=== PATIENT | female | born 1965 | race Caucasian/White ===

== ENCOUNTER → 2020-01-04 10:41 | Outpatient (BNVA) | payer MEDICAID, SELFPAY | PROVIDERS: Family Provider Family Medicine; PCP Family Medicine; Visit Provider Nurse Practitioner | DX: F41.1 Generalized anxiety disorder (principal); F43.12 Post-traumatic stress disorder, chronic | CPT/HCPCS: 99213 ==

== ENCOUNTER 2020-01-04 11:01 | Observation (INO) | payer MEDICAID, SELFPAY ==
[2020-01-04] VITALS (11 sets, daily range): BP systolic 91–142; BP diastolic 47–98; PULSE 62–82; RESP 16–31; TEMP 36.7–37.2; O2SAT 92–98; BMI 28.8
--- NOTE | 2020-01-04 11:09 | ED_ITS ---
Entered by Ilsa Claudio, acting as scribe for Ashlee Baker HPI - Chest Pain General: Chief Complaint: Chest Pain Stated Complaint: Chest pain Time Seen by Provider: 01/04/20 11:08 Source: patient Mode of arrival: ambulatory Limitations: no limitations History of Present Illness: HPI narrative: 54 yo Female presents to ED with complaint of chest pain and pancreas pain. Pt states that her pancreas started hurting several days ago. Pt states that she still has her gallbladder and has high glycerides. Pt states that she has a cardiac history with 11 cardiac jen nts. Pt states that her chest pain started this morning. Pt states that she took 2 nitro with no relief and an 81 mg aspirin. MD complaint: chest pain Pertinent past history: prior DE and CABG Onset (ago): hour(s) Timing of current episode: constant and still present Prior episodes: Yes Onset: during rest Pain location: substernal Pain radiation: right arm and neck Quality: tightness and heaviness Relieving factors: nothing Exacerbating factors: nothing Associated symptoms: Reports abdominal pain, dyspnea and nausea; Deny diaphoresis, fever(s), palpitations or syncope Treatment prior to arrival: aspirin and nitroglycerin Review of Systems General: Reports: other (negative unless marked) Const: Denies: fever, chills, body aches, fatigue, malaise or diaphoresis Eyes: Denies: change in vision or blurry vision ENMT: Denies: throat pain, painful swallowing, hoarseness, ear pain, ear discharge, Change in hearing or nasal discharge Card: Reports: chest pain; Denies: palpitations, irregular heart rhythm, syncope, pre-syncope, shortness of breath on exertion or shortness of breath when lying down Resp: Reports: shortness of breath GI: Reports: abdominal pain and nausea : Denies: flank pain, painful urination, urinary frequency, urinary urgency, decreased urine ouput, urinary incontinence or blood in urine Musc: Denies: neck pain, back pain, extremity pain, extremity swelling, joint pain, joint swelling, joint warmth or joint stiffness Skin/Breast: Denies: rash, skin tenderness or yellow skin Neuro: Denies: headache, numbness in extremities, weakness in extremities, changes in sensation, lack of coordination, difficulty walking, dizziness, vertigo or confusion Endo: Denies: excessive thirst, tired all the time, cold intolerance, excessive sweating, flushing or hot flashes [place]/Lymph: Denies: easy bruising, easy bleeding, petechiae or enlarged lymph nodes All/Imm: Denies: hives, throat swelling, tongue swelling, facial swelling or acute wheezing PFSH ED PFSH: Statuses (acute, chronic, etc) shown below reflect problem list status as previously entered and may not be historically accurate Medical History (Updated 01/04/20 @ 19:17 by Aslhee Baker) Coronary artery disease (Acute) Depression with anxiety (Acute) Generalized anxiety disorder (Acute) GERD (gastroesophageal reflux disease) (Acute) Hypertension (Acute) Hypertriglyceridemia (Acute) Insulin dependent diabetes mellitus (Acute) Irritable bowel syndrome (Acute) Pancreatitis (Acute) Post-traumatic stress disorder, chronic (Acute) Ulcerative colitis (Acute) Surgical History (Updated 01/04/20 @ 15:49 by Alice Moura MD) H/O tubal ligation (Acute) H/O: hysterectomy (Acute) History of carpal tunnel surgery (Acute) Hx of tonsillectomy (Acute) S/P CABG x 4 (Acute) S/P coronary artery stent placement (Acute) Family History (Updated 01/04/20 @ 15:49 by Alice Moura MD) Mother Dementia Father CAD (coronary artery disease) Social History (Updated 01/04/20 @ 15:49 by Alice Moura MD) Smoking and tobacco status: former smoker Alcohol intake: never Substance/Drug Use: never Physical Exam Const: COMMON NORMALS: no apparent distress, oriented x3, no limitations, healthy appearing and well nourished EXAM LIMITATIONS: no altered mental status GENERAL APPEARANCE: cooperative, well kempt and well developed ORIENTATION/CONSCIOUSNESS: Yes awake HENMT: COMMON NORMALS: normocephalic, head/scalp atraumatic, hearing grossly normal bilaterally, external ears normal, EAC's normal, external nose normal and moist oral mucous membranes HEAD & SCALP: normal to inspection, normocephalic and atraumatic FACE & SINUS: normal facial exam and face symmetric NOSE: external nose normal and nares normal EXTERNAL EAR: Yes external ears normal EXTERNAL AUDITORY CANAL: EAC's normal MOUTH: oral and palatal mucosa normal and tongue normal Eye: COMMON NORMALS: PERRL, EOMs intact bilaterally, conjunctivae normal and no scleral icterus GENERAL EYE: normal appearance of both eyes and normal light reflex CONJUNCTIVA: Yes conjunctivae normal SCLERA: sclerae normal CORNEA: Yes corneas normal PUPIL: Yes PERRL DIRECT OPHTHALMOSCOPY: Yes normal light reflex Neck/C-Spine: COMMON NORMALS: full ROM, no lymphadenopathy, supple, no meningeal signs and no JVD GENERAL: Yes normal visual inspection and Yes trachea midline CERVICAL SPINE: Yes cervical ROM normal Chest: COMMONS NORMALS: inspection of chest normal and palpation of chest normal Resp: COMMON NORMALS: normal respiratory effort, no retractions, no use of accessory muscles and clear to auscultation bilaterally EFFORT & INSPECTION: Yes able to speak in complete sentences AUSCULTATION: clear to auscultation bilaterally Cardio: COMMON NORMALS: no JVD, regular rate, regular rhythm, S1 normal heart sound, S2 normal heart sound, no gallops, no clicks, no murmurs and no rub JUGULAR VENOUS DISTENTION: no JVD RATE: regular rate RHYTHM: regular rhythm HEART SOUNDS: S1 normal and S2 normal GI: COMMON NORMALS: soft to palpation, non-tender, no hepatosplenomegaly and no masses INSPECTION: Yes normal to inspection PALPATION: Yes soft and Yes no hepatosplenomegaly : COMMON NORMALS: Yes no CVA tenderness BLADDER/KIDNEY EXAM: Yes no CVA tenderness Back/Pelvis: COMMON NORMALS: no CVA tenderness, thoracic and lumbar spine normal to inspection, no thoracic nor lumbar tenderness and thoraco-lumbar ROM normal Extremity: COMMON NORMALS: normal to inspection, full ROM, normal capillary refill, no joint enlargement, no clubbing, cyanosis or edema and no calf tenderness Neuro: COMMON NORMALS: oriented x3, CN's II-XII intact bilaterally, moves all extremities, no focal motor deficits and no sensory deficits noted MENINGEAL SIGNS: Yes no meningeal signs Psych: COMMON NORMALS: mental status grossly normal, thought process normal, cooperative, affect normal, speech normal and activity/motor behavior normal APPEARANCE: Yes well kempt SPEECH: Yes normal speech THOUGHT PROCESS: normal thought process Skin: COMMON NORMALS: no rashes or lesions noted, skin turgor normal, no jaundice, no petechiae and no mottling GENERAL SKIN EXAM: no rashes or lesions noted and turgor normal Course Vital Signs: Vital signs: Vital Signs Temperature 98.6 F 01/04/20 16:00 Pulse Rate 71 01/04/20 16:25 Respiratory Rate 21 H 01/04/20 16:25 Blood Pressure 115/74 01/04/20 16:25 Pulse Oximetry 96 01/04/20 16:25 MDM - Chest Pain MDM Narrative: Medical decision making narrative: Patient's case was reviewed with Dr. Lynda Daugherty, she will admit for chest pain rule out. Patient shows no sign of acute STEMI at this point and no sign of pancreatitis. Lab Data: Labs: Lab Results 01/04/20 01/04/20 01/04/20 Range/Units 11:40 11:40 11:40 WBC 8.4 (4.0-10.0) 10^3/ uL RBC 4.70 (4.1-5.3) 10^6/u L Hgb 13.0 (11.5-15.3) g/dL Hct 40.3 (37.0-47.0) % MCV 85.7 (81-99) fL MCH 27.7 L (28.0-34.0) pg MCHC 32.3 (30.0-36.0) g/dL RDW 14.0 (12.1-15.1) % Plt Count 267 (130-400) 10^3/c mm MPV 11.3 H (7.4-10.4) fL Neut % (Auto) 62.9 % Lymph % (Auto) 32.1 % [place] % (Auto) 3.4 % Eos % (Auto) 1.0 % Baso % (Auto) 0.5 % Neut # (Auto) 5.3 (1.8-7.7) 10^3/u L Lymph # (Auto) 2.7 (0.8-4.8) 10^3/u L [place] # (Auto) 0.3 (0.2-0.9) 10^3/u L Eos # (Auto) 0.1 (0.0-0.8) 10^3/u L Baso # (Auto) 0.0 (0.0-0.1) 10^3/u L Nucleated RBC % (a uto) 0 % Nucleated RBCs # 0.0 /100WBC Sodium 133 L (136-145) mmol/L Potassium 4.7 (3.5-5.1) mmol/L Chloride 95 L (98-107) mmol/L Carbon Dioxide 21 L (22-29) mmol/L Anion Gap 21.7 H (5-19) BUN 10 (6-20) mg/dL Creatinine 0.8 (0.5-0.9) mg/dL GFR Calculation 74.7 L (90-130) mL/min Glucose 279 H (65-115) mg/dL Calcium 10.5 (8.5-10.5) mg/dL Magnesium 1.5 L (1.7-2.3) mg/dL Total Bilirubin 0.2 (0.15-1.2) mg/dL AST 25 (0-32) U/L ALT 17 (0-33) U/L Alkaline Phosphata se 169 H (35-105) IU/L Troponin T Baselin e (0-10) ng/mL Troponin T 120 Min [place] (0-10) ng/mL Delta Troponin T (0-10) ABS# NT-Pro-B Natriuret Pep 401 H (0-125) pg/mL Total Protein 7.4 (6.6-8.7) g/dL Albumin 4.1 (3.5-5.2) g/dL Globulin 3.3 (1.3-4.6) g/dL Lipase 8 L (13-60) U/L HCG, Qual Negative (Negative) 01/04/20 01/04/20 Range/Units 12:22 14:30 WBC (4.0-10.0) 10^3/ uL RBC (4.1-5.3) 10^6/u L Hgb (11.5-15.3) g/dL Hct (37.0-47.0) % MCV (81-99) fL MCH (28.0-34.0) pg MCHC (30.0-36.0) g/dL RDW (12.1-15.1) % Plt Count (130-400) 10^3/c mm MPV (7.4-10.4) fL Neut % (Auto) % Lymph % (Auto) % [place] % (Auto) % Eos % (Auto) % Baso % (Auto) % Neut # (Auto) (1.8-7.7) 10^3/u L Lymph # (Auto) (0.8-4.8) 10^3/u L [place] # (Auto) (0.2-0.9) 10^3/u L Eos # (Auto) (0.0-0.8) 10^3/u L Baso # (Auto) (0.0-0.1) 10^3/u L Nucleated RBC % (a uto) % Nucleated RBCs # /100WBC Sodium (136-145) mmol/L Potassium (3.5-5.1) mmol/L Chloride (98-107) mmol/L Carbon Dioxide (22-29) mmol/L Anion Gap (5-19) BUN (6-20) mg/dL Creatinine (0.5-0.9) mg/dL GFR Calculation (90-130) mL/min Glucose (65-115) mg/dL Calcium (8.5-10.5) mg/dL Magnesium (1.7-2.3) mg/dL Total Bilirubin (0.15-1.2) mg/dL AST (0-32) U/L ALT (0-33) U/L Alkaline Phosphata se (35-105) IU/L Troponin T Baselin e 9 (0-10) ng/mL Troponin T 120 Min [place] 8.42 (0-10) ng/mL Delta Troponin T -0.58 L (0-10) ABS# NT-Pro-B Natriuret Pep (0-125) pg/mL Total Protein (6.6-8.7) g/dL Albumin (3.5-5.2) g/dL Globulin (1.3-4.6) g/dL Lipase (13-60) U/L HCG, Qual (Negative) Imaging Data^: US Abdomen : Radiologist's impression: [address] [address] Ultrasound Report Signed Patient: Collette Kothari #: [id number] : 1965Acct#:[id number] Age/Sex: 54 / FADM Date: 01/04/20 Loc: ERRoom/Bed: Attending Dr: Ordering Provider/Ordering MD: Ashlee Baker DO Date of Service: 01/04/20 Procedure(s): US abdomen complete* [id number] Accession Number(s): [id number] Report Number: [id number] WS: [id number] Complete ABDOMINAL ULTRASOUND HISTORY: Abdominal Pain COMPARISON: 04/21/2019 Liver: 17.6 cm in length. Liver is normal size and echogenicity with no mass or intrahepatic dilatation. Gallbladder: Normally distended with no gallstones, wall thickening or pericholecystic fluid. Gallbladder wall thickness: 0.2 cm. Pancreas: Normal size and echogenicity. CBD: 0.6 cm. Right kidney: 12.1 cm x 4.2 cm x 5.5 cm. No mass, cortical thickening or hydronephrosis. Left kidney: 11.0 cm x 4.8 cm x 5.2 cm. No mass, cortical thickening or hydronephrosis. Spleen: Normal size and echogenicity. Abdominal aorta and IVC are within normal limits. No ascites. US/US abdomen complete* [id number] IMPRESSION: Normal complete abdomen ultrasound. Dictated By:Jess Hill DO Signed By:Jess Hill DOSigned Date/Time:01/04/20 1141 DD/ 1139 CXR: My impression: No acute cardiopulmonary findings. CT Abd/Pel: Radiologist's impression: [place] [address] CT Scan Report Signed Patient: Collette Kothari #: [id number] : 1965Acct#:[id number] Age/Sex: 54 / FADM Date: 01/04/20 Loc: ERRoom/Bed: Attending Dr: Ordering Provider/Ordering MD: Ashlee Baker DO Date of Service: 01/04/20 Procedure(s): CT abdomen pelvis w con* [id number] Accession Number(s): [id number] Report Number: [id number] WS: [id number] CT ABDOMEN AND PELVIS WITH CONTRAST HISTORY: Abdominal Pain TECHNIQUE: Imaging performed of the abdomen and pelvis with IV contrast. Single phase imaging of the abdomen. Coronal and sagittal reformats are submitted. All CT scans at [facility] use at least one of these dose optimization techniques: automated exposure control; mA and/or kV adjustment per patient size (includes targeted exams where dose is matched to clinical indication); or iterative reconstruction. IV CONTRAST: Omnipaque 300; 95 mL IV. Oral contrast: No DLP: 1207.3 mGy.cm COMPARISON: 10/19/2019 Lower thorax: Lung bases are clear. Heart is normal size. No hiatal hernia. Liver/biliary system: Normal size liver with the RIGHT lobe granuloma. No bile duct dilatation. Gallbladder: Normal. No gallstones or wall thickening. No pericholecystic fluid. Pancreas: Normal. Spleen: Normal. Adrenal glands: Normal. Right kidney: Normal. Left kidney: Normal. Aorta: Normal. Lymphadenopathy: None. Free fluid: None. GI tract: Moderate constipation throughout the entire colon. The appendix is definitely identified and there is no evidence for appendicitis or acute inflammatory process. Abdominal wall: Unremarkable abdominal wall. No hernia. Pelvis: Normal. Bones: Unremarkable. CT/CT abdomen pelvis w con* [id number] IMPRESSION: 1. Moderate diffuse constipation without appendicitis or obstruction. 2. No acute abdomen or pelvic abnormalities. 3. No evidence for pancreatitis or renal obstruction. Dictated By:Jess Hill DO Signed By:Jess Hill DOSigned Date/Time:01/04/201419 DD/ 09 EKG Data^: EKG 1: Attestation: I personally reviewed and interpreted this EKG as follows: EKG interpretation date: 01/04/20 EKG interpretation time: 11:12 Interpretation: Normal sinus rhythm at 84 beats a minute, normal axis, normal intervals, nonspecific ST-T wave changes. Unchanged from previous. EKG 2: Attestation: I personally reviewed and interpreted this EKG as follows: EKG interpretation date: 01/04/20 EKG interpretation time: 13:36 Interpretation: Normal sinus rhythm at 69 beats a minute, no acute ST-T wave changes. Discharge Plan Discharge Patient Disposition: Admitted As Inpatient Admit Provider: Alice Moura Clinical Impression: Chest pain Condition: Stable Interventions: ED Discharge Assessment Last Done: 01/04/20 15:47 Discharge Date/Time: 01/04/20 15:48 Coding Level of Care Code ED Psychiatric Lpn for Chg Fwd Exam Problem Focused The documentation recorded by the Shanon sen Carmen, accurately reflects the service I personally performed and the decisions made by Olivia [place] Eli N Jan 04, 2020 11:01
--- NOTE | 2020-01-04 11:09 | XR_ITS ---
WS: [id number] PORTABLE CHEST HISTORY: cough COMPARISON: 10/19/2019 Prior CABG. Lungs are clear and well expanded. No pleural effusion or pneumothorax. Cardiac size: Normal. Mediastinum/Aorta: Normal mediastinum. No osseous abnormality seen. XR/XR chest 1V portable [id number] IMPRESSION: Stable chest with no acute cardiopulmonary disease.
--- NOTE | 2020-01-04 11:15 | US_ITS ---
WS: [id number] Complete ABDOMINAL ULTRASOUND HISTORY: Abdominal Pain COMPARISON: 04/21/2019 Liver: 17.6 cm in length. Liver is normal size and echogenicity with no mass or intrahepatic dilatati on. Gallbladder: Normally distended with no gallstones, wall thickening or pericholecystic fluid. Gallbladder wall thickness: 0.2 cm. Pancreas: Normal size and echogenicity. CBD: 0.6 cm. Right kidney: 12.1 cm x 4.2 cm x 5.5 cm. No mass, cortical thickening or hydronephrosis. Left kidney: 11.0 cm x 4.8 cm x 5.2 cm. No mass, cortical thickening or hydronephrosis. Spleen: Normal size and echogenicity. Abdominal aorta and IVC are within normal limits. No ascites. US/US abdomen complete* [id number] IMPRESSION: Normal complete abdomen ultrasound.
[2020-01-04] MEDS: nitroglycerin 0.4 mg sublingual Tablet SUBLINGUAL ×3 (11:21→11:51)
[2020-01-04] MEDS: aspirin 325 mg Tablet PO (11:21)
[2020-01-04] MEDS: ondansetron 2 mg/ML SDV 2 mL 4 MG IVP ×2 (11:51→18:54)
[2020-01-04] MEDS: diphenhydrAMINE 50 mg/mL SDV 1mL 12.5 MG IVP (11:51)
[2020-01-04] MEDS: morphine 4 mg/mL SDV 1 mL 6 MG IVP (11:52)
[2020-01-04 11:59] LABS: Basophils % 0.5 %; Eosinophils # 0.1 10^3/uL (0.0-0.8); Hematocrit 40.3 % (37.0-47.0); Lymphocytes # 2.7 10^3/uL (0.8-4.8); Lymphocytes % 32.1 %; Mean Corpuscular HGB Conc 32.3 g/dL (30.0-36.0); Mean Corpuscular Hemoglobin 27.7 pg (28.0-34.0); Mean Corpuscular Volume 85.7 fL (81-99); Mean Platelet Volume 11.3 fL (7.4-10.4); Monocytes # 0.3 10^3/uL (0.2-0.9); Monocytes % 3.4 %; Neutrophils # 5.3 10^3/uL (1.8-7.7); Neutrophils % 62.9 %; Nucleated Red Blood Cells % 0 %; Platelet Count 267 10^3/cmm (130-400); White Blood Count 8.4 10^3/uL (4.0-10.0)
[2020-01-04 12:07] LABS: HCG, Serum Qual Negative (Negative)
--- NOTE | 2020-01-04 12:08 | CT_ITS ---
WS: [id number] CT ABDOMEN AND PELVIS WITH CONTRAST HISTORY: Abdominal Pain TECHNIQUE: Imaging performed of the abdomen and pelvis with IV contrast. Single phase imaging of the abdomen. Coronal and sagittal reformats are submitted. All CT scans at [facility] use at least one of these dose optimization techniques: automated exposure control; mA and/or kV adjustment per patient size (includes targeted exams where dose is matched to clinical indication); or iterativ e reconstruction. IV CONTRAST: Omnipaque 300; 95 mL IV. Oral contrast: No DLP: 1207.3 mGy.cm COMPARISON: 10/19/2019 Lower thorax: Lung bases are clear. Heart is normal size. No hiatal hernia. Liver/biliary system: Normal size liver with the RIGHT lobe granuloma. No bile duct dilatation. Gallbladder: Normal. No gallstones or wall thickening. No pericholecystic fluid. Pancreas: Normal. Spleen: Normal. Adrenal glands: Normal. Right kidney: Normal. Left kidney: Normal. Aorta: Normal. Lymphadenopathy: None. Free fluid: None. GI tract: Moderate constipation throughout the entire colon. The appendix is definitely identified an d there is no evidence for appendicitis or acute inflammatory process. Abdominal wall: Unremarkable abdominal wall. No hernia. Pelvis: Normal. Bones: Unremarkable. CT/CT abdomen pelvis w con* [id number] IMPRESSION: 1. Moderate diffuse constipation without appendicitis or obstruction. 2. No acute abdomen or pelvic abnormalities. 3. No evidence for pancreatitis or renal obstruction.
[2020-01-04 12:26] LABS: Alanine Aminotransferase 17 U/L (0-33); Albumin Level 4.1 g/dL (3.5-5.2); Alkaline Phosphatase 169 IU/L (35-105); Anion Gap 21.7 (5-19); Aspartate Amino Transferase 25 U/L (0-32); Blood Urea Nitrogen 10 mg/dL (6-20); Calcium 10.5 mg/dL (8.5-10.5); Carbon Dioxide 21 mmol/L (22-29); Chloride 95 mmol/L (98-107); Globulin 3.3 g/dL (1.3-4.6); Glomerular Filtration Rate 74.7 mL/min (90-130); Glucose 279 mg/dL (65-115); Lipase 8 U/L (13-60); Magnesium 1.5 mg/dL (1.7-2.3); NT Pro B Type Natriuretic Pept 401 pg/mL (0-125); Potassium 4.7 mmol/L (3.5-5.1); Sodium 133 mmol/L (136-145); Total Bilirubin 0.2 mg/dL (0.15-1.2); Total Protein 7.4 g/dL (6.6-8.7)
[2020-01-04] MEDS: nitroglycerin 1 gm/inch oint Pkt 1 INCH TOPICAL (12:44)
[2020-01-04] MEDS: HYDROmorphone 1 mg/mL INJ 1 mL IVP ×2 (12:44→15:11)
[2020-01-04 12:48] LABS: Troponin(5th) Baseline 9 ng/mL (0-10)
--- NOTE | 2020-01-04 13:09 | ECG_ITS ---
Measurements Intervals [place] Rate: 69 P: 58 ME: 162 QRS: 55 QRSD: 93 T: 53 QT: 415 QTc: 446 SINUS RHYTHM SEPTAL MYOCARDIAL INFARCTION [40+ ms Q WAVE IN V1/V2], PROBABLY OLD WARNING: DATA QUALITY MAY AFFECT INTERPRETATION Compared to ECG 10/19/2019 16:25:49 No significant changes Electronically Signed On 01-04-2020 20:08:34 [employer] by Kianna Aguilera M.D. [email or web address]
[2020-01-04 14:53] LABS: Troponin 5 2HR 8.42 ng/mL (0-10)
[2020-01-04] MEDS: magnesium sulfate premix 2 GM/50 ML PIGGYBACK IV (15:11)
[2020-01-04] MEDS: promethazine 25 mg Tablet PO (15:12)
[2020-01-04 15:13] LABS: Troponin 5 2HR Delta -0.58 ABS# (0-10)
--- NOTE | 2020-01-04 15:36 | P.HP_ITS ---
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 Her last meal was early yesterday morning and was a bowl of cereal. Last bowel movement was approximately 2 days ago when she noticed blood in her stool and had to strain. She has a chronic history of triglyceride induced pancreatitis as well as an element of gastroparesis secondary to uncontrolled diabetes. She has been admitted previously at our facility for the same. She has a known history of CAD as mentioned above and during her last admission in 08/2019 she was found to have three-vessel CAD with total occlusion of mid LAD, proximal circumflex and distal RCA. 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 She takes both aspirin and Plavix as well as a statin and Imdur. She reports compliance with her medications. Takes hydrocodone at home as needed for pain. She is visibly uncomfortable during my evaluation in the ER and so far has received a total of 6 mg of morphine, 2 mg of Dilaudid, inch of Nitropaste, Zofran and Phenergan as well as full dose aspirin. She continues to complain of pain and nausea. Vital signs are stable. CBC is unremarkable, chemistry is also unremarkable except for blood sugar of 279. EKG shows no acute ischemic changes and initial troponin is normal. Lipase is negative, abdominal ultrasound is negative for any acute pathology, CT of the abdomen and pelvis shows constipation but no other intra-abdominal pathology. Given her history of coronary artery disease she has been admitted for rule out ACS work- up as well as appropriate pain control. Review of Systems Const: Reports: change in appetite (decreased appetite) and fatigue; Denies: fever or chills Eyes: Denies: change in vision ENMT: Reports: dry mouth Card: Denies: chest pain, swelling of feet/ankles or lightheadedness Resp: Reports: productive cough (green sputum); Denies: shortness of breath GI: Denies: abdominal pain, nausea, vomiting, vomiting blood or blood in stool : Reports: urinary frequency; Denies: difficulty urinating or painful urination Musc: Denies: back pain Skin/Breast: Denies: rash Neuro: Reports: weakness in extremities; Denies: numbness in extremities Psych: Denies: anxiety Medications/Allergies Home Medications Medication Instructions Recorded Confirmed Last Taken Type Ambien 10 mg PO BEDTIME 01/04/20 01/04/20 01/03/20 History Xanax 0.5 mg PO QAM 01/04/20 01/04/20 01/03/20 History amlodipine 5 mg PO DAILY 01/04/20 01/04/20 01/03/20 History carvedilol 25 mg PO BID 01/04/20 01/04/20 01/03/20 History clopidogrel 75 mg PO DAILY 01/04/20 01/04/20 01/03/20 History evolocumab [Repatha SureClick] 140 mg SUBCUT Q14D 01/04/20 01/04/20 12/31/19 History fenofibrate nanocrystallized 145 mg PO DAILY 01/04/20 01/04/20 01/03/20 History gemfibrozil 600 mg PO DAILY 01/04/20 01/04/20 01/03/20 History hydrochlorothiazide 12.5 mg PO DAILY 01/04/20 01/04/20 01/03/20 History hydrocodone-acetaminophen 1 tab PO Q6H PRN 01/04/20 01/04/20 01/03/20 History insulin aspart U-100 [Novolog 10 unit SUBCUT TID 01/04/20 01/04/20 01/03/20 History Flexpen U-100 Insulin] isosorbide mononitrate 30 mg PO DAILY 01/04/20 01/04/20 01/03/20 History mesalamine [Lialda] 2.4 g PO DAILY 01/04/20 01/04/20 01/03/20 History pantoprazole 40 mg PO BID 01/04/20 01/04/20 01/03/20 History pregabalin [Lyrica] 150 mg PO TID 01/04/20 01/04/20 01/03/20 History tizanidine 4 mg PO TID 01/04/20 01/04/20 01/03/20 History trazodone 150 mg PO BEDTIME 01/04/20 01/04/20 01/03/20 History Allergies Allergy/AdvReac Type Severity Reaction Status Date / Time doxycycline Allergy Unknown Verified 01/04/20 11:21 escitalopram [From Lexapro] Allergy Unknown Verified 01/04/20 11:21 lisinopril Allergy Unknown Verified 01/04/20 11:21 nalbuphine [From Nubain] Allergy Unknown Verified 01/04/20 11:21 nortriptyline Allergy Unknown Verified 01/04/20 11:21 rosuvastatin [From Crestor] Allergy Unknown Verified 01/04/20 11:21 sumatriptan [From Imitrex] Allergy Unknown Verified 01/04/20 11:21 PFSH Acute PFSH: Statuses (acute, chronic, etc) shown below reflect problem list status as previously entered and may not be historically accurate Medical History (Updated 01/04/20 @ 15:56 by Alice Moura MD) Coronary artery disease (Acute) Depression with anxiety (Acute) Generalized anxiety disorder (Acute) GERD (gastroesophageal reflux disease) (Acute) Hypertension (Acute) Hypertriglyceridemia (Acute) Insulin dependent diabetes mellitus (Acute) Irritable bowel syndrome (Acute) Pancreatitis (Acute) Post-traumatic stress disorder, chronic (Acute) Ulcerative colitis (Acute) Surgical History (Updated 01/04/20 @ 15:49 by Alice Moura MD) H/O tubal ligation (Acute) H/O: hysterectomy (Acute) History of carpal tunnel surgery (Acute) Hx of tonsillectomy (Acute) S/P CABG x 4 (Acute) S/P coronary artery stent placement (Acute) Family History (Updated 01/04/20 @ 15:49 by Alice Moura MD) Mother Dementia Father CAD (coronary artery disease) Social History (Updated 01/04/20 @ 15:49 by Alice Moura MD) Smoking and tobacco status: former smoker Alcohol intake: never Substance/Drug Use: never Vitals/I&O/Wt Last Vital Signs Temp 99.0 F 01/04/20 11:09 Pulse 82 01/04/20 12:30 Resp 18 01/04/20 15:11 BP 137/81 01/04/20 12:30 Pulse Ox 97 01/04/20 15:11 Weight last 48 hrs Weight 88.451 kg Physical Exam Const: COMMON NORMALS: no apparent distress and oriented x3 GENERAL APPEARANCE: cooperative and anxious; not comfortable NUTRITIONAL APPEARANCE: obese ORIENTATION/CONSCIOUSNESS: Yes awake HENMT: COMMON NORMALS: normocephalic, head/scalp atraumatic and hearing grossly normal bilaterally HEAD & SCALP: normocephalic and atraumatic MOUTH: moist mucous membranes abnormal Details: parched Eye: COMMON NORMALS: PERRL, EOMs intact bilaterally and conjunctivae normal CONJUNCTIVA: Yes conjunctivae normal PUPIL: Yes PERRL Neck/C-Spine: COMMON NORMALS: full ROM GENERAL: Yes normal visual inspection and Yes trachea midline Chest: COMMONS NORMALS: palpation of chest normal Resp: COMMON NORMALS: normal respiratory effort, no retractions, no use of accessory muscles and clear to auscultation bilaterally EFFORT & INSPECTION: Yes able to speak in complete sentences, Yes symmetric chest movement and No tachypneic AUSCULTATION: clear to auscultation bilaterally Cardio: COMMON NORMALS: regular rate, regular rhythm, S1 normal heart sound, S2 normal heart sound and no murmurs RATE: regular rate RHYTHM: regular rhythm HEART SOUNDS: S1 normal and S2 normal GI: COMMON NORMALS: soft to palpation INSPECTION: Yes normal to inspection and Yes central obesity AUSCULTATION: Yes normoactive bowel sounds PALPATION: Yes soft, Yes tender (epigastric and RUQ), No guarding, No rigid and No rebound tenderness present Back/Pelvis: COMMON NORMALS: no CVA tenderness Extremity: COMMON NORMALS: normal to inspection, full ROM and no clubbing, cyanosis or edema; negative for no pedal edema Neuro: COMMON NORMALS: oriented x3, moves all extremities, no focal motor deficits and no sensory deficits noted Psych: COMMON NORMALS: mental status grossly normal, thought process normal, cooperative and speech normal SPEECH: Yes normal speech MOOD & AFFECT: Yes anxious THOUGHT PROCESS: normal thought process Skin: COMMON NORMALS: no rashes or lesions noted, no jaundice, no petechiae and no mottling GENERAL SKIN EXAM: no rashes or lesions noted Data : 01/04/20 11:40 01/04/20 11:40 A&P Assessment and plan (1) Chest pain: -Patient has significant CAD history status post CABG x4 and multiple stents, states she has 11 stents most recently done in September after finding of positive stress test and coronary angiogram showing three-vessel CAD with total occlusion of mid LAD, proximal circumflex and distal RCA. She had her most recent stents placed in [place] she follows up with cardiology -Seems to have some element of anginal pain -Trend troponins and serial EKGs -Telemetry monitoring -Monitor vital signs -SAMI -Resume Plavix and statin -Chest x-ray unremarkable -Order A1c, lipid panel and TSH Status: Acute Qualifiers: Chest pain type: other chest pain Qualified Code(s): R07.89 - Other chest pain Code(s): R07.9 - Chest pain, unspecified (2) Abdominal pain: -Has history of triglyceride induced pancreatitis as well as gastroparesis from poorly controlled diabetes -No evidence of acute pancreatitis based on normal lipase and unremarkable CT of the abdomen and pelvis -Gallbladder ultrasound negative -Keep n.p.o. for now -Pain control, antiemetics as needed -IV fluid hydration -evidence of constipation on imaging; start on bowel regimen -reported blood in stool; H/H stable; order FOBT Status: Acute Qualifiers: Abdominal location: upper abdomen, unspecified Qualified Code(s): R1 0.10 - Upper abdominal pain, unspecified Code(s): R10.9 - Unspecified abdominal pain Additional A&P Information -HTN; resume oral antihypertensives -Hyperlipidemia, hypertriglyceridemia; resume statin, gemfibrozil, fenofibrate; Repatha is non-formulary; will recheck lipid panel -IDDM type II; recheck A1c; Accuchecks, ISS -IBS, ulcerative colitis -Depression, anxiety; resume anxiolytics -Dysuria; check UA -NPO for now -GI ppx with PPI -DVT ppx with Lovenox -Dispo: home -Code status: FULL code Attestations Medical Necessity Statement*: Collette Malonetrevin's hospital stay will be less than 2 midnights for rule out ACS work-up secondary to complaints of chest pain as well as management of abdominal pain. Time Spent in Patient Care: Greater than 35 minutes (>than 50% of time spent in counselling and/or direct pt care on unit) . Coding Level of Care Code Acute Manager Service Desk for Chg Fwd Diagnoses Chest pain R07.89 Chest pain type: other chest pain Abdominal pain R10.10 Abdominal location: upper abdomen, unspecified
--- NOTE | 2020-01-04 17:09 | ECG_ITS ---
Measurements Intervals [place] Rate: 84 P: 46 VT: 151 QRS: -6 QRSD: 92 T: 62 QT: 351 QTc: 415 SINUS RHYTHM NONSPECIFIC T-WAVE ABNORMALITY Compared to ECG 10/19/2019 16:25:49 T-wave abnormality now present Myocardial infarct finding no longer present Electronically Signed On 01-04-2020 20:08:23 OVEN TENDER by Kianna Aguilera M.D. [email or web address]
[2020-01-04] MEDS: enoxaparin 40 mg/0.4 mL Syringe SUBCUT (18:11)
[2020-01-04] MEDS: HYDROmorphone 1 mg/mL INJ 1 mL 0.5 MG IVP (18:11)
[2020-01-04] MEDS: dextrose 5%-sod chloride 0.45% 1,000 ML 75 ML IV (18:12)
[2020-01-04] MEDS: pantoprazole DR 40 mg Tablet PO (18:48)
[2020-01-04] MEDS: sennosides-docusate Tablet 2 TAB PO (18:48)
[2020-01-04] MEDS: carvedilol 25 mg Tablet PO (18:48)
[2020-01-04] MEDS: bisacodyl 10 mg Supp PR (18:49)
[2020-01-04 19:23] LABS: Troponin 5 6HR 10.36 ng/L (0-10); Troponin 5 6HR Delta 1.36 ng/L (0-12)
--- NOTE | 2020-01-04 20:16 | NUR.SHIFT ---
Patient resting in bed at this time requesting that nursing turn her, encouraged patient to turn self, observed patient turning self. assisted with placement of pillows behind patient's back. Call light within reach. Care continued.
[2020-01-04 21:02] LABS: Bilirubin Urine 1+ (NEGATIVE); Blood Urine Neg (Negative); Glucose Urine UA 2+ (Normal); Ketones Urine Negative (Negative); Leukocyte Esterase Urine Negative (Negative); Nitrate Urine Negative (Negative); Protein Urine Trace (Negative); Urine Appearance Hazy (CLEAR); Urine Color Dark Yellow (Yellow); Urobilinogen Urine 1 mg/dL (Negative); pH Urine 5 (5-7)
[2020-01-04 21:03] LABS: Add Urine Microscopic? YES
[2020-01-04] MEDS: pregabalin 150 mg Capsule PO (21:13)
[2020-01-04] MEDS: trazodone 150 mg Tablet PO (21:13)
[2020-01-04] MEDS: tizanidine 4 mg Tablet PO (21:14)
[2020-01-04] MEDS: morphine 4 mg/mL SDV 1 mL IVP (21:15)
[2020-01-04 21:28] LABS: Bacteria Urine 1+; Mucus Urine TRACE
[2020-01-05] VITALS (9 sets, daily range): BP systolic 80–105; BP diastolic 47–62; PULSE 60–75; RESP 13–19; TEMP 36.7–36.8; O2SAT 92–96
[2020-01-05] MEDS: promethazine 25 mg Tablet 12.5 MG PO ×2 (01:12→07:48)
[2020-01-05] MEDS: HYDROmorphone 1 mg/mL INJ 1 mL 0.5 MG IVP ×2 (01:13→07:42)
[2020-01-05] MEDS: diphenhydrAMINE 25 mg Capsule PO (02:03)
[2020-01-05 05:08] LABS: Basophils % 0.4 %; Eosinophils # 0.3 10^3/uL (0.0-0.8); Hematocrit 39.1 % (37.0-47.0); Hemoglobin 12.4 g/dL (11.5-15.3); Lymphocytes # 4.2 10^3/uL (0.8-4.8); Lymphocytes % 50.4 %; Mean Corpuscular HGB Conc 31.7 g/dL (30.0-36.0); Mean Corpuscular Hemoglobin 27.8 pg (28.0-34.0); Mean Corpuscular Volume 87.7 fL (81-99); Mean Platelet Volume 11.4 fL (7.4-10.4); Monocytes # 0.4 10^3/uL (0.2-0.9); Monocytes % 4.6 %; Neutrophils # 3.5 10^3/uL (1.8-7.7); Neutrophils % 41.5 %; Nucleated Red Blood Cells % 0 %; Platelet Count 241 10^3/cmm (130-400); Red Blood Count 4.46 10^6/uL (4.1-5.3); Red Cell Distribution Width 14.6 % (12.1-15.1); White Blood Count 8.4 10^3/uL (4.0-10.0)
[2020-01-05 05:30] LABS: Chol HDL Ratio 6.37 mg/dL (0.0-4.40); Cholesterol 325 mg/dL (0-200); HDL Cholesterol 51 mg/dL (60-100); Triglycerides 746 mg/dL (0-150)
[2020-01-05 05:31] LABS: Alanine Aminotransferase 15 U/L (0-33); Albumin Level 3.4 g/dL (3.5-5.2); Alkaline Phosphatase 139 IU/L (35-105); Anion Gap 18.6 (5-19); Aspartate Amino Transferase 25 U/L (0-32); Blood Urea Nitrogen 8 mg/dL (6-20); Calcium 9.3 mg/dL (8.5-10.5); Carbon Dioxide 24 mmol/L (22-29); Chloride 98 mmol/L (98-107); Creatinine Clr Calc Pharmacy 129.1366; Globulin 3.4 g/dL (1.3-4.6); Glomerular Filtration Rate 104.2 mL/min (90-130); Glucose 143 mg/dL (65-115); Potassium 3.6 mmol/L (3.5-5.1); Sodium 137 mmol/L (136-145); Total Bilirubin 0.3 mg/dL (0.15-1.2); Total Protein 6.8 g/dL (6.6-8.7)
[2020-01-05 05:41] LABS: Thyroid Stimulating Hormone 1.95 uIU/mL (0.27-4.20)
[2020-01-05 06:03] LABS: Estmated Average Glucose 335; Hemoglobin A1C 13.3 % (4.0-6.0)
[2020-01-05 06:07] LABS: LDL Cholesterol Direct 183 mg/dL (0-100)
[2020-01-05] MEDS: dextrose 5%-sod chloride 0.45% 1,000 ML 75 ML IV (06:32)
[2020-01-05] MEDS: ALPRAZolam 0.5 mg Tablet PO (06:32)
[2020-01-05] MEDS: gemfibrozil 600 mg Tablet PO (08:57)
[2020-01-05] MEDS: carvedilol 25 mg Tablet PO (08:57)
[2020-01-05] MEDS: amlodipine 5 mg Tablet PO (08:57)
[2020-01-05] MEDS: sennosides-docusate Tablet 2 TAB PO (08:57)
[2020-01-05] MEDS: polyethylene glycol 3350 Pkt 17 gm PO (08:58)
[2020-01-05] MEDS: hydroCHLOROthiazide 25 mg Tablet 12.5 MG PO (08:58)
[2020-01-05] MEDS: isosorbide mononitrate ER 30 mg Tablet PO (08:58)
[2020-01-05] MEDS: clopidogrel 75 mg Tablet PO (08:58)
[2020-01-05] MEDS: tizanidine 4 mg Tablet PO (08:58)
[2020-01-05] MEDS: fenofibrate 145 mg Tablet PO (08:58)
[2020-01-05] MEDS: pantoprazole DR 40 mg Tablet PO (08:58)
[2020-01-05] MEDS: pregabalin 150 mg Capsule PO (08:58)
[2020-01-05] MEDS: acetaminophen 325 mg Tablet 650 MG PO (10:23)
--- NOTE | 2020-01-05 11:28 | ECG_ITS ---
Measurements Intervals [place] Rate: 60 P: 47 AL: 179 QRS: 7 QRSD: 93 T: 75 QT: 436 QTc: 436 SINUS RHYTHM LOW QRS VOLTAGE IN PRECORDIAL LEADS [QRS DEFLECTION < 1.0 mV IN CHEST LEADS] SEPTAL MYOCARDIAL INFARCTION [40+ ms Q WAVE IN V1/V2], PROBABLY OLD Compared to ECG 01/04/2020 13:36:41 Low QRS voltage now present Myocardial infarct finding still present Electronically Signed On 01-05-2020 19:58:20 RUBBER WASHER by Jitendra Ryder M.D. [id number]
--- NOTE | 2020-01-05 11:30 | PC.NURSE ---
patient complains of 10/10 pain ekg performed per protocol blood pressure noted 80/[address] álvarez notified orders to bolus remainder of fluids and recheck blood pressure unable to give PRN medications due to low blood pressure. will continue to monitor
--- NOTE | 2020-01-05 11:47 | PC.NURSE ---
patient continues to complain of 10/[address] álvarez notified reported to that blood pressure remained low no new orders given at this time
--- NOTE | 2020-01-05 11:48 | PC.NURSE ---
patient continues to complain of 10 how ever is requesting to eat Dr álvarez notified of patient complaints as well as request to eat Dr. álvarez ok with patient eating patient given tray and set up for meal.
--- NOTE | 2020-01-05 12:40 | PC.NURSE ---
Patient continues to complain of 10/10 chest pain however has eaten all of her meal and request another tray. took PRN toradol into room to help relief her pain without dropping her pressure any more patient reports that she is allergic to toradol when asked what happens to her because that was not on her allergies list patient reports that she breaks out and has trouble breathing. called Dr. álvarez reported the situation and no new orders given at this time. Dr álvarez reports she will be at bedside in a little bit to speak with the patient that she would have to just hold on a little bit.
--- NOTE | 2020-01-05 13:03 | P.DS_ITS ---
Discharge Providers Date of Admission: 01/04/20 14:40 Date of Discharge: January 05, 2020 Attending Provider at Admission: Alice Moura MD Attending Provider at Discharge: Alice Moura MD Primary Care Provider: Juno Farfanno Diagnoses at Discharge Discharge Diagnosis (1) Chest pain: Status: Acute Problem details: -Patient has significant CAD history status post CABG x4 and multiple stents, states she has 11 stents most recently done in September after finding of positive stress test and coronary angiogram showing three-vessel CAD with total occlusion of mid LAD, proximal circumflex and distal RCA. She had her most recent stents placed in [place] she follows up with cardiology -Seems to have some element of anginal pain -Trend troponins and serial EKGs -Telemetry monitoring -Monitor vital signs -SAMI -Resume Plavix and statin -Chest x-ray unremarkable -Order A1c, lipid panel and TSH Qualifiers: Chest pain type: unspecified Qualified Code(s): R07.9 - Chest pain, unspecified (2) Abdominal pain: Status: Acute Problem details: -Has history of triglyceride induced pancreatitis as well as gastroparesis from poorly controlled diabetes -No evidence of acute pancreatitis based on normal lipase and unremarkable CT of the abdomen and pelvis -Gallbladder ultrasound negative -Keep n.p.o. for now -Pain control, antiemetics as needed -IV fluid hydration -evidence of constipation on imaging; start on bowel regimen -reported blood in stool; H/H stable; order FOBT Qualifiers: Abdominal location: upper abdomen, unspecified Qualified Code(s): R10.10 - Upper abdominal pain, unspecified Other Information Additional DC diagnoses/information: -HTN; resume oral antihypertensives -Hyperlipidemia, hypertriglyceridemia; resume statin, gemfibrozil, fenofibrate; Repatha is non-formulary; lipid panel done with significantly elevated triglycerides (746), LDL (183), total cholesterol (325) -IDDM type II; A1c-13.3; Accuchecks, ISS -IBS, ulcerative colitis -Depression, anxiety; resume anxiolytics -Dysuria; UA contaminated Reason for Visit Reason for Visit: Reason For Visit: Chest pain Hospital Course Hospital Course: Patient was admitted to the cardiac step-down unit and had rule out ACS work-up. Troponins have been negative with no significant delta change x6 hours. She had also complained of abdominal pain and was kept n.p.o. overnight with appropriate pain control and antiemetics as needed. Diet was started and advanced as tolerated this morning; she has had a very good appetite and good intake despite continued complaints of pain and requests for pain medicine. She was hydrated overnight with IV fluids. She will be discharged home to continue her home medications without any changes. Of abdominal pain has been negative including normal lipase, no evidence of pancreatitis or gallbladder disease on CT scan and abdominal ultrasound. UA was contaminated. She was somewhat hypotensive this morning but after a fluid bolus her blood pressure has improved. Her A1c is 13.3 reflecting poorly controlled diabetes. Lipid panel shows significantly elevated triglycerides, LDL and total cholesterol. TSH is normal. Discharge Summary: Patient to follow-up with her primary care provider within 1 week Physical Exam Const: COMMON NORMALS: no apparent distress and oriented x3 GENERAL APPEARANCE: cooperative and anxious NUTRITIONAL APPEARANCE: obese ORIENTATION/CONSCIOUSNESS: Yes awake HENMT: COMMON NORMALS: normocephalic, head/scalp atraumatic and hearing grossly normal bilaterally HEAD & SCALP: normocephalic and atraumatic MOUTH: moist mucous membranes abnormal Details: parched Eye: COMMON NORMALS: PERRL, EOMs intact bilaterally and conjunctivae normal CONJUNCTIVA: Yes conjunctivae normal PUPIL: Yes PERRL Neck/C-Spine: COMMON NORMALS: full ROM GENERAL: Yes normal visual inspection and Yes trachea midline Chest: COMMONS NORMALS: palpation of chest normal Resp: COMMON NORMALS: normal respiratory effort, no retractions, no use of accessory muscles and clear to auscultation bilaterally EFFORT & INSPECTION: Yes able to speak in complete sentences, Yes symmetric chest movement and No tachypneic AUSCULTATION: clear to auscultation bilaterally Cardio: COMMON NORMALS: regular rate, regular rhythm, S1 normal heart sound, S2 normal heart sound and no murmurs RATE: regular rate RHYTHM: regular rhythm HEART SOUNDS: S1 normal and S2 normal GI: COMMON NORMALS: soft to palpation INSPECTION: Yes normal to inspection and Yes central obesity AUSCULTATION: Yes normoactive bowel sounds PALPATION: Yes soft, No guarding, No rigid and No rebound tenderness present : COMMON NORMALS: Yes no CVA tenderness BLADDER/KIDNEY EXAM: Yes no CVA tenderness Back/Pelvis: COMMON NORMALS: no CVA tenderness Extremity: COMMON NORMALS: normal to inspection, full ROM and no clubbing, cyanosis or edema; negative for no pedal edema Neuro: COMMON NORMALS: oriented x3, moves all extremities, no focal motor deficits and no sensory deficits noted Psych: COMMON NORMALS: mental status grossly normal, thought process normal, cooperative and speech normal SPEECH: Yes normal speech MOOD & AFFECT: Yes anxious THOUGHT PROCESS: normal thought process Skin: COMMON NORMALS: no rashes or lesions noted, no jaundice, no petechiae and no mottling GENERAL SKIN EXAM: no rashes or lesions noted Discharge Data Data Completed and Pending: Completed Studies During Hospitalization Category Date Time Status CT abdomen pelvis w con* [id number] Urge nt Cat Scan 01/04/20 12:08 Completed XR chest 1V taniya ble [id number] Stat Exams 01/04/20 11:09 Completed US abdomen comple te* [id number] Urgent Ultrasound 01/04/20 11:15 Completed Labs from last 24 hours 01/05/20 01/05/20 01/05/20 04:00 04:00 04:00 WBC RBC Hgb Hct MCV MCH MCHC RDW Plt Count MPV Neut % (Auto) Lymph % (Auto) [place] % (Auto) Eos % (Auto) Baso % (Auto) Neut # (Auto) Lymph # (Auto) [place] # (Auto) Eos # (Auto) Baso # (Auto) Nucleated RBC % (a uto) Nucleated RBCs # Sodium Potassium Chloride Carbon Dioxide Anion Gap BUN Creatinine GFR Calculation Glucose Estimat Average Gl ucose 335 Hemoglobin A1c 13.3 H Calcium Total Bilirubin AST ALT Alkaline Phosphata se Troponin I 6 Hour Troponin I Hi Sens Del Troponin T 120 Min [place] Delta Troponin T Total Protein Albumin Globulin Triglycerides 746 H Cholesterol 325 H LDL Cholesterol Di rect 183 H HDL Cholesterol 51 L Cholesterol/HDL Ra yrn 6.37 H TSH 1.95 Urine Color Urine Appearance Urine pH Ur Specific Gravit y Urine Protein Urine Glucose (UA) Urine Ketones Urine Occult Blood Urine Nitrate Urine Bilirubin Urine Urobilinogen Ur Leukocyte La ase Urine RBC Urine WBC Ur Squamous Epith Cells Urine Bacteria Urine Mucus 01/05/20 01/05/20 01/04/20 04:00 04:00 19:55 WBC 8.4 RBC 4.46 Hgb 12.4 Hct 39.1 MCV 87.7 MCH 27.8 L MCHC 31.7 RDW 14.6 Plt Count 241 MPV 11.4 H Neut % (Auto) 41.5 Lymph % (Auto) 50.4 [place] % (Auto) 4.6 Eos % (Auto) 3.0 Baso % (Auto) 0.4 Neut # (Auto) 3.5 Lymph # (Auto) 4.2 [place] # (Auto) 0.4 Eos # (Auto) 0.3 Baso # (Auto) 0.0 Nucleated RBC % (a uto) 0 Nucleated RBCs # 0.0 Sodium 137 Potassium 3.6 Chloride 98 Carbon Dioxide 24 Anion Gap 18.6 BUN 8 Creatinine 0.6 GFR Calculation 104.2 Glucose 143 H Estimat Average Gl ucose Hemoglobin A1c Calcium 9.3 Total Bilirubin 0.3 AST 25 ALT 15 Alkaline Phosphata se 139 H Troponin I 6 Hour Troponin I Hi Sens Del Troponin T 120 Min [place] Delta Troponin T Total Protein 6.8 Albumin 3.4 L Globulin 3.4 Triglycerides Cholesterol LDL Cholesterol Di rect HDL Cholesterol Cholesterol/HDL Ra yrn TSH Urine Color Dark yellow Urine Appearance Hazy A Urine pH 5 Ur Specific Gravit y 1.010 Urine Protein Trace Urine Glucose (UA) 2+ Urine Ketones Negative Urine Occult Blood Neg Urine Nitrate Negative Urine Bilirubin 1+ H Urine Urobilinogen 1 H Ur Leukocyte La ase Negative Urine RBC None Urine WBC 5-10 H Ur Squamous Epith Cells 10-15 H Urine Bacteria 1+ H Urine Mucus Trace 01/04/20 01/04/20 18:40 14:30 WBC RBC Hgb Hct MCV MCH MCHC RDW Plt Count MPV Neut % (Auto) Lymph % (Auto) [place] % (Auto) Eos % (Auto) Baso % (Auto) Neut # (Auto) Lymph # (Auto) [place] # (Auto) Eos # (Auto) Baso # (Auto) Nucleated RBC % (a uto) Nucleated RBCs # Sodium Potassium Chloride Carbon Dioxide Anion Gap BUN Creatinine GFR Calculation Glucose Estimat Average Gl ucose Hemoglobin A1c Calcium Total Bilirubin AST ALT Alkaline Phosphata se Troponin I 6 Hour 10.36 H Troponin I Hi Sens Del 1.36 Troponin T 120 Min [place] 8.42 Delta Troponin T -0.58 L Total Protein Albumin Globulin Triglycerides Cholesterol LDL Cholesterol Di rect HDL Cholesterol Cholesterol/HDL Ra yrn TSH Urine Color Urine Appearance Urine pH Ur Specific Gravit y Urine Protein Urine Glucose (UA) Urine Ketones Urine Occult Blood Urine Nitrate Urine Bilirubin Urine Urobilinogen Ur Leukocyte La ase Urine RBC Urine WBC Ur Squamous Epith Cells Urine Bacteria Urine Mucus Vitals: Last Vital Signs Temp 98.0 F 01/05/20 11:20 Pulse 65 01/05/20 11:20 Resp 18 01/05/20 11:20 BP 80/50 01/05/20 11:20 Pulse Ox 95 01/05/20 07:50 Discharge Plan Discharge Patient Disposition: Home, Self-Care Condition: Stable Prescriptions: New polyethylene glycol 3350 [Miralax] 17 gram powder in packet 17 gm PO DAILY 30 Days Qty: 30 RF: 0 sennosides-docusate sodium [Senna-S] 8.6-50 mg tablet 1 tab-cap PO BID 30 Days Qty: 60 RF: 0 Continued alprazolam [Xanax] 0.5 mg tablet 0.5 mg PO .complicated PRN (Reason: anxiety) Qty: 150 RF: 2 carvedilol 25 mg tablet 25 mg PO BID RF: 0 tizanidine 4 mg tablet 4 mg PO TID RF: 0 isosorbide mononitrate 30 mg tablet extended release 24 hr 30 mg PO DAILY RF: 0 clopidogrel 75 mg tablet 75 mg PO DAILY RF: 0 amlodipine 5 mg tablet 5 mg PO DAILY RF: 0 hydrocodone-acetaminophen 10-325 mg tablet 1 tab PO Q6H PRN (Reason: Pain) RF: 0 gemfibrozil 600 mg tablet 600 mg PO DAILY RF: 0 pantoprazole 40 mg tablet,delayed release (DR/EC) 40 mg PO BID RF: 0 hydrochlorothiazide 12.5 mg capsule 12.5 mg PO DAILY RF: 0 Lyrica 150 mg capsule 150 mg PO TID RF: 0 fenofibrate nanocrystallized 145 mg tablet 145 mg PO DAILY RF: 0 Lialda 1.2 gram tablet,delayed release (DR/EC) 2.4 g PO DAILY RF: 0 Repatha SureClick 140 mg/mL pen injector 140 mg SUBCUT Q14D RF: 0 trazodone 150 mg tablet 150 mg PO BEDTIME RF: 0 zolpidem [Ambien] 10 mg tablet 10 mg PO BEDTIME RF: 0 No Action insulin aspart U-100 [Novolog Flexpen U-100 Insulin] 100 unit/mL (3 mL) insulin pen 14 unit SUBCUT TID RF: 0 Discharge Orders: Discharge Order (Routine); Ordered 01/05/20 Ordered By: Alice Moura Referrals: Juno Brown [Primary Care Provider] - 4-7 days (Post hospital follow up) Discharge Diet: Low Fat Discharge Activity: Resume usual activity Discharge Attestations Time Spent in Discharge Care*: greater than 30 min Specific Discharge Activities: Specific discharge activities: educating patient, educating and/or supporting family/caregiver, documenting/other paperwork and evaluating patient/reviewing data Status at Discharge: Cognitive status at discharge: cognitively intact , Behavioral status at discharge: cooperative , Functional status at discharge: independent ambulation Overall status at discharge: patient is back to baseline Quality Metrics Clinical Quality Measures During this hospital stay, did patient experience: None Coding Level of Care Code Acute [employer] for Chg Fwd Diagnoses Chest pain R07.9 Chest pain type: unspecified Abdominal pain R10.10 Abdominal location: upper abdomen, unspecified
--- NOTE | 2020-01-05 13:18 | PC.NURSE ---
Patient complains of 8/10 pain in abdomen requesting pain medications. Dilaudid given per orders
== END 2020-01-05 13:49 | disposition home or self-care (01) ==
LOC: ER 11:18 → CSU 15:26
PROVIDERS: Admitting Provider Family Medicine; Emergency Provider Emergency Medicine; Family Provider Family Medicine; PCP Family Medicine; Visit Provider Family Medicine
DX: R07.89 Other chest pain (principal); R10.10 Upper abdominal pain, unspecified; I10 Essential (primary) hypertension; E78.5 Hyperlipidemia, unspecified; K58.9 Irritable bowel syndrome, unspecified; F32.9 Major depressive disorder, single episode, unspecified; F41.9 Anxiety disorder, unspecified; I25.10 Atherosclerotic heart disease of native coronary artery without angina pectoris; Z95.1 Presence of aortocoronary bypass graft; Z95.5 Presence of coronary angioplasty implant and graft; E11.40 Type 2 diabetes mellitus with diabetic neuropathy, unspecified; K21.9 Gastro-esophageal reflux disease without esophagitis; Z87.891 Personal history of nicotine dependence
CPT/HCPCS: 12345; 36415; 71045; 74177; 76700; 80053; 80061; 81001; 82274; 83036; 83690; 83721; 83735; 83880; 84443; 84484; 84703; 85025; 93005; 96360; 96361; 96365; 96372; 96374; 96375; 96376; 99282; 99285; G0378; J1170; J1200; J1650; J2270; J2405; J3475; J7799; Q0169

== ENCOUNTER 2020-01-04 11:01 | Emergency (ER) | payer MEDICAID, SELFPAY | END 2020-01-04 15:48 | disposition admitted as inpatient to this hospital (09) | LOC: ER 02-18 11:31 | PROVIDERS: Emergency Provider Emergency Medicine; Family Provider Family Medicine; PCP Family Medicine | DX: Z76.89 Persons encountering health services in other specified circumstances (principal) ==

== ENCOUNTER 2020-02-29 18:24 | Inpatient (IN) | payer MEDICAID, SELFPAY ==
[2020-02-29] VITALS (7 sets, daily range): BP systolic 142–154; BP diastolic 88–108; PULSE 74–103; RESP 16–22; TEMP 37.2–37.5; O2SAT 94–99; BMI 29.2
--- NOTE | 2020-02-29 18:28 | XR_ITS ---
WS: [id number] CHEST XRAY TECHNIQUE: Portable chest. CLINICAL INFORMATION: COMPARISON: January 04, 2020 FINDINGS: Heart: Normal cardiac silhouette. CABG. Sternotomy. Lungs: Chronic emphysematous changes. No acute pulmonary infiltrates. No focal pneumonia. Bones: Osteopenia. XR/XR chest 1V portable [id number] IMPRESSION: No acute chest findings
--- NOTE | 2020-02-29 18:29 | ECG_ITS ---
Measurements Intervals [place] Rate: 101 P: 56 DC: 159 QRS: 2 QRSD: 97 T: 59 QT: 350 QTc: [address] & T-WAVE ABNORMALITY ABNORMAL RHYTHM ECG INTERPRETATION BASED ON A DEFAULT AGE OF 40 YEARS Compared to ECG 01/05/2020 11:31:51 T-wave abnormality now present Sinus rhythm no longer present Myocardial infarct finding no longer present Electronically Signed On 03-01-2020 7:48:31 CDT by Frank Olivo M.D. [email or web address]
--- NOTE | 2020-02-29 18:30 | ED_ITS ---
HPI - Chest Pain General: Chief Complaint: Chest Pain Stated Complaint: CHEST PAIN, SOB Time Seen by Provider: 02/29/20 18:28 Source: patient and EMS Mode of arrival: EMS Limitations: no limitations History of Present Illness: HPI narrative: 55-year-old female with a history of coronary disease states she has been having chest pain for last 2 hours that is very sharp in nature and radiates to her back. States she is also having shortness of breath and the pain and dyspnea is much worse with deep breaths in. States she had a fever 101 today as well. States her tested positive for the flu last week. She denies any cough. She had no vomiting or diarrhea. She denies any worsening or improving factors at this time. MD complaint: chest pain Onset (ago): hour(s) Timing of current episode: constant Prior episodes: Yes Pain location: substernal Pain radiation: none Severity: moderate Quality: sharp Relieving factors: nothing Exacerbating factors: nothing Associated symptoms: Reports dyspnea and palpitations; Deny abdominal pain, fever(s), nausea or vomiting Review of Systems Const: Denies: fever, chills, body aches or change in appetite Eyes: Denies: blurry vision or eye discomfort ENMT: Denies: throat pain or dental pain Card: Reports: chest pain and palpitations Resp: Reports: shortness of breath GI: Denies: abdominal pain, nausea, vomiting or diarrhea : Denies: painful urination Musc: Denies: neck pain or back pain Skin/Breast: Denies: rash Neuro: Denies: headache Psych: Denies: depression Danish/Lymph: Denies: easy bruising All/Imm: Denies: hives [facility] ED PFSH: Medical History (Updated 03/01/20 @ 00:26 by Concha Cason MD) Coronary artery disease Depression with anxiety Generalized anxiety disorder GERD (gastroesophageal reflux disease) Hypertension Hypertriglyceridemia Insulin dependent diabetes mellitus Recent A1c 13.3 Irritable bowel syndrome Pancreatitis Post-traumatic stress disorder, chronic Ulcerative colitis Surgical History H/O tubal ligation H/O: hysterectomy History of carpal tunnel surgery Hx of tonsillectomy S/P CABG x 4 S/P coronary artery stent placement Family History Mother Dementia Father CAD (coronary artery disease) Social History Smoking and tobacco status: current every day smoker Alcohol intake: never Physical Exam Const: COMMON NORMALS: no apparent distress, oriented x3 and healthy appearing HENMT: COMMON NORMALS: normocephalic and head/scalp atraumatic HEAD & SCALP: normocephalic and atraumatic Eye: COMMON NORMALS: PERRL and EOMs intact bilaterally PUPIL: Yes PERRL Neck/C-Spine: COMMON NORMALS: full ROM and supple Chest: COMMONS NORMALS: inspection of chest normal and palpation of chest normal Resp: COMMON NORMALS: normal respiratory effort, no retractions, no use of accessory muscles and clear to auscultation bilaterally AUSCULTATION: clear to auscultation bilaterally Cardio: COMMON NORMALS: regular rate, regular rhythm and no murmurs RATE: regular rate RHYTHM: regular rhythm GI: COMMON NORMALS: normal to inspection, nondistended, normoactive bowel sounds, soft to palpation, non-tender and no masses PALPATION: Yes soft Extremity: COMMON NORMALS: normal to inspection and full ROM Neuro: COMMON NORMALS: oriented x3, moves all extremities and no focal motor deficits Psych: COMMON NORMALS: mental status grossly normal, thought process normal and cooperative THOUGHT PROCESS: normal thought process Skin: COMMON NORMALS: no rashes or lesions noted and no wounds GENERAL SKIN EXAM: no rashes or lesions noted Course Vital Signs: Vital signs: Vital Signs Temperature 99.0 F 02/29/20 23:15 Pulse Rate 90 02/29/20 23:15 Respiratory Rate 20 H 02/29/20 23:15 Blood Pressure 143/94 02/29/20 23:15 Pulse Oximetry 95 02/29/20 23:15 MDM - Chest Pain MDM Narrative: Medical decision making narrative: Patient presents here with chest pain along with fever and shortness of breath. X-ray showed a possible pneumonia. Patient started on antibiotics. She is continue with chest pain here and spoke to hospitalist will admit. Patient also tested for coronavirus. Patient is been stable while here. Lab Data: Labs: Lab Results 02/29/20 02/29/20 02/29/20 Range/Units 18:48 18:48 18:48 WBC 8.9 (4.0-10.0) 10^3/ uL RBC 4.32 (4.1-5.3) 10^6/u L Hgb 11.9 (11.5-15.3) g/dL Hct 36.8 L (37.0-47.0) % MCV 85.2 (81-99) fL MCH 27.5 L (28.0-34.0) pg MCHC 32.3 (30.0-36.0) g/dL RDW 13.9 (12.1-15.1) % Plt Count 318 (130-400) 10^3/c mm MPV 10.8 H (7.4-10.4) fL Neut % (Auto) 50.2 % Lymph % (Auto) 44.1 % [place] % (Auto) 4.4 % Eos % (Auto) 0.8 % Baso % (Auto) 0.3 % Neut # (Auto) 4.4 (1.8-7.7) 10^3/u L Lymph # (Auto) 3.9 (0.8-4.8) 10^3/u L [place] # (Auto) 0.4 (0.2-0.9) 10^3/u L Eos # (Auto) 0.1 (0.0-0.8) 10^3/u L Baso # (Auto) 0.0 (0.0-0.1) 10^3/u L Nucleated RBC % (a uto) 0 % Nucleated RBCs # 0.0 /100WBC PT 12.70 (10.5-13.3) SECO NDS INR 0.93 (0.8-1.2) Sodium 134 L (136-145) mmol/L Potassium 3.6 (3.5-5.1) mmol/L Chloride 94 L (98-107) mmol/L Carbon Dioxide 23 (22-29) mmol/L Anion Gap 20.6 H (5-19) BUN 10 (6-20) mg/dL Creatinine 0.6 (0.5-0.9) mg/dL GFR Calculation 103.8 (90-130) mL/min Glucose 386 H (65-115) mg/dL Calculated Osmolal ity 290 (285-295) mOsm/k g Calcium 9.6 (8.5-10.5) mg/dL Total Bilirubin 0.4 (0.15-1.2) mg/dL AST 15 (0-32) U/L ALT 11 (0-33) U/L Alkaline Phosphata se 180 H (35-105) IU/L Troponin T Baselin e (0-10) ng/mL Troponin T 120 Min [place] (0-10) ng/mL Delta Troponin T (0-10) ABS# Total Protein 7.7 (6.6-8.7) g/dL Albumin 3.9 (3.5-5.2) g/dL Globulin 3.8 (1.3-4.6) g/dL Influenza Type A A g (Negative) Influenza Type B A g (Negative) 02/29/20 02/29/20 02/29/20 Range/Units 18:48 19:58 20:39 WBC (4.0-10.0) 10^3/ uL RBC (4.1-5.3) 10^6/u L Hgb (11.5-15.3) g/dL Hct (37.0-47.0) % MCV (81-99) fL MCH (28.0-34.0) pg MCHC (30.0-36.0) g/dL RDW (12.1-15.1) % Plt Count (130-400) 10^3/c mm MPV (7.4-10.4) fL Neut % (Auto) % Lymph % (Auto) % [place] % (Auto) % Eos % (Auto) % Baso % (Auto) % Neut # (Auto) (1.8-7.7) 10^3/u L Lymph # (Auto) (0.8-4.8) 10^3/u L [place] # (Auto) (0.2-0.9) 10^3/u L Eos # (Auto) (0.0-0.8) 10^3/u L Baso # (Auto) (0.0-0.1) 10^3/u L Nucleated RBC % (a uto) % Nucleated RBCs # /100WBC PT (10.5-13.3) SECO NDS INR (0.8-1.2) Sodium (136-145) mmol/L Potassium (3.5-5.1) mmol/L Chloride (98-107) mmol/L Carbon Dioxide (22-29) mmol/L Anion Gap (5-19) BUN (6-20) mg/dL Creatinine (0.5-0.9) mg/dL GFR Calculation (90-130) mL/min Glucose (65-115) mg/dL Calculated Osmolal ity (285-295) mOsm/k g Calcium (8.5-10.5) mg/dL Total Bilirubin (0.15-1.2) mg/dL AST (0-32) U/L ALT (0-33) U/L Alkaline Phosphata se (35-105) IU/L Troponin T Baselin e 9 (0-10) ng/mL Troponin T 120 Min [place] 9.50 (0-10) ng/mL Delta Troponin T 0.50 (0-10) ABS# Total Protein (6.6-8.7) g/dL Albumin (3.5-5.2) g/dL Globulin (1.3-4.6) g/dL Influenza Type A A g Negative (Negative) Influenza Type B A g Negative (Negative) Imaging Data^: CT Chest: Attestation: I personally reviewed and interpreted this imaging study as follows: Radiologist's impression: [place] [address] CT Scan Report Signed Patient: Collette Kothari Unit #: [id number] : 1965 Age/Sex: 55 / F ADM Date: 02/29/20 Loc: ER Room/Bed: Attending Dr: Ordering Provider/Ordering MD: Concha Cason MD Date of Service: 02/29/20 Procedure(s): CT angio chest PE protcl [id number] Accession Number(s): [id number] Report Number: [id number] PROCEDURE INFORMATION: Exam: CT Angiography Chest With Contrast Exam date and time: 02/29/2020 6:49 PM Age: 55 years old Clinical indication: Shortness of breath; Prior surgery; Surgery type: Cabg; Patient HX: Chest pain with SOB since Saturday. TECHNIQUE: Imaging protocol: Computed tomographic angiography of the chest with intravenous contrast. 3D rendering: MIP and/or 3D reconstructed images were created by the technologist. Total DLP: 454.18 mGy-cm Radiation optimization: All CT scans at this facility use at least one of these dose optimization techniques: automated exposure control; mA and/or kV adjustment per patient size (includes targeted exams where dose is matched to clinical indication); or iterative reconstruction. Contrast material: OMNI 350; Contrast volume: 60 ml; Contrast route: 20G; COMPARISON: CR XR chest 1V portable [id number] 02/29/2020 7:01 PM FINDINGS: Pulmonary arteries: Normal. No pulmonary emboli. Aorta: Unremarkable. No aortic aneurysm. No aortic dissection. Lungs: See Heart finding. Pleural space: Unremarkable. No pneumothorax. No pleural effusion. Heart: Coronary artery calcifications. The heart size is normal. Subcentimeter hilar and middle mediastinal lymph nodes are most likely reactive. Subtle patchy ground-glass opacities in the left upper and lower lobes. Linear atelectasis in the right lower lobe and left upper lobe. Lymph nodes: See Heart finding. Bones/joints: Median sternotomy changes. No compression fracture. Soft tissues: Unremarkable. CT/CT angio chest PE protcl [id number] IMPRESSION: 1. No evidence for pulmonary embolus. 2. Patchy unilateral ground-glass opacities in the left lung. This most likely represents multifocal pneumonia. (COVID-19 classification: Indeterminate. Imaging features can be seen with COVID-19 pneumonia, though are nonspecific and can occur with a variety of infectious and noninfectious processes). EKG Data^: EKG 1: Attestation: I personally reviewed and interpreted this EKG as follows: EKG interpretation date: 02/29/20 EKG interpretation time: 18:30 Interpretation: sinus tach hr [address] or t wave abnormalities qrs 97 qtc 408 EKG 2: Attestation: I personally reviewed and interpreted this EKG as follows: EKG interpretation date: 02/29/20 EKG interpretation time: 21:40 Interpretation: nsr hr [address] or t wave abnormalities qrs 165 qtc 440 Discharge Plan Discharge Patient Disposition: Admitted As Inpatient Admit Provider: Kianna Aguayo Clinical Impression: Chest pain, Community acquired pneumonia Condition: Stable Interventions: ED Discharge Assessment Last Done: 02/29/20 22:32 Discharge Date/Time: 02/29/20 22:40 Coding Level of Care Code ED [employer] Supervisor for Chg Fwd Exam Comprehensive
--- NOTE | 2020-02-29 18:30 | PC.NURSE ---
EKG performed and shown to ED physician.
[2020-02-29] MEDS: ondansetron 2 mg/ML SDV 2 mL 4 MG IVP (18:46)
[2020-02-29] MEDS: LORazepam 2 mg/mL INJ 1 mL 1 MG IVP (18:53)
[2020-02-29] MEDS: morphine 4 mg/mL SDV 1 mL IVP (18:55)
[2020-02-29] MEDS: aspirin 81 mg Chew Tablet 324 MG PO (18:56)
[2020-02-29] MEDS: acetaminophen 325 mg Tablet 650 MG PO (18:59)
[2020-02-29 19:03] LABS: Basophils % 0.3 %; Eosinophils # 0.1 10^3/uL (0.0-0.8); Eosinophils % 0.8 %; Hematocrit 36.8 % (37.0-47.0); Hemoglobin 11.9 g/dL (11.5-15.3); Lymphocytes # 3.9 10^3/uL (0.8-4.8); Lymphocytes % 44.1 %; Mean Corpuscular HGB Conc 32.3 g/dL (30.0-36.0); Mean Corpuscular Hemoglobin 27.5 pg (28.0-34.0); Mean Corpuscular Volume 85.2 fL (81-99); Mean Platelet Volume 10.8 fL (7.4-10.4); Monocytes # 0.4 10^3/uL (0.2-0.9); Monocytes % 4.4 %; Neutrophils # 4.4 10^3/uL (1.8-7.7); Neutrophils % 50.2 %; Nucleated Red Blood Cells % 0 %; Platelet Count 318 10^3/cmm (130-400); Red Blood Count 4.32 10^6/uL (4.1-5.3); Red Cell Distribution Width 13.9 % (12.1-15.1); White Blood Count 8.9 10^3/uL (4.0-10.0)
[2020-02-29 19:09] LABS: INR 0.93 (0.8-1.2)
[2020-02-29 19:16] LABS: Alanine Aminotransferase 11 U/L (0-33); Albumin Level 3.9 g/dL (3.5-5.2); Alkaline Phosphatase 180 IU/L (35-105); Anion Gap 20.6 (5-19); Aspartate Amino Transferase 15 U/L (0-32); Blood Urea Nitrogen 10 mg/dL (6-20); Calcium 9.6 mg/dL (8.5-10.5); Carbon Dioxide 23 mmol/L (22-29); Chloride 94 mmol/L (98-107); Globulin 3.8 g/dL (1.3-4.6); Glomerular Filtration Rate 103.8 mL/min (90-130); Glucose 386 mg/dL (65-115); Osmolality Calculated 290 mOsm/kg (285-295); Potassium 3.6 mmol/L (3.5-5.1); Sodium 134 mmol/L (136-145); Total Bilirubin 0.4 mg/dL (0.15-1.2); Total Protein 7.7 g/dL (6.6-8.7)
[2020-02-29 19:18] LABS: Troponin(5th) Baseline 9 ng/mL (0-10)
[2020-02-29] MEDS: iohexol 350 mg/mL 100 mL Btl IV (19:29)
--- NOTE | 2020-02-29 20:29 | ECG_ITS ---
Measurements Intervals [place] Rate: 76 P: 51 SC: 166 QRS: 8 QRSD: 102 T: 77 QT: 395 QTc: [address] & T-WAVE ABNORMALITY Compared to ECG 01/05/2020 11:31:51 T-wave abnormality now present Myocardial infarct finding no longer present Electronically Signed On 03-01-2020 7:49:26 CDT by Frank Olivo M.D. [id number]
[2020-02-29 20:36] LABS: Influenza A by IFA Negative (Negative); Influenza B by IFA Negative (Negative)
[2020-02-29] MEDS: HYDROmorphone 1 mg/mL INJ 1 mL IVP ×2 (20:53→22:23)
[2020-02-29] MEDS: levofloxacin-dextrose 5 % 750 MG/150 ML PREMIX 150 MG IV (22:24)
--- NOTE | 2020-02-29 22:24 | PM.HP ---
Providers/Chief Complaint Primary Care Provider: Juno Brown Chief Complaint: CHEST PAIN, SOB History of Present Illness Collette Kothari is a 55 year old female with established coronary disease status post CABG x4, 11 stents, recent cardiac catheterization showed triple-vessel disease with total occlusion of mid LAD, proximal circumflex and distal RCA, status post stent placement in September at [facility] came in today with shortness of breath. Patient is stating that yesterday she started experiencing worsening of shortness of breath, she spiked fever 102 at home, she took Tylenol which subsided the fever, she experienced cold chills and nausea without vomiting, she denies any sick contacts. 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 She denies recent viral, runny nose, runny eyes, sinusitis symptoms. 2 hours before her arrival to the ER she started experiencing chest discomfort, substernal, she described as pressure like sensation radiating towards her jaw and left arm, she took nitroglycerin x2 which did not relieve her symptoms then call 911. She was given aspirin by the EMT, her chest pain was consistent. Diagnostics in ER revealed normal EKG, nonsignificant rise in troponin. CT chest revealed pneumonia without any pulmonary embolism findings, no signs of sepsis, considering history of coronary disease she was admitted to [facility] floor for overnight monitoring. She received 1 dose of Levaquin in the ER. When I examined the patient she was very anxious, her chest pain was reproducible, she was afebrile, saturating well on room air, normal EKG, her aspirin was discontinued because of blood in her stool, she has history of ulcerative colitis, she is only taking Plavix has finished dual antiplatelet therapy status post stent in September 2019 Review of Systems Const: Reports: fever, chills, fatigue and malaise Eyes: Denies: change in vision ENMT: Denies: throat pain Card: Reports: chest pain and shortness of breath on exertion; Denies: irregular heart rhythm, swelling of feet/ankles or pre-syncope Resp: Reports: shortness of breath and pain on inspiration; Denies: productive cough GI: Reports: abdominal pain, nausea, diarrhea, change in stool character and blood in stool; Denies: vomiting, vomiting blood or rectal swelling : Denies: flank pain or difficulty urinating Musc: Reports: muscle cramps Skin/Breast: Reports: rash, itching, redness and sensitivity to light; Denies: skin tenderness or changing lesion Neuro: Denies: headache Psych: Reports: anxiety, mood swings, panic attacks, loss of interest and difficulty concentrating Endo: Denies: excessive urination Danish/Lymph: Denies: easy bruising All/Imm: Denies: hives Medications/Allergies Home Medications Medication Instructions Recorded Confirmed Last Taken Type Xanax 0.5 mg PO TID PRN 02/29/20 02/29/20 02/28/20 History fluticasone propionate 1 spray INTRANASAL DAILY 02/29/20 02/29/20 1 Day Ago History ~02/28/20 icosapent ethyl 2 g PO BID 02/29/20 02/29/20 1 Day Ago History ~02/28/20 insulin glargine [Lantus Solostar 40 unit SUBCUT BID 02/29/20 02/29/20 1 Day Ago History U-100 Insulin] ~02/28/20 lactulose 10 g PO BID PRN 02/29/20 02/29/20 1 Day Ago History ~02/28/20 mesalamine 2.4 g PO DAILY 02/29/20 02/29/20 1 Day Ago History ~02/28/20 mesalamine 2.4 g PO DAILY 02/29/20 02/29/20 1 Day Ago History ~02/28/20 naloxone 1 spray INTRANASAL Q2M 02/29/20 02/29/20 1 Day Ago History ~02/28/20 nitroglycerin [Nitrostat] 0.4 mg SUBLINGUAL Q5M PRN 02/29/20 02/29/20 Unknown History ondansetron HCl [Zofran] 8 mg PO Q8H PRN 02/29/20 02/29/20 Unknown History potassium chloride 20 meq PO DAILY 02/29/20 02/29/20 1 Day Ago History ~02/28/20 promethazine 12.5 mg PO Q6H 02/29/20 02/29/20 1 Day Ago History ~02/28/20 sertraline [Zoloft] 200 mg PO DAILY 02/29/20 02/29/20 1 Day Ago History ~02/28/20 sucralfate 1 g PO QID 02/29/20 02/29/20 1 Day Ago History ~02/28/20 Allergies Allergy/AdvReac Type Severity Reaction Status Date / Time SCOTT Inhibitors Allergy Unknown Verified 02/29/20 23:04 acetaminophen Allergy ADR-Nausea Verified 02/29/20 23:04 [From Darvocet-N] amitriptyline Allergy ALGY-Difficulty Verified 02/29/20 23:04 Breathing atorvastatin [From Lipitor] Allergy ADR-Nausea Verified 02/29/20 23:04 ciprofloxacin [From Cipro] Allergy ALGY-Hives Verified 02/29/20 23:04 doxycycline Allergy Unknown Verified 02/29/20 22:57 empagliflozin Allergy Unknown Verified 02/29/20 23:04 [From Jardiance] escitalopram [From Lexapro] Allergy Unknown Verified 02/29/20 22:57 ezetimibe [From Zetia] Allergy Unknown Verified 02/29/20 23:04 furosemide [From Lasix] Allergy ALGY-Rash Verified 02/29/20 23:04 isosorbide Allergy ADR-Headach Verified 02/29/20 23:04 e ketorolac [From Toradol] Allergy Unknown Verified 02/29/20 23:04 lisinopril Allergy Unknown Verified 02/29/20 22:57 nalbuphine [From Nubain] Allergy Unknown Verified 02/29/20 22:57 naproxen Allergy Unknown Verified 02/29/20 23:04 nortriptyline Allergy Unknown Verified 02/29/20 22:57 pravastatin Allergy Unknown Verified 02/29/20 23:04 prochlorperazine Allergy ALGY-Difficulty Verified 02/29/20 23:04 [From Compazine] Breathing propoxyphene Allergy ADR-Nausea Verified 02/29/20 23:04 [From Darvocet-N] ranolazine [From Ranexa] Allergy Unknown Verified 02/29/20 23:04 rosuvastatin [From Crestor] Allergy Unknown Verified 02/29/20 22:57 simvastatin Allergy Unknown Verified 02/29/20 23:04 sulfamethoxazole Allergy ALGY-Hives Verified 02/29/20 23:04 [From Bactrim] sumatriptan [From Imitrex] Allergy Unknown Verified 02/29/20 22:57 trimethoprim [From Bactrim] Allergy ALGY-Hives Verified 02/29/20 23:04 PFSH Acute PFSH: Medical History (Updated 03/01/20 @ 00:26 by Concha Cason MD) Coronary artery disease Depression with anxiety Generalized anxiety disorder GERD (gastroesophageal reflux disease) Hypertension Hypertriglyceridemia Insulin dependent diabetes mellitus Recent A1c 13.3 Irritable bowel syndrome Pancreatitis Post-traumatic stress disorder, chronic Ulcerative colitis Surgical History H/O tubal ligation H/O: hysterectomy History of carpal tunnel surgery Hx of tonsillectomy S/P CABG x 4 S/P coronary artery stent placement Family History Mother Dementia Father CAD (coronary artery disease) Social History Smoking and tobacco status: current every day smoker Alcohol intake: never Vitals/I&O/Wt Last Vital Signs Temp 99.5 F 02/29/20 18:25 Pulse 82 02/29/20 19:00 Resp 18 02/29/20 20:53 BP 149/108 02/29/20 19:00 Pulse Ox 99 02/29/20 19:00 Weight last 48 hrs Weight 89.811 kg Physical Exam Narrative: EXAM NARRATIVE: Middle-aged woman, appears very anxious, scratching her neck area with her fingers repetitively Reproducible chest pain, S1, S2 no active arrhythmia noted no variability of S1-S2, no signs of heart failure Abdomen soft, nontender, nondistended, bowel sound present Chest is clear on auscultation without adventitious sounds, no active respiratory stress Neurologically nonfocal exam Appears very anxious Skin shows hyperemia and skin blotching around neck area Lower extremity no signs of ischemia getting ulcer EOMI, PERRLA Data : 02/29/20 18:48 02/29/20 18:48 Micro: Microbiology 02/29/20 18:48 Blood Culture - Preliminary Blood SPECIMEN COLLECTED 02/29/20 18:48 Blood Culture - Preliminary Blood SPECIMEN COLLECTED A&P Assessment and plan (1) Community acquired pneumonia: Status: Acute (2) Unstable angina: Status: Acute (3) Post-traumatic stress disorder, chronic: Status: Acute (4) Generalized anxiety disorder: Status: Acute Additional A&P Information Community-acquired pneumonia without any signs of sepsis She has received Levaquin in the ER, would add ceftriaxone Pneumonia severity index is very low, will get urine antigens, sputum culture, no signs of sepsis, creatinine normal, Patient has not received IV antibiotics in last 90 days No primary embolism on CTA chest, left lung consolidation CoVID testing ordered Unstable angina Established coronary disease with 11 stent, recent stent September 2019 currently taking Plavix, aspirin has been discontinued because of bright bleed per rectum, history of ulcerative colitis, Her chest pain is reproducible, troponin not significantly high, EKG without ischemic or infarct changes Anxiety Patient seems very anxious, would give her benzodiazepines for acute exacerbation of anxiety with possible underlying depression Hypokalemia: Repleted Dysuria Patient is endorsing dysuria and frequency, will obtain urinalysis, continue ceftriaxone Urine culture to be obtained Full code DVT prophylaxis: Lovenox Attestations Medical Necessity Statement*: Anticipating discharge in less than 48 hours, for simple community-acquired pneumonia she will probably need p.o. antibiotics, admitted for monitoring of chest pain, has established coronary disease with 11 stents, Time Spent in Patient Care: 40 Coding Level of Care Code Acute Social Media Marketing Manager for Shant Marroquin Diagnoses Community acquired pneumonia J18.9 Unstable angina I20.0 Post-traumatic stress disorder, chronic F43.12 Generalized anxiety disorder F41.1
[2020-03-01] VITALS (11 sets, daily range): BP systolic 92–123; BP diastolic 60–80; PULSE 77–105; RESP 16–20; TEMP 36.7–37.2; O2SAT 91–97
[2020-03-01] MEDS: ALPRAZolam 0.5 mg Tablet PO ×4 (00:22→22:11)
[2020-03-01] MEDS: trazodone 150 mg Tablet PO ×2 (00:22→21:47)
[2020-03-01] MEDS: HYDROcodone-acetaminophen 10-325 mg Tablet 1 TAB PO ×5 (00:22→21:47)
[2020-03-01] MEDS: cefTRIAXone 1,000 MG in sodium chloride 0.9% (plus) 50 ML 100 MG IV ×2 (00:24→21:48)
--- NOTE | 2020-03-01 00:29 | ECG_ITS ---
Measurements Intervals [place] Rate: 77 P: 40 MS: 175 QRS: -1 QRSD: 98 T: 67 QT: 385 QTc: 438 SINUS RHYTHM SEPTAL MYOCARDIAL INFARCTION [40+ ms Q WAVE IN V1/V2], PROBABLY OLD Compared to ECG 01/05/2020 11:31:51 No significant changes Electronically Signed On 03-01-2020 7:49:53 CDT by Frank Olivo M.D. [id number]
[2020-03-01 00:48] LABS: Troponin 5 6HR 9.97 ng/mL (0-10); Troponin 5 6HR Delta 0.97 ng/L (0-12)
[2020-03-01] MEDS: pregabalin 150 mg Capsule PO ×4 (01:07→21:47)
[2020-03-01 01:16] LABS: Procalcitonin 0.08 ng/mL (0-0.5)
[2020-03-01 01:27] LABS: Ferritin 69 ng/mL (15-150)
--- NOTE | 2020-03-01 02:04 | ECG_ITS ---
Measurements Intervals [place] Rate: 91 P: 50 CO: 164 QRS: 10 QRSD: 102 T: 69 QT: 383 QTc: 472 SINUS RHYTHM WITH OCCASIONAL VENTRICULAR PREMATURE COMPLEXES NONSPECIFIC ST & T-WAVE ABNORMALITY Compared to ECG 01/05/2020 11:31:51 Ventricular premature complex(es) now present T-wave abnormality now present Myocardial infarct finding no longer present Electronically Signed On 03-01-2020 7:48:58 CDT by Frank Olivo M.D. [id number]
[2020-03-01 02:11] LABS: Urine Appearance Hazy (CLEAR); Urine Color Yellow (Yellow)
[2020-03-01 02:12] LABS: Add Urine Microscopic? YES; Bilirubin Urine Neg (NEGATIVE); Blood Urine Neg (Negative); Glucose Urine UA 4+ (Normal); Ketones Urine Negative (Negative); Leukocyte Esterase Urine Negative (Negative); Nitrate Urine Negative (Negative); Protein Urine Neg (Negative); Specific Gravity, Urine 1.015 (1.005-1.030); Urobilinogen Urine Norm (Negative); pH Urine 5 (5-7)
[2020-03-01] MEDS: nitroglycerin 0.4 mg sublingual Tablet SUBLINGUAL ×2 (02:16→02:30)
[2020-03-01 02:19] LABS: Add Urine Culture? No; Bacteria Urine 1+; RBC Urine 0-4 /hpf (0-2); Squamous Epithelial Cell Urine 15-25 (0-5)
--- NOTE | 2020-03-01 02:33 | PC.NURSE ---
PATIENT IS COMPLAINING OF CHEST PAIN /. EKG TAKEN. VSS. 2 SL NITRO GIVEN WITH NO CHANGE. DR. GAYTAN NOTIFIED. MORPHINE X1 ORDERED.
[2020-03-01] MEDS: morphine 4 mg/mL SDV 1 mL IVP (02:36)
--- NOTE | 2020-03-01 03:33 | PC.NURSE ---
Patient is currently resting with eyes closed. Will continue to monitor.
[2020-03-01 04:03] LABS: Lactate Dehydrogenase 229 U/L (135-214)
[2020-03-01] MEDS: guaiFENesin 100 mg/5 mL UDC 10 mL 200 MG PO (05:53)
--- NOTE | 2020-03-01 05:55 | PC.NURSE ---
Lab went into patient's room. After patient was awoken by lab, patient began complain of chest pain, stating my chest pain is coming back again. Nurse went to get something and came back and patient had her eyes closed when nurse came back. Nurse awakened patient and asked are you still hurting. Patient stated yes, when is it time for my pain pill? PRN Hydrocodone provided per order.
[2020-03-01 06:02] LABS: Basophils % 0.5 %; Eosinophils # 0.2 10^3/uL (0.0-0.8); Eosinophils % 1.9 %; Hematocrit 36.4 % (37.0-47.0); Hemoglobin 11.4 g/dL (11.5-15.3); Lymphocytes # 3.3 10^3/uL (0.8-4.8); Lymphocytes % 42.8 %; Mean Corpuscular HGB Conc 31.3 g/dL (30.0-36.0); Mean Corpuscular Hemoglobin 28.7 pg (28.0-34.0); Mean Corpuscular Volume 91.7 fL (81-99); Mean Platelet Volume 10.7 fL (7.4-10.4); Monocytes # 0.5 10^3/uL (0.2-0.9); Monocytes % 6.3 %; Neutrophils # 3.7 10^3/uL (1.8-7.7); Neutrophils % 48.2 %; Nucleated Red Blood Cells % 0 %; Platelet Count 266 10^3/cmm (130-400); Red Blood Count 3.97 10^6/uL (4.1-5.3); Red Cell Distribution Width 14.2 % (12.1-15.1); White Blood Count 7.8 10^3/uL (4.0-10.0)
[2020-03-01 06:20] LABS: Anion Gap 17.3 (5-19); Blood Urea Nitrogen 13 mg/dL (6-20); Calcium 9.1 mg/dL (8.5-10.5); Carbon Dioxide 22 mmol/L (22-29); Chloride 98 mmol/L (98-107); Glomerular Filtration Rate 74.5 mL/min (90-130); Glucose 473 mg/dL (65-115); Osmolality Calculated 293 mOsm/kg (285-295); Potassium 4.3 mmol/L (3.5-5.1); Sodium 133 mmol/L (136-145)
[2020-03-01 09:03] LABS: Procalcitonin 0.12 ng/mL (0-0.5)
[2020-03-01 09:14] LABS: C Reactive Protein 8.2 mg/L (0.0-4.9)
[2020-03-01 09:46] LABS: Glucose Point of Care 530 mg/dL (70-110)
--- NOTE | 2020-03-01 09:50 | PC.NURSE ---
Dr bennett at beside during blood glucose check 581 mg /dl verbal orders to give 20 units novolog now times one given and recheck in one hour
[2020-03-01] MEDS: carvedilol 25 mg Tablet 12.5 MG PO ×2 (10:05→17:08)
[2020-03-01] MEDS: sucralfate 1 gm Tablet PO ×4 (10:06→21:47)
[2020-03-01] MEDS: pantoprazole DR 40 mg Tablet 20 MG PO ×2 (10:06→17:08)
[2020-03-01] MEDS: azithromycin 250 mg Tablet PO (10:06)
[2020-03-01] MEDS: sertraline 100 mg Tablet 200 MG PO (10:06)
[2020-03-01] MEDS: clopidogrel 75 mg Tablet PO (10:07)
[2020-03-01] MEDS: isosorbide mononitrate ER 30 mg Tablet PO ×2 (10:07→17:07)
[2020-03-01] MEDS: amlodipine 5 mg Tablet PO (10:07)
--- NOTE | 2020-03-01 10:42 | P.PN_ITS ---
Subjective Subjective: Interval history: This morning patient is laying in bed, is not on any oxygen, is normotensive, has been afebrile, complains of some shortness of breath, just general malaise, fatigue, no repeat episodes of chest pain, feels a bit short of breath when getting up and moving around, is worried about her blood sugars being high as she did not receive her morning insulin Vitals/I&O/Wt Last Vital Signs Temp 98.7 F 03/01/20 07:40 Pulse 85 03/01/20 07:40 Resp 18 03/01/20 07:40 BP 107/71 03/01/20 07:40 Pulse Ox 91 03/01/20 07:40 02/29/20 03/01/20 03/01/20 22:59 06:59 14:59 Intake Total 300 / 300 Output Total 200 / 200 Balance 100 / 100 Weight last 48 hrs Weight 94.211 kg Weight 89.811 kg Physical Exam Const: COMMON NORMALS: no apparent distress and oriented x3 HENMT: COMMON NORMALS: normocephalic HEAD & SCALP: normocephalic Neck/C-Spine: COMMON NORMALS: no JVD Resp: COMMON NORMALS: normal respiratory effort, no retractions, no use of accessory muscles and clear to auscultation bilaterally AUSCULTATION: clear to auscultation bilaterally Cardio: COMMON NORMALS: no JVD, regular rate, regular rhythm, S1 normal heart sound and S2 normal heart sound RATE: regular rate RHYTHM: regular rhythm HEART SOUNDS: S1 normal and S2 normal GI: COMMON NORMALS: normal to inspection, nondistended, normoactive bowel sounds, soft to palpation, non-tender, no hepatosplenomegaly, no masses and no bruits PALPATION: Yes soft and Yes no hepatosplenomegaly Extremity: COMMON NORMALS: normal capillary refill, no clubbing, cyanosis or edema, no calf tenderness and no pedal edema Neuro: COMMON NORMALS: oriented x3 Psych: COMMON NORMALS: mental status grossly normal Data : 03/01/20 05:45 03/01/20 05:45 Micro: Microbiology 03/01/20 01:33 Legionella Urinary Antigen - Final Urine,Clean Catch Bacterial Antigens - Final 02/29/20 18:48 Blood Culture - Preliminary Blood SPECIMEN COLLECTED 02/29/20 18:48 Blood Culture - Preliminary Blood SPECIMEN COLLECTED A&P Assessment and plan (1) Community acquired pneumonia: Status: Acute (2) Unstable angina: Status: Acute (3) Post-traumatic stress disorder, chronic: Status: Acute (4) Generalized anxiety disorder: Status: Acute Additional A&P Information Community-acquired pneumonia without any signs of sepsis Continue azithromycin and Rocephin Pneumonia severity index is very low, will get urine antigens, sputum culture, no signs of sepsis, creatinine normal, Patient has not received IV antibiotics in last 90 days No primary embolism on CTA chest, left lung consolidation CoVID testing ordered,COVID precautions Unstable angina Established coronary disease with 11 stent, recent stent September 2019 currently taking Plavix, aspirin has been discontinued because of bright bleed per rectum, history of ulcerative colitis, Her chest pain is reproducible, baseline troponin of 9, 120-minute 9.5, delta of 0.5, EKG shows mild ST depression in lead I, lead II, Monitoring, monitor for chest pain continue telemetry him Anxiety Patient seems very anxious, would give her benzodiazepines for acute exacerbation of anxiety with possible underlying depression Hypokalemia: Repleted Dysuria Patient is endorsing dysuria and frequency, will obtain urinalysis, continue ceftriaxone Urine culture to be obtained Full code DVT prophylaxis: Lovenox Attestations Medical Necessity Statement*: Requires continued hospitalization for pneumonia, angina Coding Level of Care Code Acute Paraoptometric for Shant Marroquin Diagnoses Community acquired pneumonia J18.9 Unstable angina I20.0 Post-traumatic stress disorder, chronic F43.12 Generalized anxiety disorder F41.1
--- NOTE | 2020-03-01 11:00 | PC.NURSE ---
Recheck Bg found to be 516 mg/dl at this time instructions to recheck Bg at 1200
--- NOTE | 2020-03-01 11:07 | ECG_ITS ---
Measurements Intervals [place] Rate: 79 P: 37 CA: 176 QRS: -2 QRSD: 92 T: 74 QT: 382 QTc: 438 SINUS RHYTHM NONSPECIFIC T-WAVE ABNORMALITY Compared to ECG 03/01/2020 02:14:29 Ventricular premature complex(es) no longer present T-wave abnormality still present Electronically Signed On 03-01-2020 15:37:17 CDT by Frank Olivo M.D. [id number]
[2020-03-01 11:08] LABS: Glucose Point of Care 516 mg/dL (70-110)
--- NOTE | 2020-03-01 12:00 | PC.NURSE ---
BG rechecked at this time 381 mg /dl instructions given by dr bennett to give 10 units now insteed of the 14 units called for by the protocol
[2020-03-01 12:13] LABS: Glucose Point of Care 381 mg/dL (70-110)
[2020-03-01] MEDS: TRAMadol 50 mg Tablet PO (13:05)
--- NOTE | 2020-03-01 13:32 | PC.NURSE ---
patient having complaints of 8/10 chest pain obtained instructions to give norco ordered patient had no relief after norco notified Dr bennett of continued chest pain new orders given for tramadol 50mg PRN q6h notified of allergy interactions instructions to override orders
[2020-03-01 14:00] LABS: Coronavirus Lab Test PTC NOT DETECTED
--- NOTE | 2020-03-01 14:15 | ECG_ITS ---
NAME OF STUDY: LEXISCAN SESTAMIBI STRESS TEST INDICATION: Chest Pain LEXISCAN STRESS TEST ORDERING PHYSICIAN: Hospitalist CLINICAL INFORMATION: Chest pain INTERPRETATION: 1. The patient was brought to the laboratory where Lexiscan was infused over 20 seconds. The resting blood pressure was 142/93. Maximum blood pressure was 149/91. The resting heart rate was 83 beats per minute. The maximum heart rate is 104 beats per minute. 2. The baseline electrocardiogram reveals sinus rhythm with lack of R waves from leads V1 through V3 suggesting an old anteroseptal WA. First-degree AV block. 3. With Lexiscan infusion, there were no ST segment changes to suggest ischemia. 4. The patient experienced no symptoms or arrhythmias during the examination. CONCLUSION: 1. Unremarkable Lexiscan infusion. 2. Nuclear imaging to follow. Electronically Signed On 03-02-2020 14:05:38 CDT by Frank Olivo M.D. [id number]
[2020-03-01] MEDS: gemfibrozil 600 mg Tablet PO (15:33)
[2020-03-01] MEDS: fenofibrate 145 mg Tablet PO (15:33)
[2020-03-01 16:21] LABS: Alanine Aminotransferase 11 U/L (0-33); Albumin Level 3.7 g/dL (3.5-5.2); Alkaline Phosphatase 154 IU/L (35-105); Amylase 22 U/L (28-100); Aspartate Amino Transferase 18 U/L (0-32); Chol HDL Ratio 4.35 mg/dL (0.0-4.40); Cholesterol 213 mg/dL (0-200); Globulin 2.6 g/dL (1.3-4.6); HDL Cholesterol 49 mg/dL (60-100); Lipase 16 U/L (13-60); Total Bilirubin 0.2 mg/dL (0.15-1.2); Total Protein 6.3 g/dL (6.6-8.7); Triglycerides 487 mg/dL (0-150)
[2020-03-01 17:22] LABS: Glucose Point of Care 224 mg/dL (70-110)
[2020-03-01 19:17] LABS: LDL Cholesterol Direct 103 mg/dL (0-100)
[2020-03-01 20:30] LABS: Glucose Point of Care 328 mg/dL (70-110)
[2020-03-01] MEDS: insulin glargine 100 units/1 mL 40 UNIT SUBCUT (21:48)
[2020-03-01] MEDS: lactulose oral liq 20 gm/30 mL UDC 10 GM PO (21:58)
--- NOTE | 2020-03-01 23:14 | PC.NURSE ---
Patient is refusing midnight vital signs at this time.
[2020-03-02] VITALS (9 sets, daily range): BP systolic 96–149; BP diastolic 60–91; PULSE 68–99; RESP 16–24; TEMP 36.6–37.4; O2SAT 90–98
[2020-03-02] MEDS: LORazepam 1 mg Tablet PO ×2 (01:28→20:57)
[2020-03-02] MEDS: TRAMadol 50 mg Tablet PO ×3 (01:28→15:49)
[2020-03-02 04:11] LABS: Basophils % 0.4 %; Eosinophils # 0.2 10^3/uL (0.0-0.8); Eosinophils % 1.9 %; Hematocrit 37.1 % (37.0-47.0); Hemoglobin 11.5 g/dL (11.5-15.3); Lymphocytes # 3.4 10^3/uL (0.8-4.8); Lymphocytes % 41.1 %; Mean Corpuscular Hemoglobin 27.7 pg (28.0-34.0); Mean Corpuscular Volume 89.4 fL (81-99); Monocytes # 0.5 10^3/uL (0.2-0.9); Monocytes % 5.6 %; Neutrophils # 4.2 10^3/uL (1.8-7.7); Neutrophils % 50.8 %; Nucleated Red Blood Cells % 0 %; Platelet Count 285 10^3/cmm (130-400); Red Blood Count 4.15 10^6/uL (4.1-5.3); Red Cell Distribution Width 13.8 % (12.1-15.1); White Blood Count 8.3 10^3/uL (4.0-10.0)
[2020-03-02 04:20] LABS: Alanine Aminotransferase 10 U/L (0-33); Albumin Level 3.5 g/dL (3.5-5.2); Alkaline Phosphatase 142 IU/L (35-105); Anion Gap 18.9 (5-19); Aspartate Amino Transferase 14 U/L (0-32); Blood Urea Nitrogen 11 mg/dL (6-20); Calcium 9.5 mg/dL (8.5-10.5); Carbon Dioxide 23 mmol/L (22-29); Chloride 98 mmol/L (98-107); Globulin 3.2 g/dL (1.3-4.6); Glomerular Filtration Rate 86.9 mL/min (90-130); Glucose 342 mg/dL (65-115); Osmolality Calculated 292 mOsm/kg (285-295); Potassium 3.9 mmol/L (3.5-5.1); Sodium 136 mmol/L (136-145); Total Bilirubin 0.3 mg/dL (0.15-1.2); Total Protein 6.7 g/dL (6.6-8.7)
[2020-03-02 06:49] LABS: Glucose Point of Care 310 mg/dL (70-110)
[2020-03-02] MEDS: HYDROcodone-acetaminophen 10-325 mg Tablet 1 TAB PO ×3 (07:47→20:55)
[2020-03-02] MEDS: regadenoson 0.4 Mg/5 ml Syringe IVP (08:23)
[2020-03-02] MEDS: ipratropium-albuterol 3 mL Neb INHALATION (09:30)
[2020-03-02] MEDS: amlodipine 5 mg Tablet PO (09:52)
[2020-03-02] MEDS: fenofibrate 145 mg Tablet PO (09:52)
[2020-03-02] MEDS: pregabalin 150 mg Capsule PO ×3 (09:53→20:57)
[2020-03-02] MEDS: pantoprazole DR 40 mg Tablet 20 MG PO ×2 (09:53→17:12)
[2020-03-02] MEDS: gemfibrozil 600 mg Tablet PO (09:53)
[2020-03-02] MEDS: azithromycin 250 mg Tablet PO (09:53)
[2020-03-02] MEDS: sertraline 100 mg Tablet 200 MG PO (09:54)
[2020-03-02] MEDS: sucralfate 1 gm Tablet PO ×4 (09:54→20:57)
[2020-03-02] MEDS: carvedilol 25 mg Tablet 12.5 MG PO ×2 (09:56→17:12)
[2020-03-02] MEDS: clopidogrel 75 mg Tablet PO (09:56)
[2020-03-02] MEDS: ALPRAZolam 0.5 mg Tablet PO ×3 (09:56→22:21)
[2020-03-02] MEDS: isosorbide mononitrate ER 30 mg Tablet PO ×2 (09:56→17:12)
--- NOTE | 2020-03-02 10:04 | PM.PN ---
Subjective Subjective: Interval history: This morning patient was examined in the stress lab, she states that this morning she had some episodes of left-sided chest pain, some chest tenderness, no fevers, no chills, still has fatigue, malaise and some shortness of breath with exertion. She also complains of a headache. Vitals/I&O/Wt Last Vital Signs Temp 97.9 F 03/02/20 07:00 Pulse 96 03/02/20 09:38 Resp 16 03/02/20 09:38 BP 149/91 03/02/20 08:25 Pulse Ox 95 03/02/20 09:38 03/01/20 03/02/20 03/02/20 22:59 06:59 14:59 Intake Total 480 / 1950 1130 / 3080 Output Total 250 / 250 Balance 230 / 1700 1130 / 2830 Weight last 48 hrs Weight 94.075 kg Weight 94.211 kg Weight 89.811 kg Physical Exam Const: COMMON NORMALS: no apparent distress and oriented x3 HENMT: COMMON NORMALS: normocephalic HEAD & SCALP: normocephalic Neck/C-Spine: COMMON NORMALS: no JVD Resp: COMMON NORMALS: normal respiratory effort, no retractions, no use of accessory muscles and clear to auscultation bilaterally AUSCULTATION: clear to auscultation bilaterally Cardio: COMMON NORMALS: no JVD, regular rate, regular rhythm, S1 normal heart sound and S2 normal heart sound RATE: regular rate RHYTHM: regular rhythm HEART SOUNDS: S1 normal and S2 normal GI: COMMON NORMALS: normal to inspection, nondistended, normoactive bowel sounds, soft to palpation, non-tender, no hepatosplenomegaly, no masses and no bruits PALPATION: Yes soft and Yes no hepatosplenomegaly Extremity: COMMON NORMALS: normal capillary refill, no clubbing, cyanosis or edema, no calf tenderness and no pedal edema Neuro: COMMON NORMALS: oriented x3 Psych: COMMON NORMALS: mental status grossly normal Data : 03/02/20 03:27 03/02/20 03:27 Micro: Microbiology 02/29/20 18:48 Blood Culture - Preliminary Blood 02/29/20 18:48 Blood Culture - Preliminary Blood Gram positive cocci 03/01/20 01:33 Legionella Urinary Antigen - Final Urine,Clean Catch Bacterial Antigens - Final A&P Assessment and plan (1) Community acquired pneumonia: Status: Acute (2) Unstable angina: Status: Acute (3) Post-traumatic stress disorder, chronic: Status: Acute (4) Generalized anxiety disorder: Status: Acute Additional A&P Information Community-acquired pneumonia without any signs of sepsis Continue azithromycin and Rocephin Pneumonia severity index is very low, will get urine antigens, sputum culture, no signs of sepsis, creatinine normal, Patient has not received IV antibiotics in last 90 days No primary embolism on CTA chest, left lung consolidation CoVID testing negative Unstable angina Established coronary disease with 11 stent, recent stent September 2019 currently taking Plavix, aspirin has been discontinued because of bright bleed per rectum, history of ulcerative colitis, Her chest pain is reproducible, baseline troponin of 9, 120-minute 9.5, delta of 0.5, EKG shows mild ST depression in lead I, lead II, stress test this morning Monitoring, monitor for chest pain continue telemetry him Anxiety Patient seems very anxious, would give her benzodiazepines for acute exacerbation of anxiety with possible underlying depression Hypokalemia: Repleted Dysuria Patient is endorsing dysuria and frequency, will obtain urinalysis, continue ceftriaxone Urine culture to be obtained Full code DVT prophylaxis: Lovenox Attestations Medical Necessity Statement*: Requires continued hospitalization for pneumonia, chest pain Coding Level of Care Code Acute Cathodic Protection Technician for Shant Marroquin Diagnoses Community acquired pneumonia J18.9 Unstable angina I20.0 Post-traumatic stress disorder, chronic F43.12 Generalized anxiety disorder F41.1
[2020-03-02 11:30] LABS: Glucose Point of Care 355 mg/dL (70-110)
--- NOTE | 2020-03-02 14:15 | NMCV_ITS ---
NM jasbir perf SPECT r/s* [id number] Collette Kothari Age: 55 Gender: F : 1965 Exam Date: 03/02/2020 07:44 Ordering Phys: Cabrera Fountain MD Technologist: MILLER Foss Exam Location: [facility] Indications: CHEST PAIN STRESS TEST Please see separate stress test report in [facility] for full findings IMAGE PROTOCOL Rest/Stress 1 Lexiscan Day Radiopharmaceutical Dose (mCi) Administration Site Administered by Rest: Tc-99m 10.9 IV MILLER Mcclain Sestamibi Stress:Tc-99m 32.9 IV MILLER Mcclain Sestamibi Rest: 02-Mar-2020 60 Discovery 630 Stress: 02-Mar-2020 30 Discovery 630 0.4mg Lexiscan. Supine position only as patient was unable to lay prone. SPECT RESULTS Technical Quality: Good Raw Data Analysis: Normal Image Corrections: No attenuation or motion correction applied Summed Stress Score: 1 Summed Rest Score: 0 Summed Difference Score: 1 PERFUSION FINDINGS A small area of slightly decreased tracer uptake was noted in the mid inferolateral region with reversibility. FUNCTIONAL RESULTS (calculated via Gated SPECT) Stress Image LV EF (%): 82 Stress EDV (mL):83 TID: 1.21 Stress ESV (mL):15 FUNCTIONAL FINDINGS: Segmental wall motion analysis revealing no gross wall motion normalities. IMPRESSIONS 1. Myocardial perfusion imaging revealing a small area of reversible defect in the mid inferolateral region, suggestive of ischemia in the distribution of the left circumflex artery. The elevated transient ischemic dilatation ratio also may suggest endocardial ischemia. 2. Normal LV ejection fraction of 82%. 3. LV wall motion analysis revealing no gross wall motion abnormalities. 4. Normal LV volume. No similar previous studies are available for comparison Dr Jitendra Ryder MD FAC (Electronically Signed) Final Date: 02 March 2020 14:49 S
[2020-03-02 17:11] LABS: Glucose Point of Care 274 mg/dL (70-110)
[2020-03-02] MEDS: trazodone 150 mg Tablet PO (20:55)
[2020-03-02] MEDS: insulin glargine 100 units/1 mL 40 UNIT SUBCUT (20:58)
--- NOTE | 2020-03-02 21:00 | PC.NURSE ---
Accu check result 369mg/dl. Dr. Aguayo notified with new order received for sliding scale. Will monitor.
[2020-03-02 21:02] LABS: Glucose Point of Care 369 mg/dL (70-110)
[2020-03-02] MEDS: lactulose oral liq 20 gm/30 mL UDC 10 GM PO (22:19)
[2020-03-02] MEDS: cefTRIAXone 1,000 MG in sodium chloride 0.9% (plus) 50 ML 200 MG IV (22:25)
[2020-03-03] VITALS (8 sets, daily range): BP systolic 103–126; BP diastolic 68–86; PULSE 73–82; RESP 16–18; TEMP 36.3–37; O2SAT 93–99
[2020-03-03] MEDS: TRAMadol 50 mg Tablet PO ×4 (01:22→15:16)
--- NOTE | 2020-03-03 01:27 | PC.NURSE ---
Patient complaining of migraine. I get 3-4 a month. This nurse explained to patient that the only thing I could give her at this time would be a Tramadol. Patient agreed to take one until time for Hydrocodone. Also agreed to turn television off and lights. Will monitor.
[2020-03-03] MEDS: HYDROcodone-acetaminophen 10-325 mg Tablet 1 TAB PO ×4 (03:46→22:00)
--- NOTE | 2020-03-03 03:52 | PC.NURSE ---
Crying with a headache...states, I just can't shake it...and I hurt when I take a deep breath in. No changes noted in lung sounds. Pain medication given. Up to BSC without assistance. Laughing/smiling at times. Will monitor.
[2020-03-03 05:02] LABS: Basophils % 0.6 %; Eosinophils # 0.2 10^3/uL (0.0-0.8); Hematocrit 36.2 % (37.0-47.0); Hemoglobin 11.5 g/dL (11.5-15.3); Lymphocytes # 3.7 10^3/uL (0.8-4.8); Lymphocytes % 51.4 %; Mean Corpuscular HGB Conc 31.8 g/dL (30.0-36.0); Mean Corpuscular Hemoglobin 28.3 pg (28.0-34.0); Mean Corpuscular Volume 89.2 fL (81-99); Mean Platelet Volume 11.3 fL (7.4-10.4); Monocytes # 0.4 10^3/uL (0.2-0.9); Neutrophils # 2.9 10^3/uL (1.8-7.7); Neutrophils % 39.7 %; Nucleated Red Blood Cells % 0 %; Platelet Count 275 10^3/cmm (130-400); Red Blood Count 4.06 10^6/uL (4.1-5.3); Red Cell Distribution Width 13.7 % (12.1-15.1); White Blood Count 7.3 10^3/uL (4.0-10.0)
[2020-03-03 05:24] LABS: Alanine Aminotransferase 9 U/L (0-33); Albumin Level 3.5 g/dL (3.5-5.2); Alkaline Phosphatase 138 IU/L (35-105); Anion Gap 16.9 (5-19); Blood Urea Nitrogen 9 mg/dL (6-20); Calcium 9.3 mg/dL (8.5-10.5); Carbon Dioxide 24 mmol/L (22-29); Chloride 102 mmol/L (98-107); Globulin 3.3 g/dL (1.3-4.6); Glomerular Filtration Rate 128.1 mL/min (90-130); Glucose 179 mg/dL (65-115); Osmolality Calculated 288 mOsm/kg (285-295); Potassium 3.9 mmol/L (3.5-5.1); Sodium 139 mmol/L (136-145); Total Bilirubin 0.2 mg/dL (0.15-1.2); Total Protein 6.8 g/dL (6.6-8.7)
[2020-03-03 05:44] LABS: Aspartate Amino Transferase 16 U/L (0-32)
[2020-03-03 06:44] LABS: Glucose Point of Care 205 mg/dL (70-110)
[2020-03-03] MEDS: gemfibrozil 600 mg Tablet PO (08:46)
[2020-03-03] MEDS: amlodipine 5 mg Tablet PO (08:46)
[2020-03-03] MEDS: sertraline 100 mg Tablet 200 MG PO (08:46)
[2020-03-03] MEDS: clopidogrel 75 mg Tablet PO (08:46)
[2020-03-03] MEDS: pregabalin 150 mg Capsule PO ×3 (08:47→21:59)
[2020-03-03] MEDS: pantoprazole DR 40 mg Tablet 20 MG PO ×2 (08:47→17:12)
[2020-03-03] MEDS: sucralfate 1 gm Tablet PO ×4 (08:48→21:59)
[2020-03-03] MEDS: azithromycin 250 mg Tablet PO (08:48)
[2020-03-03] MEDS: isosorbide mononitrate ER 30 mg Tablet PO ×2 (08:48→17:13)
[2020-03-03] MEDS: carvedilol 25 mg Tablet 12.5 MG PO ×2 (08:49→17:13)
[2020-03-03] MEDS: fenofibrate 145 mg Tablet PO (08:49)
--- NOTE | 2020-03-03 09:44 | PC.CHAP ---
Pastoral Care Encounter/Spiritual Assessment Type of Contact [] Declined tunnel worker visit [] Patient/Family/Request visit [] Outpatient visit [] Follow-up visit [] Physician referral [] Code/Alert [x] Routine visit [] Staff referral [] Actively dying [] Patient sleeping [] Family support [] [] Out of room [] Palliative care [] [] Receiving care in room [] Pre-surgical visit [] Trauma [] Long length of stay [] ICU visit [] Other: Relational/Emotional Strength [x] Patient feels connected with others/family/visitors/staff [] Distress [] Loneliness/isolation [] Abandonment Spirituality of Patient [x] Person of Ashlee [x] Attends Congregational of their [place] [x] Believes in Prayer [] Reads Bible or Latter Day materials [x] There are Spiritual issues to be addressed Hand Packager Interventions [x] Prayer [x] Active listening [x] Non-anxious presence [x] Spiritual/emotional support [] Crisis/trauma care [x] Spiritual counseling [] Bereavement support [] Provided bereavement packet [] Provided Bible/devotional materials [] Provided toy/stuffed animal, coloring book to patient or family member [] Provided Communion [] Anointing/[place] [] Salvation [] Completed spiritual assessment [] Other: Impact on Illness or Injury [] Angry [] Fearful [] Anxious [] Often cries [] Exhaustion [] Unable to work [] Unable to attend buddhist [] Unable to walk/stand [] Unable to read [] Unable to drive [] Unable to eat/drink [] Unable to sleep [] Unable to be with family [] Patient intubated [x] Other: Summary Patient is not and lives in a common law relationship with her boyfriend of 30-years. The Gospel and prayer provided. Time spent with patient 10 minutes
[2020-03-03] MEDS: loratadine 10 mg Tablet PO (09:46)
[2020-03-03] MEDS: ALPRAZolam 0.5 mg Tablet PO ×2 (09:46→21:58)
--- NOTE | 2020-03-03 10:37 | PM.PN ---
Subjective Subjective: Interval history: This morning patient states that she is feeling better, but still has fatigue, malaise, some shortness of breath with exertion, no fevers, no chills, no chest pain, no lightheadedness, no dizziness Patient is 2 out of 4 blood cultures have been positive for gram-positive cocci, I am waiting on ID, and sensitivities, she is on Rocephin and azithromycin, will likely discharge tomorrow after identification and sensitivity Patient does complain of headache, states that Claritin sometimes helps for headaches Vitals/I&O/Wt Last Vital Signs Temp 97.9 F 03/03/20 07:00 Pulse 82 03/03/20 09:42 Resp 18 03/03/20 09:42 BP 126/82 03/03/20 07:00 Pulse Ox 93 03/03/20 09:42 03/02/20 03/03/20 03/03/20 22:59 06:59 14:59 Intake Total 600 / 840 170 / 1010 480 / 480 Output Total 1100 / 1800 Balance -500 / -960 170 / -790 480 / 480 Weight last 48 hrs Weight 94.619 kg Weight 94.075 kg Physical Exam Const: COMMON NORMALS: no apparent distress and oriented x3 HENMT: COMMON NORMALS: normocephalic HEAD & SCALP: normocephalic Neck/C-Spine: COMMON NORMALS: no JVD Resp: COMMON NORMALS: normal respiratory effort, no retractions, no use of accessory muscles and clear to auscultation bilaterally AUSCULTATION: clear to auscultation bilaterally Cardio: COMMON NORMALS: no JVD, regular rate, regular rhythm, S1 normal heart sound and S2 normal heart sound RATE: regular rate RHYTHM: regular rhythm HEART SOUNDS: S1 normal and S2 normal GI: COMMON NORMALS: normal to inspection, nondistended, normoactive bowel sounds, soft to palpation, non-tender, no hepatosplenomegaly, no masses and no bruits PALPATION: Yes soft and Yes no hepatosplenomegaly Extremity: COMMON NORMALS: normal capillary refill, no clubbing, cyanosis or edema, no calf tenderness and no pedal edema Neuro: COMMON NORMALS: oriented x3 Psych: COMMON NORMALS: mental status grossly normal Data : 03/03/20 04:21 03/03/20 04:21 Micro: Microbiology 02/29/20 18:48 Blood Culture - Preliminary Blood Staphylococcus species 02/29/20 18:48 Blood Culture - Preliminary Blood Staphylococcus species A&P Assessment and plan (1) Community acquired pneumonia: Status: Acute (2) Unstable angina: Status: Acute (3) Post-traumatic stress disorder, chronic: Status: Acute (4) Generalized anxiety disorder: Status: Acute Additional A&P Information Community-acquired pneumonia with possible bacteremia, 2 out of 3 blood cultures positive for gram-positive cocci Continue azithromycin and Rocephin No primary embolism on CTA chest, left lung consolidation CoVID testing negative Awaiting blood culture identification and sensitivities Unstable angina Established coronary disease with 11 stent, recent stent September 2019 currently taking Plavix, aspirin has been discontinued because of bright bleed per rectum, history of ulcerative colitis, Her chest pain is reproducible, baseline troponin of 9, 120-minute 9.5, delta of 0.5, EKG shows mild ST depression in lead I, lead II, stress test showed: 1. Myocardial perfusion imaging revealing a small area of reversible defect in the mid inferolateral region, suggestive of ischemia in the distribution of the left circumflex artery. The elevated transient ischemic dilatation ratio also may suggest endocardial ischemia. 2. Normal LV ejection fraction of 82%. 3. LV wall motion analysis revealing no gross wall motion abnormalities. 4. Normal LV volume. -No current chest pain, hemodynamically stable -We will have patient follow-up with her outpatient staff certified nurse midwife, continue Plavix, and Imdur -Monitoring, monitor for chest pain continue telemetry him Full code DVT prophylaxis: Lovenox Attestations Medical Necessity Statement*: Requires continued hospitalization for pneumonia, with possible bacteremia, awaiting identification Coding Level of Care Code Acute Humidifier Maintenance Worker for Chg Fwd Diagnoses Community acquired pneumonia J18.9 Unstable angina I20.0 Post-traumatic stress disorder, chronic F43.12 Generalized anxiety disorder F41.1
[2020-03-03 11:12] LABS: Glucose Point of Care 378 mg/dL (70-110)
[2020-03-03] MEDS: enoxaparin 40 mg/0.4 mL Syringe SUBCUT (13:03)
--- NOTE | 2020-03-03 15:01 | PC.RESP ---
Information sent to patient for Smoking Cessation and a schedule of classes.
[2020-03-03 16:54] LABS: Glucose Point of Care 231 mg/dL (70-110)
[2020-03-03] MEDS: metoclopramide 5 mg/mL SDV 2 mL IVP (18:08)
--- NOTE | 2020-03-03 20:05 | PC.NURSE ---
Patient requesting pain medication when rest of HS meds given for headache. Requesting sandwich. Will monitor.
[2020-03-03 20:53] LABS: Glucose Point of Care 284 mg/dL (70-110)
[2020-03-03] MEDS: lactulose oral liq 20 gm/30 mL UDC 10 GM PO (21:55)
[2020-03-03] MEDS: insulin glargine 100 units/1 mL 40 UNIT SUBCUT (21:57)
[2020-03-03] MEDS: trazodone 150 mg Tablet PO (21:59)
[2020-03-03] MEDS: LORazepam 1 mg Tablet PO (21:59)
[2020-03-03] MEDS: cefTRIAXone 1,000 MG in sodium chloride 0.9% (plus) 50 ML 200 MG IV (23:44)
[2020-03-04] VITALS (7 sets, daily range): BP systolic 128–145; BP diastolic 82–99; PULSE 77–82; RESP 17–20; TEMP 35.6–36.9; O2SAT 92–98
[2020-03-04] MEDS: TRAMadol 50 mg Tablet PO ×2 (00:13→14:53)
--- NOTE | 2020-03-04 00:21 | PC.NURSE ---
Patient complaining of severe headache. Tramadol given as ordered. I have serna this headache for 4 days now and I'm getting tired of it....I want it gone....I told the doctor today that I had one....they gave me Reglan through my IV...didn't help that much...but it did help a little....I need something for it now. Dr. Aguayo notified. Awaiting response.
--- NOTE | 2020-03-04 00:43 | PC.NURSE ---
Received order from Dr. Aguayo for Tylenol 650mg PO q6h PRN. Order read back and clarified.
--- NOTE | 2020-03-04 00:51 | PC.NURSE ---
Contacted Dr. Aguayo to let him know that acetaminophen is listed as an allergy. Awaiting response.
--- NOTE | 2020-03-04 03:00 | PC.NURSE ---
Patient moved to room 260 via bed. Complaining of severe headache. Asked this nurse if I had gotten a hold of the doctor. This nurse informed patient that I had and he had ordered Tylenol. Patient refuses to take it. It doesn't help. This nurse informed patient that she needed to let her physician know this morning and that I would let oncoming staff know about her headaches. Voices understanding. Just bring me my pain pill as soon as I can have it please. This nurse assured patient that I would. Will monitor.
[2020-03-04] MEDS: HYDROcodone-acetaminophen 10-325 mg Tablet 1 TAB PO ×2 (03:38→19:44)
--- NOTE | 2020-03-04 04:02 | PC.NURSE ---
Dr. Aguayo notified of patient's refusal of the Tylenol. No new orders received at this time. Will monitor.
[2020-03-04 05:07] LABS: Basophils # 0.1 10^3/uL (0.0-0.1); Basophils % 0.7 %; Eosinophils # 0.2 10^3/uL (0.0-0.8); Eosinophils % 2.8 %; Hemoglobin 11.3 g/dL (11.5-15.3); Lymphocytes # 3.8 10^3/uL (0.8-4.8); Lymphocytes % 51.6 %; Mean Corpuscular HGB Conc 31.4 g/dL (30.0-36.0); Mean Corpuscular Hemoglobin 27.6 pg (28.0-34.0); Mean Platelet Volume 11.3 fL (7.4-10.4); Monocytes # 0.4 10^3/uL (0.2-0.9); Monocytes % 5.6 %; Neutrophils # 2.9 10^3/uL (1.8-7.7); Neutrophils % 39.2 %; Nucleated Red Blood Cells % 0 %; Platelet Count 278 10^3/cmm (130-400); Red Blood Count 4.09 10^6/uL (4.1-5.3); Red Cell Distribution Width 13.8 % (12.1-15.1); White Blood Count 7.3 10^3/uL (4.0-10.0)
[2020-03-04 05:22] LABS: Magnesium 1.6 mg/dL (1.7-2.3); Phosphorus 3.7 mg/dL (2.5-4.5)
[2020-03-04 05:25] LABS: Alanine Aminotransferase 9 U/L (0-33); Albumin Level 3.4 g/dL (3.5-5.2); Alkaline Phosphatase 129 IU/L (35-105); Anion Gap 15.8 (5-19); Aspartate Amino Transferase 14 U/L (0-32); Blood Urea Nitrogen 10 mg/dL (6-20); Calcium 9.2 mg/dL (8.5-10.5); Carbon Dioxide 25 mmol/L (22-29); Chloride 101 mmol/L (98-107); Globulin 3.3 g/dL (1.3-4.6); Glomerular Filtration Rate 128.1 mL/min (90-130); Glucose 177 mg/dL (65-115); Osmolality Calculated 286 mOsm/kg (285-295); Potassium 3.8 mmol/L (3.5-5.1); Sodium 138 mmol/L (136-145); Total Bilirubin 0.2 mg/dL (0.15-1.2); Total Protein 6.7 g/dL (6.6-8.7)
[2020-03-04 06:04] LABS: Glucose Point of Care 155 mg/dL (70-110)
[2020-03-04] MEDS: isosorbide mononitrate ER 30 mg Tablet PO ×2 (08:42→17:25)
[2020-03-04] MEDS: pregabalin 150 mg Capsule PO ×3 (08:42→22:03)
[2020-03-04] MEDS: azithromycin 250 mg Tablet PO (08:42)
[2020-03-04] MEDS: fenofibrate 145 mg Tablet PO (08:42)
[2020-03-04] MEDS: sucralfate 1 gm Tablet PO ×4 (08:42→22:03)
[2020-03-04] MEDS: sertraline 100 mg Tablet 200 MG PO (08:42)
[2020-03-04] MEDS: loratadine 10 mg Tablet PO (08:42)
[2020-03-04] MEDS: gemfibrozil 600 mg Tablet PO (08:42)
[2020-03-04] MEDS: amlodipine 5 mg Tablet PO (08:43)
[2020-03-04] MEDS: clopidogrel 75 mg Tablet PO (08:43)
[2020-03-04] MEDS: carvedilol 25 mg Tablet 12.5 MG PO ×2 (08:43→17:24)
[2020-03-04] MEDS: pantoprazole DR 40 mg Tablet 20 MG PO ×2 (08:43→17:24)
--- NOTE | 2020-03-04 08:54 | USCV_ITS ---
Collette Kothari Age: 55 Gender: F : 1965 Exam Date: 03/04/2020 14:58 Ordering Phys: Cabrera Fountain MD Technologist: Mady Arzola Exam Location: [facility] [place] Indication: STAPH BACTEREMIA. EVALUATE FOR ENDOCARDITIS. BP: / HR: 78 Rhythm: Sinus Technical Quality: Technically difficult study MEASUREMENTS (Male / Female) Normal Values 2D ECHO LV Diastolic Diameter PLAX 3.4 cm 4.2 - 5.9 / 3.9 - 5.3 cm LV Systolic Diameter PLAX 3.2 cm IVS Diastolic Thickness 1.1 cm 0.6 - 1.0 / 0.6 - 0.9 cm IVS Systolic Thickness 1.5 cm LVPW Diastolic Thickness 1.5 cm 0.6 - 1.0 / 0.6 - 0.9 cm LVPW Systolic Thickness 1.6 cm LVOT Diameter 2.0 cm LV Ejection Fraction 2D Teich 18.0 % LA Diameter 4.4 cm LA Width 2.7 cm LA Height 3.6 cm RA Width 3.5 cm RA Height 2.3 cm Aorta at Sinotubular Diameter 2.7 cm M-MODE LV Diastolic Diameter MM 4.3 cm 4.2 - 5.9 / 3.9 - 5.3 cm LV Systolic Diameter MM 3.3 cm LV Ejection Fraction MM Teich 48.4 % IVS Diastolic Thickness MM 1.4 cm 0.6 - 1.0 / 0.6 - 0.9 cm IVS Systolic Thickness MM 1.5 cm LVPW Diastolic Thickness MM 1.6 cm 0.6 - 1.0 / 0.6 - 0.9 cm LVPW Systolic Thickness MM 2.1 cm RV Diastolic Diameter MM 1.2 cm Aortic Annulus Diameter 3.3 cm LA Ao Ratio MM 1.4 MV E Point Septal Separation 0.5 cm DOPPLER AV Peak Velocity 140.0 cm/s LVOT Peak Velocity 83.0 cm/s AV Area Cont Eq vti 1.7 cm squared AV Area Cont Eq pk 1.9 cm squared MV Area PHT 4.4 cm squared Mitral E to A Ratio 0.8 MV E' Velocity 8.0 cm/s Mitral E to MV E' Ratio 8.4 Mitral E to LV E' Lateral Ratio 9.1 Mitral E to LV E' Septal Ratio 7.9 TR Peak Velocity 67.0 cm/s TR Peak Gradient 1.8 mmHg TR Mean Velocity 106.1 cm/s TR Mean Gradient 5.1 mmHg TR Velocity Time Integral 37.6 cm TV Peak E Velocity 80.0 cm/s Right Atrial Pressure 3.0 mmHg Pulmonary Artery Systolic Pressu 4.8 mmHg PV Peak Velocity 93.0 cm/s RV Acceleration Time 0.1 s RV Ejection Time 0.3 s RV AcT/ET 0.5 FINDINGS Left Ventricle Normal left ventricular size, systolic function and wall thickness, with no regional wall motion abnormalities. Grade I/IV diastolic dysfunction (abnormal relaxation filling pattern), normal to mildly elevated filling pressures. Left ventricular ejection fraction is estimated at 65%. Right Ventricle Normal right ventricular size and systolic function. Normal right ventricular systolic pressure. Right Atrium The right atrium is normal in size. Left Atrium The left atrium is normal in size. Mitral Valve Structurally normal mitral valve without significant stenosis or prolapse. There is no mitral regurgitation. Aortic Valve Structurally normal aortic valve without significant sclerosis or stenosis. There is no aortic regurgitation. Tricuspid Valve Structurally normal tricuspid valve. Trace tricuspid valve regurgitation. Pulmonic Valve Pulmonic valve not well visualized. Pericardium Normal pericardium without effusion. Aorta Normal ascending aorta dimension. CONCLUSIONS Normal left ventricular size, systolic function and wall thickness, with no regional wall motion abnormalities. Grade I/IV diastolic dysfunction (abnormal relaxation filling pattern), normal to mildly elevated filling pressures. Left ventricular ejection fraction is estimated at 65%. There is no evidence for endocarditis. This is technically a somewhat difficult study however no obvious vegetations are noted. Dr. Frank Olivo MD (Electronically Signed) Final Date: 05 March 2020 09:51 S
--- NOTE | 2020-03-04 10:35 | CT_ITS ---
WS: [id number] CT CERVICAL SPINE TECHNIQUE: Noncontrast CT of the cervical spine with coronal and sagittal reformatted images. CLINICAL INFORMATION: staph bacteremia COMPARISON: None. DLP: 668.[address] scans at [facility] use at least one of these dose optimization techniques: automat ed exposure control; mA and/or kV adjustment per patient size (includes targeted exams where dose is matched to clinical indication); or iterative reconstruction. FINDINGS: Straightening of the normal cervical lordosis. Normal C1-C2 articulation. No acute fractures. Normal prevertebral soft tissues. Normal parapharyngeal fat. Normal posterior nasopharynx. No significant sp inal canal or foraminal narrowing. Mild facet arthropathy C4-C5 and C5-C6. Spinal canal appears patent. No evidence of high-grade spinal canal narrowing. No evidence of endplat e erosion to indicate discitis. A few prominent cervical lymph nodes not pathologically enlarged likely reactive. CT/CT cervical spin wo con* [id number] IMPRESSION: Unremarkable cervical spine
--- NOTE | 2020-03-04 10:35 | CT_ITS ---
WS: [id number] CT LUMBAR SPINE TECHNIQUE: Noncontrast CT of the lumbar spine with coronal and sagittal reformatted images. CLINICAL INFORMATION: braxtonh baceremia COMPARISON: None. DLP: 1812.[address] scans at [facility] use at least one of these dose optimization techniques: automat ed exposure control; mA and/or kV adjustment per patient size (includes targeted exams where dose is matched to clinical indication); or iterative reconstruction. FINDINGS: Mild lumbar curve. No acute compression. No high-grade central canal stenosis. No evidence of disciti s or osteomyelitis. Slight anterolisthesis L3 on L4. L1-L2: Normal. L2-L3: Normal L3-L4: Slight anterolisthesis L3 on L4. Disc bulging in combination with facet arthropathy and ligame nt flavum hypertrophy results in mild central canal stenosis. Impingement on the left subarticular re cess. Mild left and no significant right foraminal narrowing. L4-L5: Mild disc bulging with narrowing of the left subarticular recess and slight encroachment trave rsing left L5 nerve root. Mild left and no significant right foraminal narrowing. Moderate facet arth ropathy. L5-S1: Minimal annular bulging. Mild facet arthropathy. Spinal canal and foramen are patent. Visualized pelvic bony structures: Normal. Paravertebral soft tissues: Normal. CT/CT lumbar spine wo con* [id number] IMPRESSION: 1. No evidence of discitis or osteomyelitis. 2. Mild central canal stenosis L3-4 with narrowing of the left subarticular re cess. 3. Mild left L3-4 and L4-5 foraminal narrowing.
--- NOTE | 2020-03-04 10:35 | CT_ITS ---
WS: [id number] CT THORACIC SPINE TECHNIQUE: Noncontrast CT of the thoracic spine with coronal and sagittal reformatted images. CLINICAL INFORMATION: staph bacteremia COMPARISON: None. DLP: 2052.[address] scans at [facility] use at least one of these dose optimization techniques: automat ed exposure control; mA and/or kV adjustment per patient size (includes targeted exams where dose is matched to clinical indication); or iterative reconstruction. FINDINGS: Mild thoracic curve. Mild thoracic kyphosis. Mild spondylitic changes in the mid thoracic spine. No a cute compression fractures. A few Schmorl's nodes in the upper thoracic spine. No high-grade spinal c anal narrowing. No evidence of discitis or osteomyelitis. A few tiny shallow disc osteophyte protrusions more prominent at right T5-T6, central T7-8, left edson central T8-9 and T9-T10. No high-grade central canal stenosis. Mild facet arthropathy in the lower th oracic spine. Atelectasis partially visualized in the lung bases. Subsegmental atelectasis right lung base. CT/CT thoracic spin wo con* [id number] IMPRESSION: No evidence of discitis or osteomyelitis.
--- NOTE | 2020-03-04 10:38 | CT_ITS ---
WS: [id number] CT HEAD TECHNIQUE: Noncontrast CT of the head obtained from the skullbase to the vertex. CLINICAL INFORMATION: headache, fever COMPARISON: None. DLP: 748.[address] scans at [facility] use at least one of these dose optimization techniques: automat ed exposure control; mA and/or kV adjustment per patient size (includes targeted exams where dose is matched to clinical indication); or iterative reconstruction. FINDINGS: Small well-circumscribed increased attenuation lesion at the foramen of Crowley consistent with colloi d cyst. This measures approximately 5.7 mm in maximum dimension. No evidence of hydrocephalus or nam sependymal edema. Mild small vessel changes. Mild parenchymal volume loss. Tiny chronic lacunar infarcts in the left ba ayla ganglia.No extra-axial fluid collections. Paranasal sinuses and mastoid air cells well aerated. CT/CT head wo con* [id number] IMPRESSION: 1. No evidence of intracranial hemorrhage or mass effect. 2. 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 No evidence of obstructing hy drocephalus or transependymal edema. 3. Mild small vessel changes with mild parenchymal volume loss. 4. Several tiny chronic lacunar infarcts in the left basal ganglia. 5. No other significant findings.
[2020-03-04] MEDS: morphine 4 mg/mL SDV 1 mL 2 MG IVP (10:48)
[2020-03-04] MEDS: metoclopramide 5 mg/mL SDV 2 mL IVP (10:48)
--- NOTE | 2020-03-04 10:48 | PC.NURSE ---
morphine 2mg IVP and reglan 5 mg IVP given per dr. bennett order for pt complaining of back and head pain.
[2020-03-04 11:24] LABS: Glucose Point of Care 246 mg/dL (70-110)
[2020-03-04] MEDS: enoxaparin 40 mg/0.4 mL Syringe SUBCUT (12:05)
--- NOTE | 2020-03-04 14:00 | PM.PN ---
Subjective Subjective: Interval history: This morning patient still stating that she has a severe headache, states that typically morphine helps with her headaches, has chronic neck pain and back pain, no fevers, no chills, no nausea, no vomiting, no chest pain, Vitals/I&O/Wt Last Vital Signs Temp 98.3 F 03/04/20 11:30 Pulse 78 03/04/20 11:30 Resp 18 03/04/20 11:30 BP 129/82 03/04/20 11:30 Pulse Ox 93 03/04/20 11:30 03/03/20 03/04/20 03/04/20 22:59 06:59 14:59 Intake Total 1200 / 2400 170 / 2570 740 / 740 Output Total 650 / 1350 Balance 550 / 1050 170 / 1220 740 / 740 Weight last 48 hrs Weight 94.483 kg Weight 94.619 kg Physical Exam Const: COMMON NORMALS: no apparent distress and oriented x3 HENMT: COMMON NORMALS: normocephalic HEAD & SCALP: normocephalic Neck/C-Spine: COMMON NORMALS: no JVD Resp: COMMON NORMALS: normal respiratory effort, no retractions, no use of accessory muscles and clear to auscultation bilaterally AUSCULTATION: clear to auscultation bilaterally Cardio: COMMON NORMALS: no JVD, regular rate, regular rhythm, S1 normal heart sound and S2 normal heart sound RATE: regular rate RHYTHM: regular rhythm HEART SOUNDS: S1 normal and S2 normal GI: COMMON NORMALS: normal to inspection, nondistended, normoactive bowel sounds, soft to palpation, non-tender, no hepatosplenomegaly, no masses and no bruits PALPATION: Yes soft and Yes no hepatosplenomegaly Extremity: COMMON NORMALS: normal capillary refill, no clubbing, cyanosis or edema, no calf tenderness and no pedal edema Neuro: COMMON NORMALS: oriented x3 Psych: COMMON NORMALS: mental status grossly normal Data : 03/04/20 04:33 03/04/20 04:33 Micro: Microbiology 03/03/20 10:49 Blood Culture - Preliminary Blood NEGATIVE TO DATE 03/03/20 10:49 Blood Culture - Preliminary Blood NEGATIVE TO DATE 02/29/20 18:48 Blood Culture - Preliminary Blood Staphylococcus species 02/29/20 18:48 Blood Culture - Preliminary Blood Staphylococcus species A&P Assessment and plan (1) Community acquired pneumonia: Status: Acute (2) Unstable angina: Status: Acute (3) Post-traumatic stress disorder, chronic: Status: Acute (4) Generalized anxiety disorder: Status: Acute Additional A&P Information Community-acquired pneumonia with possible bacteremia, 2 out of 3 blood cultures positive for Staphylococcus species Continue azithromycin and Rocephin No primary embolism on CTA chest, left lung consolidation CoVID testing negative Awaiting blood culture identification and sensitivities Staphylococcal bacteremia -Patient is afebrile -Repeat blood cultures so far have been unremarkable -Culture sensitivities are pending -We will order echocardiogram to evaluate for endocarditis -We will order cervical spine CT to evaluate for discitis and or osteomyelitis Unstable angina Established coronary disease with 11 stent, recent stent September 2019 currently taking Plavix, aspirin has been discontinued because of bright bleed per rectum, history of ulcerative colitis, Her chest pain is reproducible, baseline troponin of 9, 120-minute 9.5, delta of 0.5, EKG shows mild ST depression in lead I, lead II, stress test showed: 1. Myocardial perfusion imaging revealing a small area of reversible defect in the mid inferolateral region, suggestive of ischemia in the distribution of the left circumflex artery. The elevated transient ischemic dilatation ratio also may suggest endocardial ischemia. 2. Normal LV ejection fraction of 82%. 3. LV wall motion analysis revealing no gross wall motion abnormalities. 4. Normal LV volume. -No current chest pain, hemodynamically stable -We will have patient follow-up with her outpatient button cutting machine operator, continue Plavix, and Imdur -Monitoring, monitor for chest pain continue telemetry him Full code DVT prophylaxis: Lovenox Attestations Medical Necessity Statement*: Requires continued hospitalization for community-acquired pneumonia, staphylococcal bacteremia Coding Level of Care Code Acute Facilities Maintenance Engineer for Chg Fwd Diagnoses Community acquired pneumonia J18.9 Unstable angina I20.0 Post-traumatic stress disorder, chronic F43.12 Generalized anxiety disorder F41.1
--- NOTE | 2020-03-04 15:00 | PC.NURSE ---
dr bennett notified of pt stating, the morphine just doesn't last very long and I have a headache again. dr bennett asked nurse to give tramadol 50 mg.
--- NOTE | 2020-03-04 15:17 | PC.NURSE ---
dr bennett notified of pt stating, I'll give this tramadol until 1530 to work and I know it isn't going to because it didn't last night but then he has got to figure something out. I have laid here for 4 days in pain and he has got to figure something out. I am in pain from my head to my toes. ordered morphine 1 mg IVP Q 6 hr.
[2020-03-04] MEDS: morphine 4 mg/mL SDV 1 mL 1 MG IVP ×2 (16:21→22:05)
[2020-03-04] MEDS: ALPRAZolam 0.5 mg Tablet PO (16:22)
[2020-03-04 17:03] LABS: Glucose Point of Care 235 mg/dL (70-110)
--- NOTE | 2020-03-04 19:34 | ECG_ITS ---
Measurements Intervals [place] Rate: 86 P: 45 SD: 169 QRS: -10 QRSD: 96 T: 77 QT: 364 QTc: [address] & T-WAVE ABNORMALITY Compared to ECG 03/01/2020 11:37:45 No significant changes Electronically Signed On 03-05-2020 10:01:47 CDT by Frank Olivo M.D. [email or web address]
[2020-03-04] MEDS: nitroglycerin 0.4 mg sublingual Tablet SUBLINGUAL (19:44)
--- NOTE | 2020-03-04 19:58 | PC.NURSE ---
patient complained of chest pain and heavy headache, spoke to Dr. Aguayo, ordered ekg, gave one nitro, patient said it brought pain from 7 to 5 amd 8 minutes later she said its back to 7, gave her one hydro to offset headache as well. bp before nitro 140/84 after was 135/81 then back to 145/84 8 minutes after.
[2020-03-04 21:46] LABS: Glucose Point of Care 307 mg/dL (70-110)
[2020-03-04] MEDS: insulin glargine 100 units/1 mL 40 UNIT SUBCUT (22:01)
[2020-03-04] MEDS: LORazepam 1 mg Tablet PO (22:03)
[2020-03-04] MEDS: trazodone 150 mg Tablet PO (22:03)
[2020-03-04] MEDS: lactulose oral liq 20 gm/30 mL UDC 10 GM PO (22:04)
[2020-03-05] VITALS (8 sets, daily range): BP systolic 107–133; BP diastolic 70–87; PULSE 75–88; RESP 16–20; TEMP 36.4–36.8; O2SAT 92–98
[2020-03-05] MEDS: cefTRIAXone 1,000 MG in sodium chloride 0.9% (plus) 50 ML 100 MG IV (00:15)
[2020-03-05] MEDS: TRAMadol 50 mg Tablet PO ×2 (01:00→09:23)
[2020-03-05] MEDS: fluticasone nasal spray 16gm Btl 1 SPRAY NASAL ×2 (02:43→08:46)
[2020-03-05] MEDS: ALPRAZolam 0.5 mg Tablet 1 MG PO (02:53)
[2020-03-05] MEDS: HYDROcodone-acetaminophen 10-325 mg Tablet 1 TAB PO (02:54)
--- NOTE | 2020-03-05 03:26 | PC.NURSE ---
Patient has complained of a headache/migraine the entire night. She has been given morphine (iv), hydrocodone x2, tramadol, ativan, xanax, trazadone to help sleep, and none of it she says has dropped the pain lower than 2 points and then for only a short time. she has maintained a headache/migraine at 7 to 10 all night with only one very short interlude where she was slkeeping for about 20 minutes.
[2020-03-05 05:23] LABS: Basophils % 0.6 %; Eosinophils # 0.2 10^3/uL (0.0-0.8); Eosinophils % 2.8 %; Hematocrit 36.5 % (37.0-47.0); Hemoglobin 11.6 g/dL (11.5-15.3); Lymphocytes # 3.3 10^3/uL (0.8-4.8); Lymphocytes % 51.6 %; Mean Corpuscular HGB Conc 31.8 g/dL (30.0-36.0); Mean Corpuscular Hemoglobin 27.8 pg (28.0-34.0); Mean Corpuscular Volume 87.5 fL (81-99); Mean Platelet Volume 11.4 fL (7.4-10.4); Monocytes # 0.4 10^3/uL (0.2-0.9); Monocytes % 5.6 %; Neutrophils # 2.5 10^3/uL (1.8-7.7); Neutrophils % 39.2 %; Nucleated Red Blood Cells % 0 %; Platelet Count 293 10^3/cmm (130-400); Red Blood Count 4.17 10^6/uL (4.1-5.3); Red Cell Distribution Width 13.8 % (12.1-15.1); White Blood Count 6.4 10^3/uL (4.0-10.0)
[2020-03-05] MEDS: morphine 4 mg/mL SDV 1 mL 1 MG IVP ×2 (05:46→10:06)
[2020-03-05 05:52] LABS: Magnesium 1.8 mg/dL (1.7-2.3); Phosphorus 3.8 mg/dL (2.5-4.5)
[2020-03-05 05:53] LABS: Alanine Aminotransferase 9 U/L (0-33); Albumin Level 3.6 g/dL (3.5-5.2); Alkaline Phosphatase 141 IU/L (35-105); Anion Gap 18.9 (5-19); Aspartate Amino Transferase 14 U/L (0-32); Blood Urea Nitrogen 12 mg/dL (6-20); Carbon Dioxide 22 mmol/L (22-29); Chloride 99 mmol/L (98-107); Globulin 3.3 g/dL (1.3-4.6); Glomerular Filtration Rate 103.8 mL/min (90-130); Glucose 191 mg/dL (65-115); Osmolality Calculated 283 mOsm/kg (285-295); Potassium 3.9 mmol/L (3.5-5.1); Sodium 136 mmol/L (136-145); Total Bilirubin 0.2 mg/dL (0.15-1.2); Total Protein 6.9 g/dL (6.6-8.7)
[2020-03-05 06:31] LABS: Glucose Point of Care 182 mg/dL (70-110)
[2020-03-05] MEDS: pantoprazole DR 40 mg Tablet 20 MG PO (08:42)
[2020-03-05] MEDS: sertraline 100 mg Tablet 200 MG PO (08:43)
[2020-03-05] MEDS: sucralfate 1 gm Tablet PO (08:44)
[2020-03-05] MEDS: carvedilol 25 mg Tablet 12.5 MG PO (08:44)
[2020-03-05] MEDS: gemfibrozil 600 mg Tablet PO (08:44)
[2020-03-05] MEDS: isosorbide mononitrate ER 30 mg Tablet PO (08:45)
[2020-03-05] MEDS: amlodipine 5 mg Tablet PO (08:45)
[2020-03-05] MEDS: loratadine 10 mg Tablet PO (08:45)
[2020-03-05] MEDS: clopidogrel 75 mg Tablet PO (08:45)
[2020-03-05] MEDS: fenofibrate 145 mg Tablet PO (08:58)
[2020-03-05] MEDS: metoclopramide 5 mg/mL SDV 2 mL IVP (10:07)
--- NOTE | 2020-03-05 10:19 | PM.DCS ---
Discharge Providers Date of Admission: 03/02/20 12:31 Date of Discharge: March 05, 2020 Attending Provider at Admission: Kianna Aguayo MD Attending Provider at Discharge: Cabrera Fountain MD Primary Care Provider: Juno Brown Diagnoses at Discharge Discharge Diagnosis (1) Community acquired pneumonia: Status: Acute (2) Unstable angina: Status: Acute (3) Post-traumatic stress disorder, chronic: Status: Acute (4) Generalized anxiety disorder: Status: Acute Reason for Visit Reason for Visit: Reason For Visit: CHEST PAIN, SOB Hospital Course Discharge Summary: This is a 55-year-old female with a past medical history of CABG x4, history of 11 stents, recent cardiac catheterization which showed triple-vessel disease with total occlusion of mid LAD, proximal circumflex and distal RCA, status post and placement September at [facility], history of depression with anxiety GERD, hypertension, hypertriglyceridemia, insulin-dependent type 2 diabetes mellitus, irritable bowel, chronic pain on opiates, history of chronic migraine headaches who presents the emergency room due to complaints of shortness of breath and angina Patient was admitted for shortness of breath secondary to community-acquired pneumonia, her influenza was negative, covid19 was negative, urine bacterial antigens were negative, patient remained afebrile, did not require any oxygen, received antibiotic treatment as inpatient, she completed this course as inpatient, was discharged home with close follow-up with her primary care provider as outpatient. For chest pain, patient was admitted for unstable angina, chest pain sounded more pleuritic in nature related to her community-acquired pneumonia, and she was quite tender on exam with her chest wall. Patient is EKG show had mild ST depressions in leads I and II, patient's did not have a delta significant troponin, it was 0.5, but given her significant cardiac history, recent history of stent placement, patient had a cardiac stress test. Nuclear stress test showed Myocardial perfusion imaging revealing a small area of reversible defect in the mid inferolateral region, suggestive of ischemia in the distribution of the left circumflex artery. The elevated transient ischemic dilatation ratio also may suggest endocardial ischemia. Normal LV ejection fraction of 82%. LV wall motion analysis revealing no gross wall motion abnormalities. Normal LV volume. Patient was chest pain-free during had her admission, no significant telemetry changes, she remained hemodynamically stable. 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 Patient's hospitalization was complicated with Staphylococcus hominis positive blood cultures resistant to penicillins, sensitive to vancomycin. The identification and susceptibilities took 3 days to return which extended her hospitalization. I spoke to cardiology about patient's echocardiogram, and which did not show any vegetations. Given patient's history of back pain, she had a CT of her spine to rule out discitis or vertebral osteomyelitis, which was unremarkable. The only foreign bodies patient had was a bladder sling and screws placed more than 20 years ago. Staphylococcus hominis grew in 2 out of 4 blood cultures, repeat blood cultures have been unremarkable so far, patient's been afebrile, hemodynamically stable, no significant tachycardia, no significant leukocytosis. Given that during her hospitalization, she was not treated for the Staphylococcus hominis as it was resistant to most penicillins and she was on Rocephin, and repeat blood cultures were negative, patient was relatively asymptomatic, this infection was treated as if it was a contaminant. Repeat blood cultures so far have been negative, will continue to monitor. Patient was advised of all the previous information, advised the risk and benefits, voiced understanding, agreed for no antibiotic treatment. Patient was advised to monitor for fevers, chills, nausea, vomiting and a close follow-up with her primary care provider as outpatient. If patient is deemed to be bacteremic in the future with the same organism, then t she will likely require treatment but as of now this is likely a contamination. Physical Exam Const: COMMON NORMALS: no apparent distress and oriented x3 HENMT: COMMON NORMALS: normocephalic HEAD & SCALP: normocephalic Neck/C-Spine: COMMON NORMALS: no JVD Resp: COMMON NORMALS: normal respiratory effort, no retractions, no use of accessory muscles and clear to auscultation bilaterally AUSCULTATION: clear to auscultation bilaterally Cardio: COMMON NORMALS: no JVD, regular rate, regular rhythm, S1 normal heart sound and S2 normal heart sound RATE: regular rate RHYTHM: regular rhythm HEART SOUNDS: S1 normal and S2 normal GI: COMMON NORMALS: normal to inspection, nondistended, normoactive bowel sounds, soft to palpation, non-tender, no hepatosplenomegaly, no masses and no bruits PALPATION: Yes soft and Yes no hepatosplenomegaly Extremity: COMMON NORMALS: normal capillary refill, no clubbing, cyanosis or edema, no calf tenderness and no pedal edema Neuro: COMMON NORMALS: oriented x3 Psych: COMMON NORMALS: mental status grossly normal Discharge Data Data Completed and Pending: Completed Studies During Hospitalization Category Date Time Status CT angio chest PE protcl [id number] Urge nt Cat Scan 02/29/20 18:[address] cervical spin wo con* [id number] Rout ine Cat Scan 03/04/20 10:[address] head wo con* 7 [id number] Routine Cat Scan 03/04/20 10:[address] lumbar spine w o con* [id number] Routi ne Cat Scan 03/04/20 10:[address] thoracic spin wo con* [id number] Rout ine Cat Scan 03/04/20 10:35 Completed Sestamibi Stress Test Request Routi ne Exams 03/01/20 14:15 Completed XR chest 1V taniya ble [id number] Stat Exams 02/29/20 18:28 Completed NM jasbir perf SPECT r/s* [id number] Routin e Nuc Med 03/02/20 14:15 Completed CV echo complete* [id number] Routine Ultrasound 03/04/20 08:54 Completed Pending at discharge Category Date Time Status Blood Culture Sta t Lab 03/03/20 10:49 Results Complete Blood Co unt w/Auto AM LABS Lab 03/06/20 04:00 Ordered Complete Blood Co unt w/Auto AM LABS Lab 03/07/20 04:00 Ordered Comprehensive Met abolic Panel AM LA BS Lab 03/06/20 04:00 Ordered Comprehensive Met abolic Panel AM LA BS Lab 03/07/20 04:00 Ordered Magnesium AM LABS Lab 03/06/20 04:00 Ordered Phosphorus AM LAB S Lab 03/06/20 04:00 Ordered Sputum Culture an d Gram Stain Routi ne Lab 02/29/20 23:49 Uncollected Labs from last 24 hours 03/05/20 03/05/20 03/05/20 06:24 04:50 04:50 WBC RBC Hgb Hct MCV MCH MCHC RDW Plt Count MPV Neut % (Auto) Lymph % (Auto) Grundy % (Auto) Eos % (Auto) Baso % (Auto) Neut # (Auto) Lymph # (Auto) Grundy # (Auto) Eos # (Auto) Baso # (Auto) Nucleated RBC % (a uto) Nucleated RBCs # Sodium 136 Potassium 3.9 Chloride 99 Carbon Dioxide 22 Anion Gap 18.9 BUN 12 Creatinine 0.6 GFR Calculation 103.8 Glucose 191 H POC Glucose 182 Calculated Osmolal ity 283 L Calcium 10.0 Phosphorus 3.8 Magnesium 1.8 Total Bilirubin 0.2 AST 14 ALT 9 Alkaline Phosphata se 141 H Total Protein 6.9 Albumin 3.6 Globulin 3.3 03/05/20 03/04/20 03/04/20 04:50 21:38 16:58 WBC 6.4 RBC 4.17 Hgb 11.6 Hct 36.5 L MCV 87.5 MCH 27.8 L MCHC 31.8 RDW 13.8 Plt Count 293 MPV 11.4 H Neut % (Auto) 39.2 Lymph % (Auto) 51.6 Grundy % (Auto) 5.6 Eos % (Auto) 2.8 Baso % (Auto) 0.6 Neut # (Auto) 2.5 Lymph # (Auto) 3.3 Grundy # (Auto) 0.4 Eos # (Auto) 0.2 Baso # (Auto) 0.0 Nucleated RBC % (a uto) 0 Nucleated RBCs # 0.0 Sodium Potassium Chloride Carbon Dioxide Anion Gap BUN Creatinine GFR Calculation Glucose POC Glucose 307 235 Calculated Osmolal ity Calcium Phosphorus Magnesium Total Bilirubin AST ALT Alkaline Phosphata se Total Protein Albumin Globulin 03/04/20 03/04/20 16:58 11:02 WBC RBC Hgb Hct MCV MCH MCHC RDW Plt Count MPV Neut % (Auto) Lymph % (Auto) Grundy % (Auto) Eos % (Auto) Baso % (Auto) Neut # (Auto) Lymph # (Auto) Grundy # (Auto) Eos # (Auto) Baso # (Auto) Nucleated RBC % (a uto) Nucleated RBCs # Sodium Potassium Chloride Carbon Dioxide Anion Gap BUN Creatinine GFR Calculation Glucose POC Glucose 235 246 Calculated Osmolal ity Calcium Phosphorus Magnesium Total Bilirubin AST ALT Alkaline Phosphata se Total Protein Albumin Globulin Vitals: Last Vital Signs Temp 97.5 F L 03/05/20 07:28 Pulse 76 03/05/20 07:40 Resp 16 03/05/20 10:06 BP 122/87 03/05/20 07:28 Pulse Ox 94 03/05/20 07:40 Discharge Plan Discharge Patient Disposition: Home, Self-Care Condition: Good Prescriptions: New tramadol 50 mg Tablet 50 mg PO Q12H PRN (Reason: Moderate Pain, and/or headaches) 15 Days Qty: 30 RF: 0 loratadine 10 mg Tablet 10 mg PO DAILY PRN (Reason: allergies) 30 Days Qty: 30 RF: 0 Reglan 5 mg tablet 5 mg PO DAILY PRN (Reason: nausea and vomiting and headache) 15 Days Qty: 30 RF: 0 Continued carvedilol 25 mg tablet 12.5 mg PO BID RF: 0 tizanidine 4 mg tablet 4 mg PO TID PRN (Reason: Spasms) RF: 0 isosorbide mononitrate 30 mg tablet extended release 24 hr 30 mg PO BID RF: 0 clopidogrel 75 mg tablet 75 mg PO DAILY RF: 0 amlodipine 5 mg tablet 5 mg PO DAILY RF: 0 hydrocodone-acetaminophen 10-325 mg tablet 1 tab PO Q6H PRN (Reason: Pain) RF: 0 pantoprazole 40 mg tablet,delayed release (DR/EC) 40 mg PO BID RF: 0 hydrochlorothiazide 12.5 mg capsule 12.5 mg PO DAILY RF: 0 insulin aspart U-100 [Novolog Flexpen U-100 Insulin] 100 unit/mL (3 mL) insulin pen 14 unit SUBCUT TID RF: 0 pregabalin [Lyrica] 150 mg capsule 150 mg PO TID RF: 0 fenofibrate nanocrystallized 145 mg tablet 145 mg PO DAILY RF: 0 Repatha SureClick 140 mg/mL pen injector 140 mg SUBCUT Q14D RF: 0 trazodone 150 mg tablet 150 mg PO BEDTIME RF: 0 zolpidem [Ambien] 10 mg tablet 10 mg PO BEDTIME RF: 0 fluticasone propionate 50 mcg/actuation [place],Suspension 1 spray INTRANASAL DAILY RF: 0 icosapent ethyl 1 gram Capsule 2 g PO BID RF: 0 Xanax 0.5 mg tablet 0.5 mg PO TID PRN (Reason: anxiety) RF: 0 sucralfate 1 gram Tablet 1 g PO QID RF: 0 promethazine 12.5 mg Tablet 12.5 mg PO Q6H RF: 0 Zoloft 100 mg Tablet 200 mg PO DAILY RF: 0 Nitrostat 0.4 mg Tablet, Sublingual 0.4 mg SUBLINGUAL Q5M PRN (Reason: Chest Pain) RF: 0 mesalamine 1.2 gram Tablet,Delayed Release (Dr/Ec) 2.4 g PO DAILY RF: 0 lactulose 10 gram/15 mL (15 mL) Solution 10 g PO BID PRN (Reason: Constipation) RF: 0 potassium chloride 20 mEq Tablet Extended Release 20 meq PO DAILY RF: 0 naloxone 4 mg/actuation [place],Non-Aerosol 1 spray INTRANASAL Q2M RF: 0 mesalamine 1.2 gram Tablet,Delayed Release (Dr/Ec) 2.4 g PO DAILY RF: 0 Changed Lantus Solostar U-100 Insulin 100 unit/mL (3 mL) Insulin Pen 40 unit SUBCUT BEDTIME Qty: 0 RF: 0 Held Zofran 8 mg Tablet 8 mg PO Q8H PRN (Reason: Nausea) RF: 0 Hold Instructions: Resume on 03/24/20. donot use with reglan due to risk of QT prolongation Discharge Orders: Discharge Order (Routine); Ordered 03/05/20 Ordered By: Cabrera Fountain Referrals: Juno Brown [Primary Care Provider] - 1 week (Please call Saturday to set up a follow up appointment.) Discharge Diet: Cardiac Discharge Activity: Resume usual activity Patient Instructions: Metoclopramide (By mouth), Loratadine (By mouth), Tramadol (By mouth), Insulin Glargine (Injection), Angina (DC), Chest Pain (GEN), Chest Pain Stoplight Activity Restrictions/Additional Instructions: -If you have repeat chest pain episodes please come back to the emergency room -Please monitor for fevers, chills, nausea, vomiting and if so come back to the emergency room -I have prescribed tramadol and Reglan for headaches, please do not use Zofran with the Reglan as there is a risk of QT prolongation, -Please follow-up with primary care physician for headaches in 1 month -For your chest pain please follow-up with cardiology in 1 month Discharge Attestations Time Spent in Discharge Care*: less than 30 min Status at Discharge: Cognitive status at discharge: cognitively intact, Behavioral status at discharge: cooperative, Quality Metrics Clinical Quality Measures During this hospital stay, did patient experience: None Coding Level of Care Code Acute 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
--- NOTE | 2020-03-05 10:37 | PC.NURSE ---
Discharge information given per the physician's orders. Patient verbalized understanding and did not have any further questions. Patient notified of discharge.
== END 2020-03-05 10:45 | disposition home or self-care (01) | DRG 194 ==
LOC: ER 19:15 → MEDSURG 22:28
PROVIDERS: Admitting Provider Internal Medicine; Emergency Provider Emergency Medicine; Family Provider Family Medicine; PCP Family Medicine; Visit Provider Family Medicine
DX: J18.9 Pneumonia, unspecified organism (principal); I25.110 Atherosclerotic heart disease of native coronary artery with unstable angina pectoris; R78.81 Bacteremia; Z16.11 Resistance to penicillins; I10 Essential (primary) hypertension; Z95.1 Presence of aortocoronary bypass graft; Z95.5 Presence of coronary angioplasty implant and graft; F43.12 Post-traumatic stress disorder, chronic; F41.9 Anxiety disorder, unspecified; Z79.02 Long term (current) use of antithrombotics/antiplatelets; K21.9 Gastro-esophageal reflux disease without esophagitis; E78.1 Pure hyperglyceridemia; E11.9 Type 2 diabetes mellitus without complications; Z79.4 Long term (current) use of insulin; K58.9 Irritable bowel syndrome, unspecified; F17.210 Nicotine dependence, cigarettes, uncomplicated; E87.6 Hypokalemia; R30.0 Dysuria; B95.61 Methicillin susceptible Staphylococcus aureus infection as the cause of diseases classified elsewhere; Z79.891 Long term (current) use of opiate analgesic; G89.29 Other chronic pain; M54.2 Cervicalgia; M54.9 Dorsalgia, unspecified; R51 Headache; G93.0 Cerebral cysts; M48.061 Spinal stenosis, lumbar region without neurogenic claudication
CPT/HCPCS: 12345; 36415; 36416; 70450; 71045; 71275; 72125; 72128; 72131; 78452; 80048; 80053; 80061; 80076; 81001; 82150; 82728; 82962; 83615; 83690; 83721; 83735; 84100; 84145; 84484; 85025; 85610; 86140; 86403; 87040; 87077; 87186; 87205; 87449; 87635; 87804; 93005; 93017; 93306; 94640; 94760; 96372; 96375; 97161; 97530; 99283; A9500; G0378; G0379; J0696; J1170; J1650; J1815; J1956; J2060; J2270; J2405; J2765; J2785; Q0144; Q9967

== ENCOUNTER 2020-02-29 18:24 | Emergency (ER) | payer MEDICAID, SELFPAY | END 2020-02-29 22:40 | disposition still patient (30) | LOC: ER 03-10 12:37 | PROVIDERS: Emergency Provider Emergency Medicine; Family Provider Family Medicine; PCP Family Medicine | DX: J18.8 Other pneumonia, unspecified organism (principal); R07.9 Chest pain, unspecified; I25.10 Atherosclerotic heart disease of native coronary artery without angina pectoris; I10 Essential (primary) hypertension; E11.9 Type 2 diabetes mellitus without complications; Z79.4 Long term (current) use of insulin; Z95.1 Presence of aortocoronary bypass graft; F17.210 Nicotine dependence, cigarettes, uncomplicated | CPT/HCPCS: 12345; 36415; 36416; 71045; 71275; 80048; 80053; 80061; 80076; 81001; 82150; 82728; 82962; 83615; 83690; 83721; 84145; 84484; 85025; 85610; 86140; 86403; 87040; 87077; 87186; 87205; 87449; 87635; 87804; 93005; 94640; 94760; 96365; 96372; 96375; 99283; 99285; G0378; G0379; J0696; J1170; J1815; J1956; J2060; J2270; J2405; J2785; Q0144; Q9967 ==

== ENCOUNTER 2020-03-18 09:52 | Outpatient (CLI) | payer MEDICAID, SELFPAY ==
[2020-03-18 10:18] LABS: Chol HDL Ratio 3.57 mg/dL (0.0-4.40); Cholesterol 218 mg/dL (0-200); HDL Cholesterol 61 mg/dL (60-100); LDL Cholesterol 100 (0-100); Triglycerides 512 mg/dL (0-150)
[2020-03-18 12:18] LABS: LDL Cholesterol Direct 94 mg/dL (0-100)
== END 2020-03-18 09:53 | disposition home or self-care (01) ==
LOC: LAB 09:53
PROVIDERS: Family Provider Family Medicine; PCP Family Medicine; Visit Provider Nurse Practitioner Family
DX: E78.2 Mixed hyperlipidemia (principal)
CPT/HCPCS: 80061; 83721

== ENCOUNTER 2020-03-30 08:50 | Inpatient (IN) | payer MEDICAID, SELFPAY ==
[2020-03-30] VITALS (23 sets, daily range): BP systolic 94–178; BP diastolic 67–125; PULSE 74–127; RESP 13–24; TEMP 36–36.6; O2SAT 90–99; BMI 29.5
--- NOTE | 2020-03-30 09:05 | ED_ITS ---
HPI - Chest Pain General: Chief Complaint: Chest Pain Stated Complaint: CHEST PAIN Time Seen by Provider: 03/30/20 09:05 History of Present Illness: HPI narrative: 55-year-old female presents emergency room with complaints of fever and chest pain. She said yesterday she began to have a fever of 10 1-1 02 and she woke up this morning with chest pain and nausea. Chest pain is in the left side of her chest radiates into her back her neck and her left arm. It is worse when she takes a deep breath and I can reproduce it at the bedside with palpation along the lower left side of the sternum. She does have a cough with it as well she has no sputum production with the cough. She states she did not have any chest pain yesterday just a fever she has not had any recent travel. She did have nausea this morning she did not vomit had one episode of loose stools though she mentions she has a history of ulcerative colitis. She mentions she has had pancreatitis in the past and refers some of her pain to her epigastric area. She has no household contacts that have been ill or known contacts with anyone with COVID-19. 1 month ago she had a stress test here at [facility] [place]. This morning she called EMS she had Jimmy taken 2 aspirin EMS gave her 2 more she taken 2 sublingual nitro at home she denies having any relief with that EMS gave her 2 more it did cause some hypotension she was still hypotensive when she arrived here however she denies any relief of her symptoms with any of the nitro she was given. EMS also gave her fentanyl 100 mcg and for Zofran she did report relief of symptoms after that. Blood sugar was 455. Chart reviewed patient has an extensive allergy list and medication list. He did not take any of her medicines this morning except her pain medications. Associated symptoms: Reports abdominal pain, fever(s) and nausea; Deny dyspnea or vomiting Review of Systems Const: Reports: fever; Denies: chills, body aches, change in appetite, fatigue or malaise ENMT: Denies: throat pain, ear pain, nasal discharge or nasal congestion Card: Reports: chest pain; Denies: edema, shortness of breath on exertion or shortness of breath when lying down Resp: Reports: non-productive cough; Denies: shortness of breath or productive cough GI: Reports: abdominal pain and nausea; Denies: vomiting, vomiting blood, coffee grounds in vomit, diarrhea, constipation, bloating, blood in stool or black tarry stool : Denies: flank pain, difficulty urinating, painful urination, urinary frequency or urinary urgency Skin/Breast: Denies: rash or itching PFSH ED PFSH: Medical History Coronary artery disease Depression with anxiety Generalized anxiety disorder GERD (gastroesophageal reflux disease) Hypertension Hypertriglyceridemia Insulin dependent diabetes mellitus Recent A1c 13.3 Irritable bowel syndrome Pancreatitis Post-traumatic stress disorder, chronic Ulcerative colitis Surgical History H/O tubal ligation H/O: hysterectomy History of carpal tunnel surgery Hx of tonsillectomy S/P CABG x 4 S/P coronary artery stent placement Family History Mother Dementia Father CAD (coronary artery disease) Other IBD (inflammatory bowel disease) Social History Smoking and tobacco status: former smoker Alcohol intake: never Substance/Drug Use: never Lives independently: Yes Household members: significant other Marital status: Life Partner Current occupational status: disabled Physical Exam Const: COMMON NORMALS: no apparent distress GENERAL APPEARANCE: cooperative and comfortable ORIENTATION/CONSCIOUSNESS: Yes awake, Yes oriented to person, Yes oriented to place and Yes oriented to time HENMT: COMMON NORMALS: normocephalic, head/scalp atraumatic, hearing grossly normal bilaterally, external ears normal, EAC's normal, TM's normal bilaterally, nasal mucous membranes and turbinates normal, moist oral mucous membranes and oropharynx normal HEAD & SCALP: normocephalic and atraumatic NOSE: nasal mucous membranes and turbinates normal EXTERNAL EAR: Yes external ears normal EXTERNAL AUDITORY CANAL: EAC's normal TYMPANIC MEMBRANE: TM's normal bilaterally Eye: COMMON NORMALS: PERRL, EOMs intact bilaterally, conjunctivae normal and no scleral icterus CONJUNCTIVA: Yes conjunctivae normal PUPIL: Yes PERRL Neck/C-Spine: COMMON NORMALS: full ROM, no lymphadenopathy, supple and no JVD Lymph: LYMPHATIC: no lymphadenopathy noted and no lymphedema noted Chest: CHEST: Yes tenderness (Lower left portion of the sternum pain is reproducible patient identifies the pain is the same as what woke her up this morning.) Resp: COMMON NORMALS: normal respiratory effort, no retractions, no use of accessory muscles and clear to auscultation bilaterally AUSCULTATION: clear to auscultation bilaterally Cardio: COMMON NORMALS: no JVD, regular rate, regular rhythm and no murmurs RATE: regular rate RHYTHM: regular rhythm GI: COMMON NORMALS: soft to palpation and no hepatosplenomegaly AUSCULTATION: Yes normoactive bowel sounds PALPATION: Yes soft, No tender, No guarding and Yes no hepatosplenomegaly Extremity: COMMON NORMALS: normal to inspection, normal capillary refill, no clubbing, cyanosis or edema, no calf tenderness and no pedal edema Neuro: SENSORIUM/ORIENTATION: Yes oriented to person, Yes oriented to place and Yes oriented to time Skin: COMMON NORMALS: no rashes or lesions noted GENERAL SKIN EXAM: no rashes or lesions noted Course 2 Vital Signs: Vital signs: Vital Signs Temperature 98.1 F 04/01/20 07:00 Pulse Rate 69 04/01/20 07:00 Respiratory Rate 18 04/01/20 07:00 Blood Pressure 116/78 04/01/20 07:00 Pulse Oximetry 90 04/01/20 07:00 MDM - Chest Pain MDM Narrative: Medical decision making narrative: Discussed with Dr. Yousif. Patient has a temp COVID-19 testing has been done. CT of the chest negative will admit for further evaluation of chest pain and investigation for COVID-19. Lab Data: Labs: Lab Results 03/30/20 03/30/20 03/30/20 Range/Units 09:41 09:41 09:41 WBC (4.0-10.0) 10^3/ uL RBC (4.1-5.3) 10^6/u L Hgb (11.5-15.3) g/dL Hct (37.0-47.0) % MCV (81-99) fL MCH (28.0-34.0) pg MCHC (30.0-36.0) g/dL RDW (12.1-15.1) % Plt Count (130-400) 10^3/c mm MPV (7.4-10.4) fL Neut % (Auto) % Lymph % (Auto) % Rhea % (Auto) % Eos % (Auto) % Baso % (Auto) % Neut # (Auto) (1.8-7.7) 10^3/u L Lymph # (Auto) (0.8-4.8) 10^3/u L Rhea # (Auto) (0.2-0.9) 10^3/u L Eos # (Auto) (0.0-0.8) 10^3/u L Baso # (Auto) (0.0-0.1) 10^3/u L Nucleated RBC % (a uto) % Nucleated RBCs # /100WBC ESR (0-15) mm/hr Sodium 134 L (136-145) mmol/L Potassium 3.9 (3.5-5.1) mmol/L Chloride 95 L (98-107) mmol/L Carbon Dioxide 21 L (22-29) mmol/L Anion Gap 21.9 H (5-19) BUN 8 (6-20) mg/dL Creatinine 0.7 (0.5-0.9) mg/dL GFR Calculation 86.9 L (90-130) mL/min Glucose 509 H* (65-115) mg/dL POC Glucose (70-110) mg/dL Calculated Osmolal ity 297 H (285-295) mOsm/k g Lactic Acid 2.3 H (0.5-2.2) mmol/L Calcium 9.6 (8.5-10.5) mg/dL Total Bilirubin 0.3 (0.15-1.2) mg/dL AST 15 (0-32) U/L ALT 10 (0-33) U/L Alkaline Phosphata se 184 H (35-105) IU/L Troponin T Baselin e (0-10) ng/mL C-Reactive Protein (0.0-4.9) mg/L Total Protein 7.8 (6.6-8.7) g/dL Albumin 4.2 (3.5-5.2) g/dL Globulin 3.6 (1.3-4.6) g/dL Lipase 22 (13-60) U/L Procalcitonin 0.12 (0-0.5) ng/mL Serum Ketones Negative (Negative) Monoscreen (Negative) 03/30/20 03/30/20 03/30/20 Range/Units 09:41 09:41 09:41 WBC 9.8 (4.0-10.0) 10^3/ uL RBC 4.75 (4.1-5.3) 10^6/u L Hgb 12.9 (11.5-15.3) g/dL Hct 40.4 (37.0-47.0) % MCV 85.1 (81-99) fL MCH 27.2 L (28.0-34.0) pg MCHC 31.9 (30.0-36.0) g/dL RDW 13.1 (12.1-15.1) % Plt Count 281 (130-400) 10^3/c mm MPV 11.3 H (7.4-10.4) fL Neut % (Auto) 72.7 % Lymph % (Auto) 21.7 % Rhea % (Auto) 4.2 % Eos % (Auto) 0.8 % Baso % (Auto) 0.4 % Neut # (Auto) 7.1 (1.8-7.7) 10^3/u L Lymph # (Auto) 2.1 (0.8-4.8) 10^3/u L Rhea # (Auto) 0.4 (0.2-0.9) 10^3/u L Eos # (Auto) 0.1 (0.0-0.8) 10^3/u L Baso # (Auto) 0.0 (0.0-0.1) 10^3/u L Nucleated RBC % (a uto) 0 % Nucleated RBCs # 0.0 /100WBC ESR 32 H (0-15) mm/hr Sodium (136-145) mmol/L Potassium (3.5-5.1) mmol/L Chloride (98-107) mmol/L Carbon Dioxide (22-29) mmol/L Anion Gap (5-19) BUN (6-20) mg/dL Creatinine (0.5-0.9) mg/dL GFR Calculation (90-130) mL/min Glucose (65-115) mg/dL POC Glucose (70-110) mg/dL Calculated Osmolal ity (285-295) mOsm/k g Lactic Acid (0.5-2.2) mmol/L Calcium (8.5-10.5) mg/dL Total Bilirubin (0.15-1.2) mg/dL AST (0-32) U/L ALT (0-33) U/L Alkaline Phosphata se (35-105) IU/L Troponin T Baselin e 10 (0-10) ng/mL C-Reactive Protein (0.0-4.9) mg/L Total Protein (6.6-8.7) g/dL Albumin (3.5-5.2) g/dL Globulin (1.3-4.6) g/dL Lipase (13-60) U/L Procalcitonin (0-0.5) ng/mL Serum Ketones (Negative) Monoscreen (Negative) 03/30/20 03/30/20 03/30/20 Range/Units 09:41 09:41 10:40 WBC (4.0-10.0) 10^3/ uL RBC (4.1-5.3) 10^6/u L Hgb (11.5-15.3) g/dL Hct (37.0-47.0) % MCV (81-99) fL MCH (28.0-34.0) pg MCHC (30.0-36.0) g/dL RDW (12.1-15.1) % Plt Count (130-400) 10^3/c mm MPV (7.4-10.4) fL Neut % (Auto) % Lymph % (Auto) % Rhea % (Auto) % Eos % (Auto) % Baso % (Auto) % Neut # (Auto) (1.8-7.7) 10^3/u L Lymph # (Auto) (0.8-4.8) 10^3/u L Rhea # (Auto) (0.2-0.9) 10^3/u L Eos # (Auto) (0.0-0.8) 10^3/u L Baso # (Auto) (0.0-0.1) 10^3/u L Nucleated RBC % (a uto) % Nucleated RBCs # /100WBC ESR (0-15) mm/hr Sodium (136-145) mmol/L Potassium (3.5-5.1) mmol/L Chloride (98-107) mmol/L Carbon Dioxide (22-29) mmol/L Anion Gap (5-19) BUN (6-20) mg/dL Creatinine (0.5-0.9) mg/dL GFR Calculation (90-130) mL/min Glucose (65-115) mg/dL POC Glucose 435 (70-110) mg/dL Calculated Osmolal ity (285-295) mOsm/k g Lactic Acid (0.5-2.2) mmol/L Calcium (8.5-10.5) mg/dL Total Bilirubin (0.15-1.2) mg/dL AST (0-32) U/L ALT (0-33) U/L Alkaline Phosphata se (35-105) IU/L Troponin T Baselin e (0-10) ng/mL C-Reactive Protein 3.5 (0.0-4.9) mg/L Total Protein (6.6-8.7) g/dL Albumin (3.5-5.2) g/dL Globulin (1.3-4.6) g/dL Lipase (13-60) U/L Procalcitonin (0-0.5) ng/mL Serum Ketones (Negative) Monoscreen Negative (Negative) Discharge Plan Discharge Patient Disposition: Admitted As Inpatient Admit Provider: Eric Yousif Clinical Impression: Unstable angina, Fever, Abdominal pain, Ulcerative colitis Condition: Stable Interventions: ED Discharge Assessment Last Done: 03/30/20 13:27 ED Charges Last Done: 03/30/20 13:28 Discharge Date/Time: 03/30/20 13:28 Coding Level of Care Code ED Housing Counselor for Shant Fwd Exam Comprehensive
--- NOTE | 2020-03-30 09:06 | XR_ITS ---
WS: [id number] XR chest 1V portable [id number] REASON FOR EXAM: dyspnea/cough FINDINGS: Sternotomy changes are identified. Previous coronary bypass changes. The lung kirby are well aerated. No pneumonia, pleural effusion, pulmonary edema, or mass effect. The hilum and apices normal. No obvious osseous abnormalities. XR/XR chest 1V portable [id number] IMPRESSION: Previous coronary bypass changes
--- NOTE | 2020-03-30 09:07 | ECG_ITS ---
Measurements Intervals Dunn Rate: 129 P: 50 CO: 145 QRS: 6 QRSD: 93 T: 62 QT: 317 QTc: [address] DEPRESSION [0.05+ mV ST DEPRESSION] Compared to ECG 03/04/2020 19:59:06 ST (T wave) deviation now present Sinus rhythm no longer present T-wave abnormality no longer present Electronically Signed On 03-30-2020 17:11:48 CDT by Frank Olivo M.D. [email or web address]
[2020-03-30 09:51] LABS: Basophils % 0.4 %; Eosinophils # 0.1 10^3/uL (0.0-0.8); Eosinophils % 0.8 %; Hematocrit 40.4 % (37.0-47.0); Hemoglobin 12.9 g/dL (11.5-15.3); Lymphocytes # 2.1 10^3/uL (0.8-4.8); Lymphocytes % 21.7 %; Mean Corpuscular HGB Conc 31.9 g/dL (30.0-36.0); Mean Corpuscular Hemoglobin 27.2 pg (28.0-34.0); Mean Corpuscular Volume 85.1 fL (81-99); Mean Platelet Volume 11.3 fL (7.4-10.4); Monocytes # 0.4 10^3/uL (0.2-0.9); Monocytes % 4.2 %; Neutrophils # 7.1 10^3/uL (1.8-7.7); Neutrophils % 72.7 %; Nucleated Red Blood Cells % 0 %; Platelet Count 281 10^3/cmm (130-400); Red Blood Count 4.75 10^6/uL (4.1-5.3); Red Cell Distribution Width 13.1 % (12.1-15.1); White Blood Count 9.8 10^3/uL (4.0-10.0)
[2020-03-30 09:58] LABS: Ketone (Acetest) Serum Negative (Negative)
[2020-03-30 10:03] LABS: Troponin(5th) Baseline 10 ng/mL (0-10)
[2020-03-30 10:06] LABS: Lactic Sepsis W/Reflex 2.3 mmol/L (0.5-2.2)
[2020-03-30 10:12] LABS: Procalcitonin 0.12 ng/mL (0-0.5)
[2020-03-30] MEDS: clopidogrel 75 mg Tablet PO (10:18)
[2020-03-30] MEDS: carvedilol 12.5 mg Tablet PO (10:18)
[2020-03-30] MEDS: haloperidol inj 5 mg/mL INJ 1 mL IM (10:18)
[2020-03-30 10:23] LABS: Alanine Aminotransferase 10 U/L (0-33); Albumin Level 4.2 g/dL (3.5-5.2); Alkaline Phosphatase 184 IU/L (35-105); Anion Gap 21.9 (5-19); Aspartate Amino Transferase 15 U/L (0-32); Blood Urea Nitrogen 8 mg/dL (6-20); Calcium 9.6 mg/dL (8.5-10.5); Carbon Dioxide 21 mmol/L (22-29); Chloride 95 mmol/L (98-107); Globulin 3.6 g/dL (1.3-4.6); Glomerular Filtration Rate 86.9 mL/min (90-130); Lipase 22 U/L (13-60); Osmolality Calculated 297 mOsm/kg (285-295); Potassium 3.9 mmol/L (3.5-5.1); Sodium 134 mmol/L (136-145); Total Bilirubin 0.3 mg/dL (0.15-1.2); Total Protein 7.8 g/dL (6.6-8.7)
[2020-03-30 10:24] LABS: Glucose 509 mg/dL (65-115)
[2020-03-30] MEDS: fentaNYL 50 mcg/mL INJ 2mL IVP ×2 (10:41→13:06)
[2020-03-30] MEDS: insulin regular-human 100 units/1 mL 10 UNIT IVP (10:42)
[2020-03-30] MEDS: nitroglycerin 1 gm/inch oint Pkt 1 INCH TOPICAL (10:42)
--- NOTE | 2020-03-30 11:07 | ECG_ITS ---
Measurements Intervals [place] Rate: 82 P: 54 W[place]: 171 QRS: 10 QRSD: 88 T: 60 QT: 368 QTc: 432 SINUS RHYTHM WITH OCCASIONAL VENTRICULAR PREMATURE COMPLEXES SEPTAL MYOCARDIAL INFARCTION , PROBABLY OLD [40+ ms Q WAVE IN V1/V2] Compared to ECG 03/04/2020 19:59:06 Ventricular premature complex(es) now present Myocardial infarct finding now present T-wave abnormality no longer present Electronically Signed On 03-30-2020 17:16:09 CDT by Frank Olivo M.D. [email or web address]
[2020-03-30] MEDS: insulin glargine 100 units/1 mL 20 UNIT SUBCUT ×2 (11:19→21:37)
--- NOTE | 2020-03-30 11:31 | CT_ITS ---
WS: [id number] CTA OF THE CHEST WITH PULMONARY EMBOLISM PROTOCOL TECHNIQUE: High-resolution contrast enhanced CTA of the chest with coronal and sagittal reformatted i mages with pulmonary embolism protocol. MIP images are also reviewed. CLINICAL INFORMATION: dyspnea/chest pain COMPARISON: None. DLP: 627.[address] scans at [facility] use at least one of these dose optimization techniques: automat ed exposure control; mA and/or kV adjustment per patient size (includes targeted exams where dose is matched to clinical indication); or iterative reconstruction. FINDINGS: Proximal main pulmonary arteries are normal. Segmental and subsegmental pulmonary arteries appear nor mal. No filling defects to indicate pulmonary embolus. Enlarged right hilar lymph node measuring 14 m m unchanged from previous nonspecific but likely reactive. Previous described pulmonary infiltrates a nd groundglass infiltrates have improved and nearly resolved compared to previous. No new pulmonary i nfiltrates. No focal pneumonia. No consolidation or pleural fluid. Sternotomy with CABG. Thyroid nodule along the thyroid isthmus measures 3.1 CM. Adrenal glands are normal. Normal caliber upper abdominal aorta. Normal GE junction. Right hepatic gr anuloma. Infiltrated contrast in the left anterior chest wall. Notified Merrick Ellis DO at 03/30/2020 1:[address]/CT angio chest PE protcl [id number] IMPRESSION: 1. No evidence of pulmonary embolus. 2. Previously described hazy groundglass infiltrates appear improved compared to previous and nearly resolved. No new infiltrates. 3. No focal consolidation or pleural fluid. 4. Enlarged right hilar lymph node measuring 14 mm unchanged from previous lik daryn reactive. 5. Thyroid nodule along the isthmus inferiorly measuring 3.1 cm. This can be f ollowed up with ultrasound on elective basis.
[2020-03-30 11:32] LABS: Reflex Lactate Order REFLEX LACTIC ORDERD
[2020-03-30 11:47] LABS: Add Urine Microscopic? NO
[2020-03-30 11:53] LABS: Urine Appearance Clear (CLEAR); Urine Color Yellow (Yellow)
[2020-03-30 11:54] LABS: Bilirubin Urine Neg (NEGATIVE); Blood Urine Neg (Negative); Glucose Urine UA 4+ (Normal); Ketones Urine Negative (Negative); Leukocyte Esterase Urine Negative (Negative); Nitrate Urine Negative (Negative); Protein Urine Neg (Negative); Specific Gravity, Urine 1.005 (1.005-1.030); Urobilinogen Urine Norm (Negative); pH Urine 5 (5-7)
[2020-03-30 12:05] LABS: Influenza A by IFA Negative (Negative); Influenza B by IFA Negative (Negative)
--- NOTE | 2020-03-30 12:21 | PC.NURSE ---
ER nurse attempted to call and give report on pt. ICU stated they will call back to get report.
[2020-03-30 12:26] LABS: Troponin 5 2HR 11.43 ng/mL (0-10); Troponin 5 2HR Delta 1.43 ABS# (0-10)
[2020-03-30] MEDS: iohexol 350 mg/mL 100 mL Btl IV (13:06)
[2020-03-30 13:21] LABS: Lactic Acid level (Lactate) 1.9 mmol/L (0.5-2.2)
[2020-03-30] MEDS: amlodipine 5 mg Tablet PO (14:42)
[2020-03-30] MEDS: HYDROcodone-acetaminophen 10-325 mg Tablet 1 TAB PO ×2 (16:16→21:17)
--- NOTE | 2020-03-30 17:38 | P.HP_ITS ---
Providers/Chief Complaint Admitting Physician: Eric Yousif Primary Care Provider: Juno Brown Chief Complaint: CHEST PAIN History of Present Illness Collette Kothari is a 55 year old female with history of coronary disease, CABG x4, triple-vessel disease noted on coronary underground in September at [facility], at the same time with 3 stents placed per patient, chronic pancreatitis, ulcerative colitis for which she follows with GI specialist William Young in [place], GERD, HTN, hypertriglyceridemia, DM 2, severe anxiety, chronic pain and chronic opiates, migraine headaches, recently admitted to the hospital for assessment and management after shortness of breath and angina symptoms, with finding of community-acquired pneumonia, with patchy unilateral groundglass opacities in the left lung on CTA, no PE, negative influenza, negative COVID-19 testing, during hospitalization she was found to have positive blood culture for Staphylococcus hominis in 2/4 bottles, for which she was treated with Rocephin, with subsequent repeat culture the following day negative. TTE with normal ejection fraction, grade 1 diastolic dysfunction, no obvious vegetation or abscess, no noted valvular abnormality, although somewhat difficult study. No osteomyelitis or discitis noted on CT of studies of entire spine, or head CT. Incidentally noted several tiny chronic lacunar infarcts in left basal ganglia. Ultimately in the Staphylococcus hominis was thought to be a contaminant. She also underwent stress testing, with finding of small area of reversible defect in the distribution of LCx artery. Elevated transient ischemic dilation ratio. She was discharged home with instructions to follow-up with her account installer and primary care provider. She reports that in the intervening time she has had a couple other episodes of chest pain on the left side, radiating to the left side neck, and to the back. She does state that she has chronic chest wall syndrome as well, and so states it is difficult for her to tell whether it is coming from chest wall, or her heart. She does say that the pain has been sharp, but also associated with heaviness as well, and felt like it was coming from her heart. She states at the same time that the pain was getting worse with deep breaths. She has been having some intermittent cough yesterday and today, and yesterday produced a tiny amount of greenish expectorant. She also reports spiking fever up to 101 Fahrenheit yesterday and today. She states most of the time when she goes shopping or out in public she wears a surgical mask on the instruction of her primary care provider. She does say that she has been also having some nausea, and yesterday and today several bowel movements with blood mixed with stool. Day before yesterday she had an episode of diarrhea which had gone away. She also reports that her chronic pancreatitis , has been bothering her as well last few days, with severe epigastric pain in addition to the chest pain. She follows with a GI physician for the chronic pancreatitis, and states that she most likely developed it after a diabetes medication. She still has her gal lbladder. In ER she was treated with Nitropaste, which appears had helped her pain. At the same time in the EMS she received nitroglycerin tablets and fentanyl, which did not help, but did cause transient hypotension which resolved. She was initially tachycardic, and appears did not take any of her medications today, including carvedilol. She is also hypertensive. She is oxygenating well on room air. She is afebrile. She is noted with minimal hyponatremia, with hyperglycemia, glucose 509 for which she received 10 units of regular insulin, and 20 units Lantus in ER, minimally elevated lactic acid at 2.3, chronically elevated alkaline phosphatase at 184, with unremarkable UA, unremarkable chest x-ray, no evidence of PE on CT, with near resolution of prior groundglass opacities on the left, with normal baseline troponin and minimal elevation up to 11.43 at 2 hours, without signs of acute ischemia seen on EKG. She has been stuck multiple times to try and place an IV, but unsuccessfully. Review of Systems Const: Reports: fever and malaise; Denies: chills or body aches Eyes: Denies: change in vision or eye redness ENMT: Reports: throat pain; Denies: oral sores/lesions or ear pain Card: Reports: chest pain; Denies: edema, pre-syncope or shortness of breath on exertion Resp: Reports: non-productive cough; Denies: shortness of breath, productive cough, change in phlegm color or coughing up blood GI: Reports: abdominal pain (Epigastric), nausea and blood in stool; Denies: vomiting, diarrhea, constipation or black tarry stool : Denies: flank pain, urinary frequency or blood in urine Musc: Denies: back pain, joint swelling or redness Skin/Breast: Denies: rash, sores or new lesion Neuro: Denies: headache, numbness in extremities, weakness in extremities, dizziness, confusion or seizure-like activity Endo: Denies: excessive urination or excessive thirst Danish/Lymph: Denies: easy bleeding or purpura All/Imm: Denies: hives, throat swelling or tongue swelling Medications/Allergies Home Medications Medication Instructions Recorded Confirmed Last Taken Type Repatha SureClick 140 mg SUBCUT Q14D 01/04/20 03/30/20 12/31/19 History amlodipine 5 mg PO DAILY 01/04/20 03/30/20 03/29/20 History carvedilol 25 mg PO BID 01/04/20 03/30/20 03/29/20 History clopidogrel 75 mg PO DAILY 01/04/20 03/30/20 03/29/20 History hydrochlorothiazide 12.5 mg PO DAILY 01/04/20 03/30/20 03/29/20 History hydrocodone-acetaminophen 1 tab PO Q6H PRN 01/04/20 03/30/20 03/30/20 04:00 History insulin aspart U-100 [Novolog See Rx Instructions .ROUTE .COMPLEX 01/04/20 03/30/20 1 Day Ago History Flexpen U-100 Insulin] ~02/28/20 isosorbide mononitrate 30 mg PO BID 01/04/20 03/30/20 03/29/20 History pantoprazole 40 mg PO BID 01/04/20 03/30/20 03/29/20 History pregabalin [Lyrica] 150 mg PO TID 01/04/20 03/30/20 03/29/20 History tizanidine 4 mg PO TID PRN 01/04/20 03/30/20 03/29/20 History trazodone 150 mg PO BEDTIME 01/04/20 03/30/20 03/29/20 History zolpidem [Ambien] 10 mg PO BEDTIME 01/04/20 03/30/20 03/29/20 History alprazolam [Xanax] See Rx Instructions .ROUTE 02/29/20 03/30/20 03/29/20 History .COMPLEX PRN fluticasone propionate 2 spray INTRANASAL DAILY 02/29/20 03/30/20 03/29/20 History icosapent ethyl [Vascepa] 2 g PO BID 02/29/20 03/30/20 03/29/20 History lactulose 10 g PO BID PRN 02/29/20 03/30/20 1 Day Ago History ~02/28/20 mesalamine 2.4 g PO DAILY 02/29/20 03/30/20 03/29/20 History naloxone 1 spray INTRANASAL PRN 02/29/20 03/30/20 1 Day Ago History ~02/28/20 nitroglycerin [Nitrostat] 0.4 mg SUBLINGUAL Q5M PRN 02/29/20 03/30/20 03/30/20 History potassium chloride 20 meq PO DAILY 02/29/20 03/30/20 03/29/20 History promethazine 12.5 mg PO Q6H 02/29/20 03/30/20 03/30/20 History sertraline [Zoloft] 200 mg PO DAILY 02/29/20 03/30/20 03/29/20 History sucralfate 1 g PO QID PRN 02/29/20 03/30/20 03/30/20 History loratadine 10 mg PO DAILY PRN 30 Days #30 tab 03/05/20 03/30/20 Unknown Rx Lantus Solostar U-100 Insulin 40 unit SUBCUT BID 03/30/20 03/30/20 03/29/20 History aspirin [Aspir-81] 81 mg PO DAILY 03/30/20 03/30/20 03/30/20 History 2-81mg and 2-325mg vnhohqq-cdozgvjiymwrg-iuaoscqy 1 tab PO PRN 03/30/20 03/30/20 03/30/20 History [Excedrin Extra Strength] gemfibrozil [Lopid] 600 mg PO DAILY 03/30/20 03/30/20 03/29/20 History metoclopramide HCl [Reglan] 5 mg PO DAILY 03/30/20 03/30/20 03/29/20 History polyethylene glycol 3350 [Miralax] 17 g PO DAILY PRN 03/30/20 03/30/20 Unknown History Allergies Allergy/AdvReac Type Severity Reaction Status Date / Time SCOTT Inhibitors Allergy Unknown Verified 02/29/20 23:04 acetaminophen Allergy ADR-Nausea Verified 02/29/20 23:04 [From Darvocet-N] amitriptyline Allergy ALGY-Difficulty Verified 02/29/20 23:04 Breathing atorvastatin [From Lipitor] Allergy ADR-Nausea Verified 02/29/20 23:04 ciprofloxacin [From Cipro] Allergy ALGY-Hives Verified 02/29/20 23:04 doxycycline Allergy Unknown Verified 02/29/20 22:57 empagliflozin Allergy Unknown Verified 02/29/20 23:04 [From Jardiance] escitalopram [From Lexapro] Allergy Unknown Verified 02/29/20 22:57 ezetimibe [From Zetia] Allergy Unknown Verified 02/29/20 23:04 furosemide [From Lasix] Allergy ALGY-Rash Verified 02/29/20 23:04 ketorolac [From Toradol] Allergy Unknown Verified 02/29/20 23:04 lisinopril Allergy Unknown Verified 02/29/20 22:57 morphine Allergy ALGY-Rash Verified 03/30/20 09:06 nalbuphine [From Nubain] Allergy Unknown Verified 02/29/20 22:57 naproxen Allergy Unknown Verified 02/29/20 23:04 nortriptyline Allergy Unknown Verified 02/29/20 22:57 pravastatin Allergy Unknown Verified 02/29/20 23:04 prochlorperazine Allergy ALGY-Difficulty Verified 02/29/20 23:04 [From Compazine] Breathing propoxyphene Allergy ADR-Nausea Verified 02/29/20 23:04 [From Darvocet-N] ranolazine [From Ranexa] Allergy Unknown Verified 02/29/20 23:04 rosuvastatin [From Crestor] Allergy Unknown Verified 02/29/20 22:57 simvastatin Allergy Unknown Verified 02/29/20 23:04 sulfamethoxazole Allergy ALGY-Hives Verified 02/29/20 23:04 [From Bactrim] sumatriptan [From Imitrex] Allergy Unknown Verified 02/29/20 22:57 trimethoprim [From Bactrim] Allergy ALGY-Hives Verified 02/29/20 23:04 PFSH Acute PFSH: Medical History Coronary artery disease Depression with anxiety Generalized anxiety disorder GERD (gastroesophageal reflux disease) Hypertension Hypertriglyceridemia Insulin dependent diabetes mellitus Recent A1c 13.3 Irritable bowel syndrome Pancreatitis Post-traumatic stress disorder, chronic Ulcerative colitis Surgical History H/O tubal ligation H/O: hysterectomy History of carpal tunnel surgery Hx of tonsillectomy S/P CABG x 4 S/P coronary artery stent placement Family History Mother Dementia Father CAD (coronary artery disease) Other IBD (inflammatory bowel disease) Social History Smoking and tobacco status: former smoker Alcohol intake: never Substance/Drug Use: never Lives independently: Yes Household members: significant other Marital status: Life Partner Current occupational status: disabled Vitals/I&O/Wt Last Vital Signs Temp 96.8 F L 03/30/20 13:28 Pulse 88 03/30/20 17:00 Resp 22 H 03/30/20 17:00 BP 178/102 03/30/20 17:00 Pulse Ox 96 03/30/20 17:00 03/30/20 03/30/20 03/30/20 06:59 14:59 22:59 Intake Total 250 / 250 Output Total 350 / 350 Balance -100 / -100 Weight last 48 hrs Weight 90.718 kg Physical Exam Const: COMMON NORMALS: no apparent distress and oriented x3 GENERAL APPEARANCE: anxious NUTRITIONAL APPEARANCE: overweight HENMT: COMMON NORMALS: normocephalic and external ears normal Neck/C-Spine: COMMON NORMALS: no JVD Chest: OTHER: There is some tenderness on palpation of the chest, however, she also mentions she has chronic chest wall syndrome Resp: COMMON NORMALS: normal respiratory effort and clear to auscultation bilaterally AUSCULTATION: clear to auscultation bilaterally Cardio: COMMON NORMALS: no JVD, regular rhythm, S1 normal heart sound, S2 normal heart sound and no murmurs RHYTHM: regular rhythm HEART SOUNDS: S1 normal and S2 normal GI: COMMON NORMALS: normal to inspection, nondistended, normoactive bowel sounds and soft to palpation PALPATION: Yes soft and Yes tender (Epigastric) Extremity: COMMON NORMALS: no joint enlargement and no pedal edema Neuro: COMMON NORMALS: oriented x3 and moves all extremities Skin: COMMON NORMALS: no rashes or lesions noted GENERAL SKIN EXAM: no rashes or lesions noted Data : 03/30/20 09:41 03/30/20 09:41 Micro: Microbiology 03/30/20 09:33 Blood Culture - Preliminary Blood SPECIMEN COLLECTED 03/30/20 09:09 Blood Culture - Preliminary Blood SPECIMEN COLLECTED A&P Assessment and plan (1) Unstable angina: Persistent left-sided chest pain, sharp, with heaviness, radiating to the left side neck, and the back. CTA without made for vessel abnormality, without PE. With near was loosening of her side last past 2 days. Aside from heaviness, pain does appear to get worse with deep inspiration. She is been having mild intermittent nonproductive cough. She is having some sore throat. At this time it is not clear whether chest pain is purely secondary to cough and respiratory viral infection, versus also cardiac ischemia with unstable angina. For now empirically will start her on end-stage under treatment, with aspirin, continue her, statin, Lovenox therapeutic dose. Appreciate cardio evaluation. Request records from [facility] from September angiogram where the he reportedly had 3 stent placed due to triple-vessel disease. History of CABG x4, and she reports 11 stents total in the past. Status: Acute (2) Fever: She states fever up to 101 Fahrenheit at home. At this time does not have obvious source of infection. She does have some dry nonproductive cough, with unremarkable chest x-ray, and with near resolution of prior groundglass opacities in the left lung. Rapid influenza is negative. COVID-19 testing is being repeated, and she is being placed in isolation. I do suspect she may be having a viral illness, alternatively, however, I do believe she may be having exacerbation of her ulcerative colitis, with bloody stools. Will check ESR, CRP. She does have chest pain, although on EKG, troponin does not have significant evidence of myopericarditis. Will follow troponin EKG series to completion. Her pain is mostly epigastric. She may have a flare of pancreatitis superimposed on chronic pancreatitis, with burned-out pancreas, as her lipase is not elevated, although on questioning she denies having any chronic diarrhea or signs of malabsorption, I am not sure how severe is her chronic pancreatitis. She does not have significant right upper quadrant pain. She still has her gallbladder. Alkaline phosphatase is mildly elevated, although this appears to be chronic process. I am not suspecting that she has acute cholecystitis/cholangitis, but will assess with right upper quadrant ultrasound. For now hold off on antibiotics. Will check procalcitonin. She does endorse sore throat. Will check rapid strep, Monospot. Status: Acute (3) Abdominal pain: Gastric pain, in addition to chest pain. She states that it feels like her chronic pancreatitis is flaring up. Lipase checked in ER was normal. She says she follows with GI physician for her chronic pancreatitis. She states it was due to a diabetes medication. Denies alcohol history. She still has her gallbladder. Alkaline phosphatase is elevated, although this appears to be chronically so. T bili is normal and other liver enzymes are normal. Will request for right upper quadrant ultrasound to assess for any biliary pathology. Monitor liver parameters. She does have history of GERD, and does have naproxen listed as 1 of her home me dications. She did deny taking ibuprofen or Aleve when I asked her. Not sure if this was an old medication or if she did not recognize the name. Gastritis may be suspected given location of her pain. We will continue PPI twice daily. Sucralfate. Hold NSAIDs. In addition, I am concerned perhaps she may have some progression/flare of ulcerative colitis given blood in the stool. She is not significantly tender in other locations, however. Lactic acid is only minimally elevated at 2.3. Given her physical exam, and laboratory findings I am not suspecting bowel ischemia. Status: Acute Qualifiers: Abdominal location: upper abdomen, unspecified Qualified Code(s): R10.10 - Upper abdominal pain, unspecified (4) Ulcerative colitis: Include mesalamine. She states that flares are rare, and she rarely gets blood in her stool. She does report she has had blood in the stool yesterday and today. She had diarrhea daily for yesterday, although not seen. Her hemoglobin is not low. I am concerned whether a number of her symptoms may be secondary to progression of her ulcerative colitis. Will assess ESR, CRP. Will request records from [facility] gastroenterology. Denies any vision changes. Denies chronic kidney disease, and UA is unremarkable. Does have some cough, and groundglass opacities noted a month ago, cannot rule out was having some pneumonitis at that time. Status: Acute (5) Generalized anxiety disorder: Extremely dilated. We will continue her home Xanax. This is most likely severely contributing to her hypertensive episodes. Status: Acute (6) Hypertension: Elevated blood pressure, as high as 180/120 in ICU. This did improve with amlodipine, and she did not take any of her morning medications. Her anxiety definitely is making things much worse, with subsequently variable blood pressures. We will monitor at this time. For now she has been stuck multiple times, and there is no IV. At this time will treat her anxiety, pain, monitor blood pressures. Cardiac diet. Status: Acute (7) Insulin dependent diabetes mellitus: Hyperglycemia, glucose 509, received 10 units of regular insulin, and 20 units Lantus, subsequently sugar down to 195. She has not eaten anything today. For now we will continue 20 units Lantus twice a day, mild insulin sliding scale. Status: Acute Additional A&P Information Minimal hyponatremia: Monitor Alkaline phosphatase elevation: She still has her gallbladder. Will assess with right upper quadrant ultrasound. Tachycardia: On presentation, was thought to be secondary to rebound tachycardia both from hypotension secondary to nitroglycerin administration, and subsequently also due to missing beta-tomi dose also with rebound hypertension. Attestations Medical Necessity Statement*: Admission of over 2 midnights is continued for assessment management of unstable angina, suspected gastritis, investigation of possible infection related process, possible progression of ulcerative colitis. Coding Level of Care Code Acute Labor Trainer for orly Marroquin Diagnoses Unstable angina I20.0 Fever R50.9 Abdominal pain R10.10 Abdominal location: upper abdomen, unspecified Ulcerative colitis K51.90 Generalized anxiety disorder F41.1 Hypertension I10 Insulin dependent diabetes mellitus E11.9; Z79.4
[2020-03-30 18:05] LABS: Glucose Point of Care 196 mg/dL (70-110)
[2020-03-30] MEDS: ondansetron 4 MG Tablet PO (18:05)
[2020-03-30] MEDS: carvedilol 25 mg Tablet PO (18:12)
[2020-03-30] MEDS: isosorbide mononitrate ER 30 mg Tablet PO (18:12)
[2020-03-30] MEDS: pantoprazole DR 40 mg Tablet PO (18:12)
[2020-03-30] MEDS: promethazine 25 mg Tablet 12.5 MG PO (18:12)
[2020-03-30] MEDS: aspirin 325 mg Tablet PO (18:26)
[2020-03-30] MEDS: enoxaparin 100 mg/mL Syringe 90 MG SUBCUT (18:26)
[2020-03-30 18:30] LABS: Troponin 5 6HR 9.36 ng/mL (0-10)
[2020-03-30 18:50] LABS: Troponin 5 6HR Delta -0.64 ng/L (0-12)
[2020-03-30 19:11] LABS: Monoscreen Negative (Negative)
[2020-03-30 20:00] LABS: Chol HDL Ratio 4.35 mg/dL (0.0-4.40); Cholesterol 274 mg/dL (0-200); HDL Cholesterol 63 mg/dL (60-100); Triglycerides 497 mg/dL (0-150)
[2020-03-30 20:00] LABS: C Reactive Protein 3.5 mg/L (0.0-4.9); Erythrocyte Sedimentation Rate 32 mm/hr (0-15)
--- NOTE | 2020-03-30 20:00 | PC.NURSE ---
No IV access upon assuming care of patient. Per previous RN, physician aware and states that orders will be placed tomorrow for IV access by midline PICC.
[2020-03-30] MEDS: pregabalin 150 mg Capsule PO (20:04)
[2020-03-30] MEDS: trazodone 150 mg Tablet PO (20:06)
--- NOTE | 2020-03-30 20:46 | PC.NURSE ---
Patient complaining of pain at 7/10, states that it is in her chest and radiating to her neck. Advised that nitroglycerin is recommended for chest pain per physician's orders, patient states It doesn't help, I already have a headache. Patient declined to take nitroglycerin, requests evening medications. Advised that bedtime meds are due at 2100 and will be given per physician orders, patient verbalizes understanding.
[2020-03-30] MEDS: ALPRAZolam 0.5 mg Tablet PO (21:17)
[2020-03-30 21:24] LABS: Glucose Point of Care 302 mg/dL (70-110)
[2020-03-30 22:39] LABS: Rapid Strep A Test Negative (Negative)
--- NOTE | 2020-03-30 23:11 | PC.NURSE ---
Patient asleep, VSS, requested not to be woken at last assessment ([id number])
[2020-03-31] VITALS (17 sets, daily range): BP systolic 98–154; BP diastolic 49–111; PULSE 74–90; RESP 12–19; TEMP 36.5–37.1; O2SAT 92–98
--- NOTE | 2020-03-31 00:29 | PC.NURSE ---
Patient asleep, awakens to verbal stimulation. Placed on 2LNC due to Sp02 89-90% on RA, Sp02 increased to 98%. Patient continues to rest comfortably. Will continue to monitor.
[2020-03-31 01:48] LABS: LDL Cholesterol Direct 124 mg/dL (0-100)
[2020-03-31] MEDS: HYDROcodone-acetaminophen 10-325 mg Tablet 1 TAB PO ×5 (04:47→23:18)
[2020-03-31] MEDS: promethazine 25 mg Tablet 12.5 MG PO ×4 (05:00→23:18)
[2020-03-31 05:04] LABS: Basophils % 0.4 %; Eosinophils # 0.2 10^3/uL (0.0-0.8); Eosinophils % 3.1 %; Hematocrit 39.7 % (37.0-47.0); Hemoglobin 12.7 g/dL (11.5-15.3); Lymphocytes % 40.8 %; Mean Corpuscular Hemoglobin 27.5 pg (28.0-34.0); Mean Corpuscular Volume 86.1 fL (81-99); Mean Platelet Volume 10.6 fL (7.4-10.4); Monocytes # 0.4 10^3/uL (0.2-0.9); Neutrophils # 3.8 10^3/uL (1.8-7.7); Neutrophils % 50.6 %; Nucleated Red Blood Cells % 0 %; Platelet Count 277 10^3/cmm (130-400); Red Blood Count 4.61 10^6/uL (4.1-5.3); Red Cell Distribution Width 13.5 % (12.1-15.1); White Blood Count 7.5 10^3/uL (4.0-10.0)
[2020-03-31 05:25] LABS: Alanine Aminotransferase 8 U/L (0-33); Albumin Level 3.8 g/dL (3.5-5.2); Alkaline Phosphatase 162 IU/L (35-105); Anion Gap 15.6 (5-19); Aspartate Amino Transferase 13 U/L (0-32); Blood Urea Nitrogen 9 mg/dL (6-20); Calcium 9.8 mg/dL (8.5-10.5); Carbon Dioxide 27 mmol/L (22-29); Chloride 100 mmol/L (98-107); Globulin 3.3 g/dL (1.3-4.6); Glomerular Filtration Rate 86.9 mL/min (90-130); Glucose 241 mg/dL (65-115); Osmolality Calculated 292 mOsm/kg (285-295); Potassium 3.6 mmol/L (3.5-5.1); Sodium 139 mmol/L (136-145); Total Bilirubin 0.2 mg/dL (0.15-1.2); Total Protein 7.1 g/dL (6.6-8.7)
[2020-03-31] MEDS: enoxaparin 100 mg/mL Syringe 90 MG SUBCUT (06:26)
--- NOTE | 2020-03-31 06:43 | PM.CONSULT ---
Providers/Reason For Consult Consulting Physican/Specialty*: Dr. Bell Reason for Consult*: Chest pain, abnormal stress test, h/o CAD Attending Physician: Eric Yousif Primary Care Provider: Juno Brown History of Present Illness History of Present Illness Collette Kothari is a 55 year old female with PMHx of hypertension, hyperlipidemia, DM-2, CAD s/p CABG x4, status post PCI with bare-metal stent to LAD, drug-eluting stent SVG to obtuse marginal and drug-eluting stent to PDA on 07 August 2017. She presented for evaluation of chest pain.Patient is known to have coronary disease and had a 4 vessel coronary to bypass surgery in 2008 at the [facility] in [place]. She is being followed up by Dr. El Trinidad in [place]. She has a history of chronic chest pains. She had 3 or 4 coronary angiograms in the recent past (last one at [facility] was in 08/2019, previous ones in 2015 and 2017). Her last coronary angiogram was in September 2019. Patient underwent Synergy stent placement to first obtuse marginal (2.25x 16 mm), proximal to midportion of saphenous venous gait vein graft to OM1 and OM 2 was stented using synergy 4 x 20 mm stent, distal portion of saphenous venous vein graft to RCA was stented with 2.5 x 20 mm Synergy stent. Balloon angioplasty of distal limb of saphenous vein vein graft to second marginal circumflex for in-stent restenosis Patient is known to have fibromyalgia, anxiety/depressive illness, chronic pancreatitis, ulcerative colitis, GERD, hypertriglyceridemia, chronic pain and chronic opiate use, migraines. She was recently admitted to the hospital for shortness of breath and chest pain. She was found to have pneumonia, with patchy unilateral ground glass opacities in the left lung on CTA, no PE, negative influenza, negative COVID-19 testing. She was found to have positive blood culture for Staphylococcus hominis in 2/4 bottles, for which she was treated with Rocephin, with subsequent repeat culture the following day negative. Later, Staphylococcus hominis was thought to be a contaminant. She has had few episodes of sharp,pleuritic chest pain and reproducible pain on the left side, radiating to her neck. She states at the same time that the pain was getting worse with deep breaths. She has been having some intermittent cough, tiny amount of greenish expectorant, spiking fever up to 101 Fahrenheit yesterday and today. She also complains of abdominal pain (epigastric), nausea and intermittent hematochezia. Patient had a CTA of the chest in the emergency room with no evidence of PE and near resolution of prior groundglass opacities on the left, with normal baseline troponin and minimal elevation up to 11.43 at 2 hours. Her EKG was unremarkable. Cardiology consult is requested for further cardiac evaluation and recommendations. Review of Systems Const: Reports: fever ENMT: Denies: nasal congestion Card: Reports: chest pain Resp: Denies: shortness of breath GI: Reports: abdominal pain and blood in stool : Denies: blood in urine Musc: Reports: other (body ache) Skin/Breast: Denies: rash Neuro: Denies: weakness in extremities or frequent falls Psych: Reports: anxiety Danish/Lymph: Denies: petechiae or purpura Meds/Allergies Home Medications and Allergies Home Medications Medication Instructions Recorded Confirmed Last Taken Type Repatha SureClick 140 mg SUBCUT Q14D 01/04/20 03/30/20 12/31/19 History amlodipine 5 mg PO DAILY 01/04/20 03/30/20 03/29/20 History carvedilol 25 mg PO BID 01/04/20 03/30/20 03/29/20 History clopidogrel 75 mg PO DAILY 01/04/20 03/30/20 03/29/20 History hydrochlorothiazide 12.5 mg PO DAILY 01/04/20 03/30/20 03/29/20 History hydrocodone-acetaminophen 1 tab PO Q6H PRN 01/04/20 03/30/20 03/30/20 04:00 History insulin aspart U-100 [Novolog See Rx Instructions .ROUTE .COMPLEX 01/04/20 03/30/20 1 Day Ago History Flexpen U-100 Insulin] ~02/28/20 isosorbide mononitrate 30 mg PO BID 01/04/20 03/30/20 03/29/20 History pantoprazole 40 mg PO BID 01/04/20 03/30/20 03/29/20 History pregabalin [Lyrica] 150 mg PO TID 01/04/20 03/30/20 03/29/20 History tizanidine 4 mg PO TID PRN 01/04/20 03/30/20 03/29/20 History trazodone 150 mg PO BEDTIME 01/04/20 03/30/20 03/29/20 History zolpidem [Ambien] 10 mg PO BEDTIME 01/04/20 03/30/20 03/29/20 History alprazolam [Xanax] See Rx Instructions .ROUTE 02/29/20 03/30/20 03/29/20 History .COMPLEX PRN fluticasone propionate 2 spray INTRANASAL DAILY 02/29/20 03/30/20 03/29/20 History icosapent ethyl [Vascepa] 2 g PO BID 02/29/20 03/30/20 03/29/20 History lactulose 10 g PO BID PRN 02/29/20 03/30/20 1 Day Ago History ~02/28/20 mesalamine 2.4 g PO DAILY 02/29/20 03/30/20 03/29/20 History naloxone 1 spray INTRANASAL PRN 02/29/20 03/30/20 1 Day Ago History ~02/28/20 nitroglycerin [Nitrostat] 0.4 mg SUBLINGUAL Q5M PRN 02/29/20 03/30/20 03/30/20 History potassium chloride 20 meq PO DAILY 02/29/20 03/30/20 03/29/20 History promethazine 12.5 mg PO Q6H 02/29/20 03/30/20 03/30/20 History sertraline [Zoloft] 200 mg PO DAILY 02/29/20 03/30/20 03/29/20 History sucralfate 1 g PO QID PRN 02/29/20 03/30/20 03/30/20 History loratadine 10 mg PO DAILY PRN 30 Days #30 tab 03/05/20 03/30/20 Unknown Rx Lantus Solostar U-100 Insulin 40 unit SUBCUT BID 03/30/20 03/30/20 03/29/20 History aspirin [Aspir-81] 81 mg PO DAILY 03/30/20 03/30/20 03/30/20 History 2-81mg and 2-325mg [id number] 1 tab PO PRN 03/30/20 03/30/20 03/30/20 History [Excedrin Extra Strength] gemfibrozil [Lopid] 600 mg PO DAILY 03/30/20 03/30/20 03/29/20 History metoclopramide HCl [Reglan] 5 mg PO DAILY 03/30/20 03/30/20 03/29/20 History polyethylene glycol 3350 [Miralax] 17 g PO DAILY PRN 03/30/20 03/30/20 Unknown History Allergies Allergy/AdvReac Type Severity Reaction Status Date / Time SCOTT Inhibitors Allergy Unknown Verified 02/29/20 23:04 acetaminophen Allergy ADR-Nausea Verified 02/29/20 23:04 [From Darvocet-N] amitriptyline Allergy ALGY-Difficulty Verified 02/29/20 23:04 Breathing atorvastatin [From Lipitor] Allergy ADR-Nausea Verified 02/29/20 23:04 ciprofloxacin [From Cipro] Allergy ALGY-Hives Verified 02/29/20 23:04 doxycycline Allergy Unknown Verified 02/29/20 22:57 empagliflozin Allergy Unknown Verified 02/29/20 23:04 [From Jardiance] escitalopram [From Lexapro] Allergy Unknown Verified 02/29/20 22:57 ezetimibe [From Zetia] Allergy Unknown Verified 02/29/20 23:04 furosemide [From Lasix] Allergy ALGY-Rash Verified 02/29/20 23:04 ketorolac [From Toradol] Allergy Unknown Verified 02/29/20 23:04 lisinopril Allergy Unknown Verified 02/29/20 22:57 morphine Allergy ALGY-Rash Verified 03/30/20 09:06 nalbuphine [From Nubain] Allergy Unknown Verified 02/29/20 22:57 naproxen Allergy Unknown Verified 02/29/20 23:04 nortriptyline Allergy Unknown Verified 02/29/20 22:57 pravastatin Allergy Unknown Verified 02/29/20 23:04 prochlorperazine Allergy ALGY-Difficulty Verified 02/29/20 23:04 [From Compazine] Breathing propoxyphene Allergy ADR-Nausea Verified 02/29/20 23:04 [From Darvocet-N] ranolazine [From Ranexa] Allergy Unknown Verified 02/29/20 23:04 rosuvastatin [From Crestor] Allergy Unknown Verified 02/29/20 22:57 simvastatin Allergy Unknown Verified 02/29/20 23:04 sulfamethoxazole Allergy ALGY-Hives Verified 02/29/20 23:04 [From Bactrim] sumatriptan [From Imitrex] Allergy Unknown Verified 02/29/20 22:57 trimethoprim [From Bactrim] Allergy ALGY-Hives Verified 02/29/20 23:04 Current Medications Current Medications Generic Name Dose Route Start Last Admin Trade Name Freq PRN Reason Stop Dose Admin Hydrocodone Bitart/Acetaminophen 1 tab 03/30/20 16:06 03/31/20 04:47 [place] 10-325 Mg PO 1 tab Q4H PRN Administration MODERATE PAIN Alprazolam 0.5 mg 03/30/20 17:28 03/30/20 21:17 Xanax PO 0.5 mg TID PRN Administration anxiety Carvedilol 25 mg 03/30/20 18:00 03/30/20 18:12 Coreg PO 25 mg BID MATTIE Administration Clopidogrel Bisulfate 75 mg 03/30/20 17:30 03/30/20 18:14 Plavix PO Not Given DAILY [facility] Enoxaparin Sodium 90 mg 03/30/20 18:30 03/31/20 06:26 Lovenox 1 mg/kg (90 mg) 90 mg SUBCUT Administration Q12H [facility] Sodium Chloride 1,000 mls @ 100 mls/hr 03/30/20 13:49 03/30/20 18:12 Sodium Chloride 0.9% IV Not Given .Q10H [facility] Insulin Aspart 0 unit 03/30/20 21:00 03/30/20 21:26 Novolog SUBCUT 10 unit WM&BEDTIME MATTIE Administration Protocol Insulin Glargine 20 unit 03/30/20 21:00 03/30/20 21:37 Lantus SUBCUT 20 unit Q24H MATTIE Administration Isosorbide Mononitrate 30 mg 03/30/20 18:00 03/30/20 18:12 Imdur PO 30 mg BID MATTIE Administration Ondansetron HCl 4 mg 03/30/20 17:30 03/30/20 18:05 Zofran PO 4 mg Q8H PRN Administration NAUSEA AND VOMITING Pantoprazole Sodium 40 mg 03/30/20 18:00 03/30/20 18:12 Protonix PO 40 mg BID MATTIE Administration Promethazine HCl 12.5 mg 03/30/20 18:00 03/31/20 05:00 Phenergan PO 12.5 mg Q6H MATTIE Administration Trazodone HCl 150 mg 03/30/20 21:00 03/30/20 20:06 Desyrel PO 150 mg BEDTIME MATTIE Administration Zolpidem Tartrate 5 mg 03/30/20 21:00 03/30/20 20:04 Ambien PO 5 mg BEDTIME MATTIE Administration PFSH Acute PFSH: Medical History Coronary artery disease Depression with anxiety Generalized anxiety disorder GERD (gastroesophageal reflux disease) Hypertension Hypertriglyceridemia Insulin dependent diabetes mellitus Recent A1c 13.3 Irritable bowel syndrome Pancreatitis Post-traumatic stress disorder, chronic Ulcerative colitis Surgical History H/O tubal ligation H/O: hysterectomy History of carpal tunnel surgery Hx of tonsillectomy S/P CABG x 4 S/P coronary artery stent placement Family History Mother Dementia Father CAD (coronary artery disease) Other IBD (inflammatory bowel disease) Social History Smoking and tobacco status: former smoker Alcohol intake: never Substance/Drug Use: never Lives independently: Yes Household members: significant other Marital status: Life Partner Current occupational status: disabled Vitals/I&O/Wt Last Vital Signs Temp 98.6 F 03/31/20 04:00 Pulse 79 03/31/20 06:00 Resp 16 03/31/20 06:00 BP 140/78 03/31/20 06:00 Pulse Ox 92 03/31/20 06:00 03/30/20 03/30/20 03/31/20 14:59 22:59 06:59 Intake Total 370 / 370 Output Total 425 / 425 375 / 800 Balance -55 / -55 -375 / -430 Weight last 48 hrs Weight 197 lb Weight 200 lb Physical Exam Const: COMMON NORMALS: no apparent distress, oriented x3 and alert GENERAL APPEARANCE: cooperative, comfortable, well kempt and well hydrated HENMT: COMMON NORMALS: hearing grossly normal bilaterally, external ears normal and moist oral mucous membranes EXTERNAL EAR: Yes external ears normal Eye: COMMON NORMALS: EOMs intact bilaterally and no scleral icterus GENERAL EYE: normal appearance of both eyes Neck/C-Spine: COMMON NORMALS: no JVD Chest: COMMONS NORMALS: inspection of chest normal and palpation of chest normal CHEST: Yes symmetrical chest wall rise and Yes tenderness Resp: COMMON NORMALS: clear to auscultation bilaterally AUSCULTATION: clear to auscultation bilaterally, no crackles, no rales, no rhonchi and no wheezes Cardio: COMMON NORMALS: no JVD, regular rate, regular rhythm, S1 normal heart sound, S2 normal heart sound and peripheral pulses 2+ throughout PALPATION: normal PMI RATE: regular rate RHYTHM: regular rhythm HEART SOUNDS: S1 normal, S2 normal, no click, no gallops and no murmurs BRUITS: no carotid bruits PERIPHERAL PULSES: pulses 2+ throughout, radial pulses present, posterior tibial pulses present and dorsalis pedis pulses present Extremity: GENERAL: No clubbing, No cyanosis, No edema and No pallor Neuro: COMMON NORMALS: oriented x3, CN's II-XII intact bilaterally and no focal motor deficits SENSORIUM/ORIENTATION: Yes alert Psych: COMMON NORMALS: thought process normal and speech normal APPEARANCE: Yes well kempt SPEECH: Yes normal speech MOOD & AFFECT: Yes euthymic mood THOUGHT PROCESS: normal thought process THOUGHT CONTENT: Yes normal thought content Data Labs: Other Labs: Laboratory Tests 01/04/20 01/05/20 03/30/20 11:40 04:00 09:41 Hemoglobin A1c 13.3 H AST ALT Alkaline Phosphata se Troponin I 6 Hour Troponin T Baselin e 10 Troponin T 120 Min [place] NT-Pro-B Natriuret Pep 401 H Total Protein Albumin Globulin Triglycerides Cholesterol LDL Cholesterol Di rect HDL Cholesterol 03/30/20 03/30/20 03/30/20 11:54 17:59 17:59 Hemoglobin A1c AST ALT Alkaline Phosphata se Troponin I 6 Hour 9.36 Troponin T Baselin e Troponin T 120 Min [place] 11.43 H NT-Pro-B Natriuret Pep Total Protein Albumin Globulin Triglycerides 497 H Cholesterol 274 H LDL Cholesterol Di rect 124 H HDL Cholesterol 63 03/31/20 04:50 Hemoglobin A1c AST 13 ALT 8 Alkaline Phosphata se 162 H Troponin I 6 Hour Troponin T Baselin e Troponin T 120 Min [place] NT-Pro-B Natriuret Pep Total Protein 7.1 Albumin 3.8 Globulin 3.3 Triglycerides Cholesterol LDL Cholesterol Di rect HDL Cholesterol Micro: Micro: Microbiology 03/30/20 09:33 Blood Culture - Pr eliminary Blood SPE[facility]IMEN [facility] 03/30/20 09:09 Blood Culture - Pr eliminary Blood SPECIMEN [facility] Imaging^: CTA Chest: Radiologist's impression: IMPRESSION: 1. No evidence of pulmonary embolus. 2. Previously described hazy groundglass infiltrates appear improved compared to previous and nearly resolved. No new infiltrates. 3. No focal consolidation or pleural fluid. 4. Enlarged right hilar lymph node measuring 14 mm unchanged from previous likely reactive. 5. Thyroid nodule along the isthmus inferiorly measuring 3.1 cm. This can be followed up with ultrasound on elective basis. CTA chest (02/29/20) MPRESSION: 1. No evidence for pulmonary embolus. 2. Patchy unilateral ground-glass opacities in the left lung. This most likely represents multifocal pneumonia. (COVID-19 classification: Indeterminate. Imaging features can be seen with COVID-19 pneumonia, though are nonspecific and can occur with a variety of infectious and noninfectious processes). Other Data: Other data: CXR IMPRESSION: Previous coronary bypass changes TTE (03/04/20) CONCLUSIONS Normal left ventricular size, systolic function and wall thickness, with no regional wall motion abnormalities. Grade I/IV diastolic dysfunction (abnormal relaxation filling pattern), normal to mildly elevated filling pressures. Left ventricular ejection fraction is estimated at 65%. There is no evidence for endocarditis. This is technically a somewhat difficult study however no obvious vegetations are noted. Sestamibi MPI (03/04/20) IMPRESSIONS 1. Myocardial perfusion imaging revealing a small area of reversible defect in the mid inferolateral region, suggestive of ischemia in the distribution of the left circumflex artery. The elevated transient ischemic dilatation ratio also may suggest endocardial ischemia. 2. Normal LV ejection fraction of 82%. 3. LV wall motion analysis revealing no gross wall motion abnormalities. 4. Normal LV volume. No similar previous studies are available for comparison Coronary angiogram (09/10/2019) Diagnostic Findings LM is a medium caliber vessels and no significant stenotic lesion. LAD is a medium caliber vessel was found to have moderate diffuse disease proximally. After the first septal evaluator, the artery appears to be totally occluded. CX artery appears to be totally occluded after giving off a recurrent atrial branch. Ramus: Severe 100% stenosis. The right coronary artery is a medium caliber vessel which appears to be totally occluded distally. The mid RCA was found to have around 60-70% segmental narrowing. The first RV branch was found to have severe diffuse disease proximally. dRCA: Severe 100% stenosis. 4 grafts visualized. TOMAS to dLAD: patent, the distal LAD was found to be tapering off towards the LV apex. Mild to moderate diffuse disease is noted in the vessel. Sequential SVG to Ramus and 2nd OM: The venous graft to the intermedius artery is widely patent. Just around the attachment to the intermedius artery, the graft was found to have around 50% eccentric narrowing. The intermedius artery was found to have moderate diffuse disease in the mid and distal segment. The second limb of the graft which is attached to the obtuse marginal branch appears to be subtotally occluded. Retrograde flow was noted to a diffusely diseased obtuse marginal/distal circumflex artery. The artery distal to the anastomosis was found to be totally occluded. SVG to the PDA branch was found to be widely patent. The venous graft has a posterior takeoff from the aorta, proximally. Selective engagement was somewhat difficult. The PLV branch of the right coronary artery was found to be totally occluded. Coronary angiography shows right dominance. Conclusion The coronary angiogram revealed a severe 3 vessel coronary artery disease. Total occlusion of the mid LAD, proximal circumflex and distal RCA. She had a patent TOMAS to the LAD. Sequential venous graft to the intermedius/second obtuse marginal arteries were found to be patent. There was a 50% eccentric lesion in the proximal limb of the sequential graft. The distal end of the second limb of the bypass graft was found to have subtotal occlusion, appears chronic. Patent venous graft to the PDA. PLV branch appears to be totally occluded. Normal LV ejection fraction with an LVEDP of 13 mmHg. Recommendations The distal lesion at the distal limb of the sequential graft was found to be technically challenging to intervene. This area appears to be stented and the lesion was found to be chronic. So it was thought to be appropriate to continue the medical treatment at this point. LV EDP: 13 mmHg Ventriculography Ejection Fraction: 60.0 % There was a moderate hypokinesia of the mid anterior segment. Overall LV ejection fraction was 60%. No filling defects were noted. No significant mitral valve prolapse or mitral regurgitation. LE arterial duplex (05/2019) CONCLUSIONS Normal resting ABIs and TBI's bilaterally, suggestive of no significant arterial obstruction. Low amplitude PVR waveforms, could be related to technical problems. Clinical correlation is recommended. EKG showed sinus rhythm with occasional PVC. Probably old septal myocardial infarction. A&P Assessment and plan (1) Chest pain: Initial concern for unstable angina. However, she has h/o chronic chest pain syndrome. Last cath at [place] with stent placement. -continue current medications. I will follow up on cath report from [facility] and based on that and review of images from last cath here will decide on further management. -Chest pain seems to have pleuritic reproducible components as well as has has abdominal pain. Discontinue therapeutic Lovenox. No indication for coronary angiogram presently. -Given mildly abnormal stress test and elevated blood pressure increase Imdur to 60 mg in morning and 30 mg in the evening. Ranexa is listed her as as her allergy however patient denies having any side effects from it in the past (?). -Records were obtained from [place] and reviewed. Status: Acute Qualifiers: Chest pain type: unspecified Qualified Code(s): R07.9 - Chest pain, unspecified (2) Coronary artery disease: Status: Acute Qualifiers: Coronary Disease-Associated Artery/Lesion type: bypass graft [place] vs. transplanted heart: [place] heart Associated angina: with stable angina Qualified Code(s): I25.708 - Atherosclerosis of coronary artery bypass graft(s), unspecified, with other forms of angina pectoris (3) Hypertension: Status: Acute Qualifiers: Hypertension type: essential hypertension Qualified Code(s): I10 - Essential (primary) hypertension (4) Insulin dependent diabetes mellitus: Status: Acute Additional A&P Information Ulcerative colitis Hypertension Elevated alkaline phosphatase Anxiety Questionable history of chronic pancreatitis Thank you for allowing me to participate in patient's care. Please feel free to call with questions or concerns. Coding Level of Care Code Acute [facility] Tender for [facility] Diagnoses Chest pain R07.9 Chest pain type: unspecified Coronary artery disease I25.708 Coronary Disease-Associated Artery/Lesion type: bypass graft [place] vs. transplanted heart: [place] heart Associated angina: with stable angina Hypertension I10 Hypertension type: essential hypertension Insulin dependent diabetes mellitus E11.9; Z79.4
[2020-03-31] MEDS: ALPRAZolam 0.5 mg Tablet PO ×5 (07:18→23:53)
[2020-03-31 07:37] LABS: Glucose Point of Care 272 mg/dL (70-110)
[2020-03-31] MEDS: fluticasone nasal spray 16gm Btl 2 SPRAY INTRANASAL (09:29)
[2020-03-31] MEDS: aspirin 81 mg EC Tablet PO (09:29)
[2020-03-31] MEDS: clopidogrel 75 mg Tablet PO (09:29)
[2020-03-31] MEDS: isosorbide mononitrate ER 30 mg Tablet PO ×2 (09:29→18:03)
[2020-03-31] MEDS: pantoprazole DR 40 mg Tablet PO ×2 (09:29→18:03)
[2020-03-31] MEDS: metoclopramide 10 mg Tablet 5 MG PO (09:29)
[2020-03-31] MEDS: pregabalin 150 mg Capsule PO ×3 (09:29→20:53)
[2020-03-31] MEDS: gemfibrozil 600 mg Tablet PO (09:29)
[2020-03-31] MEDS: carvedilol 25 mg Tablet PO ×2 (09:29→18:03)
[2020-03-31] MEDS: sertraline 100 mg Tablet 200 MG PO (09:32)
--- NOTE | 2020-03-31 11:35 | P.PN_ITS ---
Subjective Subjective: Interval history: She is extremely anxious this morning. I just do not feel good . Says that she is hurting all over. Vitals/I&O/Wt Last Vital Signs Temp 98.6 F 03/31/20 04:00 Pulse 79 03/31/20 06:00 Resp 16 03/31/20 06:00 BP 140/78 03/31/20 06:00 Pulse Ox 92 03/31/20 06:00 03/30/20 03/31/20 03/31/20 22:59 06:59 14:59 Intake Total 370 / 370 Output Total 425 / 425 375 / 800 Balance -55 / -55 -375 / -430 Weight last 48 hrs Weight 89.358 kg Weight 89.358 kg Weight 90.718 kg Physical Exam Const: COMMON NORMALS: no apparent distress and oriented x3 GENERAL APPEARANCE: anxious (very) NUTRITIONAL APPEARANCE: overweight HENMT: COMMON NORMALS: normocephalic and external ears normal HEAD & SCALP: normocephalic EXTERNAL EAR: Yes external ears normal Neck/C-Spine: COMMON NORMALS: no JVD Chest: OTHER: There is some tenderness on palpation of the chest, however, she also mentions she has chronic chest wall syndrome Resp: COMMON NORMALS: normal respiratory effort and clear to auscultation bilaterally AUSCULTATION: clear to auscultation bilaterally Cardio: COMMON NORMALS: no JVD, regular rhythm, S1 normal heart sound, S2 normal heart sound and no murmurs RHYTHM: regular rhythm HEART SOUNDS: S1 normal and S2 normal GI: COMMON NORMALS: normal to inspection, nondistended, normoactive bowel sounds and soft to palpation PALPATION: Yes soft and Yes tender (Epigastric) Extremity: COMMON NORMALS: no joint enlargement and no pedal edema Neuro: COMMON NORMALS: oriented x3 and moves all extremities Skin: COMMON NORMALS: no rashes or lesions noted GENERAL SKIN EXAM: no leila hes or lesions noted Data : 03/31/20 04:50 03/31/20 04:50 Micro: Microbiology 03/30/20 09:09 Blood Culture - Preliminary Blood NEGATIVE TO DATE 03/30/20 09:33 Blood Culture - Preliminary Blood SPECIMEN COLLECTED A&P Assessment and plan (1) Unstable angina: Appreciate cardiology assessment. Her chest pain appears to be multifacto rial, with chronic chest wall syndrome, and currently also ongoing epigastric/abdominal, and some component, pain is thought to be less likely to be cardiac also in the of cardiac studies. Therapeutic Lovenox was discontinued. Continue regular cardiac medications. Imdur dose increased per cardiology recommendations. Status: Acute (2) Fever: There has been no recurrence of fever. She does endorse hurting all o candie today, as well as malaise. Suspect she may have viral illness, although COVID-19 is negative, as is rapid flu. She has not been noted to be coughing at all today by nursing staff. She does complain of abdominal discomfort and dysuria/difficulty urinating. Requested for CT abdomen pelvis with oral contrast which is not suggestive of any acute pathology. No pancreatitis. No colitis, etc. Right upper quadrant ultrasound assessed due to alkaline phosphatase elevation, with contracted gallbladder, small hemangiomas mid liver, and otherwise unremarkable. Procalcitonin was checked and is not elevated. Yesterday was endorsing sore throat. Rapid strep, Monospot negative. Due to dysuria will request for UA. Check CK. She had previously reported temperature up to 101 Fahrenheit at home. Given all of the above work-up, I am not sure whether this is entirely trustworthy. She appears very anxious, requesting for IV Ativan in addition to Xanax. Discussed with her would prefer not to give multiple different benzodiazepines. Did increase his Xanax frequency for symptomatic relief. She has had a traumatic event recently with a in the family, and I wonder whether some of her symptoms may be somatic. Her C-reactive protein is normal. ESR is mildly elevated at 32. Would still re commend she follow-up with her premium representative after discharge. Otherwise provide supportive care for possible acute viral illness. Blood culture was rechecked, so far negative. Had an episode of possible bacteremia on 02/28, although thought more likely contamination with staph hominis, with subsequent repeat culture negative. Hold off antibiotics. Status: Acute (3) Abdominal pain: As above. Endorses dysuria, will recheck UA, although previous was unremarkable and not suggestive of UTI. CT abdomen pelvis unremarkable. Right upper quadrant ultrasound unremarkable. Gastric pain, in addition to chest pain. May have some gastritis causing epigastric pain, although today stated discomfort was more generalized in the abdomen, and was having aches all over. She does have history of GERD, and does have naproxen listed as 1 of her home medications. She did deny taking ibuprofen or Aleve when I asked her. Not sure if this was an old medication or if she did not recognize the name. We will continue PPI twice daily. Sucralfate. Hold NSAIDs. I am not sure that she has progression of ulcerative colitis, there has been no bloody bowel movements while in the hospital despite being on therapeutic ant icoagulation for suspected non-STEMI initially, and her CRP is entirely normal. ESR is only mildly elevated at 32. Would recommend reassessment by her premium representative in office. Will monitor tonight, and if doing well, may be able to discharge to outpatient follow-up tomorrow. Status: Acute Qualifiers: Abdominal location: upper abdomen, unspecified Qualified Code(s): R10.10 - Upper abdominal pain, unspecified (4) Ulcerative colitis: I am not sure that she has progression of ulcerative colitis, there has been no bloody bowel movements while in the hospital despite being on therapeutic anticoagulation for suspected non-STEMI initially, and her CRP is entirely normal. ESR is only mildly elevated at 32. Would recommend reassessment by her premium representative in office. On chronic mesalamine. She states that flares are rare, and she rarely gets blood in her stool. She does report she has had blood in the stool yesterday and today. She had diarrhea daily for yesterday, although not seen. Her hemoglobin is not low. Status: Acute (5) Generalized anxiety disorder: Extremely anxious. Continue her home Xanax. This is most likely severely contributing to her hypertensive episodes. Status: Acute (6) Hypertension: Elevated blood pressure, improved w treatment. Status: Acute (7) Insulin dependent diabetes mellitus: Hyperglycemia, improved. Status: Acute Additional A&P Information Minimal hyponatremia: Monitor Alkaline phosphatase elevation: She still has her gallbladder. RUQ US wo sign of cholecystitis or cholangitis.. Tachycardia: On presentation, was thought to be secondary to rebound tachycardia both from hypotension secondary to nitroglycerin administration, and subsequently also due to missing beta-tomi dose also with rebound hypertension. Resolved and without recurrence. Attestations Medical Necessity Statement*: Continue admission for assessment and management of severe malaise, constellation of symptoms that include severe chest pain in setting of coronary disease, abdominal pain in the setting of history of pancre atitis, ulcerative colitis, reported GI bleeding, fever, previously positive blood culture. 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
[2020-03-31 12:08] LABS: Glucose Point of Care 255 mg/dL (70-110)
--- NOTE | 2020-03-31 12:11 | CT_ITS ---
WS: [id number] CT ABDOMEN PELVIS TECHNIQUE: Noncontrast CT of the abdomen and pelvis with coronal and sagittal reformatted images. CLINICAL INFORMATION: abdominal discomfort, chronic pancreatitis? UC flare? COMPARISON: CT February 02, 2020 DLP: 1301.[address] scans at [facility] use at least one of these dose optimization techniques: automat ed exposure control; mA and/or kV adjustment per patient size (includes targeted exams where dose is matched to clinical indication); or iterative reconstruction. FINDINGS: Noncontrast liver is unremarkable. Calcified hepatic granulomas. Gallbladder appears unremarkable. No rmal spleen. Slight atelectasis in the lung bases. Prior sternotomy. Adrenal glands are normal. Mild fatty atrophy of the pancreas. No evidence of acute pancreatitis. No hydronephrosis. No obstructing r enal or ureteral calculi. Normal caliber abdominal aorta. Normal sigmoid colon. Remainder of the colon is normal in appearance. No evidence of small large kriss l obstruction. A appendix is normal. No periaortic lymphadenopathy. No inguinal lymphadenopathy. CT/CT abdomen pelvis wo con [id number] IMPRESSION: 1. No evidence of acute pancreatitis. 2. Noncontrast liver and gallbladder appear normal. 3. No hydronephrosis. No obstructing renal or ureteral calculi. 4. Colon appears unremarkable.
[2020-03-31 13:18] LABS: Glucose Point of Care 435 mg/dL (70-110)
[2020-03-31 14:55] LABS: Coronavirus Lab Test PTC NOT DETECTED
[2020-03-31] MEDS: iohexol 300 mg/mL 50 mL Btl IV (15:33)
[2020-03-31] MEDS: sodium chloride 0.9% 1,000 ML 100 ML IV (16:32)
[2020-03-31 16:57] LABS: Glucose Point of Care 346 mg/dL (70-110)
[2020-03-31 18:42] LABS: Creatine Phosphokinase 48 U/L (26-192)
--- NOTE | 2020-03-31 18:55 | US_ITS ---
WS: [id number] ABDOMINAL ULTRASOUND LIMITED REASON FOR VISIT: hepatobiliary TECHNIQUE: Grayscale and Doppler ultrasound examination of the abdomen. FINDINGS: Pancreas: Within normal limits Abdominal aorta and IVC: Within normal limits Liver: Liver measures 19.9 cm in length. With in the liver are 2 lesions most likely hemangiomas. Gallbladder: Gallbladder wall thickness measures 0.2 mm. Contracted gallbladder no definite stones. Right kidney: Right kidney measures 12.4 cm x 4.1 cm x 4.0 cm. No hydronephrosis no stones. US/US abdomen limited [id number] IMPRESSION: Hepatomegaly Small hemangiomas of the mid liver Partially contracted gallbladder no stones.
--- NOTE | 2020-03-31 19:15 | PC.NURSE ---
Dr. Aguayo notified of patient asking for Benadryl for itching, stating that she takes it at home.
[2020-03-31] MEDS: diphenhydrAMINE 25 mg Capsule PO (19:39)
[2020-03-31] MEDS: trazodone 150 mg Tablet PO (20:53)
[2020-03-31] MEDS: ondansetron 4 MG Tablet PO (20:56)
[2020-03-31] MEDS: insulin glargine 100 units/1 mL 20 UNIT SUBCUT (21:00)
[2020-03-31 21:29] LABS: Glucose Point of Care 244 mg/dL (70-110)
[2020-03-31 21:36] LABS: Add Urine Microscopic? NO
[2020-03-31 21:41] LABS: Bilirubin Urine Neg (NEGATIVE); Blood Urine Neg (Negative); Glucose Urine UA 4+ (Normal); Ketones Urine Negative (Negative); Leukocyte Esterase Urine Negative (Negative); Nitrate Urine Negative (Negative); Protein Urine Neg (Negative); Specific Gravity, Urine 1.025 (1.005-1.030); Urine Appearance Clear (CLEAR); Urine Color Yellow (Yellow); Urobilinogen Urine Norm (Negative); pH Urine 5 (5-7)
[2020-04-01] MEDS: sodium chloride 0.9% 1,000 ML 100 ML IV (02:05)
[2020-04-01 03:00] VITALS: BP 133/87; PULSE 69; RESP 16; TEMP 36.6; O2SAT 91
[2020-04-01] MEDS: ALPRAZolam 0.5 mg Tablet PO ×4 (04:34→16:40)
[2020-04-01] MEDS: HYDROcodone-acetaminophen 10-325 mg Tablet 1 TAB PO ×4 (04:34→16:39)
[2020-04-01] MEDS: promethazine 25 mg Tablet 12.5 MG PO ×2 (04:34→11:33)
[2020-04-01 06:02] LABS: Basophils % 0.6 %; Eosinophils # 0.2 10^3/uL (0.0-0.8); Eosinophils % 3.1 %; Hematocrit 36.3 % (37.0-47.0); Hemoglobin 11.4 g/dL (11.5-15.3); Lymphocytes # 3.1 10^3/uL (0.8-4.8); Lymphocytes % 46.1 %; Mean Corpuscular HGB Conc 31.4 g/dL (30.0-36.0); Mean Corpuscular Hemoglobin 27.7 pg (28.0-34.0); Mean Corpuscular Volume 88.3 fL (81-99); Mean Platelet Volume 10.8 fL (7.4-10.4); Monocytes # 0.4 10^3/uL (0.2-0.9); Monocytes % 5.7 %; Neutrophils % 44.2 %; Nucleated Red Blood Cells % 0 %; Platelet Count 220 10^3/cmm (130-400); Red Blood Count 4.11 10^6/uL (4.1-5.3); Red Cell Distribution Width 13.3 % (12.1-15.1); White Blood Count 6.8 10^3/uL (4.0-10.0)
[2020-04-01 06:22] LABS: Alanine Aminotransferase 7 U/L (0-33); Albumin Level 3.4 g/dL (3.5-5.2); Alkaline Phosphatase 133 IU/L (35-105); Anion Gap 14.7 (5-19); Aspartate Amino Transferase 9 U/L (0-32); Blood Urea Nitrogen 12 mg/dL (6-20); Calcium 8.5 mg/dL (8.5-10.5); Carbon Dioxide 24 mmol/L (22-29); Chloride 102 mmol/L (98-107); Globulin 2.9 g/dL (1.3-4.6); Glomerular Filtration Rate 103.8 mL/min (90-130); Glucose 329 mg/dL (65-115); Osmolality Calculated 293 mOsm/kg (285-295); Potassium 3.7 mmol/L (3.5-5.1); Sodium 137 mmol/L (136-145); Total Bilirubin 0.2 mg/dL (0.15-1.2); Total Protein 6.3 g/dL (6.6-8.7)
[2020-04-01 06:52] LABS: Glucose Point of Care 350 mg/dL (70-110)
[2020-04-01 07:00] VITALS: BP 116/78; PULSE 69; RESP 18; TEMP 36.7; O2SAT 90
[2020-04-01] MEDS: sertraline 100 mg Tablet 200 MG PO (08:07)
[2020-04-01] MEDS: carvedilol 25 mg Tablet PO (08:08)
[2020-04-01] MEDS: metoclopramide 10 mg Tablet 5 MG PO (08:08)
[2020-04-01] MEDS: isosorbide mononitrate ER 30 mg Tablet PO (08:08)
[2020-04-01] MEDS: pregabalin 150 mg Capsule PO ×2 (08:08→15:10)
[2020-04-01] MEDS: clopidogrel 75 mg Tablet PO (08:08)
[2020-04-01] MEDS: gemfibrozil 600 mg Tablet PO (08:08)
[2020-04-01] MEDS: aspirin 81 mg EC Tablet PO (08:09)
[2020-04-01] MEDS: fluticasone nasal spray 16gm Btl 2 SPRAY INTRANASAL (08:09)
[2020-04-01] MEDS: pantoprazole DR 40 mg Tablet PO (08:09)
[2020-04-01 10:41] LABS: Glucose Point of Care 348 mg/dL (70-110)
[2020-04-01] MEDS: polyethylene glycol 3350 Pkt 17 gm PO (10:42)
[2020-04-01 11:00] VITALS: BP 118/64; PULSE 64; RESP 22; TEMP 36.8; O2SAT 97
--- NOTE | 2020-04-01 14:25 | PM.PN ---
Subjective Subjective: Interval history: She feels somewhat better. Medications: Reviewed: Yes Vitals/I&O/Wt Last Vital Signs Temp 98.3 F 04/01/20 11:00 Pulse 64 04/01/20 11:00 Resp 22 H 04/01/20 11:00 BP 118/64 04/01/20 11:00 Pulse Ox 97 04/01/20 11:00 03/31/20 04/01/20 04/01/20 22:59 06:59 14:59 Intake Total 850 / 1794 1155 / 2949 1080 / 1080 Output Total 800 / 975 600 / 1575 1050 / 1050 Balance 50 / 819 555 / 1374 30 / 30 Weight last 48 hrs Weight 194 lb Weight 204 lb 5 oz Weight 197 lb Weight 197 lb Physical Exam Const: COMMON NORMALS: no apparent distress, oriented x3 and alert GENERAL APPEARANCE: cooperative, comfortable, well kempt and well hydrated HENMT: COMMON NORMALS: hearing grossly normal bilaterally, external ears normal and moist oral mucous membranes EXTERNAL EAR: Yes external ears normal Eye: COMMON NORMALS: EOMs intact bilaterally and no scleral icterus GENERAL EYE: normal appearance of both eyes Neck/C-Spine: COMMON NORMALS: no JVD Chest: COMMONS NORMALS: inspection of chest normal and palpation of chest normal CHEST: Yes symmetrical chest wall rise and Yes tenderness Resp: COMMON NORMALS: clear to auscultation bilaterally AUSCULTATION: clear to auscultation bilaterally, no crackles, no rales, no rhonchi and no wheezes Cardio: COMMON NORMALS: no JVD, regular rate, regular rhythm, S1 normal heart sound, S2 normal heart sound and peripheral pulses 2+ throughout PALPATION: normal PMI RATE: regular rate RHYTHM: regular rhythm HEART SOUNDS: S1 normal, S2 normal, no click, no gallops and no murmurs BRUITS: no carotid bruits PERIPHERAL PULSES: pulses 2+ throughout, radial pulses present, posterior tibial pulses present and dorsalis pedis pulses present Extremity: GENERAL: No clubbing, No cyanosis, No edema and No pallor Neuro: COMMON NORMALS: oriented x3, CN's II-XII intact bilaterally and no focal motor deficits SENSORIUM/ORIENTATION: Yes alert Psych: COMMON NORMALS: thought process normal and speech normal APPEARANCE: Yes well kempt SPEECH: Yes normal speech MOOD & AFFECT: Yes euthymic mood THOUGHT PROCESS: normal thought process THOUGHT CONTENT: Yes normal thought content Data : 04/01/20 05:56 04/01/20 05:56 Micro: Microbiology 03/30/20 21:30 Group A Streptococcus Rapid Screen - Preliminary Throat 03/30/20 09:33 Blood Culture - Preliminary Blood NEGATIVE TO DATE A&P Assessment and plan (1) Chest pain: Initial concern for unstable angina. However, she has h/o chronic chest pain syndrome. Last cath at [place] with stent placement. -continue current medications. Cath report from [facility] and review of images from last cath here were reviewed. -Chest pain seems to have pleuritic and reproducible components as well as has has abdominal pain. Discontinue therapeutic Lovenox. No indication for coronary angiogram presently. -Given mildly abnormal stress test may increase Imdur to 60 mg in morning and 30 mg in the evening if BP allows. Ranexa is listed her as as her allergy however patient denies having any side effects from it in the past (?). -Advised to follow up with her contract associate manager. Status: Acute Qualifiers: Chest pain type: unspecified Qualified Code(s): R07.9 - Chest pain, unspecified (2) Coronary artery disease: Status: Acute Qualifiers: Coronary Disease-Associated Artery/Lesion type: bypass graft [place] vs. transplanted heart: [place] heart Associated angina: with stable angina Qualified Code(s): I25.708 - Atherosclerosis of coronary artery bypass graft(s), unspecified, with other forms of angina pectoris (3) Hypertension: Status: Acute Qualifiers: Hypertension type: essential hypertension Qualified Code(s): I10 - Essential (primary) hypertension (4) Insulin dependent diabetes mellitus: Status: Acute Additional A&P Information Ulcerative colitis Hypertension Elevated alkaline phosphatase Anxiety Questionable history of chronic pancreatitis Thank you for allowing me to participate in patient's care. Please feel free to call with questions or concerns. Attestations Medical Necessity Statement*: Discharge as per primary team Coding Level of Care Code Acute [employer] for [employer]ro[employer] Diagnoses Chest pain R07.9 Chest pain type: unspecified Coronary artery disease I25.708 Coronary Disease-Associated Artery/Lesion type: bypass graft [place] vs. transplanted heart: [place] heart Associated angina: with stable angina Hypertension I10 Hypertension type: essential hypertension Insulin dependent diabetes mellitus E11.9; Z79.4
[2020-04-01 15:00] VITALS: BP 150/90; PULSE 86; RESP 20; TEMP 36.8; O2SAT 93
[2020-04-01 15:06] VITALS: BP 150/90; PULSE 86; RESP 20; TEMP 36.8; O2SAT 93
[2020-04-01 16:16] LABS: Glucose Point of Care 380 mg/dL (70-110)
--- NOTE | 2020-04-01 16:53 | P.DS_ITS ---
Discharge Providers Date of Admission: 03/30/20 11:22 Date of Discharge: April 01, 2020 Attending Provider at Admission: Eric Yousif Attending Provider at Discharge: Eric Yousif Primary Care Provider: Juno Brown Diagnoses at Discharge Discharge Diagnosis (1) Chest pain: Status: Acute Qualifiers: Chest pain type: unspecified Qualified Code(s): R07.9 - Chest pain, unspecified (2) Coronary artery disease: Status: Acute Qualifiers: Associated angina: with stable angina Coronary Disease-Associated Artery/Lesion type: bypass graft [place] vs. transplanted heart: [place] heart Qualified Code(s): I25.708 - Atherosclerosis of coronary artery bypass graft(s), unspecified, with other forms of angina pectoris (3) Hypertension: Status: Acute Qualifiers: Hypertension type: essential hypertension Qualified Code(s): I10 - Essential (primary) hypertension (4) Insulin dependent diabetes mellitus: Status: Acute Reason for Visit Reason for Visit: Reason For Visit: CHEST PAIN Hospital Course Hospital Course: Collette Kothari is a 55 year old female with history of coronary disease, CABG x4, triple-vessel disease noted on coronary underground in September at [facility], at the same time with 3 stents placed per patient, chronic pancreatitis, ulcerative colitis for which she follows with GI specialist William Young in [place], GERD, HTN, hypertriglyceridemia, DM 2, severe anxiety, chronic pain and chronic opiates, migraine headaches, recently admitted to the hospital for assessment and management after shortness of breath and angina symptoms, with finding of community-acquired pneumonia, with patchy unilateral groundglass opacities in the left lung on CTA, no PE, negative influenza, negative COVID-19 testing, during hospitalization she was found to have positive blood culture for Staphylococcus hominis in 2/4 bottles, for which she was treated with Rocephin, with subsequent repeat culture the following day negative. TTE with normal ejection fraction, grade 1 diastolic dysfunction, no obvious vegetation or abscess, no noted valvular abnormality, although somewhat difficult study. No osteomyelitis or discitis noted on CT of studies of entire spine, or head CT. Incidentally noted several tiny chronic lacunar infarcts in left basal ganglia. Ultimately in the Staphylococcus hominis was thought to be a contaminant. She also underwent stress testing, with finding of small area of reversible defect in the distribution of LCx artery. Elevated transient ischemic dilation ratio. She was discharged home with instructions to follow-up with her label folder and primary care provider. She reports that in the intervening time she has had a couple other episodes of chest pain on the left side, radiating to the left side neck, and to the back. She does state that she has chronic chest wall syndrome as well, and so states it is difficult for her to tell whether it is coming from chest wall, or her heart. She does say that the pain has been sharp, but also associated with heaviness as well, and felt like it was coming from her heart. She states at the same time that the pain was getting worse with deep breaths. She has been having some intermittent cough yesterday and today, and yesterday produced a tiny amount of greenish expectorant. She also reports spiking fever up to 101 Fahrenheit yesterday and today. She complained of severe malaise. She states most of the time when she goes shopping or out in public she wears a surgical mask on the instruction of her primary care provider. She does say that she has been also having some nausea, and day prior to and on admit and several bowel movements with blood mixed with stool in the same time. Day before that she had an episode of diarrhea which had gone away. She also reports that her chronic pancreatitis , has been bothering her as well last few days, with severe epigastric pain in addition to the chest pain. She follows with a GI physician for the chronic pancreatitis, and states that she most likely developed it after a diabetes medication. She still has her gallbladder. In ER she was treated with Nitropaste, which appears had helped her pain. At the same time in the EMS she received nitroglycerin tablets and fentanyl, which did not help, but did cause transient hypotension which resolved. She was initially tachycardic, and appears did not take any of her medications the day of admit, including carvedilol. She was subsequently hypertensive. She was oxygenating well on room air. She was afebrile. She was noted with minimal hyponatremia, with hyperglycemia, glucose 509 which improved with insulin, minimally elevated lactic acid at 2.3, chronically elevated alkaline phosphatase at 184, with unremarkable UA, unremarkable chest x-ray, no evidence of PE on CT, with near resolution of prior groundglass opacities on the left, with normal troponin and without signs of acute ischemia seen on EKG. She had recurrent spisodes of chest pain and was assessed by cardiology. Her records were requested from [place], and reviewed. At this time she was not found to have need for acute intervention with regards to her coronary disease, and her pain was considered more likely secondary to chronic chest wall syndrome, and possibly abdominal component. Chest CTA on presentation without PE, and showing improved and nearly resolved hazy groundglass infiltrates that were seen during prior admission for pneumonia. Incidentally noted 14 mm right hilar lymph node is unchanged from prior. Incidentally noted 3.1 cm thyroid nodule, consider outpatient follow-up with ultrasound, and follow-up of thyroid function. TSH is requested. She is encouraged to follow-up with her label folder Dr. Trinidad for reassessment. Imdur dose was increased to 60mg. Blood pressures improved and mostly remained at goal. Due to concern for pancreatitis, she was assessed with lipase which was not elevated. She did report she may have had chronic pancreatitis (originally due to diabetes medication, although prior documentation also states possibly hypertriglyceridemia), although denies having diarrhea or other signs of mild torsion. With her reported fever, abdominal discomfort, bloody bowel movements, current there was concern also perhaps for worsening of her ulcerative colitis for which she reports she follows in addition to pancreatitis with dental laboratory technician Dr. William Young in [place]. ESR and CRP were obtained, with CRP level normal, and ESR only mildly elevated at 32. It appears she may have been taking NSAIDs Some point in the past, although denies currently. With history of GERD, acute gastritis was considered, and she was maintained on PPI, sucralfate. The following day her abdominal discomfort was persist, but more generalized. She was assessed CT abdomen pelvis with oral contrast, which did not show signs of pancreatitis, colitis, and with normal appearing noncontrast liver and gallbladder. No hydronephrosis was noted. As she was noted to have isolated alkaline phosphatase elevation, gallbladder ultrasound was also obtained, and did not show acute abnormality. She also complained of dysuria while here, and UA both on presentation, and repeat after episode of dysuria were unremarkable. She did not receive any antibiotics. During prior admission staph hominis was found in 2/4 bottles, thought to be perhaps contamination. Blood culture was repeated during this admission, and so far without growth. Rapid flu and COVID-19 testing during this admission were both negative. She has been complaining of body aches and CK was assessed and was normal. She has had no recurrence of fever while in the hospital. She is also initially due to chest pain was started on therapeutic anticoagulation due to consideration of possible unstable angina, however, even with that had no recurrence of bloody movements observed in the hospital. Today she reports she is feeling better overall, though still with some persistent malaise. Discussed with her at this time it is not clear what is the cause of her symptoms. I think she may possibly have another acute viral syndrome apart from influenza or COVID-19, particularly that things appear to be improving, with resolution of fever, and was not noted to be coughing while in the hospital. Alternatively another underlying etiology may be possible, and with history of ulcerative colitis, previously with groundglass opacities on pulmonary imaging, she is encouraged to follow-up with her dental laboratory technician, although currently I do not see strong evidence of UC flare, or acute/chronic pancreatitis. Encouraged follow-up with her primary care provider. Encouraged also follow-up with [facility] due to very severe anxiety which she has been noted to have in the hospital, and recently reporting worsening depression, also with a in the family. She denied thoughts of self-harm and suicidal ideation and states she will proceed with outpatient follow-up. Please follow-up her thyroid function and nodule, final blood cultures, and clinical condition and proceed with further evaluation as may be appropriate. Please see progress notes and jury consultant notes for additional details. Physical Exam Const: COMMON NORMALS: no apparent distress and oriented x3 GENERAL APPEARANCE: anxious (less anxious today) HENMT: COMMON NORMALS: oropharynx normal Neck/C-Spine: COMMON NORMALS: no JVD Resp: COMMON NORMALS: normal respiratory effort and clear to auscultation bilaterally AUSCULTATION: clear to auscultation bilaterally Cardio: COMMON NORMALS: no JVD, regular rhythm, S1 normal heart sound, S2 normal heart sound and no murmurs RHYTHM: regular rhythm HEART SOUNDS: S1 normal and S2 normal GI: COMMON NORMALS: normal to inspection, nondistended, normoactive bowel sounds, soft to palpation and non-tender PALPATION: Yes soft Extremity: COMMON NORMALS: no joint enlargement and no pedal edema Neuro: COMMON NORMALS: oriented x3 and moves all extremities Skin: COMMON NORMALS: no rashes or lesions noted GENERAL SKIN EXAM: no rashes or lesions noted Discharge Data Data Completed and Pending: Completed Studies During Hospitalization Category Date Time Status CT abdomen pelvis wo con [id number] Rout ine Cat Scan 03/31/20 12:[address] angio chest PE protcl [id number] Stat Cat Scan 03/30/20 11:31 Completed XR chest 1V taniya ble [id number] Stat Exams 03/30/20 09:06 Completed US abdomen limite d [id number] Routine Ultrasound 03/31/20 18:55 Completed Pending at discharge Category Date Time Status Blood Culture Sta t Lab 03/30/20 09:33 Results Complete Blood Co unt w/Auto AM LABS Lab 04/02/20 04:00 Ordered Comprehensive Met abolic Panel AM LA BS Lab 04/02/20 04:[address] at Lab 03/30/20 09:06 Uncollected Streptococcus Cul ture Group A Routi ne Lab 03/30/20 21:30 Results Labs from last 24 hours 04/01/20 04/01/20 04/01/20 16:11 10:34 06:45 WBC RBC Hgb Hct MCV MCH MCHC RDW Plt Count MPV Neut % (Auto) Lymph % (Auto) [place] % (Auto) Eos % (Auto) Baso % (Auto) Neut # (Auto) Lymph # (Auto) [place] # (Auto) Eos # (Auto) Baso # (Auto) Nucleated RBC % (a uto) Nucleated RBCs # Sodium Potassium Chloride Carbon Dioxide Anion Gap BUN Creatinine GFR Calculation Glucose POC Glucose 380 348 350 Calculated Osmolal ity Calcium Total Bilirubin AST ALT Alkaline Phosphata se Creatine Kinase Total Protein Albumin Globulin Urine Color Urine Appearance Urine pH Ur Specific Gravit y Urine Protein Urine Glucose (UA) Urine Ketones Urine Blood Urine Nitrate Urine Bilirubin Urine Urobilinogen Ur Leukocyte [place] 04/01/20 04/01/20 03/31/20 05:56 05:56 21:30 WBC 6.8 RBC 4.11 Hgb 11.4 L Hct 36.3 L MCV 88.3 MCH 27.7 L MCHC 31.4 RDW 13.3 Plt Count 220 MPV 10.8 H Neut % (Auto) 44.2 Lymph % (Auto) 46.1 [place] % (Auto) 5.7 Eos % (Auto) 3.1 Baso % (Auto) 0.6 Neut # (Auto) 3.0 Lymph # (Auto) 3.1 [place] # (Auto) 0.4 Eos # (Auto) 0.2 Baso # (Auto) 0.0 Nucleated RBC % (a uto) 0 Nucleated RBCs # 0.0 Sodium 137 Potassium 3.7 Chloride 102 Carbon Dioxide 24 Anion Gap 14.7 BUN 12 Creatinine 0.6 GFR Calculation 103.8 Glucose 329 H POC Glucose Calculated Osmolal ity 293 Calcium 8.5 Total Bilirubin 0.2 AST 9 ALT 7 Alkaline Phosphata se 133 H Creatine Kinase Total Protein 6.3 L Albumin 3.4 L Globulin 2.9 Urine Color Yellow Urine Appearance Clear Urine pH 5 Ur Specific Gravit y 1.025 Urine Protein Neg Urine Glucose (UA) 4+ H Urine Ketones Negative Urine Blood Neg Urine Nitrate Negative Urine Bilirubin Neg Urine Urobilinogen Norm Ur Leukocyte [place] Negative 03/31/20 03/31/20 03/31/20 20:43 16:54 04:50 WBC RBC Hgb Hct MCV MCH MCHC RDW Plt Count MPV Neut % (Auto) Lymph % (Auto) [place] % (Auto) Eos % (Auto) Baso % (Auto) Neut # (Auto) Lymph # (Auto) [place] # (Auto) Eos # (Auto) Baso # (Auto) Nucleated RBC % (a uto) Nucleated RBCs # Sodium Potassium Chloride Carbon Dioxide Anion Gap BUN Creatinine GFR Calculation Glucose POC Glucose 244 346 Calculated Osmolal ity Calcium Total Bilirubin AST ALT Alkaline Phosphata se Creatine Kinase 48 Total Protein Albumin Globulin Urine Color Urine Appearance Urine pH Ur Specific Gravit y Urine Protein Urine Glucose (UA) Urine Ketones Urine Blood Urine Nitrate Urine Bilirubin Urine Urobilinogen Ur Leukocyte [place] Vitals: Last Vital Signs Temp 98.2 F 04/01/20 15:06 Pulse 86 04/01/20 15:06 Resp 20 H 04/01/20 15:06 BP 150/90 04/01/20 15:06 Pulse Ox 93 04/01/20 15:06 Discharge Plan Discharge Patient Disposition: Home, Self-Care Condition: Stable Prescriptions: Continued carvedilol 25 mg tablet 25 mg PO BID RF: 0 tizanidine 4 mg tablet 4 mg PO TID PRN (Reason: Spasms) RF: 0 clopidogrel 75 mg tablet 75 mg PO DAILY RF: 0 amlodipine 5 mg tablet 5 mg PO DAILY RF: 0 hydrocodone-acetaminophen 10-325 mg tablet 1 tab PO Q6H PRN (Reason: Pain) RF: 0 pantoprazole 40 mg tablet,delayed release (DR/EC) 40 mg PO BID RF: 0 hydrochlorothiazide 12.5 mg capsule 12.5 mg PO DAILY RF: 0 insulin aspart U-100 [Novolog Flexpen U-100 Insulin] 100 unit/mL (3 mL) insulin pen See Rx Instructions .ROUTE .COMPLEX RF: 0 pregabalin [Lyrica] 150 mg capsule 150 mg PO TID RF: 0 Repatha SureClick 140 mg/mL pen injector 140 mg SUBCUT Q14D RF: 0 trazodone 150 mg tablet 150 mg PO BEDTIME RF: 0 zolpidem [Ambien] 10 mg tablet 10 mg PO BEDTIME RF: 0 fluticasone propionate 50 mcg/actuation [place],Suspension 2 spray INTRANASAL DAILY RF: 0 Vascepa 1 gram Capsule 2 g PO BID RF: 0 alprazolam [Xanax] 0.5 mg tablet See Rx Instructions .ROUTE .COMPLEX PRN (Reason: anxiety) RF: 0 sucralfate 1 gram Tablet 1 g PO QID PRN (Reason: unknown) RF: 0 promethazine 12.5 mg Tablet 12.5 mg PO Q6H RF: 0 sertraline [Zoloft] 100 mg Tablet 200 mg PO DAILY RF: 0 nitroglycerin [Nitrostat] 0.4 mg Tablet, Sublingual 0.4 mg SUBLINGUAL Q5M PRN (Reason: Chest Pain) RF: 0 mesalamine 1.2 gram Tablet,Delayed Release (Dr/Ec) 2.4 g PO DAILY RF: 0 lactulose 10 gram/15 mL (15 mL) Solution 10 g PO BID PRN (Reason: Constipation) RF: 0 potassium chloride 20 mEq Tablet Extended Release 20 meq PO DAILY RF: 0 naloxone 4 mg/actuation [place],Non-Aerosol 1 spray INTRANASAL PRN RF: 0 loratadine 10 mg Tablet 10 mg PO DAILY PRN (Reason: allergies) 30 Days Qty: 30 RF: 0 Miralax 17 gram Powder In Packet 17 g PO DAILY PRN (Reason: Constipation) RF: 0 Aspir-81 81 mg Tablet,Delayed Release (Dr/Ec) 81 mg PO DAILY RF: 0 Reglan 5 mg Tablet 5 mg PO DAILY RF: 0 gemfibrozil [Lopid] 600 mg Tablet 600 mg PO DAILY RF: 0 Excedrin Extra Strength 250-250-65 mg Tablet 1 tab PO PRN RF: 0 Lantus Solostar U-100 Insulin 100 unit/mL (3 mL) insulin pen 40 unit SUBCUT BID RF: 0 Changed isosorbide mononitrate 30 mg tablet extended release 24 hr 60 mg PO BID Qty: 0 RF: 0 Discharge Orders: Discharge Order (Routine); Ordered 04/01/20 Ordered By: Erci Yousif Referrals: Your, label folder [Other] - 1 week Your, dental laboratory technician [Other] - 1 week (Possible worsening of ulcerative colitis.) [facility] [Provider Group] - 1 week (Anxiety, depression, recent loss in family) Juno Brown [Primary Care Provider] - 04/07/20 10:40 am Discharge Diet: Cardiac and Diabetic Discharge Activity: Resume usual activity and Increase activity as tolerated Patient Instructions: Fever - Adult Activity Restrictions/Additional Instructions: Please measure your blood pressure 3 times daily and record values. Your blood pressure is not better, however, please continue to work with your primary care doctor to optimize treatment. Please see your dental laboratory technician in office, soonest available appointment to follow-up on abdominal discomfort symptoms, with history of pancreatitis, u lcerative colitis. Please follow-up with your label folder regarding coronary artery disease, as well as chest pain episodes. If at home you experience spiking fevers, any trouble breathing, persistent chest pain that is not related to chest wall, GI bleeding, severe abdominal pain, or other abnormal symptoms, please seek medical attention without delay. Blood culture during this admission so far has been negative, but final result will need to be followed up with your primary care doctor. Please continue to monitor your blood glucose at home. Maintain consistent carbohydrate diet. Continue insulin. If you notice persistent worsening in her depression, or develop any thoughts of self-harm, please seek medical attention immediately. Discharge Date/Time: 04/01/20 16:50 Discharge Attestations Time Spent in Discharge Care*: greater than 30 min Status at Discharge: Cognitive status at discharge: cognitively intact , Behavioral status at discharge: cooperative , Quality Metrics Clinical Quality Measures During this hospital stay, did patient experience: None Coding Level of Care Code Acute Regulatory Assistant for Shant Marroquin Diagnoses Chest pain R07.9 Chest pain type: unspecified Coronary artery disease I25.708 Associated angina: with stable angina Coronary Disease-Associated Artery/Lesion type: bypass graft [place] vs. transplanted heart: [place] heart Hypertension I10 Hypertension type: essential hypertension Insulin dependent diabetes mellitus E11.9; Z79.4
== END 2020-04-01 16:50 | disposition home or self-care (01) | DRG 303 ==
LOC: ER 11:41 → ICU 12:09 → MEDSURG 03-31 18:26
PROVIDERS: Admitting Provider Internal Medicine; Emergency Provider Family Medicine; Family Provider Family Medicine; PCP Family Medicine; Visit Provider Internal Medicine
DX: I25.111 Atherosclerotic heart disease of native coronary artery with angina pectoris with documented spasm (principal); K86.1 Other chronic pancreatitis; K51.90 Ulcerative colitis, unspecified, without complications; E87.1 Hypo-osmolality and hyponatremia; Z95.0 Presence of cardiac pacemaker; Z95.5 Presence of coronary angioplasty implant and graft; K21.9 Gastro-esophageal reflux disease without esophagitis; I10 Essential (primary) hypertension; E78.1 Pure hyperglyceridemia; E11.9 Type 2 diabetes mellitus without complications; F41.8 Other specified anxiety disorders; G89.29 Other chronic pain; Z79.891 Long term (current) use of opiate analgesic; Z87.01 Personal history of pneumonia (recurrent); F43.12 Post-traumatic stress disorder, chronic; Z87.891 Personal history of nicotine dependence; M79.7 Fibromyalgia; R07.1 Chest pain on breathing; R74.8 Abnormal levels of other serum enzymes; Z79.02 Long term (current) use of antithrombotics/antiplatelets; Z79.82 Long term (current) use of aspirin; Z79.4 Long term (current) use of insulin
CPT/HCPCS: 12345; 36415; 36416; 71045; 71275; 74176; 76705; 80053; 80061; 81003; 82009; 82550; 82962; 83605; 83690; 83721; 84145; 84443; 84484; 85025; 85651; 86140; 86308; 87040; 87081; 87635; 87804; 87880; 93005; 96372; 96375; 99284; A9270; J1630; J1650; J1815 ×2; J3010; J7030; J8597; Q0162; Q0169; Q9967

== ENCOUNTER 2020-03-30 08:50 | Emergency (ER) | payer MEDICAID, SELFPAY | END 2020-03-30 13:28 | disposition admitted as inpatient to this hospital (09) | LOC: ER 04-05 13:23 | PROVIDERS: Emergency Provider Family Medicine; PCP Family Medicine | DX: I25.110 Atherosclerotic heart disease of native coronary artery with unstable angina pectoris (principal); K51.90 Ulcerative colitis, unspecified, without complications; R50.9 Fever, unspecified; I10 Essential (primary) hypertension; E11.9 Type 2 diabetes mellitus without complications; Z95.1 Presence of aortocoronary bypass graft; Z87.891 Personal history of nicotine dependence | CPT/HCPCS: 12345; 36416; 71045; 71275; 80053; 82009; 82962; 83605; 83690; 84145; 84484; 85025; 85651; 86140; 86308; 87040; 87635; 93005; 96365; 96372; 96375; 96376; 99284; 99285; A9270; J1630; J1815 ×2; J3010; Q9967 ==

== ENCOUNTER → 2020-04-04 07:49 | Outpatient (BNVA) | payer MEDICAID, SELFPAY | PROVIDERS: Family Provider Family Medicine; PCP Family Medicine; Visit Provider Nurse Practitioner | DX: F43.12 Post-traumatic stress disorder, chronic (principal); F41.1 Generalized anxiety disorder | CPT/HCPCS: 99213 ==

== ENCOUNTER 2020-05-26 16:04 | Emergency (ER) | payer MEDICAID, SELFPAY ==
[2020-05-26 16:34] VITALS: BP 145/105; PULSE 91; RESP 18; TEMP 36.6; O2SAT 95; BMI 28.2
--- NOTE | 2020-05-26 16:47 | ECG_ITS ---
[facility] Test Date: 2020-05-26 Pat Name: Collette Kothari Department: Room: Gender: Female [employer]: : 1965 Requested By: Ashlee Martinez Order Number: [id number] Ibarra MD: Sarah Bell M.D. Measurements Intervals [place] Rate: 84 P: 49 CO: 155 QRS: -15 QRSD: 98 T: 43 QT: 370 QTc: 439 Interpretive Statements SINUS RHYTHM NONSPECIFIC ST & T-WAVE ABNORMALITY Compared to ECG 03/30/2020 12:04:47 T-wave abnormality now present Ventricular premature complex(es) no longer present Myocardial infarct finding no longer present Electronically Signed On 05-26-2020 20:45:15 CDT by Sarah Bell M.D. [email or web address]
[2020-05-26 17:18] LABS: Basophils # 0.1 10^3/uL (0.0-0.1); Basophils % 0.7 %; Eosinophils # 0.1 10^3/uL (0.0-0.8); Eosinophils % 1.4 %; Hematocrit 41.9 % (37.0-47.0); Hemoglobin 13.3 g/dL (11.5-15.3); Lymphocytes # 3.4 10^3/uL (0.8-4.8); Lymphocytes % 48.2 %; Mean Corpuscular HGB Conc 31.7 g/dL (30.0-36.0); Mean Corpuscular Hemoglobin 26.7 pg (28.0-34.0); Mean Platelet Volume 10.9 fL (7.4-10.4); Monocytes # 0.3 10^3/uL (0.2-0.9); Monocytes % 4.8 %; Neutrophils # 3.2 10^3/uL (1.8-7.7); Neutrophils % 44.8 %; Nucleated Red Blood Cells % 0 %; Platelet Count 327 10^3/cmm (130-400); Red Blood Count 4.99 10^6/uL (4.1-5.3); Red Cell Distribution Width 13.9 % (12.1-15.1); White Blood Count 7.1 10^3/uL (4.0-10.0)
[2020-05-26 17:37] LABS: Anion Gap 18.4 (5-19); Blood Urea Nitrogen 6 mg/dL (6-20); Calcium 9.3 mg/dL (8.5-10.5); Carbon Dioxide 23 mmol/L (22-29); Chloride 90 mmol/L (98-107); Glomerular Filtration Rate 74.5 mL/min (90-130); Glucose 439 mg/dL (65-115); Lipase 27 U/L (13-60); Osmolality Calculated 281 mOsm/kg (285-295); Potassium 3.4 mmol/L (3.5-5.1); Sodium 128 mmol/L (136-145)
[2020-05-26 17:39] LABS: Troponin T (5th) Once 9 ng/L (0-10)
--- NOTE | 2020-05-26 19:15 | ED_ITS ---
HPI - Chest Pain General: Chief Complaint: Chest Pain Stated Complaint: cp/abd pain Time Seen by Provider: 05/26/20 19:15 Source: patient Mode of arrival: ambulatory Limitations: no limitations History of Present Illness: HPI narrative: Patient comes in for multiple complaints. Patient reports falling on Saturday and then today she felt ill with nausea and some chest discomfort. Patient does have a history of stent placement and atherosclerosis. Patient appears well. Patient appears in no acute distress. Patient does seem anxious. Pertinent past history: coronary artery disease Review of Systems General: Reports: 10 or more systems reviewed and unremarkable except in HPI and below Card: Reports: chest pain [facility] ED PFSH: Medical History (Updated 05/26/20 @ 21:58 by MASSIEL Pierce) Coronary artery disease Depression with anxiety Generalized anxiety disorder GERD (gastroesophageal reflux disease) Hypertension Hypertriglyceridemia Insulin dependent diabetes mellitus Irritable bowel syndrome Pancreatitis Post-traumatic stress disorder, chronic Ulcerative colitis Surgical History H/O tubal ligation H/O: hysterectomy History of carpal tunnel surgery Hx of tonsillectomy S/P CABG x 4 S/P coronary artery stent placement Family History Mother Dementia Father CAD (coronary artery disease) Other IBD (inflammatory bowel disease) Social History Smoking and tobacco status: former smoker Alcohol intake: never Lives independently: Yes Household members: significant other Marital status: Life Partner Current occupational status: disabled Physical Exam Const: COMMON NORMALS: no acute distress and patient oriented x3 GENERAL APPEARANCE: cooperative HENMT: COMMON NORMALS: normocephalic and Normal external nose present HEAD & SCALP: normal to inspection and normocephalic NOSE: Normal external nose present MOUTH: Normal oral and palatal mucosa present THROAT: posterior oropharynx normal Eye: GENERAL EYE: appearance normal, both eyes and all related structures Neck/C-Spine: COMMON NORMALS: full ROM Chest: COMMONS NORMALS: normal inspection of the chest Resp: COMMON NORMALS: normal respiratory effort EFFORT & INSPECTION: Yes able to speak in complete sentences Cardio: COMMON NORMALS: regular rate and regular rhythm RATE: regular rate RHYTHM: regular rhythm GI: COMMON NORMALS: non-tender : BLADDER/KIDNEY EXAM: Yes CVA tenderness Back/Pelvis: COMMON NORMALS: thoracic and lumbar spine normal to inspection GENERAL BACK: Yes CVA tenderness CVA tenderness: left LUMBAR SPINE/LOWER BACK: Yes paraspinal muscle tenderness Extremity: COMMON NORMALS: normal to inspection Neuro: COMMON NORMALS: patient oriented x3 and moves all extremities Psych: COMMON NORMALS: mental status grossly normal and cooperative Skin: COMMON NORMALS: no rashes or lesions noted GENERAL SKIN EXAM: no rashes or lesions noted Course Vital Signs: Vital signs: Vital Signs Temperature 97.9 F 05/26/20 16:34 Pulse Rate 85 05/26/20 21:17 Respiratory Rate 18 05/26/20 21:17 Blood Pressure 140/95 05/26/20 21:17 Pulse Oximetry 96 05/26/20 21:17 MDM - Chest Pain MDM Narrative: Medical decision making narrative: Patient came in today for evaluation after falling on Saturday. Patient states that she just has not felt right since then. Patient does make some complaints of nausea and chest discomfort. Patient has a history of coronary artery disease with stent placement. Patient had a stent placed in March. Exam noted abdomen soft nontender patient moves all extremities well. Respirations were even lungs were clear to auscultation. Differential diagnosis includes ACS, pancreatitis, uncontrolled diabetes, polypharmacy, depression with anxiety. EKG showed no significant abnormalities. Troponin was negative at the 2-hour diana. Patient did have elevation in blood glucose at 439. Patient lipase was negative. Reviewed exam with patient recommendations for treatment and follow-up. Patient reported understanding. Patient was given her routine medication ER for her anxiety and for her pain. Lab Data: Labs: Lab Results 05/26/20 05/26/20 05/26/20 Range/Units 17:09 17:09 17:09 WBC 7.1 (4.0-10.0) 10^3/ uL RBC 4.99 (4.1-5.3) 10^6/u L Hgb 13.3 (11.5-15.3) g/dL Hct 41.9 (37.0-47.0) % MCV 84.0 (81-99) fL MCH 26.7 L (28.0-34.0) pg MCHC 31.7 (30.0-36.0) g/dL RDW 13.9 (12.1-15.1) % Plt Count 327 (130-400) 10^3/c mm MPV 10.9 H (7.4-10.4) fL Neut % (Auto) 44.8 % Lymph % (Auto) 48.2 % [place] % (Auto) 4.8 % Eos % (Auto) 1.4 % Baso % (Auto) 0.7 % Neut # (Auto) 3.2 (1.8-7.7) 10^3/u L Lymph # (Auto) 3.4 (0.8-4.8) 10^3/u L [place] # (Auto) 0.3 (0.2-0.9) 10^3/u L Eos # (Auto) 0.1 (0.0-0.8) 10^3/u L Baso # (Auto) 0.1 (0.0-0.1) 10^3/u L Nucleated RBC % (a uto) 0 % Nucleated RBCs # 0.0 /100WBC Sodium 128 L (136-145) mmol/L Potassium 3.4 L (3.5-5.1) mmol/L Chloride 90 L (98-107) mmol/L Carbon Dioxide 23 (22-29) mmol/L Anion Gap 18.4 (5-19) BUN 6 (6-20) mg/dL Creatinine 0.8 (0.5-0.9) mg/dL GFR Calculation 74.5 L (90-130) mL/min Glucose 439 H (65-115) mg/dL POC Glucose (70-110) mg/dL Calculated Osmolal ity 281 L (285-295) mOsm/k g Calcium 9.3 (8.5-10.5) mg/dL Troponin T Gen 5 n g/L 9 (0-10) ng/L Troponin T 120 Min [place] (0-10) ng/L Lipase 27 (13-60) U/L Urine Color (Yellow) Urine Appearance (CLEAR) Urine pH (5-7) Ur Specific Gravit y (1.005-1.030) Urine Protein (Negative) Urine Glucose (UA) (Normal) Urine Ketones (Negative) Urine Blood (Negative) Urine Nitrate (Negative) Urine Bilirubin (NEGATIVE) Urine Urobilinogen (Negative) mg/dL Ur Leukocyte [place] (Negative) Serum Ketones (Negative) 05/26/20 05/26/20 05/26/20 Range/Units 19:48 20:27 20:30 WBC (4.0-10.0) 10^3/ uL RBC (4.1-5.3) 10^6/u L Hgb (11.5-15.3) g/dL Hct (37.0-47.0) % MCV (81-99) fL MCH (28.0-34.0) pg MCHC (30.0-36.0) g/dL RDW (12.1-15.1) % Plt Count (130-400) 10^3/c mm MPV (7.4-10.4) fL Neut % (Auto) % Lymph % (Auto) % [place] % (Auto) % Eos % (Auto) % Baso % (Auto) % Neut # (Auto) (1.8-7.7) 10^3/u L Lymph # (Auto) (0.8-4.8) 10^3/u L [place] # (Auto) (0.2-0.9) 10^3/u L Eos # (Auto) (0.0-0.8) 10^3/u L Baso # (Auto) (0.0-0.1) 10^3/u L Nucleated RBC % (a uto) % Nucleated RBCs # /100WBC Sodium (136-145) mmol/L Potassium (3.5-5.1) mmol/L Chloride (98-107) mmol/L Carbon Dioxide (22-29) mmol/L Anion Gap (5-19) BUN (6-20) mg/dL Creatinine (0.5-0.9) mg/dL GFR Calculation (90-130) mL/min Glucose (65-115) mg/dL POC Glucose 347 (70-110) mg/dL Calculated Osmolal ity (285-295) mOsm/k g Calcium (8.5-10.5) mg/dL Troponin T Gen 5 n g/L (0-10) ng/L Troponin T 120 Min [place] (0-10) ng/L Lipase (13-60) U/L Urine Color Yellow (Yellow) Urine Appearance Clear (CLEAR) Urine pH 6 (5-7) Ur Specific Gravit y 1.025 (1.005-1.030) Urine Protein Neg (Negative) Urine Glucose (UA) 4+ H (Normal) Urine Ketones Negative (Negative) Urine Blood Neg (Negative) Urine Nitrate Negative (Negative) Urine Bilirubin Neg (NEGATIVE) Urine Urobilinogen Norm (Negative) mg/dL Ur Leukocyte [place] Negative (Negative) Serum Ketones Negative (Negative) 05/26/20 05/26/20 Range/Units 21:13 21:13 WBC (4.0-10.0) 10^3/ uL RBC (4.1-5.3) 10^6/u L Hgb (11.5-15.3) g/dL Hct (37.0-47.0) % MCV (81-99) fL MCH (28.0-34.0) pg MCHC (30.0-36.0) g/dL RDW (12.1-15.1) % Plt Count (130-400) 10^3/c mm MPV (7.4-10.4) fL Neut % (Auto) % Lymph % (Auto) % [place] % (Auto) % Eos % (Auto) % Baso % (Auto) % Neut # (Auto) (1.8-7.7) 10^3/u L Lymph # (Auto) (0.8-4.8) 10^3/u L [place] # (Auto) (0.2-0.9) 10^3/u L Eos # (Auto) (0.0-0.8) 10^3/u L Baso # (Auto) (0.0-0.1) 10^3/u L Nucleated RBC % (a uto) % Nucleated RBCs # /100WBC Sodium (136-145) mmol/L Potassium (3.5-5.1) mmol/L Chloride (98-107) mmol/L Carbon Dioxide (22-29) mmol/L Anion Gap (5-19) BUN (6-20) mg/dL Creatinine (0.5-0.9) mg/dL GFR Calculation (90-130) mL/min Glucose (65-115) mg/dL POC Glucose (70-110) mg/dL Calculated Osmolal ity (285-295) mOsm/k g Calcium (8.5-10.5) mg/dL Troponin T Gen 5 n g/L (0-10) ng/L Troponin T 120 Min [place] 8.25 (0-10) ng/L Lipase 28 (13-60) U/L Urine Color (Yellow) Urine Appearance (CLEAR) Urine pH (5-7) Ur Specific Gravit y (1.005-1.030) Urine Protein (Negative) Urine Glucose (UA) (Normal) Urine Ketones (Negative) Urine Blood (Negative) Urine Nitrate (Negative) Urine Bilirubin (NEGATIVE) Urine Urobilinogen (Negative) mg/dL Ur Leukocyte [place] (Negative) Serum Ketones (Negative) Discharge Plan Discharge Patient Disposition: Home, Self-Care Clinical Impression: Insulin dependent diabetes mellitus, Generalized anxiety disorder Fall Qualifiers: Encounter type: initial encounter Qualified Code(s): W19.XXXA - Unspecified fall, initial encounter Condition: Stable Prescriptions: No Action trazodone 150 mg tablet 150 mg PO BEDTIME Qty: 30 RF: 2 sertraline [Zoloft] 100 mg tablet 200 mg PO DAILY Qty: 60 RF: 2 zolpidem [Ambien] 10 mg tablet 10 mg PO BEDTIME Qty: 30 RF: 2 carvedilol 25 mg tablet 25 mg PO BID RF: 0 tizanidine 4 mg tablet 4 mg PO TID PRN (Reason: Spasms) RF: 0 clopidogrel 75 mg tablet 75 mg PO DAILY RF: 0 amlodipine 5 mg tablet 5 mg PO DAILY RF: 0 hydrocodone-acetaminophen 10-325 mg tablet 1 tab PO Q4H PRN (Reason: Pain) RF: 0 pantoprazole 40 mg tablet,delayed release (DR/EC) 40 mg PO BID RF: 0 hydrochlorothiazide 12.5 mg capsule 12.5 mg PO DAILY RF: 0 insulin aspart U-100 [Novolog Flexpen U-100 Insulin] 100 unit/mL (3 mL) insulin pen See Rx Instructions .ROUTE .COMPLEX RF: 0 pregabalin [Lyrica] 150 mg capsule 150 mg PO TID RF: 0 Repatha SureClick 140 mg/mL pen injector 140 mg SUBCUT Q14D RF: 0 fluticasone propionate 50 mcg/actuation [place],Suspension 2 spray INTRANASAL DAILY RF: 0 sucralfate 1 gram Tablet 1 g PO QID PRN (Reason: unknown) RF: 0 promethazine 12.5 mg Tablet 12.5 mg PO Q6H RF: 0 nitroglycerin [Nitrostat] 0.4 mg Tablet, Sublingual 0.4 mg SUBLINGUAL Q5M PRN (Reason: Chest Pain) RF: 0 lactulose 10 gram/15 mL (15 mL) Solution 10 g PO BID PRN (Reason: Constipation) RF: 0 potassium chloride 20 mEq Tablet Extended Release 20 meq PO DAILY RF: 0 naloxone 4 mg/actuation [place],Non-Aerosol 1 spray INTRANASAL PRN RF: 0 Miralax 17 gram Powder In Packet 17 g PO DAILY PRN (Reason: Constipation) RF: 0 aspirin [Aspir-81] 81 mg Tablet,Delayed Release (Dr/Ec) 81 mg PO DAILY RF: 0 Lantus Solostar U-100 Insulin 100 unit/mL (3 mL) insulin pen 40 unit SUBCUT BID RF: 0 isosorbide mononitrate 30 mg tablet extended release 24 hr 60 mg PO BID Qty: 0 RF: 0 Mucinex DM 30-600 mg Tablet Extended Release 12 Hr 1 tab PO Q12H RF: 0 metronidazole 1 % Gel 1 applic TOPICAL DAILY RF: 0 icosapent ethyl 1 gram Capsule 2 g PO BID RF: 0 Xanax 0.5 mg tablet 0.5 mg PO BID PRN (Reason: anxiety) RF: 0 Referrals: Juno Brown [Primary Care Provider] - Coding Level of Care Code ED Staff Nuclear Medicine Technologist for Chg Fwd Exam Comprehensive
[2020-05-26] MEDS: HYDROcodone-acetaminophen 7.5-325 mg Tablet 1 TAB PO (19:36)
[2020-05-26] MEDS: ondansetron 4 MG Tablet PO (19:36)
[2020-05-26 19:38] VITALS: BP 134/99; PULSE 84; RESP 18; O2SAT 98
[2020-05-26 19:53] LABS: Glucose Point of Care 347 mg/dL (70-110)
[2020-05-26] MEDS: LORazepam 1 mg Tablet 0.5 MG PO (20:34)
[2020-05-26 20:45] LABS: Add Urine Microscopic? NO
[2020-05-26 20:59] VITALS: BP 140/95; PULSE 86; RESP 18
[2020-05-26 21:01] LABS: Ketone (Acetest) Serum Negative (Negative)
[2020-05-26 21:11] LABS: Bilirubin Urine Neg (NEGATIVE); Blood Urine Neg (Negative); Glucose Urine UA 4+ (Normal); Ketones Urine Negative (Negative); Leukocyte Esterase Urine Negative (Negative); Nitrate Urine Negative (Negative); Protein Urine Neg (Negative); Specific Gravity, Urine 1.025 (1.005-1.030); Urine Appearance Clear (CLEAR); Urine Color Yellow (Yellow); Urobilinogen Urine Norm (Negative); pH Urine 6 (5-7)
[2020-05-26] MEDS: ondansetron 2 mg/ML SDV 2 mL 4 MG IVP (21:13)
[2020-05-26] MEDS: sodium chloride 0.9% 500 ML 999 ML IV (21:14)
[2020-05-26 21:17] VITALS: BP 140/95; PULSE 85; RESP 18; O2SAT 96
[2020-05-26 21:49] LABS: Lipase 28 U/L (13-60)
[2020-05-26 21:52] LABS: Troponin 5 2HR 8.25 ng/L (0-10)
[2020-05-26 22:02] LABS: Troponin 5 2HR Delta 0.75 ABS# (0-10)
[2020-05-26 22:41] VITALS: BP 138/110; PULSE 93; RESP 18; O2SAT 95
== END 2020-05-26 22:42 | disposition home or self-care (01) ==
PROVIDERS: Emergency Medicine; Emergency Provider Nurse Practitioner Family; PCP Family Medicine
DX: E11.9 Type 2 diabetes mellitus without complications (principal); F41.1 Generalized anxiety disorder; Z79.4 Long term (current) use of insulin; Z79.82 Long term (current) use of aspirin; Z79.02 Long term (current) use of antithrombotics/antiplatelets; I25.10 Atherosclerotic heart disease of native coronary artery without angina pectoris; I10 Essential (primary) hypertension; Z95.1 Presence of aortocoronary bypass graft; Z87.891 Personal history of nicotine dependence
CPT/HCPCS: 12345; 36415; 36416; 80048; 81003; 82009; 82962; 83690; 84484; 85025; 93005; 96361; 96374; 96375; 99283; J2405; J7040; Q0162

== ENCOUNTER 2020-06-07 19:46 | Observation (INO) | payer MEDICAID, SELFPAY ==
[2020-06-07 19:55] VITALS: PULSE 61; RESP 16; TEMP 36.4; O2SAT 92; BMI 28.0
--- NOTE | 2020-06-07 20:14 | XRR_ITS ---
PROCEDURE INFORMATION: Exam: XR Chest, 1 View Exam date and time: 06/07/2020 8:39 PM Age: 55 years old Clinical indication: Other: AMS; Additional info: AMS, slurred speech TECHNIQUE: Imaging protocol: XR of the chest Views: 1 view. COMPARISON: CR XR chest 1V portable [id number] 03/30/2020 9:44 AM FINDINGS: Lungs: Lungs are well aerated without a focal area of consolidation. Pleural space: Unremarkable. No pleural effusion. No pneumothorax. Heart/Mediastinum: Unremarkable. No cardiomegaly. Bones/joints: Prior sternotomy XR/XR chest 1V portable [id number] IMPRESSION: Lungs are well aerated without a focal area of consolidation.
--- NOTE | 2020-06-07 20:14 | ECG_ITS ---
[facility] Test Date: 2020-06-07 Pat Name: Collette Kothari Department: Room: 266 Gender: Female Neighborhood Conservation Officer: : 1965 Requested By: Jazlyn Best Order Number: [id number] Stacey MD: Sarah Bell M.D. Measurements Intervals Keavy Rate: 59 P: 21 VA: 194 QRS: -9 QRSD: 105 T: 54 QT: 455 QTc: 452 Interpretive Statements SINUS BRADYCARDIA Compared to ECG 05/26/2020 16:32:11 Sinus rhythm no longer present T-wave abnormality no longer present Electronically Signed On 06-08-2020 22:46:48 CDT by Sarah Bell M.D. [email or web address]
--- NOTE | 2020-06-07 20:16 | ED_ITS ---
HPI - Altered Mental Status General: Chief Complaint: Altered Mental Status Stated Complaint: AMS Time Seen by Provider: 06/07/20 20:13 Source: patient and EMS Mode of arrival: EMS Limitations: altered mental status History of Present Illness: HPI narrative: Patient is a 55-year-old female who presents via EMS for complaints of altered mental status. According to family members, over the past week patient has become increasingly lethargic and altered. Family members state that today she seemed even more altered prompting them to call EMS. According to EMS report upon arrival patient had decreased responsiveness, nonreactive pupils, and respiratory depression. She was given 0.5 mg Narcan with an increase in mental status. Family states that patient does take hydrocodone and xanax on a daily basis. Upon arrival patient is clearly drowsy however she is alert and oriented to name, , location, president. She is able to answer all of my questions appropriately and follow commands. EMS performed a D stick in route with a glucose of over 500. D stick upon arrival read high . Patient does not smell ketotic on exam. PMH significant for DM1, HTN, CAD, chronic pain, hypertriglycerides, depression/anxiety. MD complaint: altered mental status, confusion and decreased responsiveness Onset (ago): day(s) Timing confirmed by: family member Treatments prior to arrival: other (narcan ) Review of Systems General: Reports: ROS unobtainable due to mental status [facility] ED PFSH: Medical History (Updated 06/08/20 @ 00:18 by MARCO Argueta) Coronary artery disease Depression with anxiety Generalized anxiety disorder GERD (gastroesophageal reflux disease) Hypertension Hypertriglyceridemia Insulin dependent diabetes mellitus Irritable bowel syndrome Pancreatitis Post-traumatic stress disorder, chronic Ulcerative colitis Surgical History H/O tubal ligation H/O: hysterectomy History of carpal tunnel surgery Hx of tonsillectomy S/P CABG x 4 S/P coronary artery stent placement Family History Mother Dementia Father CAD (coronary artery disease) Other IBD (inflammatory bowel disease) Social History Smoking and tobacco status: former smoker Alcohol intake: never Lives independently: Yes Household members: significant other Marital status: Life Partner Current occupational status: disabled Physical Exam Const: COMMON NORMALS: patient oriented x3 and alert GENERAL APPEARANCE: cooperative ORIENTATION/CONSCIOUSNESS: Yes awake, Yes oriented to person, Yes oriented to place and Yes oriented to time (can tell me is 2019) OTHER: drowsy HENMT: COMMON NORMALS: normocephalic and atraumatic HEAD & SCALP: normocephalic and atraumatic MOUTH: other (dry mucous membranes) Resp: COMMON NORMALS: normal respiratory effort and clear to auscultation bilaterally AUSCULTATION: clear to auscultation bilaterally Cardio: COMMON NORMALS: regular rate and regular rhythm RATE: regular rate RHYTHM: regular rhythm GI: COMMON NORMALS: Normal to inspection, nondistended, normoactive bowel sounds present, Soft to palpation, non-tender, No hepatosplenomegaly present and no masses PALPATION: Yes Soft to palpation and Yes No hepatosplenomegaly present Neuro: FELICIANO COMA SCALE: document GCS findings Feliciano coma scale eye opening: Spontaneous Feliciano coma scale verbal response: Orientated Feliciano coma scale motor response: Obey commands Feliciano coma scale total score: 15 COMMON NORMALS: patient oriented x3, CN's II-XII intact bilaterally, moves all extremities, no focal motor deficits and no sensory deficits noted SENSORIUM/ORIENTATION: Yes alert, Yes oriented to person, Yes oriented to place and Yes oriented to time (can tell me is 2019) SPEECH: abnormal speech (slurred) GAIT: Yes Unable to assess gait OTHER: pt states she cannot raise bilateral legs off table/hip flexion due to pain in her hips; she is able to flex both knees and then push out against my resistance Skin: COMMON NORMALS: no rashes or lesions noted GENERAL SKIN EXAM: no rashes or lesions noted Course Consultations: Consultation #1: Dr. Yousif-accepts patient Vital Signs: Vital signs: Vital Signs Temperature 97.6 F 06/07/20 19:55 Pulse Rate 65 06/08/20 00:00 Respiratory Rate 19 H 06/08/20 00:00 Blood Pressure 118/76 06/08/20 00:00 Pulse Oximetry 97 06/08/20 00:00 MDM - Altered Mental Status MDM Narrative: Medical decision making narrative: Patient presents today via EMS with a complaint of altered mental status. On exam she is extremely drowsy but answers questions appropriately and will follow commands. Labs reveal a glucose of 792. She has negative serum ketones she is not acidotic on her ABG. She has hypochloremia and hyponatremia most likely pseudo from her elevated glucose. Lactate is elevated at 2.9 again most likely because of the sugar. Patient was treated with IV fluids and insulin with sugars now down into the 300s. Given her neurological clinical manifestations my suspicion is that patient has HHS. Patient states CXR is normal. She has no evidence of urinary tract infection. CT head was normal. There was some concern for opiate/benzodiazepine overdose-this could also be a possibility. I have spoken to hospitalist and we will admit patient for further evaluation. Lab Data: Labs: Lab Results 06/07/20 06/07/20 06/07/20 Range/Units 20:00 20:00 20:00 WBC 5.4 (4.0-10.0) 10^3/ uL RBC 4.87 (4.1-5.3) 10^6/u L Hgb 12.9 (11.5-15.3) g/dL Hct 41.6 (37.0-47.0) % MCV 85.4 (81-99) fL MCH 26.5 L (28.0-34.0) pg MCHC 31.0 (30.0-36.0) g/dL RDW 14.0 (12.1-15.1) % Plt Count 195 (130-400) 10^3/c mm MPV 12.4 H (7.4-10.4) fL Neut % (Auto) 56.0 % Lymph % (Auto) 38.1 % [place] % (Auto) 3.9 % Eos % (Auto) 1.1 % Baso % (Auto) 0.7 % Neut # (Auto) 3.00 (1.8-7.7) 10^3/u L Lymph # (Auto) 2.0 (0.8-4.8) 10^3/u L [place] # (Auto) 0.2 (0.2-0.9) 10^3/u L Eos # (Auto) 0.1 (0.0-0.8) 10^3/u L Baso # (Auto) 0.0 (0.0-0.1) 10^3/u L Nucleated RBC % (a uto) 0 % Nucleated RBCs # 0.0 /100WBC Specimen Type Sample Site ABG pH (7.35-7.45) ABG pCO2 (35-45) mmHg ABG pO2 (80.0-100.0) mmH g ABG HCO3 (22-26) mmol/L ABG O2 Saturation ABG Base Excess (-2.0-2.0) mmol/ L Eric Test A-a O2 Gradient (5-10) mmHg Hematocrit (37-47) % Hgb O2 Saturation (95-100) % Carboxyhemoglobin (0.4-20.1) %THgb Methemoglobin (0.4-1.5) % Total Hemoglobin (12-16) g/dL Ionized Calcium (1.1-1.4) mmol/L O2 Delivery Device O2 Liters/Min % Geothermal Installer ID Sodium 122 L (136-145) mmol/L Potassium 3.6 (3.5-5.1) mmol/L Chloride 83 L (98-107) mmol/L Carbon Dioxide 22 (22-29) mmol/L Anion Gap 20.6 H (5-19) BUN 7 (6-20) mg/dL Creatinine 0.6 (0.5-0.9) mg/dL GFR Calculation 103.8 (90-130) mL/min Glucose 792 H* (65-115) mg/dL POC Glucose (70-110) mg/dL Calculated Osmolal ity 288 (285-295) mOsm/k g Lactic Acid (0.5-2.2) mmol/L Lactic Acid (Sepsi s) (0.5-2.2) mmol/L Calcium 8.8 (8.5-10.5) mg/dL Total Bilirubin 0.2 (0.15-1.2) mg/dL AST 18 (0-32) U/L ALT 13 (0-33) U/L Alkaline Phosphata se 182 H (35-105) IU/L Ammonia (11-51) umol/L Total Protein 6.6 (6.6-8.7) g/dL Albumin 3.7 (3.5-5.2) g/dL Globulin 2.9 (1.3-4.6) g/dL Urine Color (Yellow) Urine Appearance (CLEAR) Urine pH (5-7) Ur Specific Gravit y (1.005-1.030) Urine Protein (Negative) Urine Glucose (UA) (Normal) Urine Ketones (Negative) Urine Blood (Negative) Urine Nitrate (Negative) Urine Bilirubin (NEGATIVE) Urine Urobilinogen (Negative) mg/dL Ur Leukocyte La ase (Negative) Urine Opiates Scre en (Negative) ng/mL Ur Barbiturates Sc reen (Negative) ng/mL Ur Phencyclidine S crn (Negative) ng/mL Ur Amphetamines Sc reen (Negative) ng/mL U Benzodiazepines Scrn (Negative) ng/mL Urine Cocaine Scre en (Negative) ng/mL U Marijuana (THC) Screen (Negative) ng/mL Serum Ketones Negative (Negative) 06/07/20 06/07/20 06/07/20 Range/Units 20:00 20:00 20:23 WBC (4.0-10.0) 10^3/ uL RBC (4.1-5.3) 10^6/u L Hgb (11.5-15.3) g/dL Hct (37.0-47.0) % MCV (81-99) fL MCH (28.0-34.0) pg MCHC (30.0-36.0) g/dL RDW (12.1-15.1) % Plt Count (130-400) 10^3/c mm MPV (7.4-10.4) fL Neut % (Auto) % Lymph % (Auto) % [place] % (Auto) % Eos % (Auto) % Baso % (Auto) % Neut # (Auto) (1.8-7.7) 10^3/u L Lymph # (Auto) (0.8-4.8) 10^3/u L [place] # (Auto) (0.2-0.9) 10^3/u L Eos # (Auto) (0.0-0.8) 10^3/u L Baso # (Auto) (0.0-0.1) 10^3/u L Nucleated RBC % (a uto) % Nucleated RBCs # /100WBC Specimen Type Sample Site ABG pH (7.35-7.45) ABG pCO2 (35-45) mmHg ABG pO2 (80.0-100.0) mmH g ABG HCO3 (22-26) mmol/L ABG O2 Saturation ABG Base Excess (-2.0-2.0) mmol/ L Eirc Test A-a O2 Gradient (5-10) mmHg Hematocrit (37-47) % Hgb O2 Saturation (95-100) % Carboxyhemoglobin (0.4-20.1) %THgb Methemoglobin (0.4-1.5) % Total Hemoglobin (12-16) g/dL Ionized Calcium (1.1-1.4) mmol/L O2 Delivery Device O2 Liters/Min % Geothermal Installer ID Sodium (136-145) mmol/L Potassium (3.5-5.1) mmol/L Chloride (98-107) mmol/L Carbon Dioxide (22-29) mmol/L Anion Gap (5-19) BUN (6-20) mg/dL Creatinine (0.5-0.9) mg/dL GFR Calculation (90-130) mL/min Glucose (65-115) mg/dL POC Glucose (70-110) mg/dL Calculated Osmolal ity (285-295) mOsm/k g Lactic Acid 2.9 H (0.5-2.2) mmol/L Lactic Acid (Sepsi s) (0.5-2.2) mmol/L Calcium (8.5-10.5) mg/dL Total Bilirubin (0.15-1.2) mg/dL AST (0-32) U/L ALT (0-33) U/L Alkaline Phosphata se (35-105) IU/L Ammonia (11-51) umol/L Total Protein (6.6-8.7) g/dL Albumin (3.5-5.2) g/dL Globulin (1.3-4.6) g/dL Urine Color Yellow (Yellow) Urine Appearance Clear (CLEAR) Urine pH 6 (5-7) Ur Specific Gravit y 1.005 (1.005-1.030) Urine Protein Neg (Negative) Urine Glucose (UA) 4+ H (Normal) Urine Ketones Negative (Negative) Urine Blood Neg (Negative) Urine Nitrate Negative (Negative) Urine Bilirubin Neg (NEGATIVE) Urine Urobilinogen Neg (Negative) mg/dL Ur Leukocyte La ase Negative (Negative) Urine Opiates Scre en Positive H (Negative) ng/mL Ur Barbiturates Sc reen Negative (Negative) ng/mL Ur Phencyclidine S crn Negative (Negative) ng/mL Ur Amphetamines Sc reen Negative (Negative) ng/mL U Benzodiazepines Scrn Positive H (Negative) ng/mL Urine Cocaine Scre en Negative (Negative) ng/mL U Marijuana (THC) Screen Negative (Negative) ng/mL Serum Ketones (Negative) 06/07/20 06/07/20 06/07/20 Range/Units 20:24 21:46 22:35 WBC (4.0-10.0) 10^3/ uL RBC (4.1-5.3) 10^6/u L Hgb (11.5-15.3) g/dL Hct (37.0-47.0) % MCV (81-99) fL MCH (28.0-34.0) pg MCHC (30.0-36.0) g/dL RDW (12.1-15.1) % Plt Count (130-400) 10^3/c mm MPV (7.4-10.4) fL Neut % (Auto) % Lymph % (Auto) % [place] % (Auto) % Eos % (Auto) % Baso % (Auto) % Neut # (Auto) (1.8-7.7) 10^3/u L Lymph # (Auto) (0.8-4.8) 10^3/u L [place] # (Auto) (0.2-0.9) 10^3/u L Eos # (Auto) (0.0-0.8) 10^3/u L Baso # (Auto) (0.0-0.1) 10^3/u L Nucleated RBC % (a uto) % Nucleated RBCs # /100WBC Specimen Type Arterial Sample Site Brachial, left ABG pH 7.38 (7.35-7.45) ABG pCO2 41.6 (35-45) mmHg ABG pO2 69.1 L (80.0-100.0) mmH g ABG HCO3 24.7 (22-26) mmol/L ABG O2 Saturation 93.5 ABG Base Excess -0.5 (-2.0-2.0) mmol/ L Eric Test N/a A-a O2 Gradient 28.2 H (5-10) mmHg Hematocrit 37.2 (37-47) % Hgb O2 Saturation 92.4 L (95-100) % Carboxyhemoglobin 0.3 L (0.4-20.1) %THgb Methemoglobin 0.8 (0.4-1.5) % Total Hemoglobin 12.1 (12-16) g/dL Ionized Calcium 1.2 (1.1-1.4) mmol/L O2 Delivery Device Nc O2 Liters/Min 2.0 % Geothermal Installer ID [id number] Sodium 134.0 (136-145) mmol/L Potassium 3.4 L (3.5-5.1) mmol/L Chloride (98-107) mmol/L Carbon Dioxide (22-29) mmol/L Anion Gap (5-19) BUN (6-20) mg/dL Creatinine (0.5-0.9) mg/dL GFR Calculation (90-130) mL/min Glucose 485.0 H (65-115) mg/dL POC Glucose (70-110) mg/dL Calculated Osmolal ity (285-295) mOsm/k g Lactic Acid (0.5-2.2) mmol/L Lactic Acid (Sepsi s) 3.1 H (0.5-2.2) mmol/L Calcium (8.5-10.5) mg/dL Total Bilirubin (0.15-1.2) mg/dL AST (0-32) U/L ALT (0-33) U/L Alkaline Phosphata se (35-105) IU/L Ammonia 11 (11-51) umol/L Total Protein (6.6-8.7) g/dL Albumin (3.5-5.2) g/dL Globulin (1.3-4.6) g/dL Urine Color (Yellow) Urine Appearance (CLEAR) Urine pH (5-7) Ur Specific Gravit y (1.005-1.030) Urine Protein (Negative) Urine Glucose (UA) (Normal) Urine Ketones (Negative) Urine Blood (Negative) Urine Nitrate (Negative) Urine Bilirubin (NEGATIVE) Urine Urobilinogen (Negative) mg/dL Ur Leukocyte Al ase (Negative) Urine Opiates Scre en (Negative) ng/mL Ur Barbiturates Sc reen (Negative) ng/mL Ur Phencyclidine S crn (Negative) ng/mL Ur Amphetamines Sc reen (Negative) ng/mL U Benzodiazepines Scrn (Negative) ng/mL Urine Cocaine Scre en (Negative) ng/mL U Marijuana (THC) Screen (Negative) ng/mL Serum Ketones (Negative) 06/07/20 06/08/20 Range/Units 23:08 00:15 WBC (4.0-10.0) 10^3/ uL RBC (4.1-5.3) 10^6/u L Hgb (11.5-15.3) g/dL Hct (37.0-47.0) % MCV (81-99) fL MCH (28.0-34.0) pg MCHC (30.0-36.0) g/dL RDW (12.1-15.1) % Plt Count (130-400) 10^3/c mm MPV (7.4-10.4) fL Neut % (Auto) % Lymph % (Auto) % [place] % (Auto) % Eos % (Auto) % Baso % (Auto) % Neut # (Auto) (1.8-7.7) 10^3/u L Lymph # (Auto) (0.8-4.8) 10^3/u L [place] # (Auto) (0.2-0.9) 10^3/u L Eos # (Auto) (0.0-0.8) 10^3/u L Baso # (Auto) (0.0-0.1) 10^3/u L Nucleated RBC % (a uto) % Nucleated RBCs # /100WBC Specimen Type Sample Site ABG pH (7.35-7.45) ABG pCO2 (35-45) mmHg ABG pO2 (80.0-100.0) mmH g ABG HCO3 (22-26) mmol/L ABG O2 Saturation ABG Base Excess (-2.0-2.0) mmol/ L Eric Test A-a O2 Gradient (5-10) mmHg Hematocrit (37-47) % Hgb O2 Saturation (95-100) % Carboxyhemoglobin (0.4-20.1) %THgb Methemoglobin (0.4-1.5) % Total Hemoglobin (12-16) g/dL Ionized Calcium (1.1-1.4) mmol/L O2 Delivery Device O2 Liters/Min % Geothermal Installer ID Sodium (136-145) mmol/L Potassium (3.5-5.1) mmol/L Chloride (98-107) mmol/L Carbon Dioxide (22-29) mmol/L Anion Gap (5-19) BUN (6-20) mg/dL Creatinine (0.5-0.9) mg/dL GFR Calculation (90-130) mL/min Glucose (65-115) mg/dL POC Glucose 326 341 (70-110) mg/dL Calculated Osmolal ity (285-295) mOsm/k g Lactic Acid (0.5-2.2) mmol/L Lactic Acid (Sepsi s) (0.5-2.2) mmol/L Calcium (8.5-10.5) mg/dL Total Bilirubin (0.15-1.2) mg/dL AST (0-32) U/L ALT (0-33) U/L Alkaline Phosphata se (35-105) IU/L Ammonia (11-51) umol/L Total Protein (6.6-8.7) g/dL Albumin (3.5-5.2) g/dL Globulin (1.3-4.6) g/dL Urine Color (Yellow) Urine Appearance (CLEAR) Urine pH (5-7) Ur Specific Gravit y (1.005-1.030) Urine Protein (Negative) Urine Glucose (UA) (Normal) Urine Ketones (Negative) Urine Blood (Negative) Urine Nitrate (Negative) Urine Bilirubin (NEGATIVE) Urine Urobilinogen (Negative) mg/dL Ur Leukocyte La ase (Negative) Urine Opiates Scre en (Negative) ng/mL Ur Barbiturates Sc reen (Negative) ng/mL Ur Phencyclidine S crn (Negative) ng/mL Ur Amphetamines Sc reen (Negative) ng/mL U Benzodiazepines Scrn (Negative) ng/mL Urine Cocaine Scre en (Negative) ng/mL U Marijuana (THC) Screen (Negative) ng/mL Serum Ketones (Negative) Imaging Data^: CT Head: Radiologist's impression: [address] [address] [address] Scan Report Signed Patient: Collette Kothari Unit #: [id number] : 1965 Age/Sex: 55 / F ADM Date: 06/07/20 Loc: ER Room/Bed: Attending Dr: Ordering Provider/Ordering MD: Jazlyn Best Date of Service: 06/07/20 Procedure(s): CT head wo con* [id number] Accession Number(s): [id number] Report Number: [id number] PROCEDURE INFORMATION: Exam: CT Head Without Contrast Exam date and time: 06/07/2020 8:26 PM Age: 55 years old Clinical indication: Pain; Altered mental status/memory loss and speech disturbance; Slurred speech; Headache; Additional info: AMS TECHNIQUE: Imaging protocol: Computed tomography of the head without contrast. Radiation optimization: All CT scans at this facility use at least one of these dose optimization techniques: automated exposure control; mA and/or kV adjustment per patient size (includes targeted exams where dose is matched to clinical indication); or iterative reconstruction. COMPARISON: CT head wo con* [id number] 03/04/2020 2:21 PM RADIATION DOSE METRICS: Total DLP (mGy-cm): 749.69 FINDINGS: Brain: Mild atrophy and mild white matter chronic microvascular changes are noted. No hemorrhage or CT evidence of acute infarction is seen. Ventricles: Normal. No ventriculomegaly. Bones/joints: Unremarkable. No acute fracture. Sinuses: Visualized sinuses are unremarkable. No fluid levels. Mastoid air cells: Visualized mastoid air cells are well aerated. Soft tissues: Unremarkable. CT/CT head wo con* [id number] IMPRESSION: No acute intracranial abnormality Radiation Dose CTDIVOL = (mGy): DLP = 749.69 (mGy-cm) Dictated By: Eduardo Jo MD Signed By: Eduardo Jo MD Signed Date/Time: 06/07/202047 DD/ 46 XR bilateral hips/pelvis: My impression: NAD CXR: My impression: NAD Discharge Plan Discharge Patient Disposition: Admitted As Inpatient Admit Provider: Eric Yousif Clinical Impression: Diabetic hyperosmolar non-ketotic state, Chronic prescription opiate use Altered mental status Qualifiers: Altered mental status type: somnolence Qualified Code(s): R40.0 - Somnolence Condition: Stable Referrals: Juno Brown [Primary Care Provider] - Coding Level of Care Code ED Pecan Sheller for Chg Fwd Exam Detailed
[2020-06-07 20:28] VITALS: RESP 18
[2020-06-07 20:30] LABS: Basophils % 0.7 %; Eosinophils # 0.1 10^3/uL (0.0-0.8); Eosinophils % 1.1 %; Hematocrit 41.6 % (37.0-47.0); Hemoglobin 12.9 g/dL (11.5-15.3); Lymphocytes % 38.1 %; Mean Corpuscular Hemoglobin 26.5 pg (28.0-34.0); Mean Corpuscular Volume 85.4 fL (81-99); Mean Platelet Volume 12.4 fL (7.4-10.4); Monocytes # 0.2 10^3/uL (0.2-0.9); Monocytes % 3.9 %; Nucleated Red Blood Cells % 0 %; Platelet Count 195 10^3/cmm (130-400); Red Blood Count 4.87 10^6/uL (4.1-5.3); White Blood Count 5.4 10^3/uL (4.0-10.0)
[2020-06-07 20:38] LABS: Add Urine Microscopic? NO
[2020-06-07 20:44] LABS: Ammonia 11 umol/L (11-51)
[2020-06-07 20:46] LABS: Urine Color Yellow (Yellow)
[2020-06-07 20:47] LABS: Bilirubin Urine Neg (NEGATIVE); Blood Urine Neg (Negative); Glucose Urine UA 4+ (Normal); Ketones Urine Negative (Negative); Leukocyte Esterase Urine Negative (Negative); Nitrate Urine Negative (Negative); Protein Urine Neg (Negative); Specific Gravity, Urine 1.005 (1.005-1.030); Urine Appearance Clear (CLEAR); Urobilinogen Urine Neg (Negative); pH Urine 6 (5-7)
[2020-06-07 20:48] LABS: Ketone (Acetest) Serum Negative (Negative)
[2020-06-07 20:49] LABS: Amphetamines Screen Urine Negative (Negative); Barbiturates Screen Urine Negative (Negative); Benzodiazepines Screen Urine Positive (Negative); Cocaine Screen Urine Negative (Negative); Opiate Screen Urine Positive (Negative); PCP Screen Urine Negative (Negative); THC Screen Urine Negative (Negative)
[2020-06-07 21:03] LABS: Alanine Aminotransferase 13 U/L (0-33); Albumin Level 3.7 g/dL (3.5-5.2); Alkaline Phosphatase 182 IU/L (35-105); Blood Urea Nitrogen 7 mg/dL (6-20); Calcium 8.8 mg/dL (8.5-10.5); Carbon Dioxide 22 mmol/L (22-29); Chloride 83 mmol/L (98-107); Globulin 2.9 g/dL (1.3-4.6); Glomerular Filtration Rate 103.8 mL/min (90-130); Sodium 122 mmol/L (136-145); Total Bilirubin 0.2 mg/dL (0.15-1.2); Total Protein 6.6 g/dL (6.6-8.7)
[2020-06-07] MEDS: naloxone 0.4 mg/ml SDV IVP (21:09)
[2020-06-07] MEDS: sodium chloride 0.9% 1,000 ML 999 ML IV (21:09)
[2020-06-07 21:11] LABS: Osmolality Calculated 288 mOsm/kg (285-295)
--- NOTE | 2020-06-07 21:15 | ECG_ITS ---
[facility] Test Date: 2020-06-08 Pat Name: Collette Kothari Department: Room: 266 Gender: Female Lace Pinner: : 1965 Requested By: Jazlyn Best Order Number: [id number] Stacey MD: Sarah Bell M.D. Measurements Intervals [place] Rate: 81 P: 46 ME: 169 QRS: -11 QRSD: 98 T: 73 QT: 362 QTc: 422 Interpretive Statements SINUS RHYTHM NONSPECIFIC T-WAVE ABNORMALITY Compared to ECG 06/08/2020 01:25:15 No significant changes Electronically Signed On 06-08-2020 17:03:03 CDT by Sarah Bell M.D. [email or web address]
[2020-06-07 21:21] LABS: Lactic Sepsis W/Reflex 2.9 mmol/L (0.5-2.2)
[2020-06-07 21:28] VITALS: BP 113/69; PULSE 61; RESP 18; O2SAT 95
[2020-06-07 21:34] LABS: Anion Gap 20.6 (5-19); Glucose 792 mg/dL (65-115)
[2020-06-07 21:35] LABS: Aspartate Amino Transferase 18 U/L (0-32); Potassium 3.6 mmol/L (3.5-5.1)
[2020-06-07 21:57] LABS: ABG PCO2 41.6 mmHg (35-45); ABG PH Result 7.38 (7.35-7.45); Alveolar-Arterial Oxygen Gradi 28.2 mmHg (5-10); Arterial Blood Gas Hematocrit 37.2 % (37-47); Base Excess ABG -0.5 mmol/L (-2.0-2.0); Blood Gas Sample Site Brachial, left; Blood Gas Sample Type Arterial; Carboxyhemoglobin 0.3 %THgb (0.4-20.1); HCO3 ABG 24.7 mmol/L (22-26); HGB O2 Sat 92.4 % (95-100); Ionized Calcium Level - ABG 1.2 mmol/L (1.1-1.4); Methemoglobin 0.8 % (0.4-1.5); Oxygen Device NC; Oxygen Saturation ABG 93.5; PO2 ABG 69.1 mmHg (80.0-100.0); Potassium Level - ABG 3.4 mmol/L (3.5-5.0); Total Hemoglobin 12.1 g/dL (12-16)
--- NOTE | 2020-06-07 21:58 | XRR_ITS ---
PROCEDURE INFORMATION: Exam: XR Bilateral Hips with Pelvis when Performed Exam date and time: 06/08/2020 7:59 AM Age: 55 years old Clinical indication: Injury or trauma; Fall; Initial encounter; Blunt trauma (contusions or hematomas); Bilateral; Hip; Patient HX: AMS; Additional info: Injury; Need one view pelvis as well TECHNIQUE: Imaging protocol: XR bilateral hips with pelvis when performed. Views: 2 views. COMPARISON: CT abdomen pelvis wo con [id number] 03/31/2020 3:41 PM FINDINGS: Bones/joints: trabecular stress markings normal. intertrochanteric region normal. No displacement or rotation. Acetabulum without fracture. Joint space appears normal. Soft tissues: Unremarkable. XR/XR hip BI m 5V wo/w pel* [id number] IMPRESSION: Normal hip bilaterally.
[2020-06-07 22:00] VITALS: BP 128/70; PULSE 62; RESP 19; O2SAT 100
[2020-06-07] MEDS: insulin regular-human 250 UNIT in sodium chloride 0.9% 250 ML 5.1 UNIT IV (22:08)
[2020-06-07] MEDS: insulin regular-human 100 units/1 mL 10 UNIT IVP (22:10)
[2020-06-07 22:12] LABS: Reflex Lactate Order REFLEX LACTIC ORDERD
[2020-06-07 22:56] LABS: Lactic Acid level (Lactate) 3.1 mmol/L (0.5-2.2)
[2020-06-07 23:00] VITALS: BP 97/72; PULSE 68; RESP 17; O2SAT 95
[2020-06-07 23:12] LABS: Glucose Point of Care 326 mg/dL (70-110)
[2020-06-07 23:51] VITALS: BP 121/72; PULSE 70; RESP 17; O2SAT 97
[2020-06-08] VITALS (7 sets, daily range): BP systolic 118–167; BP diastolic 76–114; PULSE 65–92; RESP 16–20; TEMP 36.6–37.2; O2SAT 93–100
[2020-06-08 00:18] LABS: Glucose Point of Care 341 mg/dL (70-110)
--- NOTE | 2020-06-08 01:02 | PC.NURSE ---
Report given to VASU JEWELL and is assuming patient care at this time.
--- NOTE | 2020-06-08 02:01 | PC.NURSE ---
EKG done at 0118 and shown to ER doctor
--- NOTE | 2020-06-08 02:07 | PC.NURSE ---
EKG done at 0118 and shown to Er doctor
--- NOTE | 2020-06-08 02:12 | PM.HP ---
Providers/Chief Complaint Admitting Physician: Eric Yousif Primary Care Provider: Juno Brown Chief Complaint: AMS History of Present Illness Collette Kothari is a 55 year old lady with past medical history of CAD, CABG x4, IBS, recurrent pancreatitis, ulcerative colitis, DM 2, CAD, anxiety and depression, GERD, with multiple recent admissions, with discharge on 04/01, time was assessed for malaise, fever, with diarrhea, at the time negative for influenza, COVID 19, during prior hospitalization with 2/4 bottles staph hominis, although this was thought to be contamination, without recurrence of bacteremia on repeat cultures. During that hospitalization also with noted groundglass opacity in the lungs, with subsequent resolution noted in March. During past hospitalization fever resolved, symptoms improved, she was encouraged to follow-up with her acid purification equipment operator and PCP, although ronnies had seen PCP, but not her acid purification equipment operator. She returns to the hospital with malaise, reports has been feeling unwell for about 3-4 days. She reports a fever of 101 Fahrenheit yesterday. Reports has been having ongoing headache for about 3 days. Reports has been having pain in the left side of the chest with breathing and repositioning in the bed. Has been coughing more recently and is short of breath. Normally is not on oxygen in ER is on 3 L nasal cannula. She also reports having diffuse abdominal tenderness. Denies that it is in any specific location. Reports having on and off diarrhea. Day before yesterday reports seeing shiraz blood in the stool. She also reports that she has had very elevated blood glucose, up to 700 at home. She does state that she has been taking her medications including insulin. Says has been watching her diet. Per family, although they are not here currently, reportedly has been having lethargy, has been less responsive. When EMS arrived to pick her up, had been given Narcan with some improvement in mental status reported. Family reportedly has been taking her hydrocodone and Xanax, and urine drug screen is positive for opiates and benzodiazepines. Review of Systems Const: Reports: fever(s), malaise and other (headache) Eyes: Denies: change in vision or eye redness ENMT: Denies: throat pain, oral sores or ear or mastoid pain Card: Reports: chest pain (L side, triggered by repositioning, inspiration); Denies: edema, pre-syncope or dyspnea on exertion Resp: Reports: dyspnea and non-productive cough; Denies: productive cough, change in phlegm color or hemoptysis GI: Reports: abdominal pain, nausea, diarrhea and hematochezia; Denies: vomiting, constipation or melena : Denies: flank pain, urinary frequency or hematuria Musc: Denies: back pain, joint swelling or joint redness Skin/Breast: Denies: rash, sores or new lesions Neuro: Denies: headache(s), numbness in extremities, weakness in extremities, dizziness, confusion or seizure-like activity Endo: Denies: polyuria or polydipsia Danish/Lymph: Denies: easy bleeding or purpura All/Imm: Denies: urticaria, throat swelling or tongue swelling Medications/Allergies Home Medications Medication Instructions Recorded Confirmed Last Taken Type Repatha SureClick 140 mg SUBCUT Q14D 01/04/20 05/26/20 05/26/20 History amlodipine 5 mg PO DAILY 01/04/20 05/26/20 05/26/20 History carvedilol 25 mg PO BID 01/04/20 05/26/20 05/26/20 History clopidogrel 75 mg PO DAILY 01/04/20 05/26/20 05/26/20 History hydrochlorothiazide 12.5 mg PO DAILY 01/04/20 05/26/20 05/25/20 History hydrocodone-acetaminophen 1 tab PO Q4H PRN 01/04/20 05/26/20 05/25/20 History insulin aspart U-100 [Novolog See Rx Instructions .ROUTE .COMPLEX 01/04/20 05/26/20 05/26/20 History Flexpen U-100 Insulin] pantoprazole 40 mg PO BID 01/04/20 05/26/20 05/26/20 History pregabalin [Lyrica] 150 mg PO TID 01/04/20 05/26/20 05/26/20 History tizanidine 4 mg PO TID PRN 01/04/20 05/26/20 05/25/20 History fluticasone propionate 2 spray INTRANASAL DAILY 02/29/20 05/26/20 03/29/20 History lactulose 10 g PO BID PRN 02/29/20 05/26/20 1 Day Ago History ~02/28/20 naloxone 1 spray INTRANASAL PRN 02/29/20 05/26/20 1 Day Ago History ~02/28/20 nitroglycerin [Nitrostat] 0.4 mg SUBLINGUAL Q5M PRN 02/29/20 05/26/20 05/26/20 History potassium chloride 20 meq PO DAILY 02/29/20 05/26/20 05/25/20 History promethazine 12.5 mg PO Q6H 02/29/20 05/26/20 05/26/20 History sucralfate 1 g PO QID PRN 02/29/20 05/26/20 05/26/20 History Lantus Solostar U-100 Insulin 40 unit SUBCUT BID 03/30/20 03/30/20 05/26/20 History Miralax 17 g PO DAILY PRN 03/30/20 03/30/20 Unknown History aspirin [Aspir-81] 81 mg PO DAILY 03/30/20 05/26/20 05/26/20 History isosorbide mononitrate 60 mg PO BID #0 tab 04/01/20 05/26/20 05/26/20 Rx sertraline 100 mg tablet 200 mg PO DAILY #60 tab 04/04/20 05/26/20 05/25/20 Rx trazodone 150 mg tablet 150 mg PO BEDTIME #30 tab 04/04/20 05/26/20 05/25/20 Rx zolpidem 10 mg tablet 10 mg PO BEDTIME #30 tab 04/04/20 05/26/20 05/25/20 Rx Xanax 0.5 mg PO BID PRN 05/26/20 05/26/20 05/26/20 History dextromethorphan-guaifenesin 1 tab PO Q12H 05/26/20 05/26/20 05/25/20 History [Mucinex DM] icosapent ethyl 2 g PO BID 05/26/20 05/26/20 05/26/20 History metronidazole 1 applic TOPICAL DAILY 05/26/20 05/26/20 Unknown History Allergies Allergy/AdvReac Type Severity Reaction Status Date / Time SCOTT Inhibitors Allergy Unknown Verified 05/26/20 20:58 acetaminophen Allergy ADR-Nausea Verified 05/26/20 20:58 [From Erumt-N] amitriptyline Allergy ALGY-Difficulty Verified 05/26/20 20:58 Breathing atorvastatin [From Lipitor] Allergy ADR-Nausea Verified 05/26/20 20:58 ciprofloxacin [From Cipro] Allergy ALGY-Hives Verified 05/26/20 20:58 doxycycline Allergy Unknown Verified 05/26/20 20:58 empagliflozin Allergy Unknown Verified 05/26/20 20:58 [From Jardiance] escitalopram [From Lexapro] Allergy Unknown Verified 05/26/20 20:58 ezetimibe [From Zetia] Allergy Unknown Verified 05/26/20 20:58 furosemide [From Lasix] Allergy ALGY-Rash Verified 05/26/20 20:58 ketorolac [From Toradol] Allergy Unknown Verified 05/26/20 20:58 lisinopril Allergy Unknown Verified 05/26/20 20:58 morphine Allergy ALGY-Rash Verified 05/26/20 20:58 nalbuphine [From Nubain] Allergy Unknown Verified 05/26/20 20:58 naproxen Allergy Unknown Verified 05/26/20 20:58 nortriptyline Allergy Unknown Verified 05/26/20 20:58 pravastatin Allergy Unknown Verified 05/26/20 20:58 prochlorperazine Allergy ALGY-Difficulty Verified 05/26/20 20:58 [From Compazine] Breathing propoxyphene Allergy ADR-Nausea Verified 05/26/20 20:58 [From Darvocet-N] ranolazine [From Ranexa] Allergy Unknown Verified 05/26/20 20:58 rosuvastatin [From Crestor] Allergy Unknown Verified 05/26/20 20:58 simvastatin Allergy Unknown Verified 05/26/20 20:58 sulfamethoxazole Allergy ALGY-Hives Verified 05/26/20 20:58 [From Bactrim] sumatriptan [From Imitrex] Allergy Unknown Verified 05/26/20 20:58 trimethoprim [From Bactrim] Allergy ALGY-Hives Verified 05/26/20 20:58 PFSH Acute PFSH: Medical History (Updated 06/08/20 @ 02:36 by Eric Yousif MD) Coronary artery disease Depression with anxiety Generalized anxiety disorder GERD (gastroesophageal reflux disease) Hypertension Hypertriglyceridemia Insulin dependent diabetes mellitus Irritable bowel syndrome Pancreatitis Post-traumatic stress disorder, chronic Ulcerative colitis Surgical History H/O tubal ligation H/O: hysterectomy History of carpal tunnel surgery Hx of tonsillectomy S/P CABG x 4 S/P coronary artery stent placement Family History Mother Dementia Father CAD (coronary artery disease) Other IBD (inflammatory bowel disease) Social History Smoking and tobacco status: former smoker Alcohol intake: never Lives independently: Yes Household members: significant other Marital status: Life Partner Current occupational status: disabled Vitals/I&O/Wt Last Vital Signs Temp 97.6 F 06/07/20 19:55 Pulse 77 06/08/20 01:41 Resp 18 06/08/20 01:41 BP 153/103 06/08/20 01:41 Pulse Ox 100 06/08/20 01:41 06/07/20 06/07/20 06/08/20 14:59 22:59 06:59 Intake Total 1252.500 / 1252.500 Balance 1252.500 / 1252.500 Weight last 48 hrs Weight 86.183 kg Physical Exam Const: COMMON NORMALS: no acute distress and patient oriented x3 ORIENTATION/CONSCIOUSNESS: Yes awake HENMT: COMMON NORMALS: oropharynx normal Neck/C-Spine: COMMON NORMALS: no JVD Resp: COMMON NORMALS: normal respiratory effort and clear to auscultation bilaterally Cardio: COMMON NORMALS: no JVD, regular rhythm, S1 normal heart sound present, S2 normal heart sound present and No murmurs present (Cardio) RHYTHM: regular rhythm HEART SOUNDS: S1 normal heart sound present and S2 normal heart sound present GI: COMMON NORMALS: Normal to inspection, nondistended, normoactive bowel sounds present, Soft to palpation and non-tender PALPATION: Yes Soft to palpation Extremity: COMMON NORMALS: no joint enlargement and no pedal edema Neuro: COMMON NORMALS: patient oriented x3 and moves all extremities Skin: COMMON NORMALS: no rashes or lesions noted GENERAL SKIN EXAM: no rashes or lesions noted Urinary Catheter Management^: Huizar: Cath Placed During This Visit: yes Reason for Continuing Indwelling Catheter: Accurate Measurement of Urinary Output in Critically Ill Patients Urinary Catheter Date of Insertion: 06/07/20 Urinary Catheter Time of Insertion: 21:41 Data : 06/07/20 20:00 06/07/20 20:00 Micro: Microbiology 06/07/20 20:23 Blood Culture - Preliminary Blood SPECIMEN COLLECTED 06/07/20 20:24 Blood Culture - Preliminary Blood SPECIMEN COLLECTED A&P Assessment and plan (1) Altered mental status: Noted lethargic, less responsive by the family at home. Reportedly did respond to Narcan given by EMS. He received another dose, but without additional improvement. Near my visit she is awake and alert. Complains of malaise, feeling unwell, multiple places of pain including left-sided chest with movement, inspiration, as well as diffuse tenderness of the abdomen. Has a number of other complaints including cough, shortness of breath, diarrhea, hematochezia, in ER noted multiple times asking for pain medication. She does report having a fever of 101 Fahrenheit yesterday. Afebrile in ER at this time. At this time will monitor for additional symptoms. For now hold off on lumbar puncture as she otherwise does not appear toxic, suggestive of bacterial meningitis. She does report having a headache for about 3 days. Mental status did improve with hydration, as well as treatment of her severe hyperglycemia, and with Narcan. Appears this may be combination of both overuse of prescription medication, in combination with metabolic abnormality from severe hyperglycemia, possibly HHS, as well as cannot exclude possible viral infection given her symptoms. We will also request for ESR, CRP given history of IBD. She says has not followed up with her acid purification equipment operator since last time. Has been having persistent diarrhea. Reports hematochezia day before yesterday. She was previously assessed for COVID-19 and influenza during hospitalization back in March, however, at that time did not have headache, shortness of breath or cough. Will reassess at this time. For now will hold her pain meds, anxiety/depression meds and insomnia meds. Please reassess and restart when safe. Monitor BPs, electrolytes. With history of steroid therapy adrenal insufficiency may need to be considered. For now will place in observation, although in case of recurrence of symptoms, or fever or other complicating factors including persistent hyperglycemia, may require actual admission. Status: Acute Qualifiers: Altered mental status type: somnolence Qualified Code(s): R40.0 - Somnolence (2) Malaise: As above. Positive blood culture back in February, 12/29 bottles for staph hominis. Suspected contamination at that time. Given persistent malaise, no recurrence of fever, blood culture has been requested. Status: Acute (3) Diabetic hyperosmolar non-ketotic state: Severe hyperglycemia, 792 BG here. At home reports also glucose was above 700. She reports she has been taking her insulin and adhering to diet. Per her family her mental status has been somewhat gradually worsening, and so it is not entirely clear she actually has been taking her insulin. Required temporary insulin infusion while in the ER. Weaned off with blood glucose going down to 200s. With some improvement in mental status. Will transition to subcutaneous insulin with Lantus, rapid acting insulin sliding scale. Status: Acute (4) Fever: She reports fever 101 Fahrenheit, although she also has had altered mental status. No family are available at this time to provide additional history. She is afebrile here in ER. She had fever reported during prior hospitalization. Prior to that in February hospitalization with noted groundglass opacities in the lungs which resolved by march. She reports persistent diarrhea, reports hematochezia day before yesterday. Request was made for her to follow-up with her acid purification equipment operator in office, however, still has not done so. Repeat blood culture has been requested. We will check ESR, CRP. Reassess rapid flu, COVID 19. With headache, photophobia, if fever is recurrent, or other signs of acute infection, consider additional evaluation by LP. If signs of persistent infection without finding of source, consider additional evaluation by infectious disease. Status: Acute (5) Headache: As above. For now symptomatic management. Monitor for any recurrence of fever, signs of infection. Reports more so on the left side. Possible migraine. No bleed or acute abnormality on CT scan. Status: Acute (6) Hematochezia: With history of ulcerative-colitis. Monitor for recurrence. She had reported hematochezia last time as well, although this was not observed in the hospital. Status: Acute (7) Ulcerative colitis: Will check ESR, CRP. Monitor for diarrhea, recurrence of hematochezia. She has been planning to follow-up with her acid purification equipment operator, although so far has not had a chance. Status: Acute Additional A&P Information Other chronic medical conditions: medications will need to be reconciled and resumed when safe. Attestations Medical Necessity Statement*: Place in observation. Coding Level of Care Code Acute Security Monitor for Shant Marroquin Diagnoses Altered mental status R40.0 Altered mental status type: somnolence Malaise R53.81 Diabetic hyperosmolar non-ketotic state E11.00 Fever R50.9 Headache R51 Hematochezia K92.1 Ulcerative colitis K51.90
--- NOTE | 2020-06-08 03:32 | ECG_ITS ---
[facility] Test Date: 2020-06-08 Pat Name: Collette Kothari Department: Room: 266 Gender: Female Shoeshiner: : 1965 Requested By: Ashlee Martinez Order Number: [id number] Ibarra MD: Sarah Bell M.D. Measurements Intervals [place] Rate: 76 P: 42 DC: 180 QRS: 0 QRSD: 104 T: 73 QT: 379 QTc: 427 Interpretive Statements SINUS RHYTHM NONSPECIFIC T-WAVE ABNORMALITY Compared to ECG 05/26/2020 16:32:11 No significant changes Electronically Signed On 06-08-2020 16:50:51 CDT by Sarah Bell M.D. [id number]
[2020-06-08 03:41] LABS: Troponin T (5th) Once 10 ng/L (0-10)
--- NOTE | 2020-06-08 03:58 | PC.NURSE ---
EKG done at 0358 and shown to ER doctor
[2020-06-08] MEDS: nitroglycerin 0.4 mg sublingual Tablet SUBLINGUAL (04:38)
[2020-06-08 05:30] LABS: Glucose Point of Care 226 mg/dL (70-110)
[2020-06-08] MEDS: sodium chloride 0.9% 1,000 ML 150 ML IV (06:02)
[2020-06-08] MEDS: insulin glargine 100 units/1 mL 40 UNIT SUBCUT (06:12)
[2020-06-08 06:27] LABS: C Reactive Protein 10.1 mg/L (0.0-4.9); Lipase 19 U/L (13-60)
[2020-06-08 06:36] LABS: Influenza A by IFA Negative (Negative); Influenza B by IFA Negative (Negative)
[2020-06-08 07:22] LABS: Erythrocyte Sedimentation Rate 32 mm/hr (0-15)
--- NOTE | 2020-06-08 08:30 | PC.NURSE ---
Patient states, When is the doctor going to come and see me I would like my pain medication and my Lyrica. Updated patient that Park JEWELL has texted the doctor and she has not returned at text yet. Patient verbalized understanding.
[2020-06-08] MEDS: ondansetron 2 mg/ML SDV 2 mL 4 MG IVP (09:27)
[2020-06-08] MEDS: clopidogrel 75 mg Tablet PO (09:29)
[2020-06-08] MEDS: sucralfate 1 gm Tablet PO (09:29)
[2020-06-08] MEDS: pantoprazole DR 40 mg Tablet PO (09:29)
[2020-06-08] MEDS: aspirin 81 mg EC Tablet PO (09:29)
[2020-06-08] MEDS: carvedilol 25 mg Tablet PO (09:29)
--- NOTE | 2020-06-08 09:48 | PC.CHAP ---
Pastoral Care Encounter/Spiritual Assessment Type of Contact [] Declined manager of finance visit [] Patient/Family/Request visit [] Outpatient visit [] Follow-up visit [] Physician referral [] Code/Alert [] Routine visit [] Staff referral [] Actively dying [] Patient sleeping [] Family support [] [] Out of room [] Palliative care [] [] Receiving care in room [] Pre-surgical visit [] Trauma [] Long length of stay [] ICU visit [x] Other: Isolation Relational/Emotional Strength [] Patient feels connected with others/family/visitors/staff [] Distress [] Loneliness/isolation [] Abandonment Spirituality of Patient [] Person of Ashlee [] Attends Hoahaoism of their Ashlee [] Believes in Prayer [] Reads Bible or Buddhism materials [] There are Spiritual issues to be addressed Rapid Outsole Stitcher Interventions [] Prayer [] Active listening [] Non-anxious presence [] Spiritual/emotional support [] Crisis/trauma care [] Spiritual counseling [] Bereavement support [] Provided bereavement packet [] Provided Bible/devotional materials [] Provided toy/stuffed animal, coloring book to patient or family member [] Provided Communion [] Anointing/Titus [] Salvation [] Completed spiritual assessment [] Other: Impact on Illness or Injury [] Angry [] Fearful [] Anxious [] Often cries [] Exhaustion [] Unable to work [] Unable to attend christianity [] Unable to walk/stand [] Unable to read [] Unable to drive [] Unable to eat/drink [] Unable to sleep [] Unable to be with family [] Patient intubated [] Other: Summary Time spent with patient
--- NOTE | 2020-06-08 09:53 | PC.NURSE ---
Messaged Dr. Bray at this time because patient is stating that is the doctor does not come now and see her and give her her pain medication she will leave against medical advice.
--- NOTE | 2020-06-08 10:00 | PC.NURSE ---
Patient is still requesting to leave. Reviewed the leaving against medical advice with the patient. Talked with patient about taking her medication as prescribed. Explained to patient that because they had to use a medication called Narcan in the emergency room to help her become alert and responsive again that the doctor requests she stay in the hospital and be monitored. Patient still wishes to leave. Explained to patient that there is still the possibility of . Patient verbalized understanding. Patient signed verbalized understanding of the risks including with signing the leaving against medical advice form. Reminded patient that when she goes home she will need to self quarantine until her COVIID test returns and is negative. Patient verbalized understanding. Patient's IV removed intact and her Huizar Catheter removed intact at this time.
--- NOTE | 2020-06-08 17:01 | P.DS_ITS ---
Discharge Providers Date of Admission: 06/08/20 00:36 Date of Discharge: June 08, 2020 Attending Provider at Admission: Eric Yousif Attending Provider at Discharge: Valery Bray MD Primary Care Provider: Juno Brown Diagnoses at Discharge Discharge Diagnosis (1) Altered mental status: Status: Acute Qualifiers: Altered mental status type: somnolence Qualified Code(s): R40.0 - Somnolence (2) Malaise: Status: Acute (3) Diabetic hyperosmolar non-ketotic state: Status: Acute (4) Fever: Status: Acute (5) Headache: Status: Acute (6) Hematochezia: Status: Acute (7) Ulcerative colitis: Status: Acute Reason for Visit Reason for Visit: AMS Hospital Course Discharge Summary: Patient left AMA this morning prior to being assesed. Per nursing report and review of overnight reports, she was alert and awake at the time of leaving AMA. picked her up. she was very unhappy at not being given opiates at her chosen frequency this morning Physical Exam Urinary Catheter Management^: Huizar: Cath Placed During This Visit: yes, but has since been removed by the nurse Reason for Continuing Indwelling Catheter: Decision to DC Catheter Urinary Catheter Date of Insertion: 06/07/20 Urinary Catheter Time of Insertion: 21:41 Date Urinary Catheter Removed: 06/08/20 Time Urinary Catheter Discontinued: 10:00 Discharge Data Data Completed and Pending: Completed Studies During Hospitalization Category Date Time Status CT head wo con* 7 0450 Urgent Cat Scan 06/07/20 20:14 Completed XR chest 1V taniya ble [id number] Urgent Exams 06/07/20 20:14 Completed XR hip BI m 5V wo /w pel* [id number] Urge nt Exams 06/07/20 21:58 Completed Pending at discharge Category Date Time Status Blood Culture Sta t Lab 06/07/20 20:23 Results Coronavirus Lab T est PTC Stat Lab 06/08/20 05:05 Received Labs from last 24 hours 06/08/20 06/08/20 06/08/20 06:00 05:26 03:14 WBC RBC Hgb Hct MCV MCH MCHC RDW Plt Count MPV Neut % (Auto) Lymph % (Auto) [place] % (Auto) Eos % (Auto) Baso % (Auto) Neut # (Auto) Lymph # (Auto) [place] # (Auto) Eos # (Auto) Baso # (Auto) Nucleated RBC % (a uto) Nucleated RBCs # ESR Specimen Type Sample Site ABG pH ABG pCO2 ABG pO2 ABG HCO3 ABG O2 Saturation ABG Base Excess Eric Test A-a O2 Gradient Hematocrit Hgb O2 Saturation Carboxyhemoglobin Methemoglobin Total Hemoglobin Ionized Calcium O2 Delivery Device O2 Liters/Min Teacher Dancing ID Sodium Potassium Chloride Carbon Dioxide Anion Gap BUN Creatinine GFR Calculation Glucose POC Glucose 226 Calculated Osmolal ity Lactic Acid Lactic Acid (Sepsi s) Calcium Total Bilirubin AST ALT Alkaline Phosphata se Ammonia Troponin T Gen 5 n g/L 10 C-Reactive Protein Total Protein Albumin Globulin Lipase Urine Color Urine Appearance Urine pH Ur Specific Gravit y Urine Protein Urine Glucose (UA) Urine Ketones Urine Blood Urine Nitrate Urine Bilirubin Urine Urobilinogen Ur Leukocyte La ase Urine Opiates Scre en Ur Barbiturates Sc reen Ur Phencyclidine S crn Ur Amphetamines Sc reen U Benzodiazepines Scrn Urine Cocaine Scre en U Marijuana (THC) Screen Serum Ketones Influenza Type A A g Negative Influenza Type B A g Negative 06/08/20 06/07/20 06/07/20 00:15 23:08 22:35 WBC RBC Hgb Hct MCV MCH MCHC RDW Plt Count MPV Neut % (Auto) Lymph % (Auto) [place] % (Auto) Eos % (Auto) Baso % (Auto) Neut # (Auto) Lymph # (Auto) [place] # (Auto) Eos # (Auto) Baso # (Auto) Nucleated RBC % (a uto) Nucleated RBCs # ESR Specimen Type Sample Site ABG pH ABG pCO2 ABG pO2 ABG HCO3 ABG O2 Saturation ABG Base Excess Eric Test A-a O2 Gradient Hematocrit Hgb O2 Saturation Carboxyhemoglobin Methemoglobin Total Hemoglobin Ionized Calcium O2 Delivery Device O2 Liters/Min Teacher Dancing ID Sodium Potassium Chloride Carbon Dioxide Anion Gap BUN Creatinine GFR Calculation Glucose POC Glucose 341 326 Calculated Osmolal ity Lactic Acid Lactic Acid (Sepsi s) 3.1 H Calcium Total Bilirubin AST ALT Alkaline Phosphata se Ammonia Troponin T Gen 5 n g/L C-Reactive Protein Total Protein Albumin Globulin Lipase Urine Color Urine Appearance Urine pH Ur Specific Gravit y Urine Protein Urine Glucose (UA) Urine Ketones Urine Blood Urine Nitrate Urine Bilirubin Urine Urobilinogen Ur Leukocyte La ase Urine Opiates Scre en Ur Barbiturates Sc reen Ur Phencyclidine S crn Ur Amphetamines Sc reen U Benzodiazepines Scrn Urine Cocaine Scre en U Marijuana (THC) Screen Serum Ketones Influenza Type A A g Influenza Type B A g 06/07/20 06/07/20 06/07/20 21:46 20:25 20:25 WBC RBC Hgb Hct MCV MCH MCHC RDW Plt Count MPV Neut % (Auto) Lymph % (Auto) [place] % (Auto) Eos % (Auto) Baso % (Auto) Neut # (Auto) Lymph # (Auto) [place] # (Auto) Eos # (Auto) Baso # (Auto) Nucleated RBC % (a uto) Nucleated RBCs # ESR 32 H Specimen Type Arterial Sample Site Brachial, left ABG pH 7.38 ABG pCO2 41.6 ABG pO2 69.1 L ABG HCO3 24.7 ABG O2 Saturation 93.5 ABG Base Excess -0.5 Eric Test N/a A-a O2 Gradient 28.2 H Hematocrit 37.2 Hgb O2 Saturation 92.4 L Carboxyhemoglobin 0.3 L Methemoglobin 0.8 Total Hemoglobin 12.1 Ionized Calcium 1.2 O2 Delivery Device Nc O2 Liters/Min 2.0 Teacher Dancing ID [email or web address] Sodium 134.0 Potassium 3.4 L Chloride Carbon Dioxide Anion Gap BUN Creatinine GFR Calculation Glucose 485.0 H POC Glucose Calculated Osmolal ity Lactic Acid Lactic Acid (Sepsi s) Calcium Total Bilirubin AST ALT Alkaline Phosphata se Ammonia Troponin T Gen 5 n g/L C-Reactive Protein 10.1 H Total Protein Albumin Globulin Lipase 19 Urine Color Urine Appearance Urine pH Ur Specific Gravit y Urine Protein Urine Glucose (UA) Urine Ketones Urine Blood Urine Nitrate Urine Bilirubin Urine Urobilinogen Ur Leukocyte La ase Urine Opiates Scre en Ur Barbiturates Sc reen Ur Phencyclidine S crn Ur Amphetamines Sc reen U Benzodiazepines Scrn Urine Cocaine Scre en U Marijuana (THC) Screen Serum Ketones Influenza Type A A g Influenza Type B A g 06/07/20 06/07/20 06/07/20 20:24 20:23 20:00 WBC RBC Hgb Hct MCV MCH MCHC RDW Plt Count MPV Neut % (Auto) Lymph % (Auto) [place] % (Auto) Eos % (Auto) Baso % (Auto) Neut # (Auto) Lymph # (Auto) [place] # (Auto) Eos # (Auto) Baso # (Auto) Nucleated RBC % (a uto) Nucleated RBCs # ESR Specimen Type Sample Site ABG pH ABG pCO2 ABG pO2 ABG HCO3 ABG O2 Saturation ABG Base Excess Eric Test A-a O2 Gradient Hematocrit Hgb O2 Saturation Carboxyhemoglobin Methemoglobin Total Hemoglobin Ionized Calcium O2 Delivery Device O2 Liters/Min Teacher Dancing ID Sodium Potassium Chloride Carbon Dioxide Anion Gap BUN Creatinine GFR Calculation Glucose POC Glucose Calculated Osmolal ity Lactic Acid 2.9 H Lactic Acid (Sepsi s) Calcium Total Bilirubin AST ALT Alkaline Phosphata se Ammonia 11 Troponin T Gen 5 n g/L C-Reactive Protein Total Protein Albumin Globulin Lipase Urine Color Urine Appearance Urine pH Ur Specific Gravit y Urine Protein Urine Glucose (UA) Urine Ketones Urine Blood Urine Nitrate Urine Bilirubin Urine Urobilinogen Ur Leukocyte La ase Urine Opiates Scre en Positive H Ur Barbiturates Sc reen Negative Ur Phencyclidine S crn Negative Ur Amphetamines Sc reen Negative U Benzodiazepines Scrn Positive H Urine Cocaine Scre en Negative U Marijuana (THC) Screen Negative Serum Ketones Influenza Type A A g Influenza Type B A g 06/07/20 06/07/20 06/07/20 20:00 20:00 20:00 WBC RBC Hgb Hct MCV MCH MCHC RDW Plt Count MPV Neut % (Auto) Lymph % (Auto) [place] % (Auto) Eos % (Auto) Baso % (Auto) Neut # (Auto) Lymph # (Auto) [place] # (Auto) Eos # (Auto) Baso # (Auto) Nucleated RBC % (a uto) Nucleated RBCs # ESR Specimen Type Sample Site ABG pH ABG pCO2 ABG pO2 ABG HCO3 ABG O2 Saturation ABG Base Excess Eric Test A-a O2 Gradient Hematocrit Hgb O2 Saturation Carboxyhemoglobin Methemoglobin Total Hemoglobin Ionized Calcium O2 Delivery Device O2 Liters/Min Teacher Dancing ID Sodium 122 L Potassium 3.6 Chloride 83 L Carbon Dioxide 22 Anion Gap 20.6 H BUN 7 Creatinine 0.6 GFR Calculation 103.8 Glucose 792 H* POC Glucose Calculated Osmolal ity 288 Lactic Acid Lactic Acid (Sepsi s) Calcium 8.8 Total Bilirubin 0.2 AST 18 ALT 13 Alkaline Phosphata se 182 H Ammonia Troponin T Gen 5 n g/L C-Reactive Protein Total Protein 6.6 Albumin 3.7 Globulin 2.9 Lipase Urine Color Yellow Urine Appearance Clear Urine pH 6 Ur Specific Gravit y 1.005 Urine Protein Neg Urine Glucose (UA) 4+ H Urine Ketones Negative Urine Blood Neg Urine Nitrate Negative Urine Bilirubin Neg Urine Urobilinogen Neg Ur Leukocyte La ase Negative Urine Opiates Scre en Ur Barbiturates Sc reen Ur Phencyclidine S crn Ur Amphetamines Sc reen U Benzodiazepines Scrn Urine Cocaine Scre en U Marijuana (THC) Screen Serum Ketones Negative Influenza Type A A g Influenza Type B A g 06/07/20 20:00 WBC 5.4 RBC 4.87 Hgb 12.9 Hct 41.6 MCV 85.4 MCH 26.5 L MCHC 31.0 RDW 14.0 Plt Count 195 MPV 12.4 H Neut % (Auto) 56.0 Lymph % (Auto) 38.1 [place] % (Auto) 3.9 Eos % (Auto) 1.1 Baso % (Auto) 0.7 Neut # (Auto) 3.00 Lymph # (Auto) 2.0 [place] # (Auto) 0.2 Eos # (Auto) 0.1 Baso # (Auto) 0.0 Nucleated RBC % (a uto) 0 Nucleated RBCs # 0.0 ESR Specimen Type Sample Site ABG pH ABG pCO2 ABG pO2 ABG HCO3 ABG O2 Saturation ABG Base Excess Eric Test A-a O2 Gradient Hematocrit Hgb O2 Saturation Carboxyhemoglobin Methemoglobin Total Hemoglobin Ionized Calcium O2 Delivery Device O2 Liters/Min Teacher Dancing ID Sodium Potassium Chloride Carbon Dioxide Anion Gap BUN Creatinine GFR Calculation Glucose POC Glucose Calculated Osmolal ity Lactic Acid Lactic Acid (Sepsi s) Calcium Total Bilirubin AST ALT Alkaline Phosphata se Ammonia Troponin T Gen 5 n g/L C-Reactive Protein Total Protein Albumin Globulin Lipase Urine Color Urine Appearance Urine pH Ur Specific Gravit y Urine Protein Urine Glucose (UA) Urine Ketones Urine Blood Urine Nitrate Urine Bilirubin Urine Urobilinogen Ur Leukocyte La ase Urine Opiates Scre en Ur Barbiturates Sc reen Ur Phencyclidine S crn Ur Amphetamines Sc reen U Benzodiazepines Scrn Urine Cocaine Scre en U Marijuana (THC) Screen Serum Ketones Influenza Type A A g Influenza Type B A g Vitals: Last Vital Signs Temp 98.9 F 06/08/20 11:40 Pulse 92 06/08/20 11:40 Resp 18 06/08/20 11:40 BP 167/114 06/08/20 11:40 Pulse Ox 93 06/08/20 11:40 Discharge Plan Discharge Patient Disposition: Left Against Medical Advice Condition: Stable Prescriptions: No Action trazodone 150 mg tablet 150 mg PO BEDTIME Qty: 30 RF: 2 sertraline [Zoloft] 100 mg tablet 200 mg PO DAILY Qty: 60 RF: 2 zolpidem [Ambien] 10 mg tablet 10 mg PO BEDTIME Qty: 30 RF: 2 carvedilol 25 mg tablet 25 mg PO BID RF: 0 tizanidine 4 mg tablet 4 mg PO TID PRN (Reason: Spasms) RF: 0 clopidogrel 75 mg tablet 75 mg PO DAILY RF: 0 amlodipine [Norvasc] 5 mg tablet 5 mg PO DAILY RF: 0 hydrocodone-acetaminophen 10-325 mg tablet 1 tab PO Q4H PRN (Reason: Pain) RF: 0 pantoprazole 40 mg tablet,delayed release (DR/EC) 40 mg PO BID RF: 0 hydrochlorothiazide 12.5 mg capsule 12.5 mg PO DAILY RF: 0 insulin aspart U-100 [Novolog Flexpen U-100 Insulin] 100 unit/mL (3 mL) insulin pen See Rx Instructions .ROUTE .COMPLEX RF: 0 pregabalin [Lyrica] 150 mg capsule 150 mg PO TID RF: 0 Repatha SureClick 140 mg/mL pen injector 140 mg SUBCUT Q14D RF: 0 fluticasone propionate 50 mcg/actuation [place],Suspension 2 spray INTRANASAL DAILY RF: 0 sucralfate 1 gram Tablet 1 g PO QID PRN (Reason: unknown) RF: 0 promethazine 12.5 mg Tablet 12.5 mg PO Q6H RF: 0 nitroglycerin [Nitrostat] 0.4 mg Tablet, Sublingual 0.4 mg SUBLINGUAL Q5M PRN (Reason: Chest Pain) RF: 0 lactulose 10 gram/15 mL (15 mL) Solution 10 g PO BID PRN (Reason: Constipation) RF: 0 potassium chloride 20 mEq Tablet Extended Release 20 meq PO DAILY RF: 0 naloxone 4 mg/actuation [place],Non-Aerosol 1 spray INTRANASAL PRN RF: 0 polyethylene glycol 3350 [Miralax] 17 gram Powder In Packet 17 g PO DAILY PRN (Reason: Constipation) RF: 0 aspirin [Aspir-81] 81 mg Tablet,Delayed Release (Dr/Ec) 81 mg PO DAILY RF: 0 Lantus Solostar U-100 Insulin 100 unit/mL (3 mL) insulin pen 40 unit SUBCUT BID RF: 0 isosorbide mononitrate 30 mg tablet extended release 24 hr 60 mg PO BID Qty: 0 RF: 0 Mucinex DM 30-600 mg Tablet Extended Release 12 Hr 1 tab PO Q12H RF: 0 metronidazole 1 % Gel 1 applic TOPICAL DAILY RF: 0 alprazolam [Xanax] 0.5 mg tablet 0.5 mg PO BID PRN (Reason: anxiety) RF: 0 Referrals: Juno Brown [Primary Care Provider] - Discharge Date/Time: 06/08/20 11:00 Discharge Attestations Time Spent in Discharge Care*: other Status at Discharge: Cognitive status at discharge: cognitively intact , Behavioral status at discharge: cooperative , Quality Metrics Clinical Quality Measures During this hospital stay, did patient experience: None Coding Level of Care Code Acute Bag Presser for Shereeng Fwd Diagnoses Altered mental status R40.0 Altered mental status type: somnolence Malaise R53.81 Diabetic hyperosmolar non-ketotic state E11.00 Fever R50.9 Headache R51 Hematochezia K92.1 Ulcerative colitis K51.90
[2020-06-09 13:28] LABS: Coronavirus Lab Test PTC Negative
--- NOTE | 2020-06-09 13:36 | PC.SOCIAL ---
Notified patient of positive blood culture results 3 out of 3. She verbalized understanding and insists that she was not seen timely. We discussed that Dr Yousif saw her overnight and she left by 10am. The providers do not have time to see all patients by that time in the am. She verbalized understanding and asked so what is going to be done about these cultures? This nurse explained that is the reason for call to notify her since she left the Hospital she will need to follow up with her Provider of whom she confirms is Dr Brown. Called Dr Brown office to update and faxed results of current micro report. Final results are not in with sensitivities will send once available to Dr Brown. Confirmation of successful fax received. Notified Dr Brown office she would like them to call her to schedule appt. Notified Dr Bray of the above information.
--- NOTE | 2020-06-09 16:25 | PC.SOCIAL ---
Spoke with Dr Bray regarding Blood cultures being positive. She indicates patient really needs to return to hospital for IV abx treatment if she is willing. Explained this to patient. Updated her that she will need to be screened in ED by provider before going to floor. She verbalized understanding, We discussed that a time when she will be seen by provider on floor is not known but they will see her. She asked if will get her regular medicines for pain and DM. This nurse explained the provider will treat the chronic conditions but cant guarantee it will be the same dose as what she gets at home. She plans on returning somewhat reluctantly. Personnel Director Deanna notified she will update ED and Dr Bray uipdated.
== END 2020-06-08 11:00 | disposition left against medical advice (07) ==
LOC: ER 06-08 00:45 → MEDSURG 06-08 01:12
PROVIDERS: Admitting Provider Internal Medicine; Emergency Provider Physician Assistant; PCP Family Medicine; Visit Provider Student in an Organized Health Care Education/Training Program
DX: R40.0 Somnolence (principal); R53.81 Other malaise; E11.00 Type 2 diabetes mellitus with hyperosmolarity without nonketotic hyperglycemic-hyperosmolar coma (NKHHC); R50.9 Fever, unspecified; R51 Headache; K92.1 Melena; K51.90 Ulcerative colitis, unspecified, without complications; I25.10 Atherosclerotic heart disease of native coronary artery without angina pectoris; Z95.1 Presence of aortocoronary bypass graft; F41.9 Anxiety disorder, unspecified; F32.9 Major depressive disorder, single episode, unspecified; Z79.4 Long term (current) use of insulin; Z79.82 Long term (current) use of aspirin; Z87.891 Personal history of nicotine dependence
CPT/HCPCS: 12345; 36415; 36416; 36600; 51702; 70450; 71045; 73522; 73523; 80051; 80053; 80306; 81003; 82009; 82140; 82810; 82962; 83605; 83690; 83986; 84484; 85025; 85651; 86140; 87040; 87077; 87186; 87205; 87635; 87804; 93005; 96361; 96365; 96366; 96372; 96374; 96375; 99284; 99285; G0378; J1815 ×2; J2310; J2405; J7030; J7050

== ENCOUNTER 2020-06-09 17:12 | Inpatient (IN) | payer MEDICAID, SELFPAY ==
[2020-06-09 17:16] VITALS: BP 159/89; PULSE 100; RESP 16; TEMP 36.6; O2SAT 95; BMI 28.0
--- NOTE | 2020-06-09 17:28 | W.ED.GENADLT ---
HPI - General Adult General: Chief complaint: General Medical Stated complaint: infection in blood Time Seen by Provider: 06/09/20 17:28 History of Present Illness: HPI narrative: Patient was instructed to come to the emergency room if she'll be a direct admit to the hospital for bacteremia. Review of Systems General: Reports: Other [facility] ED PFSH: Medical History Coronary artery disease Depression with anxiety Generalized anxiety disorder GERD (gastroesophageal reflux disease) Hypertension Hypertriglyceridemia Insulin dependent diabetes mellitus Irritable bowel syndrome Pancreatitis Post-traumatic stress disorder, chronic Ulcerative colitis Surgical History H/O tubal ligation H/O: hysterectomy History of carpal tunnel surgery Hx of tonsillectomy S/P CABG x 4 S/P coronary artery stent placement Family History Mother Dementia Father CAD (coronary artery disease) Other IBD (inflammatory bowel disease) Social History Smoking and tobacco status: former smoker Alcohol intake: never Lives independently: Yes Household members: significant other Marital status: Life Partner Current occupational status: disabled Course Vital Signs: Vital signs: Vital Signs Temperature 97.9 F 06/09/20 17:16 Pulse Rate 100 06/09/20 17:16 Respiratory Rate 16 06/09/20 17:16 Blood Pressure 159/89 06/09/20 17:16 Pulse Oximetry 95 06/09/20 17:16 Discharge Plan Discharge Patient Disposition: Admitted As Inpatient Clinical Impression: Bacteremia Condition: Stable Referrals: Juno Brown [Primary Care Provider] - Coding Level of Care Code ED Printed Circuit Designer for Shant Marroquin
[2020-06-09 18:08] VITALS: PULSE 60; RESP 18; O2SAT 98
[2020-06-09 18:15] VITALS: BP 122/77; PULSE 79; RESP 18; TEMP 36.8; O2SAT 95
[2020-06-09 18:31] VITALS: BP 122/77; PULSE 79; RESP 18; TEMP 36.8; O2SAT 95
[2020-06-09 19:28] VITALS: BMI 28.8
[2020-06-09 19:50] LABS: Basophils % 0.5 %; Eosinophils # 0.1 10^3/uL (0.0-0.8); Eosinophils % 0.8 %; Hemoglobin 12.1 g/dL (11.5-15.3); Lymphocytes % 47.7 %; Mean Corpuscular HGB Conc 30.3 g/dL (30.0-36.0); Mean Corpuscular Hemoglobin 26.2 pg (28.0-34.0); Mean Corpuscular Volume 86.8 fL (81-99); Mean Platelet Volume 11.6 fL (7.4-10.4); Monocytes # 0.5 10^3/uL (0.2-0.9); Monocytes % 7.6 %; Neutrophils # 2.72 10^3/uL (1.8-7.7); Neutrophils % 43.2 %; Nucleated Red Blood Cells % 0 %; Platelet Count 167 10^3/cmm (130-400); Red Blood Count 4.61 10^6/uL (4.1-5.3); Red Cell Distribution Width 14.4 % (12.1-15.1); White Blood Count 6.3 10^3/uL (4.0-10.0)
[2020-06-09 20:00] VITALS: BP 152/89; PULSE 83; RESP 18; TEMP 36.2; O2SAT 94
[2020-06-09 20:31] LABS: Alanine Aminotransferase 10 U/L (0-33); Albumin Level 3.8 g/dL (3.5-5.2); Alkaline Phosphatase 171 IU/L (35-105); Anion Gap 22.9 (5-19); Aspartate Amino Transferase 11 U/L (0-32); Blood Urea Nitrogen 4 mg/dL (6-20); Calcium 8.8 mg/dL (8.5-10.5); Carbon Dioxide 17 mmol/L (22-29); Chloride 90 mmol/L (98-107); Glomerular Filtration Rate 86.9 mL/min (90-130); Osmolality Calculated 294 mOsm/kg (285-295); Sodium 127 mmol/L (136-145); Total Bilirubin 0.2 mg/dL (0.15-1.2); Total Protein 6.8 g/dL (6.6-8.7)
[2020-06-09 20:40] LABS: Glucose 720 mg/dL (65-115)
[2020-06-09 20:42] LABS: Potassium 2.9 mmol/L (3.5-5.1)
[2020-06-09 21:08] LABS: Glucose Point of Care > 600 mg/dL (70-110)
[2020-06-09 21:08] LABS: Glucose Point of Care > 600 mg/dL (70-110)
[2020-06-09] MEDS: HYDROcodone-acetaminophen 10-325 mg Tablet 1 TAB PO (21:10)
[2020-06-09] MEDS: ALPRAZolam 0.5 mg Tablet PO (21:10)
[2020-06-09] MEDS: enoxaparin 40 mg/0.4 mL Syringe SUBCUT (21:10)
[2020-06-09] MEDS: trazodone 150 mg Tablet PO (21:11)
[2020-06-09] MEDS: pregabalin 150 mg Capsule PO (21:11)
--- NOTE | 2020-06-09 21:59 | PM.HP ---
Providers/Chief Complaint Admitting Physician: Valery Bray MD Primary Care Provider: Juno Brown Chief Complaint: infection in blood History of Present Illness Collette Kothari is a 55 year old pleasant lady who returned to the hospital after being told of positive blood cultures after recent hospitalization, drawn on 06/07, with 3 bottles in 2 sets positive for gram-positive cocci in clusters. Previously with reports of spiking fever up to 101, however, not noted in the hospital, overall has not been feeling well, has been having persistent/recurrent back pain, today also complains of some pressure in her chest which has returned similar to previous, centrally, not modified by breathing or movement. Reports that sometime ago had very severe headache on the left side, although it was transient, it was so severe she was concerned whether or not she was having a stroke. Reports also that on Saturday she fell down on her knees, scraped up the knees and they have been burning since, and bothering her due to pain. Denies any additional change apart from this in the last day after discharge. Review of Systems Const: Reports: fever(s) (Is reported during prior admit, although not seen in the hospital), malaise and other (Headache, but is not bothered by light, no neck stiffness); Denies: chills or body aches Eyes: Denies: change in vision or eye redness ENMT: Denies: throat pain, oral sores or ear or mastoid pain Card: Denies: chest pain, edema, pre-syncope or dyspnea on exertion Resp: Denies: dyspnea, productive cough, change in phlegm color or hemoptysis GI: Reports: abdominal pain, nausea and diarrhea (Reported 2 days ago); Denies: vomiting, constipation, hematochezia or melena : Denies: flank pain, urinary frequency or hematuria Musc: Reports: back pain and other (Bilateral knee pain after falling on Saturday); Denies: joint redness Skin/Breast: Denies: rash, sores or new lesions Neuro: Denies: headache(s), numbness in extremities, weakness in extremities, dizziness, confusion or seizure-like activity Endo: Denies: polyuria or polydipsia Danish/Lymph: Denies: easy bleeding or purpura All/Imm: Denies: urticaria, throat swelling or tongue swelling Medications/Allergies Home Medications Medication Instructions Recorded Confirmed Last Taken Type Repatha SureClick 140 mg SUBCUT Q14D 01/04/20 06/09/20 05/26/20 History amlodipine [Norvasc] 5 mg PO DAILY 01/04/20 06/09/20 06/09/20 History carvedilol 25 mg PO BID 01/04/20 06/09/20 06/09/20 History clopidogrel 75 mg PO DAILY 01/04/20 06/09/20 06/09/20 History hydrochlorothiazide 12.5 mg PO DAILY 01/04/20 06/09/20 06/08/20 History hydrocodone-acetaminophen 1 tab PO Q4H PRN 01/04/20 06/09/20 06/09/20 14:00 History insulin aspart U-100 [Novolog See Rx Instructions .ROUTE .COMPLEX 01/04/20 06/09/20 06/08/20 History Flexpen U-100 Insulin] pantoprazole 40 mg PO BID 01/04/20 06/09/20 06/09/20 History pregabalin [Lyrica] 150 mg PO TID 01/04/20 06/09/20 06/09/20 07:00 History tizanidine 4 mg PO TID PRN 01/04/20 06/09/20 06/08/20 History fluticasone propionate 2 spray INTRANASAL DAILY PRN 02/29/20 06/09/20 1 Day Ago History ~06/07/20 lactulose 10 g PO BID PRN 02/29/20 06/09/20 1 Week Ago History ~06/01/20 naloxone 1 spray INTRANASAL PRN 02/29/20 06/09/20 1 Day Ago History ~02/28/20 nitroglycerin [Nitrostat] 0.4 mg SUBLINGUAL Q5M PRN 02/29/20 06/09/20 1 Day Ago History ~06/07/20 potassium chloride 20 meq PO DAILY 02/29/20 06/09/20 06/08/20 History promethazine 25 mg PO Q6H PRN 02/29/20 06/09/20 06/09/20 History sucralfate 1 g PO QID PRN 02/29/20 06/09/20 06/09/20 History Lantus Solostar U-100 Insulin 40 unit SUBCUT BID 03/30/20 06/09/20 06/09/20 History aspirin [Aspir-81] 81 mg PO QPM 03/30/20 06/09/20 06/08/20 History polyethylene glycol 3350 [Miralax] 17 g PO DAILY PRN 03/30/20 06/09/20 1 Day Ago History ~06/07/20 sertraline 100 mg tablet 200 mg PO DAILY #60 tab 04/04/20 06/09/20 06/08/20 Rx trazodone 150 mg tablet 150 mg PO BEDTIME #30 tab 04/04/20 06/09/20 06/08/20 Rx zolpidem 10 mg tablet 10 mg PO BEDTIME #30 tab 04/04/20 06/09/20 06/08/20 Rx alprazolam [Xanax] See Rx Instructions .ROUTE 05/26/20 06/09/20 06/09/20 07:00 History .COMPLEX PRN dextromethorphan-guaifenesin 1 tab PO Q12H 05/26/20 06/09/20 06/08/20 History [Mucinex DM] metronidazole 1 applic TOPICAL DAILY PRN 05/26/20 06/09/20 1 Day Ago History ~06/07/20 cguhvmy-ggqlgijyhqgav-hhzpzvno 1 tab PO PRN 06/09/20 06/09/20 06/09/20 History [Excedrin Migraine] cephalexin [Keflex] 500 mg PO TID 06/09/20 06/09/20 06/09/20 History gemfibrozil [Lopid] 600 mg PO DAILY 06/09/20 06/09/20 06/08/20 History icosapent ethyl [Vascepa] 2 g PO BID 06/09/20 06/09/20 06/09/20 History isosorbide mononitrate 30 mg PO BID 06/09/20 06/09/20 Unknown History Allergies Allergy/AdvReac Type Severity Reaction Status Date / Time SCOTT Inhibitors Allergy Unknown Verified 06/09/20 17:22 acetaminophen Allergy ADR-Nausea Verified 06/09/20 17:22 [From Darvocet-N] amitriptyline Allergy ALGY-Difficulty Verified 06/09/20 17:22 Breathing atorvastatin [From Lipitor] Allergy ADR-Nausea Verified 06/09/20 17:22 ciprofloxacin [From Cipro] Allergy ALGY-Hives Verified 06/09/20 17:22 doxycycline Allergy Unknown Verified 06/09/20 17:22 empagliflozin Allergy Unknown Verified 06/09/20 17:22 [From Jardiance] escitalopram [From Lexapro] Allergy Unknown Verified 06/09/20 17:22 ezetimibe [From Zetia] Allergy Unknown Verified 06/09/20 17:22 furosemide [From Lasix] Allergy ALGY-Rash Verified 06/09/20 17:22 ketorolac [From Toradol] Allergy Unknown Verified 06/09/20 17:22 lisinopril Allergy Unknown Verified 06/09/20 17:22 morphine Allergy ALGY-Rash Verified 06/09/20 17:22 nalbuphine [From Nubain] Allergy Unknown Verified 06/09/20 17:22 naproxen Allergy Unknown Verified 06/09/20 17:22 nortriptyline Allergy Unknown Verified 06/09/20 17:22 pravastatin Allergy Unknown Verified 06/09/20 17:22 prochlorperazine Allergy ALGY-Difficulty Verified 06/09/20 17:22 [From Compazine] Breathing propoxyphene Allergy ADR-Nausea Verified 06/09/20 17:22 [From Darvocet-N] ranolazine [From Ranexa] Allergy Unknown Verified 06/09/20 17:22 rosuvastatin [From Crestor] Allergy Unknown Verified 06/09/20 17:22 simvastatin Allergy Unknown Verified 06/09/20 17:22 sulfamethoxazole Allergy ALGY-Hives Verified 06/09/20 17:22 [From Bactrim] sumatriptan [From Imitrex] Allergy Unknown Verified 06/09/20 17:22 trimethoprim [From Bactrim] Allergy ALGY-Hives Verified 06/09/20 17:22 PFSH Acute PFSH: Medical History Coronary artery disease Depression with anxiety Generalized anxiety disorder GERD (gastroesophageal reflux disease) Hypertension Hypertriglyceridemia Insulin dependent diabetes mellitus Irritable bowel syndrome Pancreatitis Post-traumatic stress disorder, chronic Ulcerative colitis Surgical History H/O tubal ligation H/O: hysterectomy History of carpal tunnel surgery Hx of tonsillectomy S/P CABG x 4 S/P coronary artery stent placement Family History Mother Dementia Father CAD (coronary artery disease) Other IBD (inflammatory bowel disease) Social History Smoking and tobacco status: former smoker Alcohol intake: never Lives independently: Yes Household members: significant other Marital status: Life Partner Current occupational status: disabled Vitals/I&O/Wt Last Vital Signs Temp 97.1 F L 06/09/20 20:00 Pulse 83 06/09/20 20:00 Resp 18 06/09/20 20:00 BP 152/89 06/09/20 20:00 Pulse Ox 94 06/09/20 20:00 Weight last 48 hrs Weight 88.479 kg Weight 86.183 kg Physical Exam Const: COMMON NORMALS: no acute distress and patient oriented x3 GENERAL APPEARANCE: anxious NUTRITIONAL APPEARANCE: overweight HENMT: COMMON NORMALS: oropharynx normal Neck/C-Spine: COMMON NORMALS: no JVD Resp: COMMON NORMALS: normal respiratory effort and clear to auscultation bilaterally AUSCULTATION: clear to auscultation bilaterally Cardio: COMMON NORMALS: no JVD, regular rhythm, S1 normal heart sound present, S2 normal heart sound present and No murmurs present (Cardio) RHYTHM: regular rhythm HEART SOUNDS: S1 normal heart sound present and S2 normal heart sound present GI: COMMON NORMALS: Normal to inspection, nondistended, normoactive bowel sounds present, Soft to palpation and non-tender PALPATION: Yes Soft to palpation Extremity: COMMON NORMALS: no joint enlargement and no pedal edema OTHER: There are mild abrasions on both knees, healing well. No erythema or discharge. There is some mild swelling of the right knee, tracking down the right leg. She reports she previous had a bruise on lateral right foot, but I am not seeing this currently. Neuro: COMMON NORMALS: patient oriented x3 and moves all extremities Skin: COMMON NORMALS: no rashes or lesions noted GENERAL SKIN EXAM: no rashes or lesions noted Data : 06/09/20 19:36 06/09/20 19:36 Micro: Microbiology 06/09/20 19:40 Blood Culture - Preliminary Blood SPECIMEN COLLECTED 06/09/20 19:36 Blood Culture - Preliminary Blood SPECIMEN COLLECTED A&P Assessment and plan (1) Bacteremia: Gram-positive bacteremia, 3/3 bottles gram-positive cocci. Back in February had 2/4 bottles positive for staph hominis. At that time was afebrile, no obvious risk of infection, CT of the back was obtained, did not show obvious osteomyelitis or discitis, although it was noncontrast study. On prior admission she was complaining of fever 101 at home, although this was not noted during the hospitalization. She has a number of complaints, including malaise, on prior admission was complaining of headache, and reports several days ago had a headache which was pretty severe on the left side she was concerned about having a stroke, although has not had any focal neurologic deficits that are noted here or during prior admission. She also complains of chronic lower back pain. Today also is having some chest pressure/pain for which she declines nitroglycerin she states it never works for her, and requests for 2 mg IV Dilaudid instead. She does report that she fell on Saturday, scraping her knees, and has been having some burning sensation and pain in both knees since then. There is some swelling of the right knee, and this is tracking down the right leg. I do not see any erythema. Mild abrasions on both knees appear to be healing very well. She is moving and bending the knee herself. She reports previously having some bruising on the lateral right foot after the fall, however, this is currently not present or is very faint and not observed. The knee itself appears to perhaps have some effusion, although I do not feel that it is significantly warmer than the rest of the extremity. Will assess this by venous ultrasound to rule out DVT, but given bacteremia, and swelling, knee joint aspiration is requested for first thing in the morning. During last hospitalization she was also complaining of diarrhea, nausea, and has reported ulcerative colitis history. He has been following with GI, although has not seen them recently. Monitor further for any recurrence of diarrhea. Doubt this should contribute to cause bacteremia. At this time blood culture has been repeated. She is started on vancomycin. In addition to evaluation of the knee joint, evaluation for possible DVT, will also request for additional evaluation of her heart, will start with limited TTE to assess for any vegetation or perivalvular abscess, although may require MEGAN. She is currently afebrile. She does not have any headache right now. Previously with headache, and with bacteremia, will test by MRI. Currently no meningeal signs. For now hold off on LP unless these develop, or there appear other signs of central nervous system infection. Due to chronic back pain, bacteremia will assess MR thoracic and lumbar spine to exclude discitis or OM. Other evaluation for possible source of bacteremia may be undertaken depending on findings and clinical course. Status: Acute (2) Hyperglycemia: Severe hyperglycemia, sugars 120. She says that when she is in pain her sugar goes very high. She says that she had taken her at home. Sliding scale insulin was started, We will also restart her insulin Lantus 40 units twice daily. Consistent carbohydrate diet. Blood sugar currently improved down to 552. Status: Acute Additional A&P Information Bilateral knee pain: After fall on Saturday. As above. There is some swelling of the right knee, greater compared to the left, some effusion is noted. No redness. Extremities warm, however, I cannot see that the knee is warmer than the rest. Some swelling tracking down the right leg. She is able to move her leg and bend the knee joint. Headache: Currently without headache. Monitor for any recurrence. Follow-up MRI of the brain as above. Recent reported fever: Please see last admission for details. Has been afebrile during the day of hospitalization, however, ended up leaving AGAINST MEDICAL ADVICE. Currently afebrile on return to the hospital for noted bacteremia. Please see above for assessment plan. Diarrhea: With history of UC. Reported diarrhea during prior admission. Currently is not complaining of this. Monitor for now. Please see last admission. Chest pressure: Reports chest pressure/pain. Without specific trigger. Reports has been having this on and off. Nitroglycerin was ordered and offered to her, however, she declines, request instead 40 mg of Dilaudid. In addition to the ongoing issues above, she does take chronic pain medication, and her last admission was found with acute encephalopathy by her family, with concern of overuse of opiate medications. At this time given concerns of pain, Dilaudid is ordered for her at reduced dose of 1 mg, however, this will need to be monitored closely, and discontinued at any sign of encephalopathy. Given otherwise risk factors for coronary disease, will assess troponin EKG series to rule out acute myocardial infarction. Chest pain is atypical, and for now we will hold off on aspirin given she requires additional mastication including joint aspiration, however, will start in case there is any indication of non-STEMI. Recent reported hematochezia Recurrent pancreatitis: Reports several days ago had some episodes of nausea, vomiting, however, not at this time. Monitor. No abdominal pain on examination currently. Ulcerative colitis Diabetes Generalized anxiety GERD CAD HTN HLD Please review and assess other chronic issues. Her condition, laboratory findings, as well as assessment and plan discussed with her in detail, she verbalized understanding with regards to her need for additional investigations, and is in agreement with plan of evaluation and treatment. All questions answered to her satisfaction. Attestations Medical Necessity Statement*: Admission of over 2 midnights is going to be needed for assessment of management of gram-positive bacteremia of unknown source, and other problems as outlined above. Coding Level of Care Code Acute Help Desk Engineer for g Fwd Exam Comprehensive Diagnoses Bacteremia R78.81 Hyperglycemia R73.9
[2020-06-09 22:00] LABS: Glucose Point of Care 552 mg/dL (70-110)
--- NOTE | 2020-06-09 22:06 | USCV_ITS ---
Collette Kothari Age: 55 Gender: F : 1965 Exam Date: 06/10/2020 07:19 Ordering Phys: Eric Yousif MD Technologist: Dena Genao Exam Location: [facility] [place] Indication: CHECK VALVES BP: / HR: 78 Rhythm: Sinus Technical Quality: Adequate MEASUREMENTS (Male / Female) Normal Values M-MODE LV Diastolic Diameter MM 4.9 cm 4.2 - 5.9 / 3.9 - 5.3 cm LV Systolic Diameter MM 2.9 cm LV Ejection Fraction MM Teich 71.7 % IVS Diastolic Thickness MM 0.9 cm 0.6 - 1.0 / 0.6 - 0.9 cm IVS Systolic Thickness MM 1.2 cm LVPW Diastolic Thickness MM 0.7 cm 0.6 - 1.0 / 0.6 - 0.9 cm LVPW Systolic Thickness MM 1.1 cm FINDINGS Left Ventricle Normal left ventricular size and systolic function, EF 70%.no regional wall motion abnormalities. Right Ventricle Possibly of normal size Right Atrium Possibly of normal size Left Atrium Possibly of normal size Mitral Valve No gross abnormalities noted. Aortic Valve No gross abnormalities noted Tricuspid Valve No gross abnormalities noted Pulmonic Valve No gross abnormalities noted Pericardium No pericardial effusion. Aorta Normal aortic annulus size. CONCLUSIONS No gross valvular abnormalities noted, based on the 2D examination-no Doppler examination were performed to look for insufficiency or stenosis. No obvious stenosis was noted. No obvious masses or vegetations. The tricuspid the pulmonic valves were not well visualized The left ventricle appeared to be normal size and ejection fraction of around 70%. There is no pericardial effusion. Compared to the previous study from 03/04/2020, there is no significant change in the 2D findings. Consider MEGAN, to better evaluate the valves, if clinically indicated Dr Jitendra Ryder MD FACC (Electronically Signed) Final Date: 10 June 2020 10:15 S
--- NOTE | 2020-06-09 22:23 | PC.NURSE ---
Pt rates chest pain 07/04, reported to doctor, order for nitro received, offered nitro to Pt, Pt declined, states that nitro doesn't usually work for me so I would rather just have pain medication.
[2020-06-09 22:54] VITALS: RESP 18; O2SAT 93
[2020-06-09] MEDS: HYDROmorphone 1 mg/mL INJ 1 mL IVP (22:54)
[2020-06-09] MEDS: promethazine 25 mg Tablet PO (22:55)
[2020-06-09] MEDS: sucralfate 1 gm Tablet PO (22:55)
[2020-06-09 23:14] LABS: Troponin(5th) Baseline 12 ng/L (0-10)
[2020-06-09] MEDS: potassium chloride premix 40 MEQ/100 ML PREMIX 25 MEQ IV (23:27)
[2020-06-09] MEDS: lidocaine 1% INJ 20 mL 5 ML IV (23:28)
[2020-06-09] MEDS: insulin glargine 100 units/1 mL 40 UNIT SUBCUT (23:47)
--- NOTE | 2020-06-09 23:51 | PC.NURSE ---
Pt complained of potassium burning after putting lidocaine in the bag. Reported this to charge nurse and she turned it down to 20mL/hr.
[2020-06-10] VITALS (11 sets, daily range): BP systolic 101–134; BP diastolic 63–90; PULSE 78–96; RESP 16–22; TEMP 36.4–37; O2SAT 93–97
--- NOTE | 2020-06-10 00:12 | ECG_ITS ---
[facility] Test Date: 2020-06-10 Pat Name: Collette Kothari Department: Room: 264 Gender: Female Regional Trainer: : 1965 Requested By: Eric Yousif Order Number: [id number] Stacey MD: Jitendra Ryder M.D. Measurements Intervals [place] Rate: 90 P: 29 NE: 168 QRS: -11 QRSD: 100 T: 71 QT: 356 QTc: 437 Interpretive Statements SINUS RHYTHM WITH OCCASIONAL VENTRICULAR PREMATURE COMPLEXES POSSIBLE ANTERIOR MYOCARDIAL INFARCTION [30 ms Q WAVE IN V3/V4, OR R < 0.2 mV IN V4], PROBABLY OLD Nonspecific T wave changes Compared to ECG 06/08/2020 04:00:50 Ventricular premature complex(es) now present Myocardial infarct finding now present Electronically Signed On 06-10-2020 23:44:46 CDT by Jitendra Ryder M.D. [id number]
[2020-06-10 00:56] LABS: Troponin 5 2HR 11.87 ng/L (0-10)
[2020-06-10 01:04] LABS: Troponin 5 2HR Delta -0.13 ABS# (0-10)
[2020-06-10 01:09] LABS: Glucose Point of Care 188 mg/dL (70-110)
[2020-06-10] MEDS: HYDROcodone-acetaminophen 10-325 mg Tablet 1 TAB PO ×5 (01:16→21:15)
--- NOTE | 2020-06-10 04:12 | ECG_ITS ---
[facility] Test Date: 2020-06-10 Pat Name: Collette Kothari Department: Room: 264 Gender: Female Activities Volunteer: : 1965 Requested By: Eric Yousif Order Number: [id number] Stacey MD: Jitendra Ryder M.D. Measurements Intervals [place] Rate: 79 P: 43 NM: 178 QRS: -9 QRSD: 93 T: 39 QT: 364 QTc: 420 Interpretive Statements SINUS RHYTHM Poor R wave progression compared to ECG 06/10/2020 00:41:39 Ventricular premature complex(es) no longer present Myocardial infarct finding still present Electronically Signed On 06-10-2020 23:45:59 CDT by Jitendra Ryder M.D. [id number]
[2020-06-10] MEDS: HYDROmorphone 1 mg/mL INJ 1 mL IVP ×2 (05:58→13:08)
[2020-06-10 06:55] LABS: Glucose Point of Care 298 mg/dL (70-110)
[2020-06-10] MEDS: insulin glargine 100 units/1 mL 40 UNIT SUBCUT ×2 (08:15→17:11)
[2020-06-10] MEDS: carvedilol 25 mg Tablet PO ×2 (08:16→17:11)
[2020-06-10] MEDS: amlodipine 5 mg Tablet PO (08:16)
[2020-06-10] MEDS: clopidogrel 75 mg Tablet PO (08:16)
[2020-06-10] MEDS: hydroCHLOROthiazide 25 mg Tablet 12.5 MG PO (08:16)
[2020-06-10] MEDS: pregabalin 150 mg Capsule PO ×3 (08:16→21:10)
[2020-06-10] MEDS: omega-3 fatty acids 1,000 mg Capsule 2000 MG PO ×2 (08:16→17:10)
[2020-06-10] MEDS: isosorbide mononitrate ER 30 mg Tablet PO ×2 (08:16→17:11)
[2020-06-10] MEDS: pantoprazole DR 40 mg Tablet PO ×2 (08:16→17:11)
[2020-06-10] MEDS: sertraline 100 mg Tablet 200 MG PO (08:16)
[2020-06-10] MEDS: gemfibrozil 600 mg Tablet PO (08:17)
[2020-06-10] MEDS: ALPRAZolam 0.5 mg Tablet PO ×2 (08:22→21:19)
--- NOTE | 2020-06-10 10:17 | PC.CHAP ---
Pastoral Care Encounter/Spiritual Assessment Type of Contact [] Declined glass ribbon machine operator assistant visit [] Patient/Family/Request visit [] Outpatient visit [] Follow-up visit [] Physician referral [] Code/Alert [x] Routine visit [] Staff referral [] Actively dying [] Patient sleeping [] Family support [] [] Out of room [] Palliative care [] [] Receiving care in room [] Pre-surgical visit [] Trauma [] Long length of stay [] ICU visit [] Other: Relational/Emotional Strength [] Patient feels connected with others/family/visitors/staff [] Distress [] Loneliness/isolation [] Abandonment Spirituality of Patient [] Person of Ashlee [] Attends Taoism of their Ashlee [] Believes in Prayer [] Reads Bible or Spiritism materials [] There are Spiritual issues to be addressed Land Department Head Interventions [x] Prayer [x] Active listening [x] Non-anxious presence [x] Spiritual/emotional support [] Crisis/trauma care [] Spiritual counseling [] Bereavement support [] Provided bereavement packet [] Provided Bible/devotional materials [] Provided toy/stuffed animal, coloring book to patient or family member [] Provided Communion [] Anointing/[place] [] Salvation [x] Completed spiritual assessment [] Other: Impact on Illness or Injury [] Angry [] Fearful [] Anxious [] Often cries [] Exhaustion [] Unable to work [] Unable to attend christianity [] Unable to walk/stand [] Unable to read [] Unable to drive [] Unable to eat/drink [] Unable to sleep [] Unable to be with family [] Patient intubated [] Other: Summary Patient trying to rest, having difficulty with patient in next room not resting well. Feeling somewhat better Time spent with patient 10 min
--- NOTE | 2020-06-10 12:21 | P.PN_ITS ---
Subjective Subjective: Interval history: No new complaints today. Continues to complain of some tenderness over the right knee joint, however there is no gross swelling that is noted at this present time. Range of motion appears to be intact at this joint. We will go ahead and obtain CT imaging. She was originally planned for a joint aspiration under IR, however no gross swelling is noticeable at this present time. 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 Back in February had 2/4 bottles positive for staph hominis. At that time was afebrile, no obvious risk of infection, CT of the back was obtained, did not show obvious osteomyelitis or discitis, although it was noncontrast study. She has a number of complaints, including malaise, on prior admission was complaining of headache, and reports several days ago had a headache which was pretty severe on the left side she was concerned about having a stroke, although has not had any focal neurologic deficits that are noted here or during prior admission. She does report that she fell on Saturday, scraping her knees, and has been having some burning sensation and pain in both knees since then. There is some swelling of the right knee that was noted overnight, however but this morning this appears to have completely resolved. Mild abrasions on both knees appear to be healing very well. She is moving and bending the knee herself. She reports previously having some bruising on the lateral right foot after the fall, however, this is currently not present or is very faint and not observed. Will assess this by venous ultrasound to rule out DVT, but given bacteremia, and swelling, knee joint aspiration is requested for first thing in the morning. During last hospitalization she was also complaining of diarrhea, nausea, and has reported ulcerative colitis history. He has been following with GI, although has not seen them recently. Monitor further for any recurrence of diarrhea. Doubt this should contribute to cause bacteremia. At this time blood culture has been repeated. She is started on vancomycin. In addition to evaluation of the knee joint, evaluation for possible DVT, will also request for additional evaluation of her heart, will start with limited TTE to assess for any vegetation or perivalvular abscess, although may require MEGAN. She is currently afebrile. Other evaluation for possible source of bacteremia may be undertaken depending on findings and clinical course. Status: Acute (2) Hyperglycemia: Severe hyperglycemia, sugars 120. She says that when she is in pain her sugar goes very high. She says that she had taken her at home. Sliding scale insulin was started, We will also restart her insulin Lantus 40 un its twice daily. Consistent carbohydrate diet. Blood sugar currently improved down to 552. Status: Acute Additional A&P Information Recent reported fever: Please see last admission for details. Has been afebrile during the day of hospitalization, however, ended up leaving AGAINST MEDICAL ADVICE. Currently afebrile on return to the hospital for noted bacteremia. Please see above for assessment plan. Diarrhea: Currently resolved. With history of UC. Reported diarrhea during prior admission. Currently is not complaining of this. Monitor for now. Please see last admission. Chest pressure: Reports chest pressure/pain. Without specific trigger. Reports has been having this on and off. Nitroglycerin was ordered and offered to her, however, she declines, request instead 40 mg of Dilaudid. In addition to the ongoing issues above, she does take chronic pain medication, and her last admission was found with acute encephalopathy by her family, with concern of overuse of opiate medications. At this time given concerns of pain, Dilaudid is ordered for her at reduced dose of 1 mg, however, this will need to be monitored closely, and discontinued at any sign of encephalopathy. . Recent reported hematochezia Recurrent pancreatitis: Reports several days ago had some episodes of nausea, vomiting, however, not at this time. Monitor. No abdominal pain on examination currently. Ulcerative colitis Diabetes Generalized anxiety GERD CAD HTN HLD Please review and assess other chronic issues. Her condition, laboratory findings, as well as assessment and plan discussed with her in detail, she verbalized understanding with regards to her need for additional investigations, and is in agreement with plan of evaluation and treatment. All questions answered to her satisfaction. Attestations Medical Necessity Statement*: Ongoing evaluation of recurrent coag negative staph bacteremia Coding Level of Care Code Acute Metal Filer for Chg Fwd Diagnoses Bacteremia R78.81 Hyperglycemia R73.9
[2020-06-10 12:35] LABS: Glucose Point of Care 240 mg/dL (70-110)
[2020-06-10] MEDS: promethazine 25 mg Tablet PO (13:18)
[2020-06-10 16:35] LABS: Glucose Point of Care 185 mg/dL (70-110)
--- NOTE | 2020-06-10 16:45 | CTR_ITS ---
PROCEDURE INFORMATION: Exam: CT Right Lower Extremity Without Contrast, Knee Exam date and time: 06/10/2020 7:30 PM Age: 55 years old Clinical indication: Pain and injury or trauma; Fall; Follow-up exam; Laceration; Patella or knee; Right; Foreign body involvement not specified; Bilateral; Additional info: Evalute for joint swelling/effusion TECHNIQUE: Imaging protocol: CT of the Right lower extremity without contrast was performed. Exam focused on the knee. Radiation optimization: All CT scans at this facility use at least one of these dose optimization techniques: automated exposure control; mA and/or kV adjustment per patient size (includes targeted exams where dose is matched to clinical indication); or iterative reconstruction. COMPARISON: US SoftTissue/Extrem Lmt [id number] 01/22/2018 2:11 PM RADIATION DOSE METRICS: Total DLP (mGy-cm): 166.93 FINDINGS: Bones/joints: There is no acute fracture. No periosteal reaction, bony destruction or osteomyelitis. No knee joint effusion. There are mild degenerative changes in the knee. Soft tissues: There is thickening of the skin surface and induration of the subcutaneous fat superficial the patella, patellar tendon and distal quadriceps tendon compatible with cellulitis or contusion. No fluid collection or abscess. The muscles are appropriate in density. No intramuscular fluid collection. No foreign body adjacent to the patella or patellar tendon. There are superficial skin gonzalo along the medial aspect of the leg. No gas in the soft tissues or muscles or knee joint. Other findings: . CT/CT knee RT wo con* [id number] IMPRESSION: 1. There is thickening of the skin surface and induration of the subcutaneous fat superficial the patella, patellar tendon and distal quadriceps tendon compatible with cellulitis or contusion. No abscess. No joint effusion. No gas in the soft tissues. 2. No bony abnormality. No fracture or osteomyelitis. Radiation Dose CTDIVOL = (mGy): DLP = 166.93 (mGy-cm)
[2020-06-10 17:20] LABS: Troponin 5 6HR Delta 69.5 ng/L (0-12)
[2020-06-10 19:39] LABS: Alanine Aminotransferase 21 U/L (0-33); Albumin Level 3.7 g/dL (3.5-5.2); Alkaline Phosphatase 137 IU/L (35-105); Aspartate Amino Transferase 110 U/L (0-32); Blood Urea Nitrogen 17 mg/dL (6-20); Calcium 7.3 mg/dL (8.5-10.5); Carbon Dioxide 12 mmol/L (22-29); Chloride 101 mmol/L (98-107); Globulin 2.1 g/dL (1.3-4.6); Glomerular Filtration Rate 42.5 mL/min (90-130); Glucose 73 mg/dL (65-115); Osmolality Calculated 269 mOsm/kg (285-295); Sodium 132 mmol/L (136-145); Total Bilirubin 2.7 mg/dL (0.15-1.2); Total Protein 5.8 g/dL (6.6-8.7)
[2020-06-10 19:52] LABS: Anion Gap 24.4 (5-19); Potassium 5.4 mmol/L (3.5-5.1)
--- NOTE | 2020-06-10 20:54 | ECG_ITS ---
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 Measurements Intervals [place] Rate: 80 P: 54 MI: 171 QRS: 18 QRSD: 102 T: 65 QT: 370 QTc: 429 Interpretive Statements SINUS RHYTHM NONSPECIFIC T-WAVE ABNORMALITY Compared to ECG 06/10/2020 04:45:55 T-wave abnormality now present Poor R-wave progression no longer present Electronically Signed On 06-11-2020 22:49:48 CDT by Kianna Aguilera M.D. [email or web address] for women and infantsShotfarmsouthern [facility]io [email or web address] Market/store/NU/[id number] f
[2020-06-10] MEDS: trazodone 150 mg Tablet PO (21:10)
[2020-06-10] MEDS: aspirin 81 mg Chew Tablet 324 MG PO (21:11)
[2020-06-10] MEDS: enoxaparin 100 mg/mL Syringe 90 MG SUBCUT (21:11)
[2020-06-10] MEDS: polyethylene glycol 3350 Pkt 17 gm PO (21:12)
--- NOTE | 2020-06-10 22:06 | USCV_ITS ---
Collette Kothari Age: 55 Gender: F : 1965 Exam Date: 06/10/2020 06:57 Ordering Phys: Eric Yousif MD Technologist: Dena Genao [place] [facility] [place] Indication: BILAT SWELLING PROCEDURES: Venous duplex imaging was performed in bilateral lower extremities. The following venous structures were evaluated: common femoral vein, profunda vein, proximal portion of the greater saphenous vein, superficial femoral vein, and the popliteal vein. In addition, the posterior tibial and peroneal trunk were evaluated. FINDINGS: Normal 2-D Doppler and augmentation and compressibility throughout the lower extremity venous structures. Additional imaging through the proximal calf veins also reveals no thrombus. Limited evaluation of the greater saphenous vein is patent with no thrombus.. CONCLUSIONS No evidence of DVT in the above-mentioned identifiable veins. Dr Jitendra Ryder MD [facility] (Electronically Signed) Final Date: 10 June 2020 17:47 S
[2020-06-10 22:09] LABS: Glucose Point of Care 221 mg/dL (70-110)
[2020-06-10 22:23] LABS: Vancomycin Trough 24.2 ug/mL (10-15)
[2020-06-10 22:55] LABS: Troponin T (5th) Once 9 ng/L (0-10)
[2020-06-11] VITALS (9 sets, daily range): BP systolic 87–145; BP diastolic 53–89; PULSE 74–89; RESP 17–20; TEMP 36–37.3; O2SAT 91–96
[2020-06-11] MEDS: HYDROmorphone 1 mg/mL INJ 1 mL IVP ×2 (00:27→19:35)
[2020-06-11] MEDS: HYDROcodone-acetaminophen 10-325 mg Tablet 1 TAB PO ×6 (01:28→22:34)
[2020-06-11 06:14] LABS: Basophils % 0.5 %; Eosinophils # 0.2 10^3/uL (0.0-0.8); Eosinophils % 3.7 %; Hematocrit 34.3 % (37.0-47.0); Hemoglobin 10.6 g/dL (11.5-15.3); Lymphocytes # 3.6 10^3/uL (0.8-4.8); Lymphocytes % 65.8 %; Mean Corpuscular HGB Conc 30.9 g/dL (30.0-36.0); Mean Corpuscular Hemoglobin 26.3 pg (28.0-34.0); Mean Corpuscular Volume 85.1 fL (81-99); Mean Platelet Volume 11.6 fL (7.4-10.4); Monocytes # 0.3 10^3/uL (0.2-0.9); Neutrophils % 23.8 %; Nucleated Red Blood Cells % 0 %; Platelet Count 162 10^3/cmm (130-400); Red Blood Count 4.03 10^6/uL (4.1-5.3); Red Cell Distribution Width 14.4 % (12.1-15.1); White Blood Count 5.5 10^3/uL (4.0-10.0)
[2020-06-11 06:51] LABS: Alanine Aminotransferase 14 U/L (0-33); Albumin Level 3.2 g/dL (3.5-5.2); Alkaline Phosphatase 179 IU/L (35-105); Anion Gap 15.4 (5-19); Aspartate Amino Transferase 28 U/L (0-32); Blood Urea Nitrogen 7 mg/dL (6-20); Calcium 8.4 mg/dL (8.5-10.5); Carbon Dioxide 26 mmol/L (22-29); Chloride 101 mmol/L (98-107); Glomerular Filtration Rate 86.9 mL/min (90-130); Glucose 178 mg/dL (65-115); Osmolality Calculated 288 mOsm/kg (285-295); Potassium 3.4 mmol/L (3.5-5.1); Sodium 139 mmol/L (136-145); Total Bilirubin 0.2 mg/dL (0.15-1.2); Total Protein 6.2 g/dL (6.6-8.7)
[2020-06-11 06:51] LABS: Glucose Point of Care 217 mg/dL (70-110)
[2020-06-11] MEDS: omega-3 fatty acids 1,000 mg Capsule 2000 MG PO ×2 (08:26→17:50)
[2020-06-11] MEDS: clopidogrel 75 mg Tablet PO (08:26)
[2020-06-11] MEDS: carvedilol 25 mg Tablet PO ×2 (08:26→17:51)
[2020-06-11] MEDS: pregabalin 150 mg Capsule PO ×3 (08:26→22:14)
[2020-06-11] MEDS: gemfibrozil 600 mg Tablet PO (08:26)
[2020-06-11] MEDS: pantoprazole DR 40 mg Tablet PO ×2 (08:26→17:51)
[2020-06-11] MEDS: sertraline 100 mg Tablet 200 MG PO (08:26)
[2020-06-11] MEDS: amlodipine 5 mg Tablet PO (08:26)
[2020-06-11] MEDS: isosorbide mononitrate ER 30 mg Tablet PO ×2 (08:26→17:51)
[2020-06-11] MEDS: enoxaparin 100 mg/mL Syringe 90 MG SUBCUT ×2 (08:27→22:14)
[2020-06-11] MEDS: hydroCHLOROthiazide 25 mg Tablet 12.5 MG PO (08:28)
[2020-06-11] MEDS: aspirin 81 mg Chew Tablet 324 MG PO (08:32)
[2020-06-11] MEDS: insulin glargine 100 units/1 mL 40 UNIT SUBCUT ×2 (08:33→17:51)
[2020-06-11 11:25] LABS: Glucose Point of Care 221 mg/dL (70-110)
--- NOTE | 2020-06-11 13:05 | PM.PN ---
Subjective Subjective: Interval history: Complains of some nonspecific chest discomfort this morning. States that she is afraid she may be having a heart attack again. She does have a history of multiple cardiac interventions and PCI's in the past. Troponin yesterday was noted with a delta of 64. She has since been started on anticoagulation with Lovenox. Currently saturating 91% on room air blood pressure at this present time 87/58, however patient does not report being symptomatic with this. 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 She says that when she is in pain her sugar goes very high. She says that she had taken her at home. Sliding scale insulin was started, We will also restart her insulin Lantus 40 units twice daily. Consistent carbohydrate diet. Blood sugar currently improved down to 552. Status: Acute Additional A&P Information # Recurrent gram-positive bacteremia, 3/3 bottles gram-positive cocci identified as coagulase-negative Staphylococcus. Awaiting further speciation. Interestingly cultures appear to be clear from the 16 without any directed antibiotics. While normally coag negative staph could be considered a contamination, the fact that it grew out of 3 of 4 bottles and patient had a similar strain isolated in February, his attempt to dismiss this is a contaminant at this point. Especially since patient reported fevers going up to 101 Fahrenheit, possibility of true infection cannot be excluded. Continue vancomycin while undergoing further work-up for the bacteremia. - Back in February had 2/4 bottles positive for staph hominis. She had an extensive source evaluation at that time which included a TTE negative for any vegetations, CT of the back was obtained which did not show any evidence of discitis, however this was limited in that it was a noncontrast study. On her CT a of the chest at the time she did have some nonspecific groundglass opacities bilaterally which was appearing to be resolving. She does not have any gross signs of sternal infection from her previous CABG. The history is removed at this point. She did have an intervening CAT scan with contrast in March of this year to evaluate for pancreatitis. No occult abdominal sources of infection were identified at that time. 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 Patient does not have any orthopedic hardware by way of replaced joints or screws and plates that could potentially be infected. On day of current admission she was noted to have some right-sided knee swelling as a result of a recent fall, however this disappeared by the next morning. CT of the leg was obtained which did not show any evidence of septic arthritis or osteomyelitis. Patient does not report any past history of osteomyelitis either. She denies being an IV drug user. She does use chronic oral opiates and was recently admitted with opiate intoxication. Her U tox has been positive for benzodiazepines and urine opiates with methadone positive in the past. If the blood culture turns positive again or she continues to be febrile, MEGAN may need to be considered to rule out subacute endocarditis. However since the cultures appear to clear without any directed antibiotic treatment my suspicion for this is low at this point. Patient does have a history of ulcerative colitis, however she is not reporting any gross diarrhea. In this setting intermittent GI translocation could be a possibility, on last admission she had complained of some hematochezia, though this would be an atypical organism to be seen in this setting.. Venous ultrasound is negative for DVT. #Patient complaining of nonspecific chest discomfort. It is very hard to a certain if this is new or has been an ongoing problem. However given her significant past cardiac history and elevated troponins with significant delta, will treat this as ACS. She has been started on full dose anticoagulation with Lovenox. Continuing aspirin and Plavix. She reports compliance with these medications at home. Cardiology consult with Dr. Aguilera. CTA of the chest to rule out PE, given that she required some new supplemental oxygen when she was here recently and today is saturating 91 to 92% on room air with relative hypotension. Neck line continue Imdur. Continue carvedilol. Last echocardiogram from February 2020 with normal left ventricular size and systolic function without regional wall motion abnormalities. Grade 1 diastolic function was seen. Last stress test from February 2020 with a small area of reversible defect in the mid inferolateral region suggestive of ischemia in the distribution of the LCx. #Recurrent pancreatitis: Reports several days ago had some episodes of nausea, vomiting, however, not at this time. Monitor. No abdominal pain on examination currently. 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
--- NOTE | 2020-06-11 13:09 | CTR_ITS ---
PROCEDURE INFORMATION: Exam: CT Angiography Chest With Contrast Exam date and time: 06/11/2020 6:37 AM Age: 55 years old Clinical indication: Pain and condition or disease; Pancreatic condition; Abdominal pain; Generalized; Other: None; Chest pain; Prior surgery; Surgery date: 6+ months; Surgery type: Cabg, hyst; Patient HX: C/O chest discomfort and SOB - HX of pancreatitis and coag neg bacteremia; Additional info: Evaluate for pe TECHNIQUE: Imaging protocol: Computed tomographic angiography of the chest with intravenous contrast. 3D rendering: MIP and/or 3D reconstructed images were created by the technologist. Radiation optimization: All CT scans at this facility use at least one of these dose optimization techniques: automated exposure control; mA and/or kV adjustment per patient size (includes targeted exams where dose is matched to clinical indication); or iterative reconstruction. Contrast material: OMNI 350; Contrast volume: 145 ml; Contrast route: INTRAVENOUS (IV); COMPARISON: 1. CT angio chest PE protcl [id number] 03/30/2020 12:[address] angio chest PE protcl [id number] 02/29/2020 7:16:57 PM RADIATION DOSE METRICS: Total DLP (mGy-cm): 2276.26 FINDINGS: Pulmonary arteries: No pulmonary embolism. Aorta: No aortic aneurysm. No aortic dissection. Lungs: Multifocal left upper lobe ground-glass opacities appearing since 03/31/2020, no consolidation. Trace bibasilar atelectasis. Pleural space: No pleural effusion. No pneumothorax. Heart: No cardiomegaly. No pericardial effusion. CABG. Lymph nodes: Small stable right hilar lymph node approximately 15 mm. No new adenopathy. Bones/joints: No acute findings. Sternotomy. Soft tissues: Unremarkable. IMPRESSION: Left upper lobe pneumonia. No pulmonary embolism. PROCEDURE INFORMATION: Exam: CT Abdomen And Pelvis With Contrast Exam date and time: 06/11/2020 6:37 AM Age: 55 years old Clinical indication: Pain and condition or disease; Pancreatic condition; Abdominal pain; Generalized; Other: None; Chest pain; Prior surgery; Surgery date: 6+ months; Surgery type: Cabg, hyst; Patient HX: C/O chest discomfort and SOB - HX of pancreatitis and coag neg bacteremia; Additional info: Evaluate for pe TECHNIQUE: Imaging protocol: Computed tomography of the abdomen and pelvis with intravenous contrast. Radiation optimization: All CT scans at this facility use at least one of these dose optimization techniques: automated exposure control; mA and/or kV adjustment per patient size (includes targeted exams where dose is matched to clinical indication); or iterative reconstruction. Contrast material: OMNI 350; Contrast volume: 145 ml; Contrast route: INTRAVENOUS (IV); COMPARISON: 1. CT angio chest PE protcl [id number] 03/30/2020 12:[address] abdomen pelvis wo con [id number] 03/31/2020 3:41:18 PM RADIATION DOSE METRICS: Total DLP (mGy-cm): 2276.26 FINDINGS: Liver: No mass. Gallbladder and bile ducts: Unremarkable. No ductal dilation. Pancreas: No pancreatitis or mass. No ductal dilation. Spleen: Normal. No splenomegaly. Adrenals: Normal. No mass. Kidneys and ureters: Normal. No hydronephrosis. Stomach and bowel: No acute findings. No obstruction. No mucosal thickening. Appendix: No evidence of appendicitis. Intraperitoneal space: Unremarkable. No free air. No significant fluid collection. Vasculature: No abdominal aortic aneurysm. Lymph nodes: No significant adenopathy. Bladder: Unremarkable as visualized. Reproductive: Hysterectomy. Bones/joints: No acute findings. Soft tissues: Unremarkable. CT/CT angio chest w abd pel w con IMPRESSION: No acute findings. Radiation Dose CTDIVOL = (mGy): DLP = 2276.26~2276.26 (mGy-cm)
[2020-06-11] MEDS: ALPRAZolam 0.5 mg Tablet PO (16:26)
--- NOTE | 2020-06-11 16:59 | PM.CONSULT ---
Providers/Reason For Consult Consulting Physican/Specialty*: Cardiology Reason for Consult*: Abnormal cardiac markers Atypical chest pain Bacteremia Attending Physician: Valery Bray MD Primary Care Provider: Juno Brown History of Present Illness History of Present Illness Collette Kothari is a 55 year old female medical history significant for severe coronary artery disease status post multiple stents, status post CABG last stents was few weeks ago in an unknown artery at an outside hospital record of which is not available, history of hypertension hyperlipidemia diabetes mellitus inflammatory bowel disease generalized anxiety disorder was admitted with bacteremia. She is being treated with antibiotics for gram-positive cocci. There is no obvious source of infection. Patient was complaining of some chest pressure during this admission cardiac markers with fifth generation troponin had delta of 65 since she carry history of extensive coronary artery disease we will involved in the case. I have detailed discussion with the patient she in general described pain as a hold and not just per se in the chest. She thinks this chest pain is different from her cardiac pain. She is also worried about her abnormal cardiac markers. She has element of sepsis. Currently she denies PND orthopnea. She admits to fever though. Review of Systems General: Reports: Other Const: Reports: fever(s) (Is reported during prior admit, although not seen in the hospital), malaise and other (Headache, but is not bothered by light, no neck stiffness); Denies: chills or body aches Eyes: Denies: change in vision or eye redness ENMT: Denies: throat pain, oral sores or ear or mastoid pain Card: Denies: chest pain, edema, pre-syncope or dyspnea on exertion Resp: Denies: dyspnea, productive cough, change in phlegm color or hemoptysis GI: Reports: abdominal pain, nausea and diarrhea (Reported 2 days ago); Denies: vomiting, constipation, hematochezia or melena : Denies: flank pain, urinary frequency or hematuria Musc: Reports: back pain and other (Bilateral knee pain after falling on Saturday); Denies: joint redness or joint warmth Skin/Breast: Denies: rash, sores or new lesions Neuro: Denies: headache(s), numbness in extremities, weakness in extremities, dizziness, confusion or seizure-like activity Endo: Denies: polyuria or polydipsia Danihs/Lymph: Denies: easy bleeding or purpura All/Imm: Denies: urticaria, throat swelling, tongue swelling or acute wheezing Meds/Allergies Home Medications and Allergies Home Medications Medication Instructions Recorded Confirmed Last Taken Type Repatha SureClick 140 mg SUBCUT Q14D 01/04/20 06/09/20 05/26/20 History amlodipine [Norvasc] 5 mg PO DAILY 01/04/20 06/09/20 06/09/20 History carvedilol 25 mg PO BID 01/04/20 06/09/20 06/09/20 History clopidogrel 75 mg PO DAILY 01/04/20 06/09/20 06/09/20 History hydrochlorothiazide 12.5 mg PO DAILY 01/04/20 06/09/20 06/08/20 History hydrocodone-acetaminophen 1 tab PO Q4H PRN 01/04/20 06/09/20 06/09/20 14:00 History insulin aspart U-100 [Novolog See Rx Instructions .ROUTE .COMPLEX 01/04/20 06/09/20 06/08/20 History Flexpen U-100 Insulin] pantoprazole 40 mg PO BID 01/04/20 06/09/20 06/09/20 History pregabalin [Lyrica] 150 mg PO TID 01/04/20 06/09/20 06/09/20 07:00 History tizanidine 4 mg PO TID PRN 01/04/20 06/09/20 06/08/20 History fluticasone propionate 2 spray INTRANASAL DAILY PRN 02/29/20 06/09/20 1 Day Ago History ~06/07/20 lactulose 10 g PO BID PRN 02/29/20 06/09/20 1 Week Ago History ~06/01/20 naloxone 1 spray INTRANASAL PRN 02/29/20 06/09/20 1 Day Ago History ~02/28/20 nitroglycerin [Nitrostat] 0.4 mg SUBLINGUAL Q5M PRN 02/29/20 06/09/20 1 Day Ago History ~06/07/20 potassium chloride 20 meq PO DAILY 02/29/20 06/09/20 06/08/20 History promethazine 25 mg PO Q6H PRN 02/29/20 06/09/20 06/09/20 History sucralfate 1 g PO QID PRN 02/29/20 06/09/20 06/09/20 History [place] Pritchardostar U-100 Insulin 40 unit SUBCUT BID 03/30/20 06/09/20 06/09/20 History aspirin [Aspir-81] 81 mg PO QPM 03/30/20 06/09/20 06/08/20 History polyethylene glycol 3350 [Miralax] 17 g PO DAILY PRN 03/30/20 06/09/20 1 Day Ago History ~06/07/20 sertraline 100 mg tablet 200 mg PO DAILY #60 tab 04/04/20 06/09/20 06/08/20 Rx trazodone 150 mg tablet 150 mg PO BEDTIME #30 tab 04/04/20 06/09/20 06/08/20 Rx zolpidem 10 mg tablet 10 mg PO BEDTIME #30 tab 04/04/20 06/09/20 06/08/20 Rx alprazolam [Xanax] See Rx Instructions .ROUTE 05/26/20 06/09/20 06/09/20 07:00 History .COMPLEX PRN dextromethorphan-guaifenesin 1 tab PO Q12H 05/26/20 06/09/20 06/08/20 History [Mucinex DM] metronidazole 1 applic TOPICAL DAILY PRN 05/26/20 06/09/20 1 Day Ago History ~06/07/20 ghnzntm-pykqxdtwswvac-tvyuwnke 1 tab PO PRN 06/09/20 06/09/20 06/09/20 History [Excedrin Migraine] cephalexin [Keflex] 500 mg PO TID 06/09/20 06/09/20 06/09/20 History gemfibrozil [Lopid] 600 mg PO DAILY 06/09/20 06/09/20 06/08/20 History icosapent ethyl [Vascepa] 2 g PO BID 06/09/20 06/09/20 06/09/20 History isosorbide mononitrate 30 mg PO BID 06/09/20 06/09/20 Unknown History Allergies Allergy/AdvReac Type Severity Reaction Status Date / Time SCOTT Inhibitors Allergy Unknown Verified 06/09/20 17:22 acetaminophen Allergy ADR-Nausea Verified 06/09/20 17:22 [From Nelly-N] amitriptyline Allergy ALGY-Difficulty Verified 06/09/20 17:22 Breathing atorvastatin [From Lipitor] Allergy ADR-Nausea Verified 06/09/20 17:22 ciprofloxacin [From Cipro] Allergy ALGY-Hives Verified 06/09/20 17:22 doxycycline Allergy Unknown Verified 06/09/20 17:22 empagliflozin Allergy Unknown Verified 06/09/20 17:22 [From Jardiance] escitalopram [From Lexapro] Allergy Unknown Verified 06/09/20 17:22 ezetimibe [From Zetia] Allergy Unknown Verified 06/09/20 17:22 furosemide [From Lasix] Allergy ALGY-Rash Verified 06/09/20 17:22 ketorolac [From Toradol] Allergy Unknown Verified 06/09/20 17:22 lisinopril Allergy Unknown Verified 06/09/20 17:22 morphine Allergy ALGY-Rash Verified 06/09/20 17:22 nalbuphine [From Nubain] Allergy Unknown Verified 06/09/20 17:22 naproxen Allergy Unknown Verified 06/09/20 17:22 nortriptyline Allergy Unknown Verified 06/09/20 17:22 pravastatin Allergy Unknown Verified 06/09/20 17:22 prochlorperazine Allergy ALGY-Difficulty Verified 06/09/20 17:22 [From Compazine] Breathing propoxyphene Allergy ADR-Nausea Verified 06/09/20 17:22 [From Darvocet-N] ranolazine [From Ranexa] Allergy Unknown Verified 06/09/20 17:22 rosuvastatin [From Crestor] Allergy Unknown Verified 06/09/20 17:22 simvastatin Allergy Unknown Verified 06/09/20 17:22 sulfamethoxazole Allergy ALGY-Hives Verified 06/09/20 17:22 [From Bactrim] sumatriptan [From Imitrex] Allergy Unknown Verified 06/09/20 17:22 trimethoprim [From Bactrim] Allergy ALGY-Hives Verified 06/09/20 17:22 Current Medications Current Medications Generic Name Dose Route Start Last Admin Trade Name Freq PRN Reason Stop Dose Admin Hydrocodone Bitart/Acetaminophen 1 tab 06/09/20 18:52 06/11/20 13:53 [place] 10-325 Mg PO 1 tab Q4H PRN Administration Pain Alprazolam 0.5 mg 06/09/20 18:52 06/11/20 16:26 Xanax PO 0.5 mg BID PRN Administration anxiety Amlodipine Besylate 5 mg 06/10/20 09:00 06/11/20 08:26 Norvasc PO 5 mg DAILY MATTIE Administration Aspirin 324 mg 06/10/20 20:50 06/11/20 08:32 Aspirin Chewable PO 324 mg DAILY MATTIE Administration Carvedilol 25 mg 06/10/20 09:00 06/11/20 08:26 Coreg PO 25 mg BID MATTIE Administration Clopidogrel Bisulfate 75 mg 06/10/20 09:00 06/11/20 08:26 Plavix PO 75 mg DAILY MATTIE Administration Enoxaparin Sodium 90 mg 06/10/20 21:00 06/11/20 08:27 Lovenox 1 mg/kg (90 mg) 90 mg SUBCUT Administration Q12H [facility] Gemfibrozil 600 mg 06/10/20 09:00 06/11/20 08:26 Lopid PO 600 mg DAILY MATTIE Administration Hydrochlorothiazide 12.5 mg 06/10/20 09:00 06/11/20 08:28 Hctz PO 12.5 mg DAILY MATTIE Administration Hydromorphone HCl 1 mg 06/09/20 22:20 06/11/20 00:27 Dilaudid Inj IVP 1 mg Q6H PRN Administration PAIN Vancomycin HCl 1,500 mg/ 250 mls @ 166.667 mls/hr 06/11/20 02:00 06/11/20 15:03 Sodium Chloride IV 166.7 mls/hr Q12H MATTIE Administration Insulin Aspart 0 unit 06/09/20 21:00 06/11/20 12:52 Novolog SUBCUT 10 unit WM&BEDTIME MATTIE Administration Protocol Insulin Glargine 40 unit 06/09/20 22:30 06/11/20 08:33 Lantus SUBCUT 40 unit BID MATTIE Administration Isosorbide Mononitrate 30 mg 06/10/20 09:00 06/11/20 08:26 Imdur PO 30 mg BID MATTIE Administration Lznlk-0-Rljh Ethyl Esters 2,000 mg 06/10/20 09:00 06/11/20 08:26 [place]-3 Fatty Acids PO 2,000 mg BID MATTIE Administration Pantoprazole Sodium 40 mg 06/10/20 09:00 06/11/20 08:26 Protonix PO 40 mg BID MATTIE Administration Polyethylene Glycol 17 gm 06/09/20 18:52 06/10/20 21:12 Miralax PO 17 gm DAILY PRN Administration Constipation Pregabalin 150 mg 06/09/20 21:00 06/11/20 15:03 Lyrica PO 150 mg TID MATTIE Administration Promethazine HCl 25 mg 06/09/20 19:10 06/10/20 13:18 Phenergan PO 25 mg Q6H PRN Administration Nausea Sertraline HCl 200 mg 06/10/20 09:00 06/11/20 08:26 Zoloft PO 200 mg DAILY MATTIE Administration Sucralfate 1 gm 06/09/20 18:52 06/09/20 22:55 Carafate PO 1 gm QID PRN Administration [place]ART[place] Trazodone HCl 150 mg 06/09/20 21:00 06/10/20 21:10 Desyrel PO 150 mg BEDTIME MATTIE Administration Zolpidem Tartrate 10 mg 06/09/20 21:00 06/10/20 21:10 Ambien PO 10 mg BEDTIME MATTIE Administration PFSH Acute PFSH: Medical History Coronary artery disease Depression with anxiety Generalized anxiety disorder GERD (gastroesophageal reflux disease) Hypertension Hypertriglyceridemia Insulin dependent diabetes mellitus Irritable bowel syndrome Pancreatitis Post-traumatic stress disorder, chronic Ulcerative colitis Surgical History H/O tubal ligation H/O: hysterectomy History of carpal tunnel surgery Hx of tonsillectomy S/P CABG x 4 S/P coronary artery stent placement Family History Mother Dementia Father CAD (coronary artery disease) Other IBD (inflammatory bowel disease) Social History Smoking and tobacco status: former smoker Alcohol intake: never Lives independently: Yes Household members: significant other Marital status: Life Partner Current occupational status: disabled Vitals/I&O/Wt Last Vital Signs Temp 98.1 F 06/11/20 12:00 Pulse 82 06/11/20 12:00 Resp 17 06/11/20 12:00 BP 87/58 06/11/20 12:00 Pulse Ox 92 06/11/20 12:00 06/11/20 06/11/20 06/11/20 06:59 14:59 22:59 Intake Total 710 / 2710 720 / 720 Output Total 400 / 702 Balance 2007 720 / 720 Weight last 48 hrs Weight 195 lb 1 oz Weight 190 lb Physical Exam Narrative: EXAM NARRATIVE: GENERAL: Patient is alert, awake and oriented x3. NECK: No jugular vein distension. HEENT: No cyanosis. No icterus. No pallor. HEART: Regular S1 and S2. No murmur, rub or gallop. LUNGS: Clear to auscultate bilaterally. ABDOMEN: Soft, nontender and nondistended. Positive bowel sounds. No guarding, rebound or tenderness. CENTRAL NERVOUS SYSTEM: Grossly nonfocal. EXTREMITIES: Lower extremities without edema bilaterally. Data Labs: Other Labs: SINUS RHYTHM NONSPECIFIC T-WAVE ABNORMALITY Compared to ECG 06/10/2020 04:45:55 T-wave abnormality now present Poor R-wave progression no longer present Micro: Micro: Microbiology 06/11/20 05:14 Blood Culture - Pr eliminary Blood [facility] 06/11/20 05:14 Blood Culture - Pr eliminary Blood SPECIMEN [facility] 06/09/20 19:40 Blood Culture - Pr eliminary Blood NEGATIVE TO FAUZIA E 06/09/20 19:36 Blood Culture - Pr eliminary Blood NEGATIVE TO FAUZIA E A&P Assessment and plan (1) Chest pain: Patient chest pain is atypical and mostly consist of tender points. It is worse on movement when she moves around it is generalized and also old involve both arms both legs and torso. Intensity of chest pain is not high. She does not appear to be short of breath with it. Since she carries high risk for acute coronary syndrome we will continue to monitor closely. Status: Acute Qualifiers: Chest pain type: unspecified Qualified Code(s): R07.9 - Chest pain, unspecified (2) Bacteremia: ID and our hospitalist service treating the patient. Transthoracic echo did not show any vegetation however if high suspicion for endocarditis transesophageal echo can be performed. Status: Acute (3) Coronary artery disease: At the moment she appeared to be stable continue current regimen Status: Acute Qualifiers: Coronary Disease-Associated Artery/Lesion type: bypass graft [place] vs. transplanted heart: [place] heart Associated angina: with stable angina Qualified Code(s): I25.708 - Atherosclerosis of coronary artery bypass graft(s), unspecified, with other forms of angina pectoris (4) Hypertension: Blood pressure on the lower side continue to monitor closely Status: Acute Qualifiers: Hypertension type: essential hypertension Qualified Code(s): I10 - Essential (primary) hypertension (5) High level of cardiac marker: Most likely due to bacteremia sepsis. Continue to monitor Status: Acute Consult Attestations Medical Necessity Statement: Patient require continuation hospitalization for above defined care. Coding Level of Care Code New Pt Acute Heel Packer for [facility] Fwd Patient Type New History Detailed Exam Detailed Medical Decision Making Moderate Complexity Diagnoses Chest pain R07.9 Chest pain type: unspecified Bacteremia R78.81 Coronary artery disease I25.708 Coronary Disease-Associated Artery/Lesion type: bypass graft [place] vs. transplanted heart: [place] heart Associated angina: with stable angina Hypertension I10 Hypertension type: essential hypertension High level of cardiac marker R74.8
[2020-06-11 17:36] LABS: Glucose Point of Care 251 mg/dL (70-110)
[2020-06-11] MEDS: promethazine 25 mg Tablet PO (17:50)
--- NOTE | 2020-06-11 19:07 | PC.NURSE ---
Patient is very anxious saying she feels very nauseous. Patient says I am going to vomit. and wanting something for pain and nausea. Patient's nurse been notified.
[2020-06-11] MEDS: ondansetron 2 mg/ML SDV 2 mL 4 MG IVP (20:28)
[2020-06-11 20:59] LABS: Glucose Point of Care 180 mg/dL (70-110)
[2020-06-11] MEDS: trazodone 150 mg Tablet PO (22:14)
[2020-06-11] MEDS: polyethylene glycol 3350 Pkt 17 gm PO (22:40)
--- NOTE | 2020-06-11 23:36 | PC.NURSE ---
Patient's blood pressure is a little soft 94/53. Patient's nurse been notified.
[2020-06-12] VITALS (9 sets, daily range): BP systolic 96–128; BP diastolic 59–76; PULSE 73–97; RESP 17–20; TEMP 36.6–37.7; O2SAT 90–93
[2020-06-12] MEDS: HYDROcodone-acetaminophen 10-325 mg Tablet 1 TAB PO ×4 (03:43→20:57)
[2020-06-12] MEDS: HYDROmorphone 1 mg/mL INJ 1 mL IVP ×3 (05:34→19:58)
[2020-06-12 06:38] LABS: Glucose Point of Care 182 mg/dL (70-110)
--- NOTE | 2020-06-12 07:23 | PC.NURSE ---
late note, but pt refused CT at shift change yesterday night do to sever nausea and pain. Tried twice to get her to comply but continued to refuse. Pt finally agreed this morning, but unfortunately the IV that was placed last night had went bad. Pt is agreeable to new IV to complete the CT geo. Call CT once completed.
[2020-06-12] MEDS: omega-3 fatty acids 1,000 mg Capsule 2000 MG PO ×2 (09:41→16:55)
[2020-06-12] MEDS: pregabalin 150 mg Capsule PO ×3 (09:42→20:51)
[2020-06-12] MEDS: ALPRAZolam 0.5 mg Tablet PO ×2 (09:42→20:52)
[2020-06-12] MEDS: sertraline 100 mg Tablet 200 MG PO (09:43)
[2020-06-12] MEDS: aspirin 81 mg Chew Tablet 324 MG PO (09:43)
[2020-06-12] MEDS: pantoprazole DR 40 mg Tablet PO ×2 (09:44→16:57)
[2020-06-12] MEDS: gemfibrozil 600 mg Tablet PO (09:44)
[2020-06-12] MEDS: amlodipine 5 mg Tablet PO (09:44)
[2020-06-12] MEDS: clopidogrel 75 mg Tablet PO (09:45)
[2020-06-12] MEDS: carvedilol 25 mg Tablet PO ×2 (09:45→16:56)
[2020-06-12] MEDS: isosorbide mononitrate ER 30 mg Tablet PO ×2 (09:46→16:55)
[2020-06-12] MEDS: hydroCHLOROthiazide 25 mg Tablet 12.5 MG PO (09:47)
[2020-06-12] MEDS: enoxaparin 100 mg/mL Syringe 90 MG SUBCUT ×2 (09:49→20:53)
[2020-06-12] MEDS: insulin glargine 100 units/1 mL 40 UNIT SUBCUT ×2 (09:51→16:56)
[2020-06-12] MEDS: iohexol 350 mg/mL 100 mL Btl IV (10:30)
[2020-06-12 12:25] LABS: Glucose Point of Care 175 mg/dL (70-110)
[2020-06-12] MEDS: ondansetron 2 mg/ML SDV 2 mL 4 MG IVP (13:22)
--- NOTE | 2020-06-12 14:12 | PM.PN ---
Subjective Subjective: Interval history: Denies chest pain. She is more worried for infection. She appeared to be afebrile stable vital kimbrough Medications: Reviewed: Yes Vitals/I&O/Wt Last Vital Signs Temp 99.1 F 06/12/20 11:17 Pulse 90 06/12/20 11:17 Resp 18 06/12/20 13:22 BP 96/61 06/12/20 11:17 Pulse Ox 93 06/12/20 11:17 06/11/20 06/12/20 06/12/20 22:59 06:59 14:59 Intake Total 250 / 970 250 / 1220 600 / 600 Output Total 1230 / 1230 120 / 1350 Balance -980 / -260 130 / -130 600 / 600 Physical Exam Narrative: EXAM NARRATIVE: GENERAL: Patient is alert, awake and oriented x3. NECK: No jugular vein distension. HEENT: No cyanosis. No icterus. No pallor. HEART: Regular S1 and S2. No murmur, rub or gallop. LUNGS: Clear to auscultate bilaterally. ABDOMEN: Soft, nontender and nondistended. Positive bowel sounds. No guarding, rebound or tenderness. CENTRAL NERVOUS SYSTEM: Grossly nonfocal. EXTREMITIES: Lower extremities without edema bilaterally. Data : 06/11/20 05:14 06/11/20 05:14 Micro: Microbiology 06/11/20 05:14 Blood Culture - Preliminary Blood NEGATIVE TO DATE 06/11/20 05:14 Blood Culture - Preliminary Blood NEGATIVE TO DATE A&P Assessment and plan (1) High level of cardiac marker: Nonspecific and most likely due to septicemia Status: Acute (2) Coronary artery disease: Denies typical chest pain she hurts over in general Status: Acute Qualifiers: Coronary Disease-Associated Artery/Lesion type: bypass graft [place] vs. transplanted heart: [place] heart Associated angina: with stable angina Qualified Code(s): I25.708 - Atherosclerosis of coronary artery bypass graft(s), unspecified, with other forms of angina pectoris (3) Hypertension: Well-controlled continue medicine. Status: Acute Qualifiers: Hypertension type: essential hypertension Qualified Code(s): I10 - Essential (primary) hypertension (4) Bacteremia: Patient is on antibiotics. If clinically indicated transesophageal echocardiogram will be better modality to assess bacterial endocarditis. Status: Acute Attestations Medical Necessity Statement*: Patient require continuation hospitalization for above defined care. Coding Level of Care Code Established Pt Acute Senior Internal Auditor for [facility] Fwd Patient Type Established History Expanded Problem Focused Exam Expanded Problem Focused Medical Decision Making Moderate Complexity Diagnoses High level of cardiac marker R74.8 Coronary artery disease I25.708 Coronary Disease-Associated Artery/Lesion type: bypass graft [place] vs. transplanted heart: [place] heart Associated angina: with stable angina Hypertension I10 Hypertension type: essential hypertension Bacteremia R78.81
[2020-06-12 14:23] LABS: Vancomycin Trough 23.4 ug/mL (10-15)
--- NOTE | 2020-06-12 16:08 | P.PN_ITS ---
Subjective Subjective: Interval history: continues to complain of generalized feeling of being unwell,tmax 99.8F at home. Blood cx negative from 06/09 and 06/11 to date. 2 different species identified for CONS. Medications: Reviewed: Yes Vitals/I&O/Wt Last Vital Signs Temp 99.1 F 06/12/20 11:17 Pulse 90 06/12/20 11:17 Resp 18 06/12/20 13:22 BP 96/61 06/12/20 11:17 Pulse Ox 93 06/12/20 11:17 06/12/20 06/12/20 06/12/20 06:59 14:59 22:59 Intake Total 250 / 1220 600 / 600 Output Total 120 / 1350 Balance 130 / -130 600 / 600 Physical Exam Narrative: EXAM NARRATIVE: GEN: Awake, alert and oriented, no acute distress CVS: S1S2 N RS: CTA B/L Abd: Soft, nt/nd , bs+ TRANSIT OPERATOR: no focal neuro deficits Data : 06/11/20 05:14 06/11/20 05:14 Micro: Microbiology 06/11/20 05:14 Blood Culture - Preliminary Blood NEGATIVE TO DATE 06/11/20 05:14 Blood Culture - Preliminary Blood NEGATIVE TO DATE A&P Assessment and plan (1) Bacteremia: Status: Acute (2) Hyperglycemia: Severe hyperglycemia, sugars 120. She says that when she is in pain her sugar goes very high. She says that she had taken her at home. Sliding scale insulin was started, We will also restart her insulin Lantus 40 units twice daily. Consistent carbohydrate diet. Blood sugar currently impro vinay down to 552. Status: Acute Additional A&P Information # Recurrent gram-positive bacteremia, 3/3 bottles gram-positive cocci identified as coagulase-negative Staphylococcus. Awaiting further speciation. Interestingly cultures appear to be clear from the without any directed antibiotics. While normally coag negative staph could be considered a contamination, the fact that it grew out of 3 of 4 bottles and patient had a similar strain isolated in February, his attempt to dismiss this is a contaminant at this point. Especially since patient reported fevers going up to 101 Fahrenheit, possibility of true infection cannot be excluded. Continue vancomycin while undergoing further work-up for the bacteremia. - Back in February had 2/4 bottles positive for staph hominis. She had an extensive source evaluation at that time which included a TTE negative for any vegetations, CT of the back was obtained which did not show any evidence of discitis, however this was limited in that it was a noncontrast study. On her CT a of the chest at the time she did have some nonspecific groundglass opacities bilaterally which was appearing to be resolving. She does not have any gross signs of sternal infection from her previous CABG. The history is removed at this point. She did have an intervening CAT scan with contrast in March of this year to evaluate for pancreatitis. No occult abdominal sources of infection were identified at that time. 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 Patient does not have any orthopedic hardware by way of replaced joints or screws and plates that could potentially be infected. On day of current admission she was noted to have some right-sided knee swelling as a result of a recent fall, however this disappeared by the next morning. CT of the leg was obtained which did not show any evidence of septic arthritis or osteomyelitis. Patient does not report any past history of osteomyelitis either. She denies being an IV d rug user. She does use chronic oral opiates and was recently admitted with opiate intoxication. Her U tox has been positive for benzodiazepines and urine opiates with methadone positive in the past. If the blood culture turns positive again or she continues to be febrile, MEGAN may need to be considered to rule out subacute endocarditis. However since the cultures appear to clear without any directed antibiotic treatment my suspicion for this is low at this point. Patient does have a history of ulcerative colitis, however she is not reporting any gross diarrhea. In this setting intermittent GI translocation could be a possibility, on last admission she had complained of some hematochezia, though this would be an atypical organism to be seen in this setting.. Venous ultrasound is negative for DVT. Will proceed with MRI of the back, unfortunately radiology unable to assess the spine on current study. #Patient complaining of nonspecific chest discomfort. It is very hard to a certain if this is new or has been an ongoing problem. However given her significant past cardiac history and elevated troponins with significant delta, will treat this as ACS. She has been started on full dose anticoagulation with Lovenox. Continuing aspirin and Plavix. She reports compliance with these medications at home. Cardiology consult with Dr. Aguilera. CTA of the chest to rule out PE, given that she required some new supplemental oxygen when she was here recently and today is saturating 91 to 92% on room air with relative hypotension. Neck line continue Imdur. Continue carvedilol. Last echocardiogram from February 2020 with normal left ventricular size and systolic function without regional wall motion abnormalities. Grade 1 diastolic function was seen. Last stress test from February 2020 with a small area of reversible defect in the mid inferolateral region suggestive of ischemia in the distribution of the LCx. Currently appears to be related to possible sepsis #Recurrent pancreatitis: Reports several days ago had some episodes of nausea, vomiting, however, not at this time. Monitor. No abdominal pain on examination currently. #Ulcerative colitis; no current diarrhea # Diabetes mellitus: poorly controlled Generalized anxiety GERD CAD HTN HLD Attestations Medical Necessity Statement*: ongoing source evlaution for recurrent CONS bacteremia Coding Level of Care Code Acute Whip Sawyer for [facility] Fwd Diagnoses Bacteremia R78.81 Hyperglycemia R73.9
[2020-06-12 17:01] LABS: Glucose Point of Care 193 mg/dL (70-110)
[2020-06-12] MEDS: trazodone 150 mg Tablet PO (20:51)
[2020-06-12 21:55] LABS: Glucose Point of Care 175 mg/dL (70-110)
[2020-06-12] MEDS: polyethylene glycol 3350 Pkt 17 gm PO (21:59)
[2020-06-13] VITALS (17 sets, daily range): BP systolic 76–121; BP diastolic 52–74; PULSE 70–90; RESP 16–22; TEMP 36.5–37.2; O2SAT 90–98
[2020-06-13] MEDS: HYDROmorphone 1 mg/mL INJ 1 mL IVP ×3 (01:13→17:56)
[2020-06-13] MEDS: ondansetron 2 mg/ML SDV 2 mL 4 MG IVP (01:13)
[2020-06-13] MEDS: HYDROcodone-acetaminophen 10-325 mg Tablet 1 TAB PO ×5 (02:59→20:37)
[2020-06-13] MEDS: promethazine 25 mg Tablet PO ×2 (02:59→18:01)
[2020-06-13 06:28] LABS: HIV 1 & 2 Antibody Non-Reactive (Non-Reactiv); HIV 1 & 2 Antigen Non-Reactive (Non-Reactiv)
[2020-06-13 06:31] LABS: Glucose Point of Care 91 mg/dL (70-110)
--- NOTE | 2020-06-13 06:43 | PC.NURSE ---
SHIFT SUMMARY Has recceived IV Dilaudid and po Hydrocodone tonight for c/o generalized pain. Requests meds pretty much right on time she can have them. IV was leaking through night and was only able to obtain a 22 gauge in left hand. Later in night ER nurse came up with Ultasound machine and obtained access in left ac with 20 gauge. Has MRI scheduled for today. c/o burning and some freq with urination.
[2020-06-13] MEDS: carvedilol 25 mg Tablet PO ×2 (08:12→17:01)
[2020-06-13] MEDS: isosorbide mononitrate ER 30 mg Tablet PO ×2 (08:12→17:01)
[2020-06-13] MEDS: hydroCHLOROthiazide 25 mg Tablet 12.5 MG PO (08:12)
[2020-06-13] MEDS: sertraline 100 mg Tablet 200 MG PO (08:13)
[2020-06-13] MEDS: aspirin 81 mg Chew Tablet 324 MG PO (08:13)
[2020-06-13] MEDS: clopidogrel 75 mg Tablet PO (08:13)
[2020-06-13] MEDS: amlodipine 5 mg Tablet PO (08:13)
[2020-06-13] MEDS: omega-3 fatty acids 1,000 mg Capsule 2000 MG PO ×2 (08:13→17:01)
[2020-06-13] MEDS: insulin glargine 100 units/1 mL 40 UNIT SUBCUT ×2 (08:13→17:01)
[2020-06-13] MEDS: gemfibrozil 600 mg Tablet PO (08:13)
[2020-06-13] MEDS: pregabalin 150 mg Capsule PO ×3 (08:13→20:37)
[2020-06-13] MEDS: pantoprazole DR 40 mg Tablet PO ×2 (08:13→17:01)
[2020-06-13] MEDS: enoxaparin 100 mg/mL Syringe 90 MG SUBCUT ×2 (08:14→20:37)
[2020-06-13] MEDS: lactulose oral liq 20 gm/30 mL UDC 10 GM PO (08:14)
[2020-06-13] MEDS: ALPRAZolam 0.5 mg Tablet PO (08:55)
--- NOTE | 2020-06-13 09:20 | PC.NURSE ---
patient off unit to MRI via transport
[2020-06-13 11:13] LABS: Glucose Point of Care 93 mg/dL (70-110)
--- NOTE | 2020-06-13 12:53 | PC.NURSE ---
rcvd verbal order from Dr Aguilera for NS bolus of 250ML and then NS at 100ml per hour for 1 day. keno writer put orders in for NS.
[2020-06-13] MEDS: sodium chloride 0.9% 250 ML IV (13:02)
--- NOTE | 2020-06-13 13:24 | PC.NURSE ---
Called [facility] [phone], checking on requested medical records. Magnet Valve Assembler left number and refaxed for medical records. Automated message also had fax number of [phone] and we had [phone]. video games storywriter faxed request to both fax numbers.
--- NOTE | 2020-06-13 14:00 | MR_ITS ---
WS: [id number] MRI CERVICAL SPINE, noncontrast HISTORY: Evaluate discitis COMPARISON: None available. Normal cervical alignment with no compression fracture or significant disc space narrowing. Signal within the cervical cord is normal. Visualized posterior fossa is unremarkable. Craniocervical junction, C1 and C2 relationship, odontoid process and soft tissues are normal. C2-C3: Normal. C3-C4: Mild motion artifact. No significant stenosis. C4-C5: Mild motion artifact. Small foraminal osteophytes without stenosis. There is increased T2 sign al in the LEFT C4 facet joint and the LEFT inferior articular facet. C5-C6: Shallow central disc protrusion and small osteophytes without stenosis. C6-C7: Normal. C7-T1: Normal. Small cervical chain lymph nodes bilaterally, greatest in number on the RIGHT. Transverse diameter le ss than 10 mm. MR/MR cervical spin wo con* [id number] IMPRESSION: 1. No significant stenosis. 2. LEFT C4 facet joint inflammation. Probably postinflammatory in etiology. 3. No secondary findings of discitis or osteomyelitis on this unenhanced exami nation. 4. Small indeterminate cervical chain lymph nodes.
--- NOTE | 2020-06-13 14:00 | MR_ITS ---
WS: [id number] MRI LUMBAR SPINE NONCONTRAST HISTORY: Evaluate for discitis. COMPARISON: 03/04/2020 TECHNIQUE: Sagittal and axial multisequence imaging is submitted. Normal lumbar alignment with no compression fractures or marrow edema. Mild disc space narrowing and desiccation at L3-4. No marrow edema. No fluid along the disc spaces. Conus terminates normally at L1. L1-L2: Normal. L2-L3: Normal. L3-L4: Mild annular disc bulging with facet and ligamentum flavum arthritis. Increase in the epidural fat. There is a very shallow central disc protrusion. Mild central, subarticular recess and foramina l stenosis. Bilateral facet joint fluid. L4-L5: Diffuse annular disc bulging. Mild facet and ligamentum flavum arthritis. There is mild LEFT s ubarticular recess and foraminal stenosis. L5-S1: Normal. MR/MR lumbar spine wo con* [id number] IMPRESSION: 1. No marrow edema or secondary findings of discitis or osteomyelitis. 2. Mild central, subarticular recess and foraminal stenosis at L3-4. 3. Increase fluid in the facet joints at L3-4 bilateral. 4. Mild LEFT subarticular and foraminal stenosis at L4-5.
--- NOTE | 2020-06-13 14:00 | MR_ITS ---
WS: [id number] MRI THORACIC SPINE noncontrast. HISTORY: Evaluate for discitis COMPARISON: 01/09/[address] 03/04/2020 TECHNIQUE: Multiplanar sequences are performed in sagittal and axial planes. The study was performed without IV contrast. Mild increase in thoracic kyphosis. Schmorl's node defect superior endplate of T2. Very slight anteri or wedging of T5 and T6. No marrow edema or fluid along the disc spaces. Signal within the cord is no rmal. T1-2: Normal. T2-3: Normal. T3-4: Normal. T4-5: Normal. T5-6: Moderate-sized RIGHT paracentral disc protrusion contacting the thecal sac and cord. Mild defo rmity. T6-7: Shallow LEFT paracentral disc protrusion. No cord contact. T7-8: Moderate-sized central disc protrusion with mild effacement of CSF. Minimal cord contact. T8-9: Moderate LEFT paracentral disc protrusion with mild deformity of the LEFT lateral thecal sac. T9-10: Moderate sized LEFT paracentral disc protrusion without cord contact. T10-11: Mild facet joint arthritis. T11-12: Mild facet joint arthritis. Paraspinal soft tissues are negative. MR/MR thoracic spin wo con* [id number] IMPRESSION: 1. No secondary findings of discitis or osteomyelitis. Noncontrast examination was performed. 2. Multilevel disc protrusions as described above. Most significant at T5-6. N o significant change in the disc protrusion since 2006.
[2020-06-13] MEDS: sodium chloride 0.9% 1,000 ML 100 ML IV (14:10)
--- NOTE | 2020-06-13 14:33 | PC.NURSE ---
notified Dr Aguilera that patient's blood pressure after the NS bolus is 85/54, television writer left message with his nurse.
--- NOTE | 2020-06-13 14:53 | PC.NURSE ---
process description writer received order from Dr Aguilera for 500ml NS bolus. Heating Operators Engineer put order in for bolus
[2020-06-13] MEDS: sodium chloride 0.9% 500 ML 999 ML IV (15:00)
--- NOTE | 2020-06-13 15:26 | PC.NURSE ---
notified Dr Aguilera that patient's blood pressure after 500ml NS bolus is 107/66.
[2020-06-13 16:58] LABS: Glucose Point of Care 172 mg/dL (70-110)
--- NOTE | 2020-06-13 18:21 | P.PN_ITS ---
Subjective Subjective: Interval history: Patient appeared to be hypotensive very tired she states she is feeling dizzy systolic blood pressure is on the 80s. Medications: Reviewed: Yes Vitals/I&O/Wt Last Vital Signs Temp 98.9 F 06/13/20 16:05 Pulse 77 06/13/20 16:05 Resp 18 06/13/20 17:56 BP 102/66 06/13/20 16:05 Pulse Ox 96 06/13/20 17:56 06/13/20 06/13/20 06/13/20 06:59 14:59 22:59 Intake Total 490 / 1450 480 / 480 Output Total 200 / 1350 Balance 290 / 100 480 / 480 Physical Exam Narrative: EXAM NARRATIVE: GENERAL: Patient is sleepy and fatigue. NECK: No jugular vein distension. HEENT: No cyanosis. No icterus. No pallor. HEART: Regular S1 and S2. No murmur, rub or gallop. LUNGS: Clear to auscultate bilaterally. ABDOMEN: Soft, nontender and nondistended. Positive bowel sounds. No guarding, rebound or tenderness. CENTRAL NERVOUS SYSTEM: Grossly nonfocal. EXTREMITIES: Lower extremities without edema bilaterally. Data : 06/11/20 05:14 06/11/20 05:14 A&P Assessment and plan (1) High level of cardiac marker: Denies any more chest pain. Still I did not get her angiogram report from outside hospital this is third time we have tried. Status: Acute (2) Coronary artery disease: Denies any chest pain now. Status: Acute Qualifiers: Coronary Disease-Associated Artery/Lesion type: bypass graft [place] vs. transplanted heart: [place] heart Associated angina: with stable angina Qualified Code(s): I25.708 - Atherosclerosis of coronary artery bypass graft(s), unspecified, with other forms of angina pectoris (3) Hypertension: Patient is hypotensive I will give fluid challenge as she appeared to be dehydrated. It could be combination of medicines such as narcotic analgesics however she has been not eating drinking well and possible bacteremia. Continue IV fluid now we will reassess after 1 L with vitals Status: Acute Qualifiers: Hypertension type: essential hypertension Qualified Code(s): I10 - Essential (primary) hypertension (4) Bacteremia: Patient is on antibiotics. If clinically indicated transesophageal echocardiogram will be better modality to assess bacterial endocarditis. Status: Acute Attestations Medical Necessity Statement*: Patient require continuation hospitalization for above defined care Coding Level of Care Code Established Pt Acute Nurse Practitioner Per Diem for Chg Fwd Patient Type Established History Expanded Problem Focused Exam Expanded Problem Focused Medical Decision Making Moderate Complexity Diagnoses High level of cardiac marker R74.8 Coronary artery disease I25.708 Coronary Disease-Associated Artery/Lesion type: bypass graft [place] vs. transplanted heart: [place] heart Associated angina: with stable angina Hypertension I10 Hypertension type: essential hypertension Bacteremia R78.81
[2020-06-13] MEDS: trazodone 150 mg Tablet PO (20:37)
[2020-06-13 20:41] LABS: Glucose Point of Care 299 mg/dL (70-110)
--- NOTE | 2020-06-13 22:19 | P.PN_ITS ---
Subjective Subjective: Interval history: Underwent MRI today, no signs of discitis or osteomyelitis, multiple level degenerative changes and stenosis seen.Blood cx clear since admission. Transiently hypotensive in the afternoon, improved with iv hydration, requesting several of her pain medications Medications: Reviewed: Yes Vitals/I&O/Wt Last Vital Signs Temp 98.3 F 06/13/20 19:21 Pulse 90 06/13/20 19:21 Resp 22 H 06/13/20 19:21 BP 112/67 06/13/20 19:21 Pulse Ox 91 06/13/20 19:21 06/13/20 06/13/20 06/13/20 06:59 14:59 22:59 Intake Total 490 / 1450 480 / 480 Output Total 200 / 1350 Balance 290 / 100 480 / 480 Physical Exam Narrative: EXAM NARRATIVE: GEN: Awake, alert and oriented, no acute distress CVS: S1S2 N RS: CTA B/L Abd: Soft, nt/nd , bs+ BULLDOZER ENGINEER: no focal neuro deficits Data : 06/11/20 05:14 06/11/20 05:14 A&P Assessment and plan (1) Bacteremia: Status: Acute (2) Hyperglycemia: Severe hyperglycemia, sugars 120. She says that when she is in pain her sugar goes very high. She says that she had taken her at home. Sliding scale insulin was started, We will also restart her insulin Lantus 40 units twice daily. Consistent carbohydrate diet. Blood sugar currently improved down to 552. Status: Acute Additional A&P Information # Recurrent gram-positive bacteremia, 3/3 bottles gram-positive cocci identified as 2 different specises of CoNS. Interestingly cultures appear to be clear from the without any directed antibiotics. While normally coag negative staph could be considered a contamination, the fact that it grew out of 3 of 4 bottles and patient had a similar strain isolated in February, hard to dismiss this is a contaminant at this point. Especially since patient reported fevers going up to 101 Fah renheit, possibility of true infection cannot be excluded. Continue vancomycin while remains inpatient. - Back in February had 2/4 bottles positive for staph hominis. She had an extensive source evaluation at that time which included a TTE negative for any vegetations, CT of the back was obtained which did not show any evidence of discitis, however this was limited in that it was a noncontrast [facility]. On her CT a of the chest at the time she did have some nonspecific groundglass opacities bilaterally which was appearing to be resolving. She does not have any gross signs of sternal infection from her previous CABG. The history is removed at this point. She did have an intervening CAT scan with contrast in March of this year to evaluate for pancreatitis. No occult abdominal sources of infection were identified at that time. 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 Patient does not have any orthopedic hardware by way of replaced joints or screws and plates that could potentially be infected. On day of current admission she was noted to have some right-sided knee swelling as a result of a recent fall, however this disappeared by the next morning. CT of the leg was obtained which did not show any evidence of septic arthritis or osteomyelitis. Patient does not report any past history of osteomyelitis either. She denies being an IV drug user. She does use chronic oral opiates and was recently admitted with opiate intoxication. Her U tox has been positive for benzodiazepines and urine opiates with methadone positive in the past. If the blood culture turns positive again or she continues to be febrile, MEGAN may need to be considered to rule out subacute endocarditis. However since the cultures appear to clear without any directed antibiotic treatment my suspicion for this is low at this point. Patient does have a history of ulcerative colitis, however she is not reporting any gross diarrhea. In this setting intermittent GI translocation could be a possibility, on last admission she had complained of some hematochezia, though t his would be an atypical organism to be seen in this setting.. Venous ultrasound is negative for DVT. MRI of the spine today without any signs of discitis or osteomyelitis In this setting, will plan for patient to complete a 2 week course of directed abx for uncomplicated CoNS bacteremia since no obvious source has been found after extensive evaluation. She is currently on day 5 of vancomycin. Options to continue home regimen until 06/23 will be iv vancomycin vs po linezolid. While po linezolid may come with inetractions with zolpidem and sertraline, patient seems more amenbale to this rather than iv abx. One week after stopping abx, will recommend to get surveillance blood cx as an outpatient. IF these are negative, no further abx indicated. If positive, will need MEGAN and likely a longer course at that point. #Patient complaining of nonspecific chest discomfort. It is very hard to a certain if this is new or has been an ongoing problem. However given her significant past cardiac history and elevated troponins with significant delta, will treat this as ACS. She has been started on full dose anticoagulation with Lovenox. Continuing aspirin and Plavix. She reports compliance with these medications at home. Appreciate cardiology recommendations CTA of the chest to rule out PE negative. Stop amlodipine and HCTZ given hypotension today, continue Imdur for now, but will reduce dose if BP continues to be low. Continue carvedilol. Last echocardiogram from February 2020 with normal left ventricular size and systolic function without regional wall motion abnormalities. Grade 1 diastolic function was seen. Last stress test from February 2020 with a small area of reversible defect in the mid inferolateral region suggestive of ischemia in the distribution of the LCx. Currently appears to be related to possible sepsis #Recurrent pancreatitis: Reports several days ago had some episodes of nausea, vomiting, however, not at this time. Monitor. No abdominal pain on examination currently. #Ulcerative colitis; no current diarrhea # Diabetes mellitus: poorly controlled Generalized anxiety GERD CAD HTN HLD Attestations Medical Necessity Statement*: MRI today, likely discharge in the upcoming 24- 48 hrs if remains stable Coding Level of Care Code Acute Cad Programmer for Shant Marroquin Diagnoses Bacteremia R78.81 Hyperglycemia R73.9
[2020-06-14] VITALS (7 sets, daily range): BP systolic 109–129; BP diastolic 70–81; PULSE 76–91; RESP 18–22; TEMP 36.7–37.3; O2SAT 90–95
[2020-06-14] MEDS: HYDROcodone-acetaminophen 10-325 mg Tablet 1 TAB PO ×4 (01:52→21:05)
[2020-06-14] MEDS: HYDROmorphone 1 mg/mL INJ 1 mL IVP (04:28)
[2020-06-14 05:27] LABS: Basophils % 0.6 %; Eosinophils # 0.2 10^3/uL (0.0-0.8); Eosinophils % 3.1 %; Hematocrit 33.8 % (37.0-47.0); Hemoglobin 10.3 g/dL (11.5-15.3); Lymphocytes # 2.2 10^3/uL (0.8-4.8); Lymphocytes % 43.2 %; Mean Corpuscular HGB Conc 30.5 g/dL (30.0-36.0); Mean Corpuscular Hemoglobin 26.9 pg (28.0-34.0); Mean Corpuscular Volume 88.3 fL (81-99); Mean Platelet Volume 11.6 fL (7.4-10.4); Monocytes # 0.2 10^3/uL (0.2-0.9); Monocytes % 4.3 %; Neutrophils # 2.46 10^3/uL (1.8-7.7); Nucleated Red Blood Cells % 0 %; Platelet Count 193 10^3/cmm (130-400); Red Blood Count 3.83 10^6/uL (4.1-5.3); Red Cell Distribution Width 15.4 % (12.1-15.1); White Blood Count 5.1 10^3/uL (4.0-10.0)
[2020-06-14 06:21] LABS: Glucose Point of Care 151 mg/dL (70-110)
[2020-06-14] MEDS: clopidogrel 75 mg Tablet PO (08:08)
[2020-06-14] MEDS: omega-3 fatty acids 1,000 mg Capsule 2000 MG PO ×2 (08:08→17:45)
[2020-06-14] MEDS: pregabalin 150 mg Capsule PO ×3 (08:08→21:05)
[2020-06-14] MEDS: enoxaparin 100 mg/mL Syringe 90 MG SUBCUT (08:09)
[2020-06-14] MEDS: pantoprazole DR 40 mg Tablet PO ×2 (08:09→17:45)
[2020-06-14] MEDS: carvedilol 25 mg Tablet PO ×2 (08:09→17:45)
[2020-06-14] MEDS: sertraline 100 mg Tablet 200 MG PO (08:09)
[2020-06-14] MEDS: gemfibrozil 600 mg Tablet PO (08:09)
[2020-06-14] MEDS: isosorbide mononitrate ER 30 mg Tablet PO ×2 (08:09→17:45)
[2020-06-14] MEDS: aspirin 81 mg Chew Tablet 324 MG PO (08:09)
[2020-06-14] MEDS: lactulose oral liq 20 gm/30 mL UDC 10 GM PO (08:10)
[2020-06-14] MEDS: insulin glargine 100 units/1 mL 40 UNIT SUBCUT ×2 (08:10→17:46)
--- NOTE | 2020-06-14 09:13 | PC.NURSE ---
typewriter repairer was called to room. when entered another nurse was in room trying to help patient sit up. patient was found laying across the bed with head against the bed rale. patient's blood pressure is 105/70. patient said she hit her head 4-5 times trying to sit up. no injuries noted. patient repositioned in bed by typewriter repairer and another nurse. patient was dozing off when patient was repositioned in bed. Dr Blanchard notified.
[2020-06-14 10:40] LABS: Alanine Aminotransferase 22 U/L (0-33); Alkaline Phosphatase 188 IU/L (35-105); Blood Urea Nitrogen 14 mg/dL (6-20); Calcium 8.9 mg/dL (8.5-10.5); Carbon Dioxide 22 mmol/L (22-29); Chloride 101 mmol/L (98-107); Globulin 3.1 g/dL (1.3-4.6); Glomerular Filtration Rate 86.9 mL/min (90-130); Glucose 161 mg/dL (65-115); Osmolality Calculated 282 mOsm/kg (285-295); Sodium 136 mmol/L (136-145); Total Bilirubin 0.2 mg/dL (0.15-1.2); Total Protein 6.1 g/dL (6.6-8.7)
[2020-06-14 10:48] LABS: Anion Gap 16.9 (5-19); Potassium 3.9 mmol/L (3.5-5.1)
[2020-06-14 10:49] LABS: Aspartate Amino Transferase 41 U/L (0-32)
--- NOTE | 2020-06-14 10:52 | PC.CHAP ---
Pastoral Care Encounter/Spiritual Assessment Type of Contact [] Declined primary school teacher librarian visit [] Patient/Family/Request visit [] Outpatient visit [x] Follow-up visit [] Physician referral [] Code/Alert [] Routine visit [] Staff referral [] Actively dying [] Patient sleeping [] Family support [] [] Out of room [] Palliative care [] [] Receiving care in room [] Pre-surgical visit [] Trauma [] Long length of stay [] ICU visit [] Other: Relational/Emotional Strength [] Patient feels connected with others/family/visitors/staff [] Distress [] Loneliness/isolation [] Abandonment Spirituality of Patient [] Person of Ashlee [] Attends Islam of their Ashlee [] Believes in Prayer [] Reads Bible or Hindu materials [] There are Spiritual issues to be addressed Supervisor Agency Appointments Interventions [] Prayer [] Active listening [] Non-anxious presence [] Spiritual/emotional support [] Crisis/trauma care [] Spiritual counseling [] Bereavement support [] Provided bereavement packet [] Provided Bible/devotional materials [] Provided toy/stuffed animal, coloring book to patient or family member [] Provided Communion [] Anointing/[place] [] Salvation [] Completed spiritual assessment [] Other: Impact on Illness or Injury [] Angry [] Fearful [] Anxious [] Often cries [] Exhaustion [] Unable to work [] Unable to attend mandaeism [] Unable to walk/stand [] Unable to read [] Unable to drive [] Unable to eat/drink [] Unable to sleep [] Unable to be with family [] Patient intubated [] Other: Summary Follow-up visit asleep Time spent with patient 5 mjins
[2020-06-14] MEDS: sodium chloride 0.9% 1,000 ML 100 ML IV (11:36)
--- NOTE | 2020-06-14 11:37 | PC.NURSE ---
Patient specifically requesting Dilaudid. Fire Alarm Mechanic notified Dr Blanchard. Patient dozing off during rounding.
[2020-06-14 11:51] LABS: Glucose Point of Care 120 mg/dL (70-110)
--- NOTE | 2020-06-14 12:40 | PC.NURSE ---
patient resting with eyes closed
--- NOTE | 2020-06-14 14:13 | PC.NURSE ---
patient resting with eyes closed
--- NOTE | 2020-06-14 15:05 | PM.PN ---
Subjective Subjective: Interval history: Patient reports shortness of breath and greenish phlegm productive cough since her admission. Reports having substernal chest pain with pleuritic component radiating to her back which felt to be musculoskeletal in origin. Reports having episodes of fever and chills for the last couple of weeks. Reports headache mostly frontal for the last 1 week which comes and goes and patient reports it being severe. Analgesics help and improve pain. Reports that she has been having left fifth digit numbness with some radiation up to the mid forearm on the edge. Her fourth digit sensation is intact. Rest of the sensation around her arm above elbow is intact. She has tender spot at her elbow where ulnar nerve located. No overlying skin issues. Ulnar trauma/entrapment suspected as a cause of patient's numbness. She is neurologically intact otherwise. Denies abdominal pain or problems bowel movement. Does report dysuria for the last 1 week. Patient reports that approximately 1 month ago she had coronary stent placed. Per discussion with RN she has been somnolent all day and did not appear in distress. Vitals/I&O/Wt Last Vital Signs Temp 98.7 F 06/14/20 10:47 Pulse 76 06/14/20 10:47 Resp 18 06/14/20 10:47 BP 109/70 06/14/20 10:47 Pulse Ox 93 06/14/20 10:47 06/14/20 06/14/20 06/14/20 06:59 14:59 22:59 Intake Total 1000 / 1730 240 / 240 Balance 1000 / 1330 240 / 240 Physical Exam Const: COMMON NORMALS: no acute distress and patient oriented x3 Resp: COMMON NORMALS: normal respiratory effort and clear to auscultation bilaterally AUSCULTATION: clear to auscultation bilaterally Cardio: COMMON NORMALS: regular rate, regular rhythm and S2 normal heart sound present RATE: regular rate RHYTHM: regular rhythm HEART SOUNDS: S2 normal heart sound present OTHER: No lower extremity edema GI: COMMON NORMALS: Normal to inspection, nondistended, normoactive bowel sounds present, Soft to palpation and non-tender PALPATION: Yes Soft to palpation Neuro: COMMON NORMALS: patient oriented x3 and no focal motor deficits Data : 06/14/20 04:32 06/14/20 09:31 A&P Assessment and plan (1) Bacteremia: Status: Acute (2) Hyperglycemia: Severe hyperglycemia, sugars 120. She says that when she is in pain her sugar goes very high. She says that she had taken her at home. Sliding scale insulin was started, We will also restart her insulin Lantus 40 units twice daily. Consistent carbohydrate diet. Blood sugar currently improved down to 552. Status: Acute (3) Community acquired pneumonia: Present on admission. 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 Interestingly cultures appear to be clear from the without any directed antibiotics. While normally coag negative staph could be considered a contamination, the fact that it grew out of 3 of 4 bottles and patient had a similar strain isolated in February, hard to dismiss this is a contaminant at this point. Especially since patient reported fevers going up to 101 Fahrenheit, possibility of true infection cannot be excluded. Continue vancomycin while remains inpatient. - Back in February had 2/4 bottles positive for staph hominis. She had an extensive source evaluation at that time which included a TTE negative for any vegetations, CT of the back was obtained which did not show any evidence of discitis, however this was limited in that it was a noncontrast study. On her CT a of the chest at the time she did have some nonspecific groundglass opacities bilaterally which was appearing to be resolving. She does not have any gross signs of sternal infection from her previous CABG. The history is removed at this point. She did have an intervening CAT scan with contrast in March of this year to evaluate for pancreatitis. No occult abdominal sources of infection were identified at that time. 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 Patient does not have any orthopedic hardware by way of replaced joints or screws and plates that could potentially be infected. On day of current admission she was noted to have some right-sided knee swelling as a result of a recent fall, however this disappeared by the next morning. CT of the leg was obtained which did not show any evidence of septic arthritis or osteomyelitis. Patient does not report any past history of osteomyelitis either. She denies being an IV drug user. She does use chronic oral opiates and was recently admitted with opiate intoxication. Her U tox has been positive for benzodiazepines and urine opiates with methadone positive in the past. If the blood culture turns positive again or she continues to be febrile, MEGAN may need to be considered to rule out subacute endocarditis. However since the cultures appear to clear without any directed antibiotic treatment my suspicion for this is low at this point. Patient does have a history of ulcerative colitis, however she is not reporting any gross diarrhea. In this setting intermittent GI translocation could be a possibility, on last admission she had complained of some hematochezia, though this would be an atypical organism to be seen in this setting.. Venous ultrasound is negative for DVT. MRI of the spine today without any signs of discitis or osteomyelitis In this setting, will plan for patient to complete a 2 week course of directed abx for uncomplicated CoNS bacteremia since no obvious source has been found after extensive evaluation. She is currently on day 5 of vancomycin. Options to continue home regimen until 06/23 will be iv vancomycin vs po linezolid. While po linezolid may come with inetractions with zolpidem and sertraline, patient seems more amenbale to this rather than iv abx. One week after stopping abx, will recommend to get surveillance blood cx as an outpatient. IF these are negative, no further abx indicated. If positive, will need MEGAN and likely a longer course at that point. #Patient complaining of nonspecific chest discomfort. It is very hard to a certain if this is new or has been an ongoing problem. However given her significant past cardiac history and elevated troponins with significant delta, will treat this as ACS. She has been started on full dose anticoagulation with Lovenox. Continuing aspirin and Plavix. She reports compliance with these medications at home. Appreciate cardiology recommendations CTA of the chest to rule out PE negative. Stop amlodipine and HCTZ given hypotension today, continue Imdur for now, but will reduce dose if BP continues to be low. Continue carvedilol. Last echocardiogram from February 2020 with normal left ventricular size and systolic function without regional wall motion abnormalities. Grade 1 diastolic function was seen. Last stress test from February 2020 with a small area of reversible defect in the mid inferolateral region suggestive of ischemia in the distribution of the LCx. Currently appears to be related to possible sepsis #Recurrent pancreatitis: Reports several days ago had some episodes of nausea, vomiting, however, not at this time. Monitor. No abdominal pain on examination currently. #Ulcerative colitis; no current diarrhea # Diabetes mellitus: poorly controlled Generalized anxiety GERD CAD HTN HLD PLAN: We will start patient on ceftriaxone and azithromycin for treatment of pneumonia and continue vancomycin. Will proceed with MEGAN and request lumbar puncture to evaluate CSF given her complaints of fever and chills as well as evidence of bacteremia although amount of bacteria she is growing is concerning for a to be contamination. She denies using IV drugs ever. Obtain UA to rule out UTI. It appears that patient has multiple complaints and had extensive work-up previously. She appears to exhibit drug-seeking behavior. Attestations Medical Necessity Statement*: Patient with pneumonia and bacteremia requires close inpatient monitoring, treatment and evaluation. Time Spent in Patient Care: Greater than 35 minutes Coding Level of Care Code Acute Lathe Operator for [facility] Fwd Diagnoses Bacteremia R78.81 Hyperglycemia R73.9 Community acquired pneumonia J18.9 Ulnar nerve damage S54.00XA Headache above the eye region R51
--- NOTE | 2020-06-14 15:06 | PC.NURSE ---
rcvd verbal order from Dr Blanchard to renew Hydrocodone order. Label Operator renewed order.
[2020-06-14] MEDS: cefTRIAXone 1,000 MG in sodium chloride 0.9% (plus) 50 ML 100 MG IV (15:15)
[2020-06-14] MEDS: promethazine 25 mg Tablet PO ×2 (15:23→16:44)
--- NOTE | 2020-06-14 15:36 | PC.NURSE ---
patient complained of pain in chest and radiating down left arm. credit underwriter notified Dr Blanchard
--- NOTE | 2020-06-14 16:08 | PC.NURSE ---
rcvd call from radiology stating to hold lovenox until after procedure, need order for PT/INR. Notified Dr Blanchard. Patient called dietary and was rude, she wants her diet changed. fha underwriter notified Dr Blanchard.
[2020-06-14] MEDS: azithromycin 500 MG in sodium chloride 0.9% 250 ML 250 MG IV (16:41)
[2020-06-14 16:51] LABS: Glucose Point of Care 167 mg/dL (70-110)
--- NOTE | 2020-06-14 18:52 | ECG_ITS ---
[facility] Test Date: 2020-06-14 Pat Name: Collette Kothari Department: Room: 264 Gender: Female Veterinary Dentist: : 1965 Requested By: Donato Blnachard Order Number: [id number] Stacey MD: Jitendra Ryder M.D. Measurements Intervals [place] Rate: 88 P: 54 RI: 168 QRS: 14 QRSD: 97 T: 66 QT: 352 QTc: 427 Interpretive Statements SINUS RHYTHM LOW QRS VOLTAGE IN PRECORDIAL LEADS [QRS DEFLECTION < 1.0 mV IN CHEST LEADS] SEPTAL MYOCARDIAL INFARCTION [40+ ms Q WAVE IN V1/V2], OF INDETERMINATE AGE WARNING: DATA QUALITY MAY AFFECT INTERPRETATION Compared to ECG 06/11/2020 00:09:37 Low QRS voltage now present Myocardial infarct finding now present T-wave abnormality no longer present Electronically Signed On 06-15-2020 20:27:08 CDT by Jitendra Ryder M.D. [id number]
--- NOTE | 2020-06-14 18:55 | PC.NURSE ---
Rcvd verbal order for EKG, Troponin x3, nitro SL once. Pupil Personnel Services Director put orders in
[2020-06-14 19:14] LABS: Bilirubin Urine Neg (NEGATIVE); Blood Urine Neg (Negative); Glucose Urine UA 2+ (Normal); Ketones Urine Negative (Negative); Leukocyte Esterase Urine Negative (Negative); Nitrate Urine Negative (Negative); Protein Urine Neg (Negative); Specific Gravity, Urine 1.015 (1.005-1.030); Urine Appearance Clear (CLEAR); Urine Color Yellow (Yellow); Urobilinogen Urine Norm (Negative); pH Urine 5 (5-7)
[2020-06-14 19:20] LABS: Bacteria Urine TRACE; Renal Epithelial Cells Urine N /hpf; Squamous Epithelial Cell Urine 15-25 (0-5)
[2020-06-14 19:21] LABS: Add Urine Culture? No
[2020-06-14] MEDS: nitroglycerin 0.4 mg sublingual Tablet SUBLINGUAL (19:23)
[2020-06-14 19:48] LABS: Troponin(5th) Baseline 10 ng/L (0-10)
[2020-06-14] MEDS: trazodone 150 mg Tablet PO (21:05)
[2020-06-14 21:13] LABS: Glucose Point of Care 385 mg/dL (70-110)
--- NOTE | 2020-06-14 21:19 | PM.PN ---
Subjective Subjective: Interval history: Patient is complaining of hurting all over asking for more pain medicine in the form of Dilaudid every 2 hours that is what she takes. She denies any chest pain per se but thinks she is hurting all over some time had some time back she has a lot of tender points according to her Medications: Reviewed: Yes Vitals/I&O/Wt Last Vital Signs Temp 99.1 F 06/14/20 20:00 Pulse 91 06/14/20 20:00 Resp 22 H 06/14/20 20:00 BP 121/73 06/14/20 20:00 Pulse Ox 91 06/14/20 20:00 06/14/20 06/14/20 06/14/20 06:59 14:59 22:59 Intake Total 1000 / 1730 240 / 240 250 / 490 Output Total 550 / 550 Balance 1000 / 1330 240 / 240 -300 / -60 Physical Exam Narrative: EXAM NARRATIVE: GENERAL: Patient is sitting in the bed does not appear to be in distress. She has tender points in the back NECK: No jugular vein distension. HEENT: No cyanosis. No icterus. No pallor. HEART: Regular S1 and S2. No murmur, rub or gallop. LUNGS: Clear to auscultate bilaterally. ABDOMEN: Soft, nontender and nondistended. Positive bowel sounds. No guarding, rebound or tenderness. CENTRAL NERVOUS SYSTEM: Grossly nonfocal. EXTREMITIES: Lower extremities without edema bilaterally. Data : 06/14/20 04:32 06/14/20 09:31 Micro: Microbiology 06/09/20 19:40 Blood Culture - Final Blood NO GROWTH AFTER 5 DAYS 06/09/20 19:36 Blood Culture - Final Blood NO GROWTH AFTER 5 DAYS A&P Assessment and plan (1) High level of cardiac marker: Denies any chest pain per se. Patient hurts all over chest pains are very atypical. Again we put the request further medical record transferred they have told us they have signed it in the mail Status: Acute (2) Coronary artery disease: Stable continue current regimen Status: Acute Qualifiers: Coronary Disease-Associated Artery/Lesion type: bypass graft [place] vs. transplanted heart: burns paiute heart Associated angina: with stable angina Qualified Code(s): I25.708 - Atherosclerosis of coronary artery bypass graft(s), unspecified, with other forms of angina pectoris (3) Hypertension: Now normotensive. Status: Acute Qualifiers: Hypertension type: essential hypertension Qualified Code(s): I10 - Essential (primary) hypertension (4) Bacteremia: Patient is on antibiotics. Medicine recommended proceeding with transesophageal echocardiogram since patient continues to grow bacteria. We will therefore agree and proceed with it. Patient has been explained all risk benefit and alternative for the procedure. She would like to proceed with it Status: Acute Attestations Medical Necessity Statement*: Requiring continuation hospitalization for above defined care. Coding Level of Care Code Established Pt Acute Truant Officer for [facility] Fwd Patient Type Established History Expanded Problem Focused Exam Expanded Problem Focused Medical Decision Making Moderate Complexity Diagnoses High level of cardiac marker R74.8 Coronary artery disease I25.708 Coronary Disease-Associated Artery/Lesion type: bypass graft [place] vs. transplanted heart: burns paiute heart Associated angina: with stable angina Hypertension I10 Hypertension type: essential hypertension Bacteremia R78.81
[2020-06-14] MEDS: tizanidine 4 mg Tablet PO (22:48)
[2020-06-15] VITALS (12 sets, daily range): BP systolic 84–142; BP diastolic 57–83; PULSE 64–82; RESP 16–20; TEMP 36.4–37; O2SAT 90–97
[2020-06-15] MEDS: HYDROcodone-acetaminophen 10-325 mg Tablet 1 TAB PO ×5 (01:19→22:36)
[2020-06-15 01:32] LABS: Troponin 5 6HR 9.78 ng/L (0-10)
[2020-06-15 01:36] LABS: Vancomycin Trough 18.7 ug/mL (10-15)
[2020-06-15 02:06] LABS: Troponin 5 6HR Delta -0.22 ng/L (0-12)
[2020-06-15 06:27] LABS: Glucose Point of Care 209 mg/dL (70-110)
[2020-06-15 06:59] LABS: INR 0.76 (0.8-1.2)
--- NOTE | 2020-06-15 08:00 | FL_ITS ---
WS: [id number] LUMBAR PUNCTURE UNDER FLUOROSCOPY: OBTAIN CSF FOR ANALYSIS HISTORY: Headache, bacteremia, fever/chills COMPARISON: None available. Prior MRIs and CTs reviewed. FLUOROSCOPY TIME: 1.1 minutes. Procedure, complications, and risk and benefits explained to the patient. Consent was obtained. Recen t laboratory work and medication are reviewed prior to procedure. Skin over the lumbar is cleansed with ChloraPrep and anesthetized with 1% buffered lidocaine. Access into the thecal sac is achieved. CSF is removed in a sterile manner and placed in the sterile tubes. Approximately 12 ml is removed without difficulty. Initial CSF was slightly bloody which is probably due to traumatic puncture. The CSF cleared for the remaining collection. Opening pressure: 10 mmHg. No complications are encountered. CSF this into the laboratory for analysis as requested. Opening pressure: 10 mmHg. FL/FL guided lumbarpunc dx* [id number] IMPRESSION: Uncomplicated lumbar puncture for CSF. CSF collected and sent for analysis as requested.
[2020-06-15] MEDS: sertraline 100 mg Tablet 200 MG PO (09:06)
[2020-06-15] MEDS: aspirin 81 mg Chew Tablet 324 MG PO (09:06)
[2020-06-15] MEDS: pregabalin 150 mg Capsule PO ×3 (09:06→22:00)
[2020-06-15] MEDS: clopidogrel 75 mg Tablet PO (09:06)
[2020-06-15] MEDS: carvedilol 25 mg Tablet PO ×2 (09:06→22:00)
[2020-06-15] MEDS: gemfibrozil 600 mg Tablet PO (09:06)
[2020-06-15] MEDS: pantoprazole DR 40 mg Tablet PO ×2 (09:06→22:01)
[2020-06-15] MEDS: omega-3 fatty acids 1,000 mg Capsule 2000 MG PO ×2 (09:06→22:00)
[2020-06-15] MEDS: isosorbide mononitrate ER 30 mg Tablet PO ×2 (09:06→22:01)
[2020-06-15] MEDS: insulin glargine 100 units/1 mL 40 UNIT SUBCUT ×2 (09:07→22:02)
[2020-06-15] MEDS: cefTRIAXone 1,000 MG in sodium chloride 0.9% (plus) 50 ML 100 MG IV ×2 (09:07→22:01)
[2020-06-15 10:03] LABS: CSF Mononuclear # 0.001 10^3/uL (50-90); Red Blood Cell CSF 0 10^3/uL (0-0)
[2020-06-15 10:07] LABS: Mononuclear WBC CSF % 50 % (50-90); Polynuclear Cells ,CSF # 0.001 10^3/uL (0-10); Polynuclear WBC CSF % 50 % (0-10); White Blood Cell CSF 2 /uL (0-5)
[2020-06-15 10:18] LABS: Appearance CSF CLEAR (CLEAR); Color CSF COLORLESS (COLORLESS); Pathology Referral Yes
[2020-06-15 10:19] LABS: Glucose CSF 115 mg/dL (40-70); Total Protein CSF 38 mg/dL (15-45)
--- NOTE | 2020-06-15 10:49 | PM.PN ---
Subjective Subjective: Interval history: Patient continues to hurt all over . Asking for more opioid medications. We have discussed that it is concerning as patient was very lethargic and she already taking opiate medications. Her CSF is unremarkable. She is Scheduled for MEGAN today. Her repeat blood cultures are negative. Continues to have cough which she reports is more dry now. Ambulates without difficulty and reports good appetite and oral intake but did not eat this morning for upcoming procedure. She lives with her boyfriend for the last 30 years. Medications: Reviewed: Yes Vitals/I&O/Wt Last Vital Signs Temp 98.4 F 06/15/20 06:59 Pulse 71 06/15/20 06:59 Resp 18 06/15/20 06:59 BP 142/83 06/15/20 06:59 Pulse Ox 91 06/15/20 06:59 06/14/20 06/15/20 06/15/20 22:59 06:59 14:59 Intake Total 300 / 790 Output Total 750 / 750 300 / 1050 400 / 400 Balance -450 / 40 -300 / -260 -400 / -400 Physical Exam Const: COMMON NORMALS: no acute distress and patient oriented x3 Resp: COMMON NORMALS: normal respiratory effort and clear to auscultation bilaterally AUSCULTATION: clear to auscultation bilaterally Cardio: COMMON NORMALS: regular rate, regular rhythm and S2 normal heart sound present RATE: regular rate RHYTHM: regular rhythm HEART SOUNDS: S2 normal heart sound present OTHER: No lower extremity edema GI: COMMON NORMALS: Normal to inspection, nondistended, normoactive bowel sounds present, Soft to palpation and non-tender PALPATION: Yes Soft to palpation Neuro: COMMON NORMALS: patient oriented x3 and no focal motor deficits Data : 06/14/20 04:32 06/14/20 09:31 Micro: Microbiology 06/09/20 19:40 Blood Culture - Final Blood NO GROWTH AFTER 5 DAYS 06/09/20 19:36 Blood Culture - Final Blood NO GROWTH AFTER 5 DAYS A&P Assessment and plan (1) Bacteremia: Status: Acute (2) Hyperglycemia: Severe hyperglycemia, sugars 120. She says that when she is in pain her sugar goes very high. She says that she had taken her at home. Sliding scale insulin was started, We will also restart her insulin Lantus 40 units twice daily. Consistent carbohydrate diet. Blood sugar currently improved down to 552. Status: Acute (3) Community acquired pneumonia: Present on admission. 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 Interestingly cultures appear to be clear from the without any directed antibiotics. While normally coag negative staph could be considered a contamination, the fact that it grew out of 3 of 4 bottles and patient had a similar strain isolated in February, hard to dismiss this is a contaminant at this point. Especially since patient reported fevers going up to 101 Fahrenheit, possibility of true infection cannot be excluded. Continue vancomycin while remains inpatient. - Back in February had 2/4 bottles positive for staph hominis. She had an extensive source evaluation at that time which included a TTE negative for any vegetations, CT of the back was obtained which did not show any evidence of discitis, however this was limited in that it was a noncontrast study. On her CT a of the chest at the time she did have some nonspecific groundglass opacities bilaterally which was appearing to be resolving. She does not have any gross signs of sternal infection from her previous CABG. The history is removed at this point. She did have an intervening CAT scan with contrast in March of this year to evaluate for pancreatitis. No occult abdominal sources of infection were identified at that time. 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 Patient does not have any orthopedic hardware by way of replaced joints or screws and plates that could potentially be infected. On day of current admission she was noted to have some right-sided knee swelling as a result of a recent fall, however this disappeared by the next morning. CT of the leg was obtained which did not show any evidence of septic arthritis or osteomyelitis. Patient does not report any past history of osteomyelitis either. She denies being an IV drug user. She does use chronic oral opiates and was recently admitted with opiate intoxication. Her U tox has been positive for benzodiazepines and urine opiates with methadone positive in the past. If the blood culture turns positive again or she continues to be febrile, MEGAN may need to be considered to rule out subacute endocarditis. However since the cultures appear to clear without any directed antibiotic treatment my suspicion for this is low at this point. Patient does have a history of ulcerative colitis, however she is not reporting any gross diarrhea. In this setting intermittent GI translocation could be a possibility, on last admission she had complained of some hematochezia, though this would be an atypical organism to be seen in this setting.. Venous ultrasound is negative for DVT. MRI of the spine today without any signs of discitis or osteomyelitis In this setting, will plan for patient to complete a 2 week course of directed abx for uncomplicated CoNS bacteremia since no obvious source has been found after extensive evaluation. She is currently on day 5 of vancomycin. Options to continue home regimen until 06/23 will be iv vancomycin vs po linezolid. While po linezolid may come with inetractions with zolpidem and sertraline, patient seems more amenbale to this rather than iv abx. One week after stopping abx, will recommend to get surveillance blood cx as an outpatient. IF these are negative, no further abx indicated. If positive, will need MEGAN and likely a longer course at that point. #Patient complaining of nonspecific chest discomfort. It is very hard to a certain if this is new or has been an ongoing problem. However given her significant past cardiac history and elevated troponins with significant delta, will treat this as ACS. She has been started on full dose anticoagulation with Lovenox. Continuing aspirin and Plavix. She reports compliance with these medications at home. Appreciate cardiology recommendations CTA of the chest to rule out PE negative. Stop amlodipine and HCTZ given hypotension today, continue Imdur for now, but will reduce dose if BP continues to be low. Continue carvedilol. Last echocardiogram from February 2020 with normal left ventricular size and systolic function without regional wall motion abnormalities. Grade 1 diastolic function was seen. Last stress test from February 2020 with a small area of reversible defect in the mid inferolateral region suggestive of ischemia in the distribution of the LCx. Currently appears to be related to possible sepsis #Recurrent pancreatitis: Reports several days ago had some episodes of nausea, vomiting, however, not at this time. Monitor. No abdominal pain on examination currently. #Ulcerative colitis; no current diarrhea # Diabetes mellitus: poorly controlled Generalized anxiety GERD CAD HTN HLD PLAN: We will continue current monitoring and treatment. Obtain labs this morning and awaiting MEGAN procedure. If continues to improve and no significant findings we will likely be able to dismiss patient home either later today or tomorrow. Attestations Medical Necessity Statement*: Patient with bacteremia requires close inpatient monitoring and treatment as well as evaluation until deemed safe for discharge. Time Spent in Patient Care: 16 - 35 minutes Coding Level of Care Code Acute Skating Rink Ice Maker for [facility] Fwd Diagnoses Bacteremia R78.81 Hyperglycemia R73.9 Community acquired pneumonia J18.9 Ulnar nerve damage S54.00XA Headache above the eye region R51
[2020-06-15 11:10] LABS: Glucose Point of Care 131 mg/dL (70-110)
[2020-06-15 12:50] LABS: Basophils % 0.6 %; Eosinophils # 0.3 10^3/uL (0.0-0.8); Eosinophils % 4.9 %; Hematocrit 32.8 % (37.0-47.0); Lymphocytes # 2.3 10^3/uL (0.8-4.8); Lymphocytes % 43.9 %; Mean Corpuscular HGB Conc 30.5 g/dL (30.0-36.0); Mean Corpuscular Volume 88.6 fL (81-99); Mean Platelet Volume 10.8 fL (7.4-10.4); Monocytes # 0.3 10^3/uL (0.2-0.9); Monocytes % 5.5 %; Neutrophils # 2.35 10^3/uL (1.8-7.7); Neutrophils % 44.3 %; Nucleated Red Blood Cells % 0 %; Platelet Count 197 10^3/cmm (130-400); Red Cell Distribution Width 15.5 % (12.1-15.1); White Blood Count 5.3 10^3/uL (4.0-10.0)
[2020-06-15 13:09] LABS: Alanine Aminotransferase 22 U/L (0-33); Albumin Level 2.9 g/dL (3.5-5.2); Alkaline Phosphatase 181 IU/L (35-105); Anion Gap 12.6 (5-19); Aspartate Amino Transferase 35 U/L (0-32); Blood Urea Nitrogen 12 mg/dL (6-20); Calcium 8.4 mg/dL (8.5-10.5); Carbon Dioxide 28 mmol/L (22-29); Chloride 101 mmol/L (98-107); Globulin 3.1 g/dL (1.3-4.6); Glomerular Filtration Rate 103.8 mL/min (90-130); Glucose 88 mg/dL (65-115); Osmolality Calculated 282 mOsm/kg (285-295); Potassium 3.6 mmol/L (3.5-5.1); Sodium 138 mmol/L (136-145); Total Bilirubin 0.2 mg/dL (0.15-1.2)
--- NOTE | 2020-06-15 14:00 | USCV_ITS ---
Collette Kothari Age: 55 Gender: F : 1965 Exam Date: 06/15/2020 13:59 Ordering Phys: Donato Blanchard MD Technologist: Mady Arzola Exam Location: [facility] – [place] Indication: BACTEREMIA BP: / HR: Rhythm: Sinus Technical Quality: MEASUREMENTS (Male / Female) Normal Values Medications Patient given IV sedation by anesthesia service, for details please refer to the anesthesia report. Complications None. Proc. Components The patient was brought to the MEGAN examination room in a fasting state after obtaining an informed consent. The MEGAN probe was passed into the posterior pharynx , mid-esophagus, distal esophagus, and gastric fundus. MEGAN was performed at multiple levels. Please note that due to hemodynamic instability secondary to dropping of oxygen level we have to complete the procedure in hurry FINDINGS Left Ventricle Normal left ventricular size, systolic function and wall thickness, with no regional wall motion abnormalities. Normal left ventricular wall thickness. Normal diastolic filling pattern. Estimated ejection fraction is 55% Right Ventricle There also appeared to be rudimentary calcified globular mass noted in the subvalvular tricuspid valve apparatus have also be seen in prior echo set therefore it is not much concerning for vegetation. Right Atrium The right atrium is normal in size. Left Atrium The left atrium is normal in size. LA Appendage The LA appendage is normal. IA Septum The interatrial septum is normal. Mitral Valve Mildly thickened mitral valve. No mitral valve stenosis. Mild mitral valve regurgitation. Aortic Valve Moderate aortic valve calcification. No aortic valve stenosis. No aortic valve regurgitation. There appeared to be small 0.38 x 0..4 cm mass noted at the noncoronary cusp of the aortic valve noted on the left ventricle side suspicious for vegetation Tricuspid Valve There appeared to be 1.4 x 0.48 cm mass noted on the tricuspid valve suspicious for vegetation Pulmonic Valve Structurally normal pulmonic valve without significant stenosis. There is no pulmonic regurgitation. Pericardium Normal pericardium without effusion. Aorta Normal ascending aorta dimension. CONCLUSIONS 1-Normal left ventricular size, systolic function and wall thickness, with no regional wall motion abnormalities. Normal left ventricular wall thickness. Normal diastolic filling pattern. Estimated ejection fraction is 55%. 2-There also appeared to be rudimentary calcified globular mass noted in the subvalvular tricuspid valve apparatus have also be seen in prior echo set therefore it is not much concerning for vegetation. 3-The LA appendage is normal. 4-The interatrial septum is normal. 5-Moderate aortic valve calcification. No aortic valve stenosis. No aortic valve regurgitation. There appeared to be small 0.38 x 0..4 cm mass noted at the noncoronary cusp of the aortic valve noted on the left ventricle side suspicious for vegetation. 6-There appeared to be 1.4 x 0.48 cm mass noted on the tricuspid valve suspicious for vegetation. 7-There is no pericardial effusion. 8-When compared to the prior transthoracic echocardiogram 03/04/20 subvalvular tricuspid valve mass was also seen before however tricuspid valve and aortic valve thickening/mass noted above are suspicious for new vegetations. Clinical correlation advised. There is no significant regurgitation except mild mitral valve was noted. Kianna Aguilera MD (Electronically Signed) Final Date: 15 June 2020 21:44 S
--- NOTE | 2020-06-15 14:19 | P.ANESASSM_ITS ---
Pre-Anesthetic Assessment Pre-Anesthetic Assessment: Height/Weight: Height 1.75 m Weight 88.479 kg Temp Pulse Resp BP Pulse Ox 98.3 F 70 18 109/72 93 06/15/20 11:00 06/15/20 11:00 06/15/20 11:00 06/15/20 11:00 06/15/20 11:00 Preop Diagnosis: sepsis Proposed Procedure: Operation Date: 06/15/20 14:30 Proposed Procedures p MEGAN (Transesophageal Echocardiogram)(Not Applicable) - Kianna Aguilera MD Was Beta Austin taken within 24 hours: Yes Social: Social History: Tobacco (quit long time ago) Exam: Pre-Anes Outpt Exam: alert, oriented x 3, clear to auscultation bilaterally and regular rate & rhythm Airway: Submandibular: WNL Cervical ROM: WNL MP: 2 Dentition: False (glued in) History/ROS: No significant history except as noted Pulmonary: Pulmonary: SCHNEIDER and SOB CV/HEM: CV/HEM: Angina (Stable) (last nitro on Saturday), CAD, DVT (s/p cabg), HTN and SC (twice, last time 12 cardiac stents. ) : : None reported Hepatic: Hepatic: None reported GI: GI: GERD Metabolic: Metabolic: DM and Hyperlipidemia Musc/skel: Musc/skel: Fibromyalgia, Lower Back Pain, OA/DJD and Weakness (walker) Neuropsych: Neuropsych: Anxiety, Depression, Neuropathy and TIA Anesthetic Plan: ASA status: 3 Anesthesia: Anesthesia Evaluation and MAC Risk of > 500 ml blood loss (7ml/kg in children): No Meds/Allergies Current Medications: Current Medications Generic Name Dose Route Start Last Admin Trade Name Freq PRN Reason Stop Dose Admin Hydrocodone Bitart /Acetaminophen 1 tab 06/09/20 18:52 06/15/20 11:45 [place] 10-325 Mg PO 1 tab Q4H PRN Administration Pain Albuterol Sulfate 2.5 mg 06/13/20 15:24 06/13/20 15:48 Albuterol INHALATION 2.5 mg Q4H.RESPIRATORY P RN Administration SHORTNESS OF CL TH Amlodipine Besylat e 5 mg 06/10/20 09:00 06/13/20 08:13 Norvasc PO 5 mg DAILY MATTIE Administration Aspirin 324 mg 06/10/20 20:50 06/15/20 09:06 Aspirin Chewable PO 324 mg DAILY MATTIE Administration Carvedilol 25 mg 06/10/20 09:00 06/15/20 09:06 Coreg PO 25 mg BID MATTIE Administration Clopidogrel Bisulf ate 75 mg 06/10/20 09:00 06/15/20 09:06 Plavix PO 75 mg DAILY MATTIE Administration Enoxaparin Sodium 90 mg 06/10/20 21:00 06/14/20 08:09 Lovenox 1 mg/kg (90 mg) 90 mg SUBCUT Administration Q12H MATTIE Gemfibrozil 600 mg 06/10/20 09:00 06/15/20 09:06 Lopid PO 600 mg DAILY MATTIE Administration Hydrochlorothiazid e 12.5 mg 06/10/20 09:00 06/13/20 08:12 Hctz PO 12.5 mg DAILY MATTIE Administration Ceftriaxone Sodium 1,000 mg/ 50 mls @ 100 mls/ hr 06/14/20 15:00 06/15/20 09:07 Sodium Chloride IV 100 mls/hr Q12H MATTIE Administration Protocol Azithromycin 500 m g/ Sodium 250 mls @ 250 mls /hr 06/14/20 17:00 06/14/20 16:41 Chloride IV 06/16/20 17:59 250 mls/hr Q24H MATTIE Administration Protocol Vancomycin HCl 1,5 00 mg/ 250 mls @ 166.667 mls/hr 06/15/20 04:00 06/15/20 03:45 Sodium Chloride IV 166.7 mls/hr Q18H MATTIE Administration Insulin Aspart 0 unit 06/09/20 21:00 06/15/20 11:22 Novolog SUBCUT Not Given WM&BEDTIME MATTIE Protocol Insulin Glargine 40 unit 06/09/20 22:30 06/15/20 09:07 Lantus SUBCUT 40 unit BID MATTIE Administration Isosorbide Mononit rate 30 mg 06/10/20 09:00 06/15/20 09:06 Imdur PO 30 mg BID MATTIE Administration Lactulose 10 gm 06/09/20 19:10 06/14/20 08:10 Constulose PO 10 gm BID PRN Administration Constipation [id number] Ethyl Esters 2,000 mg 06/10/20 09:00 06/15/20 09:06 [place]-3 Fatty Ac ids PO 2,000 mg BID MATTIE Administration Ondansetron HCl 4 mg 06/11/20 20:12 06/12/20 13:22 Zofran IVP 4 mg Q6H PRN Administration NAUSEA AND VOMITI NG Pantoprazole [place]od[place] m 40 mg 06/10/20 09:00 06/15/20 09:06 Protonix PO 40 mg BID MATTIE Administration Polyethylene Glyco l 17 gm 06/09/20 18:52 06/12/20 21:59 Miralax PO 17 gm DAILY PRN Administration Constipation Pregabalin 150 mg 06/09/20 21:00 06/15/20 09:06 Lyrica PO 150 mg TID MATTIE Administration Promethazine HCl 25 mg 06/09/20 19:10 06/14/20 16:44 Phenergan PO 25 mg Q6H PRN Administration Nausea Sertraline HCl 200 mg 06/10/20 09:00 06/15/20 09:06 Zoloft PO 200 mg DAILY MATTIE Administration Sucralfate 1 gm 06/09/20 18:52 06/09/20 22:55 Carafate PO 1 gm QID PRN Administration HEARTBURN Tizanidine HCl 4 mg 06/09/20 18:52 06/14/20 22:48 Zanaflex PO 4 mg TID PRN Administration Spasms Trazodone HCl 150 mg 06/09/20 21:00 06/14/20 21:05 Desyrel PO 150 mg BEDTIME MATTIE Administration Zolpidem Tartrate 10 mg 06/09/20 21:00 06/14/20 21:05 Ambien PO 10 mg BEDTIME MATTIE Administration PFSH Anesthesia PFSH: Medical History Coronary artery disease Depression with anxiety Generalized anxiety disorder GERD (gastroesophageal reflux disease) Hypertension Hypertriglyceridemia Insulin dependent diabetes mellitus Irritable bowel syndrome Pancreatitis Post-traumatic stress disorder, chronic Ulcerative colitis Surgical History H/O tubal ligation H/O: hysterectomy History of carpal tunnel surgery Hx of tonsillectomy S/P CABG x 4 S/P coronary artery stent placement Family History Mother Dementia Father CAD (coronary artery disease) Other IBD (inflammatory bowel disease) Social History Smoking and tobacco status: former smoker Alcohol intake: never Lives independently: Yes Household members: significant other Marital status: Life Partner Current occupational status: disabled Data Anesthesia CBC & Chem 7: 06/15/20 12:40 06/15/20 12:40 Other Labs: Laboratory Results - last 48 hr 06/13/20 06/13/20 06/14/20 16:47 20:28 04:32 WBC 5.1 RBC 3.83 L Hgb 10.3 L Hct 33.8 L MCV 88.3 MCH 26.9 L MCHC 30.5 RDW 15.4 H Plt Count 193 MPV 11.6 H Neut % (Auto) 48.0 Lymph % (Auto) 43.2 [place] % (Auto) 4.3 Eos % (Auto) 3.1 Baso % (Auto) 0.6 Neut # (Auto) 2.46 Lymph # (Auto) 2.2 [place] # (Auto) 0.2 Eos # (Auto) 0.2 Baso # (Auto) 0.0 Nucleated RBC % (auto) 0 Nucleated RBCs # 0.0 PT INR Sodium Potassium Chloride Carbon Dioxide Anion Gap BUN Creatinine GFR Calculation Glucose POC Glucose 172 299 Calculated Osmolality Calcium Total Bilirubin AST ALT Alkaline Phosphatase Troponin T Baseline Troponin T 120 Minute Delta Troponin T Troponin T Hi Sens 6Hr Troponin T Hi Sens 6Hr Delta Total Protein Albumin Globulin Urine Color Urine Appearance Urine pH Ur Specific [place] Urine Protein Urine Glucose (UA) Urine Ketones Urine Blood Urine Nitrate Urine Bilirubin Urine Urobilinogen Ur Leukocyte Esterase Urine RBC Urine WBC Ur Squamous Epith Cells Ur Transition Epith Cell Ur Renal Epithelial Cell Urine Bacteria Urine Yeast CSF Appearance CSF Color CSF WBC CSF RBC CSF Mononuclear # Auto CSF Mononuclear WBCs % CSF Polynuclear WBCs # CSF Polynuclear WBCs % CSF Diff Comment CSF Glucose CSF LDH CSF Total Protein Vancomycin Trough 06/14/20 06/14/20 06/14/20 06:06 08:35 09:31 WBC RBC Hgb Hct MCV MCH MCHC RDW Plt Count MPV Neut % (Auto) Lymph % (Auto) [place] % (Auto) Eos % (Auto) Baso % (Auto) Neut # (Auto) Lymph # (Auto) [place] # (Auto) Eos # (Auto) Baso # (Auto) Nucleated RBC % (auto) Nucleated RBCs # PT INR Sodium 136 Potassium 3.9 Chloride 101 Carbon Dioxide 22 Anion Gap 16.9 BUN 14 Creatinine 0.7 GFR Calculation 86.9 L Glucose 161 H POC Glucose 151 Calculated Osmolality 282 L Calcium 8.9 Total Bilirubin 0.2 AST 41 H ALT 22 Alkaline Phosphatase 188 H Troponin T Baseline Troponin T 120 Minute Delta Troponin T Troponin T Hi Sens 6Hr Troponin T Hi Sens 6Hr Delta Total Protein 6.1 L Albumin 3.0 L Globulin 3.1 Urine Color Urine Appearance Urine pH Ur Specific [place] Urine Protein Urine Glucose (UA) Urine Ketones Urine Blood Urine Nitrate Urine Bilirubin Urine Urobilinogen Ur Leukocyte Esterase Urine RBC Urine WBC Ur Squamous Epith Cells Ur Transition Epith Cell Ur Renal Epithelial Cell Urine Bacteria Urine Yeast CSF Appearance Clear CSF Color Colorless CSF WBC 2 CSF RBC 0 CSF Mononuclear # Auto 0.001 L CSF Mononuclear WBCs % 50 CSF Polynuclear WBCs # 0.001 CSF Polynuclear WBCs % 50 H CSF Diff Comment Yes CSF Glucose 115 H CSF LDH Not Reportable CSF Total Protein 38 Vancomycin Trough 06/14/20 06/14/20 06/14/20 10:49 16:46 18:43 WBC RBC Hgb Hct MCV MCH MCHC RDW Plt Count MPV Neut % (Auto) Lymph % (Auto) [place] % (Auto) Eos % (Auto) Baso % (Auto) Neut # (Auto) Lymph # (Auto) [place] # (Auto) Eos # (Auto) Baso # (Auto) Nucleated RBC % (auto) Nucleated RBCs # PT INR Sodium Potassium Chloride Carbon Dioxide Anion Gap BUN Creatinine GFR Calculation Glucose POC Glucose 120 167 Calculated Osmolality Calcium Total Bilirubin AST ALT Alkaline Phosphatase Troponin T Baseline Troponin T 120 Minute Delta Troponin T Troponin T Hi Sens 6Hr Troponin T Hi Sens 6Hr Delta Total Protein Albumin Globulin Urine Color Yellow Urine Appearance Clear Urine pH 5 Ur Specific [place] 1.015 Urine Protein Neg Urine Glucose (UA) 2+ Urine Ketones Negative Urine Blood Neg Urine Nitrate Negative Urine Bilirubin Neg Urine Urobilinogen Norm Ur Leukocyte Esterase Negative Urine RBC None Urine WBC None Ur Squamous Epith Cells 15-25 H Ur Transition Epith Cell None Ur Renal Epithelial Cell N Urine Bacteria Trace Urine Yeast 3+ H CSF Appearance CSF Color CSF WBC CSF RBC CSF Mononuclear # Auto CSF Mononuclear WBCs % CSF Polynuclear WBCs # CSF Polynuclear WBCs % CSF Diff Comment CSF Glucose CSF LDH CSF Total Protein Vancomycin Trough 0706/14/20 06/14/20 19:14 20:53 21:23 WBC RBC Hgb Hct MCV MCH MCHC RDW Plt Count MPV Neut % (Auto) Lymph % (Auto) [place] % (Auto) Eos % (Auto) Baso % (Auto) Neut # (Auto) Lymph # (Auto) [place] # (Auto) Eos # (Auto) Baso # (Auto) Nucleated RBC % (auto) Nucleated RBCs # PT INR Sodium Potassium Chloride Carbon Dioxide Anion Gap BUN Creatinine GFR Calculation Glucose POC Glucose 385 Calculated Osmolality Calcium Total Bilirubin AST ALT Alkaline Phosphatase Troponin T Baseline 10 Troponin T 120 Minute 9.10 Delta Troponin T -0.90 L Troponin T Hi Sens 6Hr Troponin T Hi Sens 6Hr Delta Total Protein Albumin Globulin Urine Color Urine Appearance Urine pH Ur Specific [place] Urine Protein Urine Glucose (UA) Urine Ketones Urine Blood Urine Nitrate Urine Bilirubin Urine Urobilinogen Ur Leukocyte Esterase Urine RBC Urine WBC Ur Squamous Epith Cells Ur Transition Epith Cell Ur Renal Epithelial Cell Urine Bacteria Urine Yeast CSF Appearance CSF Color CSF WBC CSF RBC CSF Mononuclear # Auto CSF Mononuclear WBCs % CSF Polynuclear WBCs # CSF Polynuclear WBCs % CSF Diff Comment CSF Glucose CSF LDH CSF Total Protein Vancomycin Trough 06/15/20 06/15/20 06/15/20 01:06 01:06 06:18 WBC RBC Hgb Hct MCV MCH MCHC RDW Plt Count MPV Neut % (Auto) Lymph % (Auto) [place] % (Auto) Eos % (Auto) Baso % (Auto) Neut # (Auto) Lymph # (Auto) [place] # (Auto) Eos # (Auto) Baso # (Auto) Nucleated RBC % (auto) Nucleated RBCs # PT INR Sodium Potassium Chloride Carbon Dioxide Anion Gap BUN Creatinine GFR Calculation Glucose POC Glucose 209 Calculated Osmolality Calcium Total Bilirubin AST ALT Alkaline Phosphatase Troponin T Baseline Troponin T 120 Minute Delta Troponin T Troponin T Hi Sens 6Hr 9.78 Troponin T Hi Sens 6Hr Delta -0.22 L Total Protein Albumin Globulin Urine Color Urine Appearance Urine pH Ur Specific [place] Urine Protein Urine Glucose (UA) Urine Ketones Urine Blood Urine Nitrate Urine Bilirubin Urine Urobilinogen Ur Leukocyte Esterase Urine RBC Urine WBC Ur Squamous Epith Cells Ur Transition Epith Cell Ur Renal Epithelial Cell Urine Bacteria Urine Yeast CSF Appearance CSF Color CSF WBC CSF RBC CSF Mononuclear # Auto CSF Mononuclear WBCs % CSF Polynuclear WBCs # CSF Polynuclear WBCs % CSF Diff Comment CSF Glucose CSF LDH CSF Total Protein Vancomycin Trough 18.7 H 06/15/20 06/15/20 06/15/20 06:25 11:03 12:40 WBC 5.3 RBC 3.70 L Hgb 10.0 L Hct 32.8 L MCV 88.6 MCH 27.0 L MCHC 30.5 RDW 15.5 H Plt Count 197 MPV 10.8 H Neut % (Auto) 44.3 Lymph % (Auto) 43.9 [place] % (Auto) 5.5 Eos % (Auto) 4.9 Baso % (Auto) 0.6 Neut # (Auto) 2.35 Lymph # (Auto) 2.3 [place] # (Auto) 0.3 Eos # (Auto) 0.3 Baso # (Auto) 0.0 Nucleated RBC % (auto) 0 Nucleated RBCs # 0.0 PT 10.80 INR 0.76 L Sodium Potassium Chloride Carbon Dioxide Anion Gap BUN Creatinine GFR Calculation Glucose POC Glucose 131 Calculated Osmolality Calcium Total Bilirubin AST ALT Alkaline Phosphatase Troponin T Baseline Troponin T 120 Minute Delta Troponin T Troponin T Hi Sens 6Hr Troponin T Hi Sens 6Hr Delta Total Protein Albumin Globulin Urine Color Urine Appearance Urine pH Ur Specific [place] Urine Protein Urine Glucose (UA) Urine Ketones Urine Blood Urine Nitrate Urine Bilirubin Urine Urobilinogen Ur Leukocyte Esterase Urine RBC Urine WBC Ur Squamous Epith Cells Ur Transition Epith Cell Ur Renal Epithelial Cell Urine Bacteria Urine Yeast CSF Appearance CSF Color CSF WBC CSF RBC CSF Mononuclear # Auto CSF Mononuclear WBCs % CSF Polynuclear WBCs # CSF Polynuclear WBCs % CSF Diff Comment CSF Glucose CSF LDH CSF Total Protein Vancomycin Trough 06/15/20 12:40 WBC RBC Hgb Hct MCV MCH MCHC RDW Plt Count MPV Neut % (Auto) Lymph % (Auto) [place] % (Auto) Eos % (Auto) Baso % (Auto) Neut # (Auto) Lymph # (Auto) [place] # (Auto) Eos # (Auto) Baso # (Auto) Nucleated RBC % (auto) Nucleated RBCs # PT INR Sodium 138 Potassium 3.6 Chloride 101 Carbon Dioxide 28 Anion Gap 12.6 BUN 12 Creatinine 0.6 GFR Calculation 103.8 Glucose 88 POC Glucose Calculated Osmolality 282 L Calcium 8.4 L Total Bilirubin 0.2 AST 35 H ALT 22 Alkaline Phosphatase 181 H Troponin T Baseline Troponin T 120 Minute Delta Troponin T Troponin T Hi Sens 6Hr Troponin T Hi Sens 6Hr Delta Total Protein 6.0 L Albumin 2.9 L Globulin 3.1 Urine Color Urine Appearance Urine pH Ur Specific [place] Urine Protein Urine Glucose (UA) Urine Ketones Urine Blood Urine Nitrate Urine Bilirubin Urine Urobilinogen Ur Leukocyte Esterase Urine RBC Urine WBC Ur Squamous Epith Cells Ur Transition Epith Cell Ur Renal Epithelial Cell Urine Bacteria Urine Yeast CSF Appearance CSF Color CSF WBC CSF RBC CSF Mononuclear # Auto CSF Mononuclear WBCs % CSF Polynuclear WBCs # CSF Polynuclear WBCs % CSF Diff Comment CSF Glucose CSF LDH CSF Total Protein Vancomycin Trough Micro: Microbiology 06/14/20 08:35 Gram Stain - Final Cerebrospinal Fluid 06/09/20 19:40 Blood Culture - Final Blood NO GROWTH AFTER 5 DAYS 06/09/20 19:36 Blood Culture - Final Blood NO GROWTH AFTER 5 DAYS Cardiac Studies: No Data to Display
[2020-06-15 15:29] LABS: Quantiferon Mitogen >10.00 IU/mL; Quantiferon Nil 0.57 IU/mL; Quantiferon Plus TB1 0.02 IU/mL; Quantiferon Plus TB2 0.02 IU/mL; Quantiferon TB Gold NEGATIVE (NEGATIVE)
[2020-06-15] MEDS: azithromycin 500 MG in sodium chloride 0.9% 250 ML 250 MG IV (15:44)
[2020-06-15 16:58] LABS: Glucose Point of Care 108 mg/dL (70-110)
--- NOTE | 2020-06-15 18:22 | PC.NURSE ---
SHIFT SUMMARY PATIENT HAD AN LP AND A MEGAN TODAY. TOLERATED WELL. VITALS HAVE BEEN STABLE. PATIENT COMPLAINS OF PAIN BUT APPEARS TO BE RESTING COMFORTABLE. 2 BM'S TODAY AND GOOD URINE OUTPUT.
[2020-06-15 20:15] LABS: Glucose Point of Care 308 mg/dL (70-110)
--- NOTE | 2020-06-15 20:36 | PM.PN ---
Subjective Subjective: Interval history: Patient underwent transesophageal echocardiogram which did not show obvious mobile vegetation however thickening of aortic and tricuspid valve was visualized may be suspicious for vegetation Medications: Reviewed: Yes Vitals/I&O/Wt Last Vital Signs Temp 98.1 F 06/15/20 20:00 Pulse 81 06/15/20 20:00 Resp 18 06/15/20 20:00 BP 116/70 06/15/20 20:00 Pulse Ox 94 06/15/20 20:00 06/15/20 06/15/20 06/15/20 06:59 14:59 22:59 Intake Total 960 / 960 Output Total 300 / 1050 800 / 800 300 / 1100 Balance -300 / -10 -800 / -800 660 / -140 Physical Exam Narrative: EXAM NARRATIVE: GENERAL: Patient is alert, awake and oriented x3. NECK: No jugular vein distension. HEENT: No cyanosis. No icterus. No pallor. HEART: Regular S1 and S2. No murmur, rub or gallop. LUNGS: Clear to auscultate bilaterally. ABDOMEN: Soft, nontender and nondistended. Positive bowel sounds. No guarding, rebound or tenderness. CENTRAL NERVOUS SYSTEM: Grossly nonfocal. EXTREMITIES: Lower extremities without edema bilaterally. Data : 06/15/20 12:40 06/15/20 12:40 Micro: Microbiology 06/14/20 08:35 Gram Stain - Final Cerebrospinal Fluid 06/09/20 19:40 Blood Culture - Final Blood NO GROWTH AFTER 5 DAYS 06/09/20 19:36 Blood Culture - Final Blood NO GROWTH AFTER 5 DAYS A&P Assessment and plan (1) Bacteremia: Status post transesophageal echocardiogram which did not show obvious vegetation however thickening of aortic valve and tricuspid valve can be suspicious for vegetation. Clinical correlation advised. Suggest antibiotics for longer period of time followed by repeat echo in 6 to 8 weeks Status: Acute (2) High level of cardiac marker: Type II and and secondary to sepsis. Status: Acute (3) Coronary artery disease: Stable denies any chest Status: Acute Qualifiers: Associated angina: with stable angina Coronary Disease-Associated Artery/Lesion type: bypass graft [place] vs. transplanted heart: [place] heart Qualified Code(s): I25.708 - Atherosclerosis of coronary artery bypass graft(s), unspecified, with other forms of angina pectoris (4) Hypertension: Normotensive Status: Acute Qualifiers: Hypertension type: essential hypertension Qualified Code(s): I10 - Essential (primary) hypertension Attestations Medical Necessity Statement*: Patient require continuation hospitalization for above defined care. Coding Level of Care Code Established Pt Acute User Experience Developer for Chg Fwd Patient Type Established History Expanded Problem Focused Exam Expanded Problem Focused Medical Decision Making Moderate Complexity Diagnoses Bacteremia R78.81 High level of cardiac marker R74.8 Coronary artery disease I25.708 Associated angina: with stable angina Coronary Disease-Associated Artery/Lesion type: bypass graft [place] vs. transplanted heart: [place] heart Hypertension I10 Hypertension type: essential hypertension
[2020-06-15] MEDS: trazodone 150 mg Tablet PO (22:01)
[2020-06-15] MEDS: enoxaparin 100 mg/mL Syringe 90 MG SUBCUT (22:02)
[2020-06-15] MEDS: lactulose oral liq 20 gm/30 mL UDC 10 GM PO (22:36)
[2020-06-16] VITALS (7 sets, daily range): BP systolic 96–124; BP diastolic 62–77; PULSE 73–86; RESP 16–22; TEMP 36.6–37; O2SAT 92–96
[2020-06-16] MEDS: HYDROcodone-acetaminophen 10-325 mg Tablet 1 TAB PO ×4 (03:46→22:20)
[2020-06-16 06:34] LABS: Glucose Point of Care 219 mg/dL (70-110)
[2020-06-16] MEDS: insulin glargine 100 units/1 mL 40 UNIT SUBCUT ×2 (08:33→17:59)
[2020-06-16] MEDS: clopidogrel 75 mg Tablet PO (08:33)
[2020-06-16] MEDS: enoxaparin 100 mg/mL Syringe 90 MG SUBCUT ×2 (08:33→21:33)
[2020-06-16] MEDS: carvedilol 25 mg Tablet PO ×2 (08:33→17:41)
[2020-06-16] MEDS: gemfibrozil 600 mg Tablet PO (08:33)
[2020-06-16] MEDS: aspirin 81 mg Chew Tablet 324 MG PO (08:33)
[2020-06-16] MEDS: sertraline 100 mg Tablet 200 MG PO (08:34)
[2020-06-16] MEDS: pregabalin 150 mg Capsule PO ×3 (08:34→21:36)
[2020-06-16] MEDS: isosorbide mononitrate ER 30 mg Tablet PO ×2 (08:34→17:41)
[2020-06-16] MEDS: pantoprazole DR 40 mg Tablet PO ×2 (08:34→17:41)
[2020-06-16] MEDS: omega-3 fatty acids 1,000 mg Capsule 2000 MG PO ×2 (08:34→17:41)
[2020-06-16 11:11] LABS: Glucose Point of Care 187 mg/dL (70-110)
[2020-06-16 11:13] LABS: Basophils % 0.7 %; Eosinophils # 0.3 10^3/uL (0.0-0.8); Eosinophils % 5.4 %; Hematocrit 32.7 % (37.0-47.0); Hemoglobin 9.8 g/dL (11.5-15.3); Lymphocytes # 2.6 10^3/uL (0.8-4.8); Lymphocytes % 45.8 %; Mean Corpuscular Hemoglobin 25.9 pg (28.0-34.0); Mean Corpuscular Volume 86.3 fL (81-99); Mean Platelet Volume 10.7 fL (7.4-10.4); Monocytes # 0.3 10^3/uL (0.2-0.9); Monocytes % 5.4 %; Neutrophils # 2.35 10^3/uL (1.8-7.7); Neutrophils % 42.2 %; Nucleated Red Blood Cells % 0 %; Platelet Count 237 10^3/cmm (130-400); Red Blood Count 3.79 10^6/uL (4.1-5.3); Red Cell Distribution Width 15.5 % (12.1-15.1); White Blood Count 5.6 10^3/uL (4.0-10.0)
[2020-06-16 11:27] LABS: Alanine Aminotransferase 20 U/L (0-33); Albumin Level 3.1 g/dL (3.5-5.2); Alkaline Phosphatase 177 IU/L (35-105); Anion Gap 12.9 (5-19); Aspartate Amino Transferase 26 U/L (0-32); Blood Urea Nitrogen 12 mg/dL (6-20); Calcium 8.9 mg/dL (8.5-10.5); Carbon Dioxide 28 mmol/L (22-29); Chloride 101 mmol/L (98-107); Globulin 2.8 g/dL (1.3-4.6); Glomerular Filtration Rate 86.9 mL/min (90-130); Glucose 183 mg/dL (65-115); Osmolality Calculated 287 mOsm/kg (285-295); Potassium 3.9 mmol/L (3.5-5.1); Sodium 138 mmol/L (136-145); Total Bilirubin 0.2 mg/dL (0.15-1.2); Total Protein 5.9 g/dL (6.6-8.7)
--- NOTE | 2020-06-16 12:34 | XR_ITS ---
WS: [id number] Portable AP supine chest, Clinical Data: picc Comparison: Portable chest, 06/07/2020. Findings: The right PICC line has been inserted and it ends in the superior vena cava at the level of the right T9 rib. No pneumothorax is present. Midline sternotomy sutures are seen. XR/XR chest 1V portable [id number] Impression: Satisfactory insertion of right PICC line.
--- NOTE | 2020-06-16 12:44 | PC.NURSE ---
pt off floor for picc line
--- NOTE | 2020-06-16 12:54 | P.PN_ITS ---
Subjective Subjective: Interval history: Patient underwent transesophageal echocardiogram which showed thickening of aortic and tricuspid valve concerning for vegetations especially in view of persistent gram positive bacteremia. She reports feeling slightly better today. Denies chest pain. Reports breathing comfortably. Denies abdominal pain. Medications: Reviewed: Yes Vitals/I&O/Wt Last Vital Signs Temp 98.6 F 06/16/20 11:40 Pulse 76 06/16/20 11:40 Resp 16 06/16/20 11:40 BP 96/62 06/16/20 11:40 Pulse Ox 93 06/16/20 11:40 06/15/20 06/16/20 06/16/20 22:59 06:59 14:59 Intake Total 960 / 1010 480 / 1490 480 / 480 Output Total 300 / 1100 1100 / 2200 1300 / 1300 Balance 660 / -90 -620 / -710 -820 / -820 Physical Exam Const: COMMON NORMALS: no acute distress and patient oriented x3 Resp: COMMON NORMALS: normal respiratory effort and clear to auscultation bilaterally AUSCULTATION: clear to auscultation bilaterally Cardio: COMMON NORMALS: regular rate, regular rhythm and S2 normal heart sound present RATE: regular rate RHYTHM: regular rhythm HEART SOUNDS: S2 n ormal heart sound present OTHER: No lower extremity edema GI: COMMON NORMALS: Normal to inspection, nondistended, normoactive bowel sounds present, Soft to palpation and non-tender PALPATION: Yes Soft to palpation Neuro: COMMON NORMALS: patient oriented x3 and no focal motor deficits Data : 06/16/20 11:03 06/16/20 11:03 Micro: Microbiology 06/14/20 08:35 Gram Stain - Final Cerebrospinal Fluid CSF Culture - Preliminary 06/11/20 05:14 Blood Culture - Final Blood NO GROWTH AFTER 5 DAYS 06/11/20 05:14 Blood Culture - Final Blood NO GROWTH AFTER 5 DAYS A&P Assessment and plan (1) Bacteremia: Status: Acute (2) Hyperglycemia: Severe hyperglycemia, sugars 120. She says that when she is in pain her sugar goes very high. She says that she had taken her at home. Sliding scale insulin was started, We will also restart her insulin Lantus 40 units twice daily. Consistent carbohydrate diet. Blood sugar currently improved down to 552. Status: Acute (3) Community acquired pneumonia: Present on admission. 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 # Recurrent gram-positive bacteremia, 3/3 bottles gram-positive cocci identified as 2 different specises of CoNS. Interestingly cultures appear to be clear from the 16th without any directed antibiotics. While normally coag negative staph could be considered a contamination, the fact that it grew out of 3 of 4 bottles and patient had a similar strain isolated in February, hard to dismiss this is a contaminant at this point. Especially since patient reported fevers going up to 101 Fahrenheit, possibility of true infection cannot be excluded. Continue vancomycin while remains inpatient. - Back in February had 2/4 bottles positive for staph hominis. She had an extensive source evaluation at that time which included a TTE negative for any vegetations, CT of the back was obtained which did not show any evidence of discitis, however this was limited in that it was a noncontrast study. On her CT a of the chest at the time she did have some nonspecific groundglass opacities bilaterally which was appearing to be resolving. She does not have any gross signs of sternal infection from her previous CABG. The history is removed at this point. She did have an intervening CAT scan with contrast in March of this year to evaluate for pancreatitis. No occult abdominal sources of infection were identified at that time. 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 Patient does not have any orthopedic hardware by way of replaced joints or screws and plates that could potentially be infected. On day of current admission she was noted to have some right-sided knee swelling as a result of a recent fall, however this disappeared by the next morning. CT of the leg was obtained which did not show any evidence of septic arthritis or osteomyelitis. Patient does not report any past history of osteomyelitis either. She denies being an IV drug user. She does use chronic oral opiates and was recently admitted with opiate intoxication. Her U tox has been positive for benzodiazepines and urine opiates with methadone positive in the past. If the blood culture turns positive again or she continues to be febrile, MEGAN may need to be considered to rule out subacute endocarditis. However since the cultures appear to clear without any directed antibiotic treatment my suspicion for this is low at this point. Patient does have a history of ulcerative colitis, however she is not reporting any gross diarrhea. In this setting intermittent GI translocation could be a possibility, on last admission she had complained of some hematochezia, though this would be an atypical organism to be seen in this setting.. Venous ultrasound is negative for DVT. MRI of the spine today without any signs of discitis or osteomyelitis In this setting, will plan for patient to complete a 2 week course of directed abx for uncomplicated CoNS bacteremia since no obvious source has been found after extensive evaluation. She is currently on day 5 of vancomycin. Options to continue home regimen until 06/23 will be iv vancomycin vs po linezolid. While po linezolid may come with inetractions with zolpidem and sertraline, patient seems more amenbale to this rather than iv abx. One week after stopping abx, will recommend to get surveillance blood cx as an outpatient. IF these are negative, no further abx indicated. If positive, will need MEGAN and likely a longer course at that point. #Patient complaining of nonspecific chest discomfort. It is very hard to a certain if this is new or has been an ongoing problem. However given her significant past cardiac history and elevated troponins with significant delta, will treat this as ACS. She has been started on full dose anticoagulation with Lovenox. Continuing aspirin and Plavix. She reports compliance with these medications at home. Appreciate cardiology recommendations CTA of the chest to rule out PE negative. Stop amlodipine and HCTZ given hypotension today, continue Imdur for now, but will reduce dose if BP continues to be low. Continue carvedilol. Last echocardiogram from February 2020 with normal left ventricular size and systolic function without regional wall motion abnormalities. Grade 1 diastolic function was seen. Last stress test from February 2020 with a small area of reversible defect in the mid inferolateral region suggestive of ischemia in the distribution of the LCx. Currently appears to be related to possible sepsis #Recurrent pancreatitis: Reports several days ago had some episodes of nausea, vomiting, however, not at this time. Monitor. No abdominal pain on examination currently. #Ulcerative colitis; no current diarrhea # Diabetes mellitus: poorly controlled Generalized anxiety GERD CAD HTN HLD PLAN: Discussed with patient regarding importance of appropriate treatment of endocarditis. Patient will be treated with IV vancomycin. She opted to continue treatment at home with home health and does not want to consider nursing facility placement. We will request PICC line and arrange outpatient home antibiotics. Patient reports that her boyfriend can help her to administer antibiotics which will be continued for 6 weeks total. Attestations Medical Necessity Statement*: Patient with bacterial endocarditis requires close inpatient monitoring and treatment until appropriate arrangements are made. Time Spent in Patient Care: 16 - 35 minutes Coding Level of Care Code Acute Passenger Solicitor for [facility] Fwd Diagnoses Bacteremia R78.81 Hyperglycemia R73.9 Community acquired pneumonia J18.9 Ulnar nerve damage S54.00XA Headache above the eye region R51
--- NOTE | 2020-06-16 13:47 | PC.NURSE ---
pt returned from ops for picc placement. pt pleasant and ready for shower. jessica nichols readying shower for pt.
[2020-06-16] MEDS: cefTRIAXone 1,000 MG in sodium chloride 0.9% (plus) 50 ML 100 MG IV (15:11)
[2020-06-16 16:50] LABS: Glucose Point of Care 208 mg/dL (70-110)
[2020-06-16] MEDS: azithromycin 500 MG in sodium chloride 0.9% 250 ML 250 MG IV (18:08)
--- NOTE | 2020-06-16 18:11 | PM.PN ---
Subjective Subjective: Interval history: Overall feeling better today. Not febrile. Appears to be sleepy Medications: Reviewed: Yes Vitals/I&O/Wt Last Vital Signs Temp 97.9 F 06/16/20 15:46 Pulse 79 06/16/20 15:46 Resp 16 06/16/20 15:46 BP 108/70 06/16/20 15:46 Pulse Ox 92 06/16/20 15:46 06/16/20 06/16/20 06/16/20 06:59 14:59 22:59 Intake Total 730 / 2040 1090 / 1090 Output Total 1100 / 2200 1300 / 1300 Balance -370 / -160 -210 / -210 Physical Exam Narrative: EXAM NARRATIVE: GENERAL: Patient is awake and oriented x3. NECK: No jugular vein distension. HEENT: No cyanosis. No icterus. No pallor. HEART: Regular S1 and S2. No murmur, rub or gallop. LUNGS: Clear to auscultate bilaterally. ABDOMEN: Soft, nontender and nondistended. Positive bowel sounds. No guarding, rebound or tenderness. CENTRAL NERVOUS SYSTEM: Grossly nonfocal. EXTREMITIES: Lower extremities without edema bilaterally. Data : 06/16/20 11:03 06/16/20 11:03 Micro: Microbiology 06/14/20 08:35 Gram Stain - Final Cerebrospinal Fluid CSF Culture - Preliminary 06/11/20 05:14 Blood Culture - Final Blood NO GROWTH AFTER 5 DAYS 06/11/20 05:14 Blood Culture - Final Blood NO GROWTH AFTER 5 DAYS A&P Assessment and plan (1) Bacteremia: Status post transesophageal echocardiogram which did not show obvious vegetation however thickening of aortic valve and tricuspid valve can be suspicious for vegetation. Clinical correlation advised. Suggest antibiotics for longer period of time followed by repeat echo in 6 to 8 weeks Continue antibiotics for possible bacteremia/bacterial endocarditis as per ID. Follow-up with her cardiology clinic Status: Acute (2) High level of cardiac marker: Type II and secondary to sepsis Status: Acute (3) Coronary artery disease: Stable denies any chest pain Status: Acute Qualifiers: Coronary Disease-Associated Artery/Lesion type: bypass graft [place] vs. transplanted heart: [place] heart Associated angina: with stable angina Qualified Code(s): I25.708 - Atherosclerosis of coronary artery bypass graft(s), unspecified, with other forms of angina pectoris (4) Hypertension: Normotensive Status: Acute Qualifiers: Hypertension type: essential hypertension Qualified Code(s): I10 - Essential (primary) hypertension Attestations Medical Necessity Statement*: As per medicine Coding Level of Care Code Established Pt Acute Line And Frame Poler for [facility]g Fwd Patient Type Established History Expanded Problem Focused Exam Expanded Problem Focused Medical Decision Making Moderate Complexity Diagnoses Bacteremia R78.81 High level of cardiac marker R74.8 Coronary artery disease I25.708 Coronary Disease-Associated Artery/Lesion type: bypass graft [place] vs. transplanted heart: [place] heart Associated angina: with stable angina Hypertension I10 Hypertension type: essential hypertension
[2020-06-16 21:26] LABS: Glucose Point of Care 207 mg/dL (70-110)
[2020-06-16] MEDS: tizanidine 4 mg Tablet PO (21:36)
[2020-06-16] MEDS: trazodone 150 mg Tablet PO (21:36)
[2020-06-16] MEDS: ALPRAZolam 0.25 mg Tablet PO (22:21)
[2020-06-17] VITALS (7 sets, daily range): BP systolic 97–132; BP diastolic 56–77; PULSE 69–74; RESP 16–20; TEMP 36.5–36.8; O2SAT 91–95
[2020-06-17] MEDS: cefTRIAXone 1,000 MG in sodium chloride 0.9% (plus) 50 ML 100 MG IV ×2 (03:35→15:26)
[2020-06-17] MEDS: HYDROcodone-acetaminophen 10-325 mg Tablet 1 TAB PO ×4 (04:38→17:26)
[2020-06-17 05:54] LABS: Basophils % 0.5 %; Eosinophils # 0.3 10^3/uL (0.0-0.8); Eosinophils % 5.5 %; Hematocrit 33.4 % (37.0-47.0); Lymphocytes # 3.3 10^3/uL (0.8-4.8); Lymphocytes % 54.8 %; Mean Corpuscular HGB Conc 29.9 g/dL (30.0-36.0); Mean Platelet Volume 10.5 fL (7.4-10.4); Monocytes # 0.4 10^3/uL (0.2-0.9); Monocytes % 6.7 %; Neutrophils % 31.8 %; Nucleated Red Blood Cells % 0 %; Platelet Count 247 10^3/cmm (130-400); Red Blood Count 3.84 10^6/uL (4.1-5.3); Red Cell Distribution Width 15.5 % (12.1-15.1)
[2020-06-17 06:14] LABS: Alanine Aminotransferase 20 U/L (0-33); Alkaline Phosphatase 177 IU/L (35-105); Anion Gap 14.7 (5-19); Aspartate Amino Transferase 25 U/L (0-32); Blood Urea Nitrogen 13 mg/dL (6-20); Calcium 8.1 mg/dL (8.5-10.5); Carbon Dioxide 27 mmol/L (22-29); Chloride 103 mmol/L (98-107); Globulin 3.1 g/dL (1.3-4.6); Glomerular Filtration Rate 86.9 mL/min (90-130); Glucose 154 mg/dL (65-115); Osmolality Calculated 291 mOsm/kg (285-295); Potassium 3.7 mmol/L (3.5-5.1); Sodium 141 mmol/L (136-145); Total Bilirubin 0.2 mg/dL (0.15-1.2); Total Protein 6.1 g/dL (6.6-8.7)
[2020-06-17 07:10] LABS: Glucose Point of Care 118 mg/dL (70-110)
[2020-06-17] MEDS: insulin glargine 100 units/1 mL 40 UNIT SUBCUT ×2 (08:52→17:28)
[2020-06-17] MEDS: enoxaparin 100 mg/mL Syringe 90 MG SUBCUT (08:52)
[2020-06-17] MEDS: omega-3 fatty acids 1,000 mg Capsule 2000 MG PO ×2 (08:53→17:26)
[2020-06-17] MEDS: carvedilol 25 mg Tablet PO ×2 (08:54→17:26)
[2020-06-17] MEDS: pregabalin 150 mg Capsule PO ×2 (08:54→15:26)
[2020-06-17] MEDS: pantoprazole DR 40 mg Tablet PO ×2 (08:54→17:26)
[2020-06-17] MEDS: clopidogrel 75 mg Tablet PO (08:54)
[2020-06-17] MEDS: sertraline 100 mg Tablet 200 MG PO (08:54)
[2020-06-17] MEDS: aspirin 81 mg Chew Tablet 324 MG PO (08:54)
[2020-06-17] MEDS: isosorbide mononitrate ER 30 mg Tablet PO ×2 (08:54→17:27)
[2020-06-17] MEDS: gemfibrozil 600 mg Tablet PO (08:54)
[2020-06-17] MEDS: ALPRAZolam 0.25 mg Tablet PO ×2 (09:15→15:40)
--- NOTE | 2020-06-17 10:44 | PM.PN ---
Subjective Subjective: Interval history: Patient is doing better. Reports chronic back pain and mild headache this morning. Denies shortness of breath or chest pain. Denies abdominal pain. Social workers are trying to arrange IV vancomycin at home. Patient's primary care physician Dr. Brown will be following vancomycin troughs. Medications: Reviewed: Yes Vitals/I&O/Wt Last Vital Signs Temp 98.1 F 06/17/20 07:34 Pulse 73 06/17/20 08:16 Resp 16 06/17/20 08:16 BP 116/56 06/17/20 07:34 Pulse Ox 95 06/17/20 08:16 06/16/20 06/17/20 06/17/20 22:59 06:59 14:59 Intake Total 1260 / 2350 472 / 2822 240 / 240 Output Total 305 / 1605 Balance 1260 / 1050 167 / 1217 240 / 240 Physical Exam Const: COMMON NORMALS: no acute distress and patient oriented x3 Resp: COMMON NORMALS: normal respiratory effort and clear to auscultation bilaterally AUSCULTATION: clear to auscultation bilaterally Cardio: COMMON NORMALS: regular rate, regular rhythm and S2 normal heart sound present RATE: regular rate RHYTHM: regular rhythm HEART SOUNDS: S2 normal heart sound present OTHER: No lower extremity edema GI: COMMON NORMALS: Normal to inspection, nondistended, normoactive bowel sounds present, Soft to palpation and non-tender PALPATION: Yes Soft to palpation Neuro: COMMON NORMALS: patient oriented x3 and no focal motor deficits Data : 06/17/20 05:35 06/17/20 05:35 Micro: Microbiology 06/14/20 08:35 Gram Stain - Final Cerebrospinal Fluid CSF Culture - Preliminary 06/11/20 05:14 Blood Culture - Final Blood NO GROWTH AFTER 5 DAYS 06/11/20 05:14 Blood Culture - Final Blood NO GROWTH AFTER 5 DAYS A&P Assessment and plan (1) Bacteremia: Status: Acute (2) Hyperglycemia: Severe hyperglycemia, sugars 120. She says that when she is in pain her sugar goes very high. She says that she had taken her at home. Sliding scale insulin was started, We will also restart her insulin Lantus 40 units twice daily. Consistent carbohydrate diet. Blood sugar currently improved down to 552. Status: Acute (3) Community acquired pneumonia: Present on admission. 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 # Recurrent gram-positive bacteremia, 3/3 bottles gram-positive cocci identified as 2 different specises of CoNS. Interestingly cultures appear to be clear from the 16th without any directed antibiotics. While normally coag negative staph could be considered a contamination, the fact that it grew out of 3 of 4 bottles and patient had a similar strain isolated in February, hard to dismiss this is a contaminant at this point. Especially since patient reported fevers going up to 101 Fahrenheit, possibility of true infection cannot be excluded. Continue vancomycin while remains inpatient. - Back in February had 2/4 bottles positive for staph hominis. She had an extensive source evaluation at that time which included a TTE negative for any vegetations, CT of the back was obtained which did not show any evidence of discitis, however this was limited in that it was a noncontrast study. On her CT a of the chest at the time she did have some nonspecific groundglass opacities bilaterally which was appearing to be resolving. She does not have any gross signs of sternal infection from her previous CABG. The history is removed at this point. She did have an intervening CAT scan with contrast in March of this year to evaluate for pancreatitis. No occult abdominal sources of infection were identified at that time. 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 Patient does not have any orthopedic hardware by way of replaced joints or screws and plates that could potentially be infected. On day of current admission she was noted to have some right-sided knee swelling as a result of a recent fall, however this disappeared by the next morning. CT of the leg was obtained which did not show any evidence of septic arthritis or osteomyelitis. Patient does not report any past history of osteomyelitis either. She denies being an IV drug user. She does use chronic oral opiates and was recently admitted with opiate intoxication. Her U tox has been positive for benzodiazepines and urine opiates with methadone positive in the past. If the blood culture turns positive again or she continues to be febrile, MEGAN may need to be considered to rule out subacute endocarditis. However since the cultures appear to clear without any directed antibiotic treatment my suspicion for this is low at this point. Patient does have a history of ulcerative colitis, however she is not reporting any gross diarrhea. In this setting intermittent GI translocation could be a possibility, on last admission she had complained of some hematochezia, though this would be an atypical organism to be seen in this setting.. Venous ultrasound is negative for DVT. MRI of the spine today without any signs of discitis or osteomyelitis In this setting, will plan for patient to complete a 2 week course of directed abx for uncomplicated CoNS bacteremia since no obvious source has been found after extensive evaluation. She is currently on day 5 of vancomycin. Options to continue home regimen until 06/23 will be iv vancomycin vs po linezolid. While po linezolid may come with inetractions with zolpidem and sertraline, patient seems more amenbale to this rather than iv abx. One week after stopping abx, will recommend to get surveillance blood cx as an outpatient. IF these are negative, no further abx indicated. If positive, will need MEGAN and likely a longer course at that point. #Patient complaining of nonspecific chest discomfort. It is very hard to a certain if this is new or has been an ongoing problem. However given her significant past cardiac history and elevated troponins with significant delta, will treat this as ACS. She has been started on full dose anticoagulation with Lovenox. Continuing aspirin and Plavix. She reports compliance with these medications at home. Appreciate cardiology recommendations CTA of the chest to rule out PE negative. Stop amlodipine and HCTZ given hypotension today, continue Imdur for now, but will reduce dose if BP continues to be low. Continue carvedilol. Last echocardiogram from February 2020 with normal left ventricular size and systolic function without regional wall motion abnormalities. Grade 1 diastolic function was seen. Last stress test from February 2020 with a small area of reversible defect in the mid inferolateral region suggestive of ischemia in the distribution of the LCx. Currently appears to be related to possible sepsis #Recurrent pancreatitis: Reports several days ago had some episodes of nausea, vomiting, however, not at this time. Monitor. No abdominal pain on examination currently. #Ulcerative colitis; no current diarrhea # Diabetes mellitus: poorly controlled Generalized anxiety GERD CAD HTN HLD PLAN: Continue current monitoring and treatment with vancomycin. Awaiting arrangements for home health for IV vancomycin. If this is arranged today we will dismiss patient home. Attestations Medical Necessity Statement*: Patient with endocarditis requires close inpatient monitoring and treatment until appropriate arrangements are made for home health and IV vancomycin at home. Time Spent in Patient Care: 16 - 35 minutes Coding Level of Care Code Acute Copy Preparer for [facility] Fwd Diagnoses Bacteremia R78.81 Hyperglycemia R73.9 Community acquired pneumonia J18.9 Ulnar nerve damage S54.00XA Headache above the eye region R51
[2020-06-17 10:51] LABS: Glucose Point of Care 169 mg/dL (70-110)
--- NOTE | 2020-06-17 14:07 | P.DS_ITS ---
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 (2) Hyperglycemia: Status: Acute (3) Community acquired pneumonia: Status: Acute (4) Ulnar nerve damage: Status: Acute (5) Headache above the eye region: Status: Acute Reason for Visit Reason for Visit: infection in blood Hospital Course Discharge Summary: Patient presented with febrile illness and bacteremia with coag negative staph. She was further evaluated with MEGAN showing thickening of aortic valve and tricuspid valve which was highly concerning for bacteremia. Decision was made to continue vancomycin for 6 weeks. PICC line was placed and outpatient antibiotic administration by home health was arranged. This morning patient reports feeling overall better and strong enough to be dismissed home. She had atypical chest pain and was seen by cardiology service. Her pain felt to be noncardiac and more musculoskeletal in etiology. Patient will need to have vancomycin trough checked on Saturday with results to be sent to Dr. Brown who will be monitoring vancomycin level for the duration of treatment. Patient reports that she has enough opiate analgesics at home for her chronic back pain and does not require any refills. We will make outpatient follow-up with orthopedic surgery for what appears to be ulnar nerve entrapment and we will request occupational therapy to see patient prior to discharge. Outpatient follow-up to see Dr. Bray will also be made at ID clinic. Patient was diagnosed with community-acquired pneumonia and treated with ceftriaxone. Her lungs today is clear and she denies any cough. She had adequate amount of antibiotics and no oral antibiotic will be prescribed. Physical Exam Const: COMMON NORMALS: no acute distress and patient oriented x3 Resp: COMMON NORMALS: normal respiratory effort and clear to auscultation bilaterally AUSCULTATION: clear to auscultation bilaterally Cardio: COMMON NORMALS: regular rate, regular rhythm and S2 normal heart sound present RATE: regular rate RHYTHM: regular rhythm HEART SOUNDS: S2 normal heart sound present OTHER: No lower extremity edema GI: COMMON NORMALS: Normal to inspection, nondistended, normoactive bowel sounds present, Soft to palpation and non-tender PALPATION: Yes Soft to palpation Neuro: COMMON NORMALS: patient oriented x3 and no focal motor deficits Discharge Data Data Completed and Pending: Completed Studies During Hospitalization Category Date Time Status CT angio chest w abd pel w con Rout ine Cat Scan 06/11/20 13:[address] knee RT wo con * [id number] Routine Cat Scan 06/10/20 16:45 Completed FL guided lumbarp unc dx* [id number] Rout ine Exams 06/15/20 08:00 Completed XR chest 1V taniya ble [id number] Routine Exams 06/16/20 12:34 Completed MR cervical spin wo con* [id number] Rout ine MRI 06/13/20 14:00 Completed MR lumbar spine w o con* [id number] Routi ne MRI 06/13/20 14:00 Completed MR thoracic spin wo con* [id number] Rout ine MRI 06/13/20 14:00 Completed CV echo limited 9 3308 Routine Ultrasound 06/09/20 22:06 Completed CV echo transesop hageal [id number] Routi ne Ultrasound 06/15/20 14:00 [place] [id number] Routin e Ultrasound 06/10/20 22:06 Completed Pending at discharge Category Date Time Status Body Fluid Cultur e & GS Routine Lab 06/09/20 22:08 Uncollected CSF Culture & Gra m Stain Routine Lab 06/14/20 08:35 Results Complete Blood Co unt w/Auto AM LABS Lab 06/18/20 04:00 Ordered Comprehensive Met abolic Panel AM LA BS Lab 06/18/20 04:00 Ordered Miscellaneous Alcira t Routine Lab 06/15/20 08:35 Received Synovial Fluid An alysis Routine Lab 06/09/20 22:08 Uncollected Labs from last 24 hours 06/17/20 06/17/20 06/17/20 10:48 07:04 05:35 WBC RBC Hgb Hct MCV MCH MCHC RDW Plt Count MPV Neut % (Auto) Lymph % (Auto) [place] % (Auto) Eos % (Auto) Baso % (Auto) Neut # (Auto) Lymph # (Auto) [place] # (Auto) Eos # (Auto) Baso # (Auto) Nucleated RBC % (a uto) Nucleated RBCs # Sodium 141 Potassium 3.7 Chloride 103 Carbon Dioxide 27 Anion Gap 14.7 BUN 13 Creatinine 0.7 GFR Calculation 86.9 L Glucose 154 H POC Glucose 169 118 Calculated Osmolal ity 291 Calcium 8.1 L Total Bilirubin 0.2 AST 25 ALT 20 Alkaline Phosphata se 177 H Total Protein 6.1 L Albumin 3.0 L Globulin 3.1 06/17/20 06/16/20 06/16/20 05:35 21:22 16:47 WBC 6.0 RBC 3.84 L Hgb 10.0 L Hct 33.4 L MCV 87.0 MCH 26.0 L MCHC 29.9 L RDW 15.5 H Plt Count 247 MPV 10.5 H Neut % (Auto) 31.8 Lymph % (Auto) 54.8 [place] % (Auto) 6.7 Eos % (Auto) 5.5 Baso % (Auto) 0.5 Neut # (Auto) 1.90 Lymph # (Auto) 3.3 [place] # (Auto) 0.4 Eos # (Auto) 0.3 Baso # (Auto) 0.0 Nucleated RBC % (a uto) 0 Nucleated RBCs # 0.0 Sodium Potassium Chloride Carbon Dioxide Anion Gap BUN Creatinine GFR Calculation Glucose POC Glucose 207 208 Calculated Osmolal ity Calcium Total Bilirubin AST ALT Alkaline Phosphata se Total Protein Albumin Globulin Vitals: Last Vital Signs Temp 97.7 F 06/17/20 11:10 Pulse 70 06/17/20 11:10 Resp 16 06/17/20 11:10 BP 114/68 06/17/20 11:10 Pulse Ox 92 06/17/20 11:10 Discharge Plan Discharge Patient Disposition: Home Health Service Condition: Stable Prescriptions: New vancomycin 1,000 mg recon soln 1,250 mg IV BID 35 Days RF: 0 Continued trazodone 150 mg tablet 150 mg PO BEDTIME Qty: 30 RF: 2 sertraline [Zoloft] 100 mg tablet 200 mg PO DAILY Qty: 60 RF: 2 zolpidem [Ambien] 10 mg tablet 10 mg PO BEDTIME Qty: 30 RF: 2 carvedilol 25 mg tablet 25 mg PO BID RF: 0 tizanidine 4 mg tablet 4 mg PO TID PRN (Reason: Spasms) RF: 0 clopidogrel 75 mg tablet 75 mg PO DAILY RF: 0 amlodipine [Norvasc] 5 mg tablet 5 mg PO DAILY RF: 0 hydrocodone-acetaminophen 10-325 mg tablet 1 tab PO Q4H PRN (Reason: Pain) RF: 0 pantoprazole 40 mg tablet,delayed release (DR/EC) 40 mg PO BID RF: 0 hydrochlorothiazide 12.5 mg capsule 12.5 mg PO DAILY RF: 0 insulin aspart U-100 [Novolog Flexpen U-100 Insulin] 100 unit/mL (3 mL) insulin pen See Rx Instructions .ROUTE .COMPLEX RF: 0 pregabalin [Lyrica] 150 mg capsule 150 mg PO TID RF: 0 Repatha SureClick 140 mg/mL pen injector 140 mg SUBCUT Q14D RF: 0 fluticasone propionate 50 mcg/actuation [place],Suspension 2 spray INTRANASAL DAILY PRN (Reason: unknown) RF: 0 sucralfate 1 gram Tablet 1 g PO QID PRN (Reason: unknown) RF: 0 promethazine 12.5 mg Tablet 25 mg PO Q6H PRN (Reason: Nausea) RF: 0 nitroglycerin [Nitrostat] 0.4 mg Tablet, Sublingual 0.4 mg SUBLINGUAL Q5M PRN (Reason: Chest Pain) RF: 0 lactulose 10 gram/15 mL (15 mL) Solution 10 g PO BID PRN (Reason: Constipation) RF: 0 potassium chloride 20 mEq Tablet Extended Release 20 meq PO DAILY RF: 0 naloxone 4 mg/actuation [place],Non-Aerosol 1 spray INTRANASAL PRN RF: 0 polyethylene glycol 3350 [Miralax] 17 gram Powder In Packet 17 g PO DAILY PRN (Reason: Constipation) RF: 0 aspirin [Aspir-81] 81 mg Tablet,Delayed Release (Dr/Ec) 81 mg PO QPM RF: 0 Lantus Solostar U-100 Insulin 100 unit/mL (3 mL) insulin pen 40 unit SUBCUT BID RF: 0 Mucinex DM 30-600 mg Tablet Extended Release 12 Hr 1 tab PO Q12H RF: 0 metronidazole 1 % Gel 1 applic TOPICAL DAILY PRN (Reason: unknown) RF: 0 alprazolam [Xanax] 0.5 mg tablet See Rx Instructions .ROUTE .COMPLEX PRN (Reason: anxiety) RF: 0 isosorbide mononitrate 30 mg tablet extended release 24 hr 30 mg PO BID RF: 0 Excedrin Migraine 250-250-65 mg Tablet 1 tab PO PRN RF: 0 Vascepa 1 gram Capsule 2 g PO BID RF: 0 Lopid 600 mg Tablet 600 mg PO DAILY RF: 0 Discontinued Keflex 500 mg Capsule 500 mg PO TID RF: 0 Discharge Orders: Discharge Order (Routine); Ordered 06/17/20 Ordered By: Donato Blanchard Other Ambulatory Orders: Vancomycin Trough (Routine) Timeframe: 20200620 Facility: [facility] - Location: Lab - Main Lab Ordered By: Donato Blanchard Referrals: [facility] Up [Other] (You may call this phone number if you are requesting for in-home caregiver services to begin. This is covered by your Medicaid insurance, depending on if you meet their criteria. ) [facility] [Other] (This is the company that will be providing your IV medication. If you have any questions or concerns regarding your medication or delivery of it, you may call them at the phone number provided.) [facility] [place]Other[place] - 06/18/20 6:00 am (You will need to come to [facility] [place] [place] for your morning and evening dose of IV medication. You will come to the ER and check in there, then they will show you to Outpatient Surgery. You are scheduled for 6:00 AM and 5:30 PM.) [facility] [place] ([facility]) [Outside] (This is your home health provider that will be helping administer your IV medic ation and teach you how to administer it as well. If you have any questions, please call them at the phone number listed. They will be starting services at your home on 06/19/20. You may also call [facility] [place] with any other questions or concerns at ext. [phone].) Valery Bray MD [Hospitalist] - 2 weeks Juno Brown [Primary Care Provider] - 06/20/20 11:00 am Edvin Flannery DO [Physician] - 1-3 days (Earliest possible. For evaluation and treatment of ulnar nerve entrapment ) Discharge Diet: Usual diet Discharge Activity: Increase activity as tolerated Patient Instructions: Transesophageal Echocardiogram (DC) Activity Restrictions/Additional Instructions: Please call your doctor or present to emergency department if your condition worsens or you develop diarrhea, lightheadedness, fatigue or see blood in your stool or black stool Please keep blood sugar, blood pressure and heart rate log 3 times daily to present to primary care physician next visit for medication adjustment. Please note that you will need to have vancomycin level checked on Saturday prior to morning dose with results sent to primary care physician as you are vancomycin dose may need to be adjusted. Please follow-up with orthopedic surgery for your left-sided nerve entrapment. Discharge Attestations Time Spent in Discharge Care*: greater than 30 min Status at Discharge: Cognitive status at discharge: cognitively intact , Behavioral status at discharge: cooperative , Quality Metrics Clinical Quality Measures During this hospital stay, did patient experience: None Coding Level of Care Code Acute Pediatrics Hospitalist for Shere[facility] Fwd Diagnoses Bacteremia R78.81 Hyperglycemia R73.9 Community acquired pneumonia J18.9 Ulnar nerve damage S54.00XA Headache above the eye region R51
[2020-06-17] MEDS: ondansetron 2 mg/ML SDV 2 mL 4 MG IVP (15:26)
[2020-06-17 16:59] LABS: Glucose Point of Care 179 mg/dL (70-110)
== END 2020-06-17 18:48 | disposition home health service (06) | DRG 306 ==
LOC: ER 17:38 → MEDSURG 17:41
PROVIDERS: Internal Medicine; Internal Medicine Cardiovascular Disease; Admitting Provider Student in an Organized Health Care Education/Training Program; PCP Family Medicine; Visit Provider Internal Medicine
PROC: (CPT 93312; principal; 2020-06-15 14:30)
DX: I38 Endocarditis, valve unspecified (principal); J18.9 Pneumonia, unspecified organism; R78.81 Bacteremia; I24.9 Acute ischemic heart disease, unspecified; K51.90 Ulcerative colitis, unspecified, without complications; E11.65 Type 2 diabetes mellitus with hyperglycemia; M25.561 Pain in right knee; M25.562 Pain in left knee; I10 Essential (primary) hypertension; S54.00XA Injury of ulnar nerve at forearm level, unspecified arm, initial encounter; X58.XXXA Exposure to other specified factors, initial encounter; G89.29 Other chronic pain; M54.9 Dorsalgia, unspecified; Z79.4 Long term (current) use of insulin; Z79.82 Long term (current) use of aspirin; I25.10 Atherosclerotic heart disease of native coronary artery without angina pectoris; K21.9 Gastro-esophageal reflux disease without esophagitis; E78.5 Hyperlipidemia, unspecified; F41.1 Generalized anxiety disorder
CPT/HCPCS: 12345; 36415; 36416; 36569; 62328; 71045; 71275; 72141; 72146; 72148; 73700; 74177; 80053; 80202; 80500; 81001; 82945; 82962; 83615; 84157; 84484; 85025; 85610; 86480; 87040; 87070; 87075; 87205; 87806; 89050; 93005; 93308; 93312; 93320; 93325; 93970; 94640; 96372; 96375; 97165; 99281; 99285; J0456; J0696; J1170; J1650; J1815 ×2; J2250; J2370; J2405; J2704; J3370; J3480; J7030; J7040; J7050; J7611; Q0169; Q9967

== ENCOUNTER 2020-06-18 06:37 | Outpatient (CLI) | payer MEDICAID, SELFPAY ==
[2020-06-18 07:20] VITALS: BP 124/93; PULSE 65; RESP 18; TEMP 36.2; O2SAT 100; BMI 28.8
[2020-06-18 07:31] LABS: Vancomycin Trough 18.9 ug/mL (10-15)
[2020-06-18 17:54] VITALS: BP 109/61; PULSE 77; RESP 18; TEMP 36.4; O2SAT 97
== END 2020-06-18 06:38 | disposition home or self-care (01) ==
LOC: OPS 06:38
PROVIDERS: PCP Family Medicine; Visit Provider Internal Medicine
DX: Z51.81 Encounter for therapeutic drug level monitoring (principal)
CPT/HCPCS: 36592; 80202; 96365; J3370; J7050

== ENCOUNTER 2020-06-21 08:23 | Outpatient (RCR) | payer MEDICAID, SELFPAY ==
[2020-06-21 09:08] LABS: Blood Urea Nitrogen 9 mg/dL (6-20); Glomerular Filtration Rate 103.8 mL/min (90-130)
[2020-06-21 19:13] LABS: Vancomycin Trough 21.1 ug/mL (10-15)
== END 2020-06-24 23:59 | disposition home or self-care (01) ==
LOC: LAB 08:23
PROVIDERS: Internal Medicine; PCP Family Medicine; Visit Provider Family Medicine
DX: I38 Endocarditis, valve unspecified (principal)
CPT/HCPCS: 80202; 82565; 84520; 85025

== ENCOUNTER 2020-06-27 18:36 | Emergency (ER) | payer MEDICAID, SELFPAY ==
[2020-06-27 18:44] VITALS: BMI 28.6
[2020-06-27 18:49] VITALS: BP 163/92; PULSE 87; RESP 18; TEMP 37.1; O2SAT 97
--- NOTE | 2020-06-27 18:55 | ECG_ITS ---
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 Measurements Intervals [place] Rate: 81 P: 47 TN: 167 QRS: 1 QRSD: 105 T: 94 QT: 293 QTc: 340 Interpretive Statements SINUS RHYTHM POSSIBLE ANTERIOR MYOCARDIAL INFARCTION , OF INDETERMINATE AGE [30 ms Q WAVE IN V3/V4, OR R < 0.2 mV IN V4] Compared to ECG 06/14/2020 19:39:41 No significant changes Electronically Signed On 06-27-2020 20:34:29 CDT by Jitendra Ryder M.D. [id number]
[2020-06-27 19:18] VITALS: O2SAT 94
[2020-06-27 19:19] LABS: Basophils # 0.1 10^3/uL (0.0-0.1); Eosinophils # 0.4 10^3/uL (0.0-0.8); Eosinophils % 4.3 %; Hematocrit 30.8 % (37.0-47.0); Hemoglobin 9.8 g/dL (11.5-15.3); Lymphocytes # 3.8 10^3/uL (0.8-4.8); Lymphocytes % 44.9 %; Mean Corpuscular HGB Conc 31.8 g/dL (30.0-36.0); Mean Corpuscular Hemoglobin 26.9 pg (28.0-34.0); Mean Corpuscular Volume 84.6 fL (81-99); Mean Platelet Volume 10.2 fL (7.4-10.4); Monocytes # 0.5 10^3/uL (0.2-0.9); Monocytes % 6.2 %; Neutrophils # 3.64 10^3/uL (1.8-7.7); Neutrophils % 43.5 %; Nucleated Red Blood Cells % 0 %; Platelet Count 277 10^3/cmm (130-400); Red Blood Count 3.64 10^6/uL (4.1-5.3); Red Cell Distribution Width 14.6 % (12.1-15.1); White Blood Count 8.4 10^3/uL (4.0-10.0)
--- NOTE | 2020-06-27 19:22 | PC.NURSE ---
EKG done at 1920 and shown to ER doctor
[2020-06-27 19:33] LABS: INR 0.91 (0.8-1.2)
[2020-06-27 19:35] LABS: D Dimer 0.69 ug/mIFEU (0-0.59)
[2020-06-27] MEDS: LORazepam 2 mg/mL INJ 1 mL 1 MG IVP ×2 (19:36→20:52)
[2020-06-27] MEDS: ondansetron 2 mg/ML SDV 2 mL 4 MG IVP (19:36)
[2020-06-27 19:37] VITALS: RESP 17; O2SAT 98
[2020-06-27] MEDS: fentaNYL 50 mcg/mL INJ 2mL IVP (19:37)
--- NOTE | 2020-06-27 19:40 | XRR_ITS ---
PROCEDURE INFORMATION: Exam: XR Chest, 1 View Exam date and time: 06/27/2020 8:10 PM Age: 55 years old Clinical indication: Type not specified; Prior surgery; Surgery date: 6+ months; Surgery type: Bypass; Patient HX: C/O chest pain TECHNIQUE: Imaging protocol: XR of the chest Views: 1 view. COMPARISON: CR XR chest 1V portable [id number] 06/16/2020 1:12 PM FINDINGS: Tubes, catheters and devices: Stable positioning of right PICC line. Lungs: Emphysematous change and interstitial prominence, without acute airspace disease. Pleural space: No pleural effusion. Heart/Mediastinum: Epicardial fat, without cardiomegaly. Bones/joints: Median sternotomy. Osteopenia. XR/XR chest 1V portable [id number] IMPRESSION: No acute airspace or pleural disease.
[2020-06-27 19:49] LABS: Troponin(5th) Baseline 19 ng/L (0-10)
[2020-06-27 19:54] LABS: Alanine Aminotransferase 8 U/L (0-33); Albumin Level 3.8 g/dL (3.5-5.2); Alkaline Phosphatase 136 IU/L (35-105); Anion Gap 17.3 (5-19); Aspartate Amino Transferase 11 U/L (0-32); Blood Urea Nitrogen 11 mg/dL (6-20); Calcium 8.3 mg/dL (8.5-10.5); Carbon Dioxide 21 mmol/L (22-29); Chloride 99 mmol/L (98-107); Globulin 2.8 g/dL (1.3-4.6); Glomerular Filtration Rate 74.5 mL/min (90-130); Glucose 310 mg/dL (65-115); Lipase 23 U/L (13-60); NT Pro B Type Natriuretic Pept 376 pg/mL (0-125); Osmolality Calculated 286 mOsm/kg (285-295); Potassium 3.3 mmol/L (3.5-5.1); Sodium 134 mmol/L (136-145); Total Bilirubin 0.2 mg/dL (0.15-1.2); Total Protein 6.6 g/dL (6.6-8.7)
--- NOTE | 2020-06-27 20:15 | W.ED.CHESTPA ---
HPI - Chest Pain General: Chief Complaint: Chest Pain Stated Complaint: CP/ANXIETY Time Seen by Provider: 06/27/20 18:47 History of Present Illness: HPI narrative: This patient is a 55-year-old female presenting today with chest pain. The chest pain has been going on for several days. She also has pain in her abdomen. She has a history of anxiety and panic attacks but also has a history of MIs and recent stent placement. She also was admitted to the hospital recently with bacteremia and suspected endocarditis. The source of that infection is unknown. She was discharged a few weeks ago and said she was doing well until the last 4 days. She has been feeling worse daily since then. She has a PICC line and is getting every 12 hours vancomycin. She reports that she is having difficulty controlling her blood sugars. With her usual regimen of 40 units of Lantus at night and and NovoLog sliding scale during the day her blood sugars have been ranging from over 400 to under 100. She said she is not used to having them that low and feels terrible when they do get that low. MD complaint: chest pain Pertinent past history: coronary artery disease, prior [place], [employer] and other (Endocarditis) Onset (ago): day(s) (4) Timing of current episode: constant Onset: during rest Pain radiation: right arm and left arm Quality: aching and sharp Relieving factors: nothing Exacerbating factors: nothing Associated symptoms: Reports abdominal pain and nausea; Deny dyspnea, fever(s) or vomiting Review of Systems General: Reports: 10 or more systems reviewed and unremarkable except in HPI and below Const: Reports: malaise; Denies: fever(s), chills or fatigue Eyes: Denies: change in vision ENMT: Denies: odynophagia Card: Reports: chest pain; Denies: swelling of feet/ankles Resp: Denies: dyspnea, productive cough or non-productive cough GI: Reports: abdominal pain and nausea; Denies: vomiting : Denies: flank pain or difficulty voiding Musc: Denies: neck pain or back pain Skin/Breast: Denies: rash Neuro: Denies: headache(s), numbness in extremities or weakness in extremities [place]/Lymph: Denies: easy bruising or easy bleeding PFS ED PFSH: Medical History Coronary artery disease Depression with anxiety Generalized anxiety disorder GERD (gastroesophageal reflux disease) Hypertension Hypertriglyceridemia Insulin dependent diabetes mellitus Irritable bowel syndrome Pancreatitis Post-traumatic stress disorder, chronic Ulcerative colitis Surgical History H/O tubal ligation H/O: hysterectomy History of carpal tunnel surgery Hx of tonsillectomy S/P CABG x 4 S/P coronary artery stent placement Family History Mother Dementia Father CAD (coronary artery disease) Other IBD (inflammatory bowel disease) Social History Smoking and tobacco status: former smoker Alcohol intake: never Lives independently: Yes Household members: significant other Marital status: Life Partner Current occupational status: disabled Physical Exam Const: COMMON NORMALS: no acute distress, patient oriented x3, no limitations and alert GENERAL APPEARANCE: cooperative and comfortable HENMT: HEAD & SCALP: normal to inspection FACE & SINUS: normal facial exam Eye: GENERAL EYE: appearance normal, both eyes and all related structures Neck/C-Spine: COMMON NORMALS: supple, no meningeal signs and no JVD Chest: COMMONS NORMALS: normal inspection of the chest Resp: COMMON NORMALS: normal respiratory effort, No use of accessory muscles and clear to auscultation bilaterally AUSCULTATION: clear to auscultation bilaterally Cardio: COMMON NORMALS: no JVD, regular rate, regular rhythm and No murmurs present (Cardio) RATE: regular rate RHYTHM: regular rhythm GI: COMMON NORMALS: Normal to inspection, nondistended, normoactive bowel sounds present, Soft to palpation and non-tender INSPECTION: Yes normal to inspection AUSCULTATION: Yes normoactive bowel sounds PALPATION: Yes Soft to palpation Back/Pelvis: COMMON NORMALS: thoracic and lumbar spine normal to inspection Extremity: COMMON NORMALS: normal to inspection NARRATIVE EXTREMITY EXAM: PICC line right upper extremity Neuro: COMMON NORMALS: patient oriented x3, moves all extremities, no focal motor deficits and no sensory deficits noted SENSORIUM/ORIENTATION: Yes alert MENINGEAL SIGNS: Yes no meningeal signs Psych: COMMON NORMALS: mental status grossly normal, cooperative and normal affect Skin: COMMON NORMALS: no rashes or lesions noted and turgor normal GENERAL SKIN EXAM: no rashes or lesions noted and turgor normal Course ED course: Patient with extensive medical history including recent diagnosis of endocarditis. She has been compliant with her vancomycin outpatient treatment but has not had her dose this evening so it was given in the ED. Cardiac work-up is negative. She is quite anxious about going home but there is really no indication to put her in the hospital. I talked to her for quite some time about this and she definitely does not want to go to a snf. She eventually felt better and calmer and was okay with going home. Vital Signs: Vital signs: Vital Signs Temperature 98.7 F 06/27/20 18:49 Pulse Rate 87 06/27/20 18:49 Respiratory Rate 17 06/27/20 20:53 Blood Pressure 163/92 06/27/20 18:49 Pulse Oximetry 98 06/27/20 20:53 MDM - Chest Pain Lab Data: Labs: Lab Results 06/27/20 06/27/20 06/27/20 Range/Units 19:12 19:12 19:12 WBC 8.4 (4.0-10.0) 10^3/ uL RBC 3.64 L (4.1-5.3) 10^6/u L Hgb 9.8 L (11.5-15.3) g/dL Hct 30.8 L (37.0-47.0) % MCV 84.6 (81-99) fL MCH 26.9 L (28.0-34.0) pg MCHC 31.8 (30.0-36.0) g/dL RDW 14.6 (12.1-15.1) % Plt Count 277 (130-400) 10^3/c mm MPV 10.2 (7.4-10.4) fL Neut % (Auto) 43.5 % Lymph % (Auto) 44.9 % [place] % (Auto) 6.2 % Eos % (Auto) 4.3 % Baso % (Auto) 1.0 % Neut # (Auto) 3.64 (1.8-7.7) 10^3/u L Lymph # (Auto) 3.8 (0.8-4.8) 10^3/u L [place] # (Auto) 0.5 (0.2-0.9) 10^3/u L Eos # (Auto) 0.4 (0.0-0.8) 10^3/u L Baso # (Auto) 0.1 (0.0-0.1) 10^3/u L Nucleated RBC % (a uto) 0 % Nucleated RBCs # 0.0 /100WBC PT 12.50 (12.1-14.9) SECO NDS INR 0.91 (0.8-1.2) D-Dimer 0.69 H (0-0.59) ug/mIFE U Sodium 134 L (136-145) mmol/L Potassium 3.3 L (3.5-5.1) mmol/L Chloride 99 (98-107) mmol/L Carbon Dioxide 21 L (22-29) mmol/L Anion Gap 17.3 (5-19) BUN 11 (6-20) mg/dL Creatinine 0.8 (0.5-0.9) mg/dL GFR Calculation 74.5 L (90-130) mL/min Glucose 310 H (65-115) mg/dL Calculated Osmolal ity 286 (285-295) mOsm/k g Calcium 8.3 L (8.5-10.5) mg/dL Total Bilirubin 0.2 (0.15-1.2) mg/dL AST 11 (0-32) U/L ALT 8 (0-33) U/L Alkaline Phosphata se 136 H (35-105) IU/L Troponin T Baselin e (0-10) ng/L Troponin T 120 Min [place] (0-10) ng/L Delta Troponin T (0-10) ABS# NT-Pro-B Natriuret Pep 376 H (0-125) pg/mL Total Protein 6.6 (6.6-8.7) g/dL Albumin 3.8 (3.5-5.2) g/dL Globulin 2.8 (1.3-4.6) g/dL Lipase 23 (13-60) U/L 06/27/20 06/27/20 Range/Units 19:12 21:20 WBC (4.0-10.0) 10^3/ uL RBC (4.1-5.3) 10^6/u L Hgb (11.5-15.3) g/dL Hct (37.0-47.0) % MCV (81-99) fL MCH (28.0-34.0) pg MCHC (30.0-36.0) g/dL RDW (12.1-15.1) % Plt Count (130-400) 10^3/c mm MPV (7.4-10.4) fL Neut % (Auto) % Lymph % (Auto) % [place] % (Auto) % Eos % (Auto) % Baso % (Auto) % Neut # (Auto) (1.8-7.7) 10^3/u L Lymph # (Auto) (0.8-4.8) 10^3/u L [place] # (Auto) (0.2-0.9) 10^3/u L Eos # (Auto) (0.0-0.8) 10^3/u L Baso # (Auto) (0.0-0.1) 10^3/u L Nucleated RBC % (a uto) % Nucleated RBCs # /100WBC PT (12.1-14.9) SECO NDS INR (0.8-1.2) D-Dimer (0-0.59) ug/mIFE U Sodium (136-145) mmol/L Potassium (3.5-5.1) mmol/L Chloride (98-107) mmol/L Carbon Dioxide (22-29) mmol/L Anion Gap (5-19) BUN (6-20) mg/dL Creatinine (0.5-0.9) mg/dL GFR Calculation (90-130) mL/min Glucose (65-115) mg/dL Calculated Osmolal ity (285-295) mOsm/k g Calcium (8.5-10.5) mg/dL Total Bilirubin (0.15-1.2) mg/dL AST (0-32) U/L ALT (0-33) U/L Alkaline Phosphata se (35-105) IU/L Troponin T Baselin e 19 H (0-10) ng/L Troponin T 120 Min [place] 18.67 H (0-10) ng/L Delta Troponin T -0.33 L (0-10) ABS# NT-Pro-B Natriuret Pep (0-125) pg/mL Total Protein (6.6-8.7) g/dL Albumin (3.5-5.2) g/dL Globulin (1.3-4.6) g/dL Lipase (13-60) U/L Discharge Plan Discharge Patient Disposition: Home Clinical Impression: Generalized anxiety disorder Chest pain Qualifiers: Chest pain type: unspecified Qualified Code(s): R07.9 - Chest pain, unspecified Condition: Stable Prescriptions: No Action alprazolam [Xanax] 0.5 mg tablet See Rx Instructions .ROUTE .COMPLEX PRN (Reason: anxiety) Qty: 150 RF: 0 sertraline [Zoloft] 100 mg tablet 200 mg PO DAILY Qty: 60 RF: 0 trazodone 150 mg tablet 150 mg PO BEDTIME Qty: 30 RF: 0 zolpidem [Ambien] 10 mg tablet 10 mg PO BEDTIME Qty: 30 RF: 0 carvedilol 25 mg tablet 25 mg PO BID RF: 0 tizanidine 4 mg tablet 4 mg PO TID PRN (Reason: Spasms) RF: 0 clopidogrel 75 mg tablet 75 mg PO DAILY RF: 0 amlodipine [Norvasc] 5 mg tablet 5 mg PO DAILY RF: 0 hydrocodone-acetaminophen 10-325 mg tablet 1 tab PO Q4H PRN (Reason: Pain) RF: 0 pantoprazole 40 mg tablet,delayed release (DR/EC) 40 mg PO BID RF: 0 hydrochlorothiazide 12.5 mg capsule 12.5 mg PO DAILY RF: 0 insulin aspart U-100 [Novolog Flexpen U-100 Insulin] 100 unit/mL (3 mL) insulin pen See Rx Instructions .ROUTE .COMPLEX RF: 0 pregabalin [Lyrica] 150 mg capsule 150 mg PO TID RF: 0 Repatha SureClick 140 mg/mL pen injector 140 mg SUBCUT Q14D RF: 0 fluticasone propionate 50 mcg/actuation [place],Suspension 2 spray INTRANASAL DAILY PRN (Reason: unknown) RF: 0 sucralfate 1 gram Tablet 1 g PO QID PRN (Reason: unknown) RF: 0 promethazine 12.5 mg Tablet 25 mg PO Q6H PRN (Reason: Nausea) RF: 0 nitroglycerin [Nitrostat] 0.4 mg Tablet, Sublingual 0.4 mg SUBLINGUAL Q5M PRN (Reason: Chest Pain) RF: 0 lactulose 10 gram/15 mL (15 mL) Solution 10 g PO BID PRN (Reason: Constipation) RF: 0 potassium chloride 20 mEq Tablet Extended Release 20 meq PO DAILY RF: 0 polyethylene glycol 3350 [Miralax] 17 gram Powder In Packet 17 g PO DAILY PRN (Reason: Constipation) RF: 0 aspirin [Aspir-81] 81 mg Tablet,Delayed Release (Dr/Ec) 81 mg PO QPM RF: 0 Lantus Solostar U-100 Insulin 100 unit/mL (3 mL) insulin pen 40 unit SUBCUT BID RF: 0 Mucinex DM 30-600 mg Tablet Extended Release 12 Hr 1 tab PO Q12H RF: 0 metronidazole 1 % Gel 1 applic TOPICAL DAILY PRN (Reason: unknown) RF: 0 nystatin 100,000 unit/mL suspension 5 ml PO QID RF: 0 isosorbide mononitrate 30 mg tablet extended release 24 hr 30 mg PO BID RF: 0 Excedrin Migraine 250-250-65 mg Tablet 1 tab PO PRN RF: 0 Vascepa 1 gram Capsule 2 g PO BID RF: 0 gemfibrozil [Lopid] 600 mg Tablet 600 mg PO DAILY RF: 0 vancomycin 1,000 mg recon soln 1,250 mg IV BID 35 Days RF: 0 Discharge Orders: Discharge Order (Routine); Ordered 06/27/20 Ordered By: Brandy Ingram Referrals: Juno Brown [Primary Care Provider] - Discharge Diet: Usual diet Discharge Activity: Resume usual activity Patient Instructions: Chest Pain (ED), Anxiety (ED) Activity Restrictions/Additional Instructions: Return to the ED if fever, worse pain, or any other new or concerning symptoms. Follow up with Dr. Brown in the morning for further management of your symptoms. Discharge Date/Time: 06/28/20 00:30 Coding Level of Care Code ED Binding Cutter for Chg Fwd Exam Comprehensive
[2020-06-27] MEDS: nitroglycerin 0.4 mg sublingual Tablet SUBLINGUAL (20:42)
[2020-06-27 20:53] VITALS: RESP 17; O2SAT 98
[2020-06-27] MEDS: HYDROmorphone 1 mg/mL INJ 1 mL 0.5 MG IVP (20:53)
--- NOTE | 2020-06-27 20:55 | ECG_ITS ---
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 Measurements Intervals [place] Rate: 81 P: 52 [place]: 185 QRS: 3 QRSD: 101 T: 72 QT: 380 QTc: 443 Interpretive Statements SINUS RHYTHM ANTEROSEPTAL MYOCARDIAL INFARCTION , OF INDETERMINATE AGE Compared to ECG 06/27/2020 19:18:40 No significant changes Electronically Signed On 06-28-2020 12:56:57 CDT by Sarah Bell M.D. [email or web address]/[id number]
--- NOTE | 2020-06-27 21:11 | PC.NURSE ---
EKG done at 2109 and shown to ER doctor
[2020-06-27 21:51] LABS: Troponin 5 2HR 18.67 ng/L (0-10)
[2020-06-27 22:01] LABS: Troponin 5 2HR Delta -0.33 ABS# (0-10)
== END 2020-06-28 00:30 | disposition home or self-care (01) ==
PROVIDERS: Emergency Provider Emergency Medicine; PCP Family Medicine
DX: R07.9 Chest pain, unspecified (principal); F41.1 Generalized anxiety disorder; Z79.02 Long term (current) use of antithrombotics/antiplatelets; Z79.82 Long term (current) use of aspirin; Z79.4 Long term (current) use of insulin; I25.10 Atherosclerotic heart disease of native coronary artery without angina pectoris; I10 Essential (primary) hypertension; E11.9 Type 2 diabetes mellitus without complications; Z95.1 Presence of aortocoronary bypass graft; Z87.891 Personal history of nicotine dependence
CPT/HCPCS: 12345; 36415; 71045; 80053; 83690; 83880; 84484; 85025; 85378; 85610; 93005; 96365; 96375; 96376; 99282; 99284; J1170; J2060; J2405; J3010; J3370; J7050

== ENCOUNTER 2020-06-28 10:52 | Outpatient (CLI) | payer MEDICAID, SELFPAY ==
[2020-06-28 11:38] LABS: Blood Urea Nitrogen 10 mg/dL (6-20); Glomerular Filtration Rate 86.9 mL/min (90-130); Vancomycin Trough 18.8 ug/mL (10-15)
== END 2020-06-28 10:53 | disposition home or self-care (01) ==
LOC: LAB 10:53
PROVIDERS: PCP Family Medicine; Visit Provider Family Medicine
DX: I38 Endocarditis, valve unspecified (principal)
CPT/HCPCS: 80202; 82565; 84520

== ENCOUNTER 2020-07-09 10:29 | Outpatient (CLI) | payer MEDICAID, SELFPAY ==
[2020-07-09 11:14] LABS: Blood Urea Nitrogen 15 mg/dL (6-20); Glomerular Filtration Rate 51.6 mL/min (90-130)
[2020-07-09 11:16] LABS: Vancomycin Random 25.5 ug/mL (20.0-40.0)
== END 2020-07-09 10:30 | disposition home or self-care (01) ==
PROVIDERS: PCP Family Medicine; Visit Provider Family Medicine
DX: I33.0 Acute and subacute infective endocarditis (principal)
CPT/HCPCS: 80202; 82565; 84520

== ENCOUNTER 2020-07-13 07:40 | Outpatient (RCR) | payer MEDICAID, SELFPAY ==
[2020-07-13 08:13] LABS: Vancomycin Trough 18.3 ug/mL (10-15)
== END 2020-07-25 23:59 | disposition home or self-care (01) ==
LOC: LAB 07:40
PROVIDERS: PCP Family Medicine; Visit Provider Family Medicine
DX: I38 Endocarditis, valve unspecified (principal)
CPT/HCPCS: 80202; 99214

== ENCOUNTER 2020-07-19 19:41 | Outpatient (CLI) | payer MEDICAID, SELFPAY ==
[2020-07-19 21:29] LABS: Blood Urea Nitrogen 9 mg/dL (6-20)
[2020-07-19 22:48] LABS: Vancomycin Trough 18.5 ug/mL (10-15)
== END 2020-07-19 19:42 | disposition home or self-care (01) ==
LOC: LAB 19:42
PROVIDERS: PCP Family Medicine; Visit Provider Family Medicine
DX: I38 Endocarditis, valve unspecified (principal)
CPT/HCPCS: 80202; 82565; 84520; 87493; 87635

== ENCOUNTER 2020-07-25 10:51 | Observation (INO) | payer MEDICAID, SELFPAY ==
[2020-07-25] VITALS (31 sets, daily range): BP systolic 92–177; BP diastolic 55–98; PULSE 71–92; RESP 15–37; TEMP 36.5–36.8; O2SAT 71–100; BMI 28.6
--- NOTE | 2020-07-25 11:01 | XRR_ITS ---
PROCEDURE INFORMATION: Exam: XR Chest, 1 View Exam date and time: 07/25/2020 11:20 AM Age: 55 years old Clinical indication: Shortness of breath; Chest pain; Type not specified; Prior surgery; Surgery type: Bypass TECHNIQUE: Imaging protocol: XR of the chest Views: 1 view. COMPARISON: CR XR chest 1V portable [id number] 06/27/2020 7:58 PM FINDINGS: Tubes, catheters and devices: Right PICC line again demonstrated. Lungs: Emphysematous change and interstitial prominence. Pleural space: Incomplete visualization of the right costophrenic angle. No significant pleural effusion. Heart/Mediastinum: Bypass surgery. No cardiomegaly. Bones/joints: Unremarkable. XR/XR chest 1V portable [id number] IMPRESSION: Emphysematous change and interstitial prominence.
--- NOTE | 2020-07-25 11:02 | ECG_ITS ---
[facility] Test Date: 2020-07-25 Pat Name: Collette Kothari Department: Room: Gender: Female Healthcare Project Manager: : 1965 Requested By: Ashlee Martinez Order Number: [id number] Stacey MD: Jitendra Ryder M.D. Measurements Intervals [place] Rate: 78 P: 55 NE: 154 QRS: 1 QRSD: 110 T: 38 QT: 420 QTc: 481 Interpretive Statements SINUS RHYTHM WITH FREQUENT VENTRICULAR PREMATURE COMPLEXES NONSPECIFIC ST & T-WAVE ABNORMALITY ABNORMAL RHYTHM ECG Compared to ECG 06/27/2020 21:08:53 Ventricular premature complex(es) now present T-wave abnormality now present Myocardial infarct finding no longer present Electronically Signed On 07-25-2020 23:42:15 CDT by Jitendra Ryder M.D. [id number]
[2020-07-25 11:43] LABS: Basophils % 0.5 %; Eosinophils # 0.1 10^3/uL (0.0-0.8); Hematocrit 34.2 % (37.0-47.0); Hemoglobin 10.8 g/dL (11.5-15.3); Lymphocytes # 2.6 10^3/uL (0.8-4.8); Lymphocytes % 30.2 %; Mean Corpuscular HGB Conc 31.6 g/dL (30.0-36.0); Mean Corpuscular Hemoglobin 25.8 pg (28.0-34.0); Mean Corpuscular Volume 81.8 fL (81-99); Mean Platelet Volume 11.1 fL (7.4-10.4); Monocytes # 0.5 10^3/uL (0.2-0.9); Monocytes % 5.5 %; Neutrophils # 5.47 10^3/uL (1.8-7.7); Neutrophils % 62.6 %; Nucleated Red Blood Cells % 0 %; Platelet Count 375 10^3/cmm (130-400); Red Blood Count 4.18 10^6/uL (4.1-5.3); Red Cell Distribution Width 14.5 % (12.1-15.1); White Blood Count 8.7 10^3/uL (4.0-10.0)
[2020-07-25 11:52] LABS: H. Pylori IgG Antibody Negative (Negative)
[2020-07-25 11:57] LABS: INR 0.95 (0.8-1.2)
[2020-07-25 11:59] LABS: D Dimer 0.57 ug/mIFEU (0-0.59)
[2020-07-25] MEDS: ondansetron 2 mg/ML SDV 2 mL 4 MG IVP (12:03)
[2020-07-25] MEDS: aspirin 325 mg Tablet PO (12:04)
[2020-07-25] MEDS: LORazepam 2 mg/mL INJ 1 mL 0.5 MG IVP (12:04)
[2020-07-25 12:08] LABS: Alanine Aminotransferase < 5 U/L (0-33); Albumin Level 3.8 g/dL (3.5-5.2); Alkaline Phosphatase 159 IU/L (35-105); Anion Gap 17.9 (5-19); Aspartate Amino Transferase 8 U/L (0-32); Blood Urea Nitrogen 6 mg/dL (6-20); Calcium 9.3 mg/dL (8.5-10.5); Carbon Dioxide 24 mmol/L (22-29); Chloride 102 mmol/L (98-107); Globulin 3.3 g/dL (1.3-4.6); Glomerular Filtration Rate 74.5 mL/min (90-130); Glucose 116 mg/dL (65-115); Lipase 8 U/L (13-60); Magnesium 1.3 mg/dL (1.7-2.3); Osmolality Calculated 289 mOsm/kg (285-295); Sodium 141 mmol/L (136-145); Total Bilirubin 0.2 mg/dL (0.15-1.2); Total Protein 7.1 g/dL (6.6-8.7)
[2020-07-25] MEDS: nitroglycerin 0.4 mg sublingual Tablet SUBLINGUAL ×3 (12:09→21:34)
[2020-07-25 12:23] LABS: Troponin(5th) Baseline 375 ng/L (0-10)
--- NOTE | 2020-07-25 12:27 | W.ED.CHESTPA ---
HPI - Chest Pain General: Chief Complaint: Chest Pain Stated Complaint: CHEST PAIN Time Seen by Provider: 07/25/20 11:00 Source: patient Mode of arrival: ambulatory Limitations: no limitations History of Present Illness: HPI narrative: Collette is a nice 55-year-old female who comes in complaining of chest pain, sore throat, nausea and epigastric pain. Patient states her symptoms started this morning. She describes her chest pain as a heaviness that radiates across to her chest and into her back. She states she has associated shortness of breath, diaphoresis and nausea. She was no better with nitroglycerin that she took at home. She denies any other aggravating or alleviating factors. Patient states that she feels very anxious with this and this is somewhat feels like when she is had previous heart problems in the past. Associated symptoms: Reports diaphoresis and dyspnea; Deny fever(s), palpitations, syncope or vomiting Review of Systems Const: Reports: diaphoresis; Denies: fever(s), chills, body aches, fatigue or malaise Eyes: Denies: change in vision, blurry vision, photophobia, eye discomfort, eye discharge or eye redness ENMT: Reports: throat pain; Denies: odynophagia, hoarseness, swelling of lips/tongue, ear or mastoid pain, ear discharge, change in hearing or nasal discharge Card: Reports: chest pain; Denies: palpitations, irregular heart rhythm, edema, lightheadedness, syncope, pre-syncope, dyspnea on exertion or orthopnea Resp: Reports: dyspnea; Denies: productive cough, non-productive cough, wheezing, hemoptysis or chest congestion GI: Denies: vomiting, hematemesis, coffee ground emesis, heartburn, diarrhea, constipation, GI cramping, hematochezia or melena : Denies: flank pain, dysuria, urinary frequency, urinary urgency or hematuria Musc: Denies: neck pain, back pain, extremity pain, extremity swelling, joint pain, joint swelling, joint redness, joint warmth or joint stiffness Skin/Breast: Denies: rash, pruritus, erythema or skin tenderness Neuro: Denies: headache(s), numbness in extremities, weakness in extremities, sensory changes, lack of coordination, difficulty walking, dizziness, vertigo, confusion, Slurred speech present or seizure-like activity Danish/Lymph: Denies: easy bruising, easy bleeding, petechiae, purpura or enlarged lymph nodes All/Imm: Denies: urticaria, throat swelling, tongue swelling, facial swelling or acute wheezing PFSH ED PFSH: Medical History Coronary artery disease Depression with anxiety Generalized anxiety disorder GERD (gastroesophageal reflux disease) Hypertension Hypertriglyceridemia Insulin dependent diabetes mellitus Irritable bowel syndrome Pancreatitis Post-traumatic stress disorder, chronic Ulcerative colitis Surgical History H/O tubal ligation H/O: hysterectomy History of carpal tunnel surgery Hx of tonsillectomy S/P CABG x 4 S/P coronary artery stent placement -x 12 stents Family History Mother Dementia Father CAD (coronary artery disease) Other IBD (inflammatory bowel disease) Social History Smoking and tobacco status: former smoker Alcohol intake: never Lives independently: Yes Household members: significant other Marital status: Life Partner Current occupational status: disabled Physical Exam Const: COMMON NORMALS: no acute distress, patient oriented x3, no limitations, healthy appearing and well nourished GENERAL APPEARANCE: cooperative, well kempt and well developed HENMT: COMMON NORMALS: normocephalic, atraumatic, external ears normal, EAC's normal and Normal external nose present HEAD & SCALP: normal to inspection, normocephalic and atraumatic FACE & SINUS: normal facial exam and face symmetric NOSE: Normal external nose present and Normal nares present EXTERNAL EAR: Yes external ears normal EXTERNAL AUDITORY CANAL: EAC's normal MOUTH: Normal oral and palatal mucosa present, lip normal and tongue normal Eye: COMMON NORMALS: Equal, round and reactive pupils present and conjunctivae normal GENERAL EYE: appearance normal, both eyes and all related structures ALIGNMENT: Yes alignment normal PERIORBITAL: periorbital findings normal EYELID: eyelids normal CONJUNCTIVA: Yes conjunctivae normal SCLERA: sclerae normal PUPIL: Yes Equal, round and reactive pupils present Neck/C-Spine: COMMON NORMALS: full ROM, no lymphadenopathy, supple, no meningeal signs and no JVD GENERAL: Yes normal visual inspection and Yes trachea midline Chest: COMMONS NORMALS: normal inspection of the chest and normal palpation of entire chest wall Resp: COMMON NORMALS: normal respiratory effort, No retractions, No use of accessory muscles and clear to auscultation bilaterally EFFORT & INSPECTION: Yes able to speak in complete sentences and Yes symmetric chest movement AUSCULTATION: clear to auscultation bilaterally, no crackles, no rales, no rhonchi and no wheezes Cardio: COMMON NORMALS: no JVD, regular rate, regular rhythm, S1 normal heart sound present and S2 normal heart sound present RATE: regular rate RHYTHM: regular rhythm HEART SOUNDS: S1 normal heart sound present, S2 normal heart sound present, no click, no gallops, no murmurs, no rubs and abnormal split S2 GI: COMMON NORMALS: Soft to palpation and No hepatosplenomegaly present PALPATION: Yes Soft to palpation, No Tenderness to palpation present (GI), No Guarding due to palpation present (GI), No Rigid due to palpation, Yes No hepatosplenomegaly present, No Hernia present, No Palpable mass present and No Pulsatile mass present : COMMON NORMALS: Yes no CVA tenderness BLADDER/KIDNEY EXAM: Yes no CVA tenderness EXTERNAL FEMALE EXAM: No Hernia present Back/Pelvis: COMMON NORMALS: no CVA tenderness, thoracic and lumbar spine normal to inspection, no thoracic nor lumbar tenderness and thoraco-lumbar ROM normal Extremity: COMMON NORMALS: normal to inspection, full ROM, capillary refill normal, no joint enlargement, no clubbing, cyanosis or edema and no calf tenderness Neuro: COMMON NORMALS: patient oriented x3, CN's II-XII intact bilaterally, moves all extremities, no focal motor deficits and no sensory deficits noted MENINGEAL SIGNS: Yes no meningeal signs SPEECH: speech normal Psych: COMMON NORMALS: mental status grossly normal, Normal thought process present, cooperative, normal affect, speech normal and activity/motor behavior normal APPEARANCE: Yes well kempt SPEECH: Yes normal speech THOUGHT PROCESS: Normal thought process present Skin: COMMON NORMALS: no rashes or lesions noted, turgor normal, no jaundice, no petechiae and no mottling GENERAL SKIN EXAM: no rashes or lesions noted and turgor normal Course ED course: 1125 -concern for isolated posterior my was shared with Dr. Bell, she has reviewed the EKGs at this time and states that she has concern as well. She advises involving Dr. Reddy to see if the patient needs emergent cardiac catheterization 1133 - Dr. Reddy has reviewed the EKGs and will come to see the patient. 1145 - Dr. Reddy has seen and evaluated the patient. He has reviewed a second EKG which he thinks is improved and has performed a bedside echo and states that her EF is preserved. He advises continuing with rule out and he is available if anything changes. 1225 - Dr. Reddy notified of patient's troponin and that she is still having chest discomfort. He would like to start IV nitro, IV heparin and loading her with 300 mg of Plavix. He states the patient cannot have her pain alleviated in the next 1 to 2 hours he may consider taking her to the [facility] but based upon previous review he does not believe she has anything intervene able upon from her last cath. 1310 -Case reviewed with Dr. Moura, she agrees to admit the patient understanding Dr. Reddy will consult. Patient is currently better but her symptoms have not resolved. 1412 - Dr. Reddy is aware of the patient second troponin and that her pain is markedly better but not completely gone. His plan is to take her to the [facility] once it is available. Currently Dr. Moura is here seeing the patient. Vital Signs: Vital signs: Vital Signs Temperature 97.7 F 07/25/20 10:59 Pulse Rate 78 07/25/20 18:17 Respiratory Rate 17 07/25/20 16:15 Blood Pressure 103/69 07/25/20 16:15 Pulse Oximetry 100 07/25/20 18:17 MDM - Chest Pain Lab Data: Attestation: I reviewed the patient's lab results. Labs: Lab Results 07/25/20 07/25/20 07/25/20 Range/Units 11:30 11:30 11:30 WBC 8.7 (4.0-10.0) 10^3/ uL RBC 4.18 (4.1-5.3) 10^6/u L Hgb 10.8 L (11.5-15.3) g/dL Hct 34.2 L (37.0-47.0) % MCV 81.8 (81-99) fL MCH 25.8 L (28.0-34.0) pg MCHC 31.6 (30.0-36.0) g/dL RDW 14.5 (12.1-15.1) % Plt Count 375 (130-400) 10^3/c mm MPV 11.1 H (7.4-10.4) fL Neut % (Auto) 62.6 % Lymph % (Auto) 30.2 % [place] % (Auto) 5.5 % Eos % (Auto) 1.0 % Baso % (Auto) 0.5 % Neut # (Auto) 5.47 (1.8-7.7) 10^3/u L Lymph # (Auto) 2.6 (0.8-4.8) 10^3/u L [place] # (Auto) 0.5 (0.2-0.9) 10^3/u L Eos # (Auto) 0.1 (0.0-0.8) 10^3/u L Baso # (Auto) 0.0 (0.0-0.1) 10^3/u L Nucleated RBC % (a uto) 0 % Nucleated RBCs # 0.0 /100WBC PT 12.90 (12.1-14.9) SECO NDS INR 0.95 (0.8-1.2) D-Dimer 0.57 (0-0.59) ug/mIFE U Sodium 141 (136-145) mmol/L Potassium 2.9 L (3.5-5.1) mmol/L Chloride 102 (98-107) mmol/L Carbon Dioxide 24 (22-29) mmol/L Anion Gap 17.9 (5-19) BUN 6 (6-20) mg/dL Creatinine 0.8 (0.5-0.9) mg/dL GFR Calculation 74.5 L (90-130) mL/min Glucose 116 H (65-115) mg/dL Calculated Osmolal ity 289 (285-295) mOsm/k g Calcium 9.3 (8.5-10.5) mg/dL Magnesium 1.3 L (1.7-2.3) mg/dL Total Bilirubin 0.2 (0.15-1.2) mg/dL AST 8 (0-32) U/L ALT < 5 (0-33) U/L Alkaline Phosphata se 159 H (35-105) IU/L Troponin T Baselin e (0-10) ng/L Troponin T 120 Min koi (0-10) ng/L Delta Troponin T (0-10) ABS# Total Protein 7.1 (6.6-8.7) g/dL Albumin 3.8 (3.5-5.2) g/dL Globulin 3.3 (1.3-4.6) g/dL Lipase 8 L (13-60) U/L H. pylori IgG Anti body (Negative) SARS-CoV-2 Ag (Rap id) (Negative) 07/25/20 07/25/20 07/25/20 Range/Units 11:30 11:30 12:25 WBC (4.0-10.0) 10^3/ uL RBC (4.1-5.3) 10^6/u L Hgb (11.5-15.3) g/dL Hct (37.0-47.0) % MCV (81-99) fL MCH (28.0-34.0) pg MCHC (30.0-36.0) g/dL RDW (12.1-15.1) % Plt Count (130-400) 10^3/c mm MPV (7.4-10.4) fL Neut % (Auto) % Lymph % (Auto) % [place] % (Auto) % Eos % (Auto) % Baso % (Auto) % Neut # (Auto) (1.8-7.7) 10^3/u L Lymph # (Auto) (0.8-4.8) 10^3/u L [place] # (Auto) (0.2-0.9) 10^3/u L Eos # (Auto) (0.0-0.8) 10^3/u L Baso # (Auto) (0.0-0.1) 10^3/u L Nucleated RBC % (a uto) % Nucleated RBCs # /100WBC PT (12.1-14.9) SECO NDS INR (0.8-1.2) D-Dimer (0-0.59) ug/mIFE U Sodium (136-145) mmol/L Potassium (3.5-5.1) mmol/L Chloride (98-107) mmol/L Carbon Dioxide (22-29) mmol/L Anion Gap (5-19) BUN (6-20) mg/dL Creatinine (0.5-0.9) mg/dL GFR Calculation (90-130) mL/min Glucose (65-115) mg/dL Calculated Osmolal ity (285-295) mOsm/k g Calcium (8.5-10.5) mg/dL Magnesium (1.7-2.3) mg/dL Total Bilirubin (0.15-1.2) mg/dL AST (0-32) U/L ALT (0-33) U/L Alkaline Phosphata se (35-105) IU/L Troponin T Baselin e 375 H* (0-10) ng/L Troponin T 120 Min koi (0-10) ng/L Delta Troponin T (0-10) ABS# Total Protein (6.6-8.7) g/dL Albumin (3.5-5.2) g/dL Globulin (1.3-4.6) g/dL Lipase (13-60) U/L H. pylori IgG Anti body Negative (Negative) SARS-CoV-2 Ag (Rap id) Negative (Negative) 07/25/20 Range/Units 13:15 WBC (4.0-10.0) 10^3/ uL RBC (4.1-5.3) 10^6/u L Hgb (11.5-15.3) g/dL Hct (37.0-47.0) % MCV (81-99) fL MCH (28.0-34.0) pg MCHC (30.0-36.0) g/dL RDW (12.1-15.1) % Plt Count (130-400) 10^3/c mm MPV (7.4-10.4) fL Neut % (Auto) % Lymph % (Auto) % [place] % (Auto) % Eos % (Auto) % Baso % (Auto) % Neut # (Auto) (1.8-7.7) 10^3/u L Lymph # (Auto) (0.8-4.8) 10^3/u L [place] # (Auto) (0.2-0.9) 10^3/u L Eos # (Auto) (0.0-0.8) 10^3/u L Baso # (Auto) (0.0-0.1) 10^3/u L Nucleated RBC % (a uto) % Nucleated RBCs # /100WBC PT (12.1-14.9) SECO NDS INR (0.8-1.2) D-Dimer (0-0.59) ug/mIFE U Sodium (136-145) mmol/L Potassium (3.5-5.1) mmol/L Chloride (98-107) mmol/L Carbon Dioxide (22-29) mmol/L Anion Gap (5-19) BUN (6-20) mg/dL Creatinine (0.5-0.9) mg/dL GFR Calculation (90-130) mL/min Glucose (65-115) mg/dL Calculated Osmolal ity (285-295) mOsm/k g Calcium (8.5-10.5) mg/dL Magnesium (1.7-2.3) mg/dL Total Bilirubin (0.15-1.2) mg/dL AST (0-32) U/L ALT (0-33) U/L Alkaline Phosphata se (35-105) IU/L Troponin T Baselin e (0-10) ng/L Troponin T 120 Min koi 371.6 H (0-10) ng/L Delta Troponin T -3.4 L (0-10) ABS# Total Protein (6.6-8.7) g/dL Albumin (3.5-5.2) g/dL Globulin (1.3-4.6) g/dL Lipase (13-60) U/L H. pylori IgG Anti body (Negative) SARS-CoV-2 Ag (Rap id) (Negative) Imaging Data^: CXR: Attestation: I personally reviewed and interpreted this imaging study as follows: My impression: Possible early vascular congestion in the basis EKG Data^: EKG 1: Attestation: I personally reviewed and interpreted this EKG as follows: EKG interpretation date: 07/25/20 EKG interpretation time: 11:13 Interpretation: Normal sinus rhythm at 78 beats a minute, normal axis, no blocks, normal intervals, PVCs noted, ST segment depression noted V2 through V5. EKG 2: Attestation: I personally reviewed and interpreted this EKG as follows: EKG interpretation date: 07/25/20 EKG interpretation time: 12:02 Interpretation: Normal sinus rhythm at 74 beats a minute, left axis deviation, PVCs noted mild improvement in ST segment elevation in anterior precordial leads EKG 3: Attestation: I personally reviewed and interpreted this EKG as follows: EKG interpretation date: 07/25/20 EKG interpretation time: 13:05 Interpretation: Normal sinus rhythm at 78 beats a minute, no blocks, normal intervals, continuing ST depression in the anterior precordial leads, PVCs noted. Discharge Plan Discharge Patient Disposition: Admitted As Inpatient Admit Provider: Roger Reddy Clinical Impression: Acute non-ST elevation myocardial infarction (NSTEMI) Condition: Stable Referrals: Juno Brown [Primary Care Provider] - Discharge Date/Time: 07/25/20 16:00 Coding Level of Care Code ED Filing And Polishing Supervisor for Chg Fwd Exam Comprehensive
[2020-07-25 12:34] LABS: Potassium 2.9 mmol/L (3.5-5.1)
[2020-07-25] MEDS: clopidogrel 300 mg Tablet PO (13:02)
[2020-07-25] MEDS: diphenhydrAMINE 50 mg Capsule PO (13:02)
[2020-07-25] MEDS: potassium chloride ER 10 mEq Tablet 40 MEQ PO (13:02)
--- NOTE | 2020-07-25 13:02 | ECG_ITS ---
[facility] Test Date: 2020-07-25 Pat Name: Collette Kothari Department: Room: Gender: Female Chief Console Operator: : 1965 Requested By: Ashlee Martinez Order Number: [id number] Stacey MD: Jitendra Ryder M.D. Measurements Intervals [place] Rate: 78 P: 55 [place]: 154 QRS: -8 QRSD: 110 T: 42 QT: 414 QTc: 472 Interpretive Statements SINUS RHYTHM WITH OCCASIONAL VENTRICULAR PREMATURE COMPLEXES NONSPECIFIC ST & T-WAVE ABNORMALITY Compared to ECG 07/25/2020 12:02:20 Intraventricular conduction delay no longer present T-wave abnormality still present Electronically Signed On 07-25-2020 23:47:29 CDT by Jitendra Ryder M.D. [email or web address]/[id number]
[2020-07-25] MEDS: magnesium sulfate premix 2 GM/50 ML PIGGYBACK IV (13:05)
[2020-07-25] MEDS: sodium chloride 0.9% 1,000 ML 50 ML IV (13:05)
[2020-07-25] MEDS: heparin 5,000 unit/mL INJ 1 mL IV (13:23)
[2020-07-25] MEDS: nitroglycerin drip 50 MG/250 ML PREMIX 15 MG IV (13:29)
[2020-07-25 13:30] LABS: SARS Covid-2 Antigen Negative (Negative)
[2020-07-25 13:39] LABS: Troponin 5 2HR 371.6 ng/L (0-10); Troponin 5 2HR Delta -3.4 ABS# (0-10)
[2020-07-25] MEDS: heparin drip 25,000 UNIT/500 ML PREMIX 24.6 UNIT IV (13:43)
[2020-07-25] MEDS: potassium chloride premix 40 MEQ/100 ML PREMIX 25 MEQ IV (13:45)
[2020-07-25] MEDS: HYDROmorphone 1 mg/mL INJ 1 mL IVP (14:18)
--- NOTE | 2020-07-25 15:20 | PM.CONSULT ---
Providers/Reason For Consult Consulting Physican/Specialty*: Roger Reddy MD/ Interventional Cardiology Reason for Consult*: Chest pain/EKG changes Requesting Gabrielecian: Dr Baker Primary Care Provider: Juno Brown History of Present Illness History of Present Illness Collette Kothari is a 55 year old female past medical history of coronary artery disease status post CABG and multiple PCI's, hypertension, hyperlipidemia presented to the ER with 6 to 7 hours history of chest discomfort. According to patient she had a PCI done in January of this year at an outside hospital. She describes the pain as substernal and epigastric. It radiates to the left and the back. Says it is squeezing and pressure-like. She took nitros at home however the pain was not relieved with those. She also complains of sore throat. Her initial troponin was 375. EKG showed PVCs with nonspecific ST-T wave changes, 1 of the serial EKGs demonstrated ST depressions in precordial leads. She underwent myocardial perfusion imaging and February 2020 which had shown lateral ischemia. She had left heart cath done in 2019 here at [facility] that showed patent TOMAS to LAD, patent SVG to PDA and patent sequential graft SVG to ramus and OM 2. She had severe triple-vessel [place] artery disease. She was admitted to the hospital with possible endocarditis with coagulase-negative staph bacteremia. She has completed 6 weeks of vancomycin treatment. Patient is currently on aspirin and Plavix. She continues complaining of chest pain. Review of Systems Const: Reports: diaphoresis; Denies: fever(s), chills, body aches, fatigue or malaise Eyes: Denies: change in vision, blurry vision, photophobia, eye discomfort, eye discharge or eye redness ENMT: Reports: throat pain; Denies: odynophagia, hoarseness, swelling of lips/tongue, ear or mastoid pain, ear discharge, change in hearing or nasal discharge Card: Reports: chest pain; Denies: palpitations, irregular heart rhythm, edema, lightheadedness, syncope, pre-syncope, dyspnea on exertion or orthopnea Resp: Reports: dyspnea; Denies: productive cough, non-productive cough, wheezing, hemoptysis or chest congestion GI: Denies: vomiting, hematemesis, coffee ground emesis, heartburn, diarrhea, constipation, GI cramping, hematochezia or melena : Denies: flank pain, dysuria, urinary frequency, urinary urgency or hematuria Musc: Denies: neck pain, back pain, extremity pain, extremity swelling, joint pain, joint swelling, joint redness, joint warmth or joint stiffness Skin/Breast: Denies: rash, pruritus, erythema or skin tenderness Neuro: Denies: headache(s), numbness in extremities, weakness in extremities, sensory changes, lack of coordination, difficulty walking, dizziness, vertigo, confusion, Slurred speech present or seizure-like activity Danish/Lymph: Denies: easy bruising, easy bleeding, petechiae, purpura or enlarged lymph nodes All/Imm: Denies: urticaria, throat swelling, tongue swelling, facial swelling or acute wheezing Meds/Allergies Home Medications and Allergies Home Medications Medication Instructions Recorded Confirmed Last Taken Type amlodipine [Norvasc] 5 mg PO DAILY 01/04/20 07/25/20 07/24/20 History carvedilol 25 mg PO BID 01/04/20 07/25/20 07/24/20 History clopidogrel 75 mg PO DAILY 01/04/20 07/25/20 07/24/20 History hydrochlorothiazide 12.5 mg PO DAILY 01/04/20 07/25/20 07/24/20 History hydrocodone-acetaminophen 1 tab PO Q4H PRN 01/04/20 07/25/20 07/24/20 History insulin aspart U-100 [Novolog See Rx Instructions .ROUTE .COMPLEX 01/04/20 07/25/20 07/24/20 History Flexpen U-100 Insulin] pantoprazole 40 mg PO BID 01/04/20 07/25/20 07/24/20 History pregabalin [Lyrica] 150 mg PO TID 01/04/20 07/25/20 07/24/20 History tizanidine 4 mg PO TID PRN 01/04/20 07/25/20 07/24/20 History fluticasone propionate 2 spray INTRANASAL DAILY PRN 02/29/20 07/25/20 06/27/20 History lactulose 10 g PO BID PRN 02/29/20 07/25/20 1 Week Ago History ~06/01/20 nitroglycerin [Nitrostat] 0.4 mg SUBLINGUAL Q5M PRN 02/29/20 07/25/20 06/27/20 History potassium chloride 20 meq PO DAILY 02/29/20 07/25/20 07/24/20 History promethazine 25 mg PO Q6H PRN 02/29/20 07/25/20 06/27/20 16:00 History sucralfate 1 g PO QID PRN 02/29/20 07/25/20 06/27/20 History Lantus Solostar U-100 Insulin 40 unit SUBCUT BID 03/30/20 07/25/20 07/24/20 History aspirin [Aspir-81] 81 mg PO QPM 03/30/20 07/25/20 07/24/20 History polyethylene glycol 3350 [Miralax] 17 g PO DAILY PRN 03/30/20 07/25/20 07/24/20 History Mucinex DM 1 tab PO Q12H PRN 05/26/20 07/25/20 06/27/20 History metronidazole 1 applic TOPICAL DAILY PRN 05/26/20 07/25/20 1 Day Ago History ~06/07/20 Excedrin Migraine 1 tab PO Q6H PRN 06/09/20 07/25/20 06/09/20 History Vascepa 2 g PO BID 06/09/20 07/25/20 07/24/20 History gemfibrozil [Lopid] 600 mg PO DAILY 06/09/20 07/25/20 07/24/20 History isosorbide mononitrate 30 mg PO BID 06/09/20 07/25/20 07/24/20 History nystatin 5 ml PO QID 06/27/20 07/25/20 06/26/20 History alprazolam 0.5 mg tablet See Rx Instructions .ROUTE 07/13/20 07/25/20 07/24/20 Rx .COMPLEX PRN #150 tab sertraline 100 mg tablet 200 mg PO DAILY #60 tab 07/13/20 07/25/20 07/24/20 Rx trazodone 150 mg tablet 150 mg PO BEDTIME #30 tab 07/13/20 07/25/20 07/24/20 Rx zolpidem 10 mg tablet 10 mg PO BEDTIME #30 tab 07/13/20 07/25/20 07/24/20 Rx Allergies Allergy/AdvReac Type Severity Reaction Status Date / Time SCOTT Inhibitors Allergy Unknown Verified 06/27/20 18:53 acetaminophen Allergy ADR-Nausea Verified 06/27/20 18:53 [From Darvocet-N] amitriptyline Allergy ALGY-Difficulty Verified 06/27/20 18:53 Breathing atorvastatin [From Lipitor] Allergy ADR-Nausea Verified 06/27/20 18:53 ciprofloxacin [From Cipro] Allergy ALGY-Hives Verified 06/27/20 18:53 doxycycline Allergy Unknown Verified 06/27/20 18:53 empagliflozin Allergy Unknown Verified 06/27/20 18:53 [From Jardiance] escitalopram [From Lexapro] Allergy Unknown Verified 06/27/20 18:53 ezetimibe [From Zetia] Allergy Unknown Verified 06/27/20 18:53 furosemide [From Lasix] Allergy ALGY-Rash Verified 06/27/20 18:53 ketorolac [From Toradol] Allergy Unknown Verified 06/27/20 18:53 lisinopril Allergy Unknown Verified 06/27/20 18:53 morphine Allergy ALGY-Rash Verified 06/27/20 18:53 nalbuphine [From Nubain] Allergy Unknown Verified 06/27/20 18:53 naproxen Allergy Unknown Verified 06/27/20 18:53 nortriptyline Allergy Unknown Verified 06/27/20 18:53 pravastatin Allergy Unknown Verified 06/27/20 18:53 prochlorperazine Allergy ALGY-Difficulty Verified 06/27/20 18:53 [From Compazine] Breathing propoxyphene Allergy ADR-Nausea Verified 06/27/20 18:53 [From Darvocet-N] ranolazine [From Ranexa] Allergy Unknown Verified 06/27/20 18:53 rosuvastatin [From Crestor] Allergy Unknown Verified 06/27/20 18:53 simvastatin Allergy Unknown Verified 06/27/20 18:53 sulfamethoxazole Allergy ALGY-Hives Verified 06/27/20 18:53 [From Bactrim] sumatriptan [From Imitrex] Allergy Unknown Verified 06/27/20 18:53 trimethoprim [From Bactrim] Allergy ALGY-Hives Verified 06/27/20 18:53 Current Medications Current Medications Generic Name Dose Route Start Last Admin Trade Name Freq PRN Reason Stop Dose Admin Heparin Sodium (Beef Lung) 0 unit 08/31/20 12:28 07/25/20 13:23 Heparin IV 5,000 unit PRN PRN Administration Heparin weight-base protocol Protocol Nitroglycerin/Dextrose 50 mg in 250 mls @ 0 mls/hr 07/25/20 12:30 07/25/20 13:29 Nitroglycerin Drip IV 50 mcg/min .Q0M MATTIE 15 mls/hr Administration Protocol Per Protocol Heparin Sodium/Sodium Chloride 25,000 unit in 500 mls @ 0 mls/hr 07/25/20 12:30 07/25/20 13:43 Heparin Drip IV 14 unit/kg/hr .Q0M MATTIE 24.6 mls/hr Administration Protocol Per Protocol Sodium Chloride 1,000 mls @ 50 mls/hr 07/25/20 12:35 07/25/20 13:05 Sodium Chloride 0.9% IV 07/26/20 08:34 50 mls/hr .Q20H ONE Administration Potassium Chloride 40 meq in 100 mls @ 25 mls/hr 07/25/20 12:40 07/25/20 13:45 K-Ben IV 07/25/20 16:39 25 mls/hr ONCE ONE Administration Nitroglycerin 0.4 mg 07/25/20 11:01 07/25/20 12:09 Nitrostat SUBLINGUAL 0.4 mg Q5M PRN Administration CHEST PAIN PFSH Acute PFSH: Medical History Coronary artery disease Depression with anxiety Generalized anxiety disorder GERD (gastroesophageal reflux disease) Hypertension Hypertriglyceridemia Insulin dependent diabetes mellitus Irritable bowel syndrome Pancreatitis Post-traumatic stress disorder, chronic Ulcerative colitis Surgical History H/O tubal ligation H/O: hysterectomy History of carpal tunnel surgery Hx of tonsillectomy S/P CABG x 4 S/P coronary artery stent placement -x 12 stents Family History Mother Dementia Father CAD (coronary artery disease) Other IBD (inflammatory bowel disease) Social History Smoking and tobacco status: former smoker Alcohol intake: never Lives independently: Yes Household members: significant other Marital status: Life Partner Current occupational status: disabled Vitals/I&O/Wt Last Vital Signs Temp 97.7 F 07/25/20 10:59 Pulse 80 07/25/20 14:58 Resp 15 07/25/20 14:58 BP 156/82 07/25/20 14:58 Pulse Ox 100 07/25/20 14:58 07/25/20 07/25/20 07/25/20 06:59 14:59 22:59 Intake Total 50 / 50 Balance 50 / 50 Weight last 48 hrs Weight 194 lb Physical Exam Narrative: EXAM NARRATIVE: GENERAL: Patient is alert, awake and oriented x3. [] NECK: No jugular vein distension. [] HEENT: No cyanosis. No icterus. No pallor. [] HEART: Regular S1 and S2. No murmur, rub or gallop. [] LUNGS: Clear to auscultate bilaterally. [] ABDOMEN: Soft, nontender and nondistended. Positive bowel sounds. No guarding, rebound or tenderness. [] CENTRAL NERVOUS SYSTEM: Grossly nonfocal. [] EXTREMITIES: Lower extremities with no significant edema bilaterally. Pulses palpable in the lower extremities, both dorsalis pedis and posterior tibial. [] A&P Assessment and plan (1) Acute non-ST elevation myocardial infarction (NSTEMI): Status: Acute (2) Coronary artery disease: Status: Acute Qualifiers: Coronary Disease-Associated Artery/Lesion type: bypass graft [place] vs. transplanted heart: [place] heart Associated angina: with stable angina Qualified Code(s): I25.708 - Atherosclerosis of coronary artery bypass graft(s), unspecified, with other forms of angina pectoris (3) Hypertension: Status: Acute Qualifiers: Hypertension type: essential hypertension Qualified Code(s): I10 - Essential (primary) hypertension (4) Insulin dependent diabetes mellitus: Status: Acute Significant coronary artery disease history and came in with both typical and atypical chest pain features. Her first troponin was significantly elevated at 375. Serial EKGs did show some nonspecific ST-T wave changes with 1 of the EKG showing ST depressions in the precordial leads. Patient had a abnormal stress test about 4 months ago and inferolateral territory. Given her continued chest discomfort, and elevated troponin, we will plan on coronary angiography with possible intervention. I have discussed in detail the potential benefits and risks associated with the procedure including bleeding, infection, arrhythmias, stroke, heart attack, renal function worsening and . Patient understands the risks and benefits and agreed to proceed with the procedure. 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 transplanted heart: [place] heart Associated angina: with stable angina Hypertension I10 Hypertension type: essential hypertension Insulin dependent diabetes mellitus E11.9; Z79.4
--- NOTE | 2020-07-25 15:26 | P.HP_ITS ---
Providers/Chief Complaint Admitting Physician: Alice Moura MD Primary Care Provider: Juno Brown Chief Complaint: CHEST PAIN History of Present Illness Collette Kothari is a 55 year old female with PMHx noted below, presents with complaints of substernal chest pain that started around 5 AM this morning and radiated to both her shoulders. Patient is known to me from previous admissions and has been to our facility on multiple occasions typically due to pain related complaints. She has just completed a course of IV antibiotics for coagulase- negative staph endocarditis; was treated with vancomycin. She is pending MEGAN so still has PICC line in place. 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 She describes having had some lightheadedness, nausea and some shortness of breath with her episode of chest pain. She describes it as a crushing/squeezing pain. She did take some nitroglycerin at home. She was noted to have significantly elevated troponins on her arrival here though no significant delta after 2 hours. Due to concern for non-STEMI cardiology was consulted and she has been evaluated by Dr. Reddy who has recommended initiation of medical management pending coronary angiogram this afternoon. Work-up so far also shows normal white count at 8.7, mild anemia with a hemoglobin of 10.8, hypokalemia with a potassium of 2.9, normal renal function, blood glucose of 116, normal coags, magnesium of 1.3. She was tested for COVID-19 which is negative. She is currently on a nitroglycerin drip, heparin drip and is receiving replacement of her potassium. She is now scheduled for angiogram at 1600. Vital signs so far are stable. Review of Systems Const: Reports: fatigue; Denies: fever(s) or chills Eyes: Denies: change in vision ENMT: Reports: dry mouth Card: Reports: chest pain and lightheadedness; Denies: swelling of feet/ankles Resp: Reports: dyspnea (mild); Denies: productive cough or non-productive cough GI: Reports: nausea; Denies: abdominal pain, vomiting, hematemesis or hematochezia : Denies: difficulty voiding, dysuria, urinary frequency or hematuria Musc: Denies: back pain Skin/Breast: Denies: rash Neuro: Denies: numbness in extremities or weakness in extremities Psych: Denies: anxiety Medications/Allergies Home Medications Medication Instructions Recorded Confirmed Last Taken Type amlodipine [Norvasc] 5 mg PO DAILY 01/04/20 07/25/20 07/24/20 History carvedilol 25 mg PO BID 01/04/20 07/25/20 07/24/20 History clopidogrel 75 mg PO DAILY 01/04/20 07/25/20 07/24/20 History hydrochlorothiazide 12.5 mg PO DAILY 01/04/20 07/25/20 07/24/20 History hydrocodone-acetaminophen 1 tab PO Q4H PRN 01/04/20 07/25/20 07/24/20 History insulin aspart U-100 [Novolog See Rx Instructions .ROUTE .COMPLEX 01/04/20 07/25/20 07/24/20 History Flexpen U-100 Insulin] pantoprazole 40 mg PO BID 01/04/20 07/25/20 07/24/20 History pregabalin [Lyrica] 150 mg PO TID 01/04/20 07/25/20 07/24/20 History tizanidine 4 mg PO TID PRN 01/04/20 07/25/20 07/24/20 History fluticasone propionate 2 spray INTRANASAL DAILY PRN 02/29/20 07/25/20 06/27/20 History lactulose 10 g PO BID PRN 02/29/20 07/25/20 1 Week Ago History ~06/01/20 nitroglycerin [Nitrostat] 0.4 mg SUBLINGUAL Q5M PRN 02/29/20 07/25/20 06/27/20 History potassium chloride 20 meq PO DAILY 02/29/20 07/25/20 07/24/20 History promethazine 25 mg PO Q6H PRN 02/29/20 07/25/20 06/27/20 16:00 History sucralfate 1 g PO QID PRN 02/29/20 07/25/20 06/27/20 History Lantus Solostar U-100 Insulin 40 unit SUBCUT BID 03/30/20 07/25/20 07/24/20 History aspirin [Aspir-81] 81 mg PO QPM 03/30/20 07/25/20 07/24/20 History polyethylene glycol 3350 [Miralax] 17 g PO DAILY PRN 03/30/20 07/25/20 07/24/20 History Mucinex DM 1 tab PO Q12H PRN 05/26/20 07/25/20 06/27/20 History metronidazole 1 applic TOPICAL DAILY PRN 05/26/20 07/25/20 1 Day Ago History ~06/07/20 Excedrin Migraine 1 tab PO Q6H PRN 06/09/20 07/25/20 06/09/20 History Vascepa 2 g PO BID 06/09/20 07/25/20 07/24/20 History gemfibrozil [Lopid] 600 mg PO DAILY 06/09/20 07/25/20 07/24/20 History isosorbide mononitrate 30 mg PO BID 06/09/20 07/25/20 07/24/20 History nystatin 5 ml PO QID 06/27/20 07/25/20 06/26/20 History alprazolam 0.5 mg tablet See Rx Instructions .ROUTE 07/13/20 07/25/20 07/24/20 Rx .COMPLEX PRN #150 tab sertraline 100 mg tablet 200 mg PO DAILY #60 tab 07/13/20 07/25/20 07/24/20 Rx trazodone 150 mg tablet 150 mg PO BEDTIME #30 tab 07/13/20 07/25/20 07/24/20 Rx zolpidem 10 mg tablet 10 mg PO BEDTIME #30 tab 07/13/20 07/25/20 07/24/20 Rx Allergies Allergy/AdvReac Type Severity Reaction Status Date / Time SCOTT Inhibitors Allergy Unknown Verified 06/27/20 18:53 acetaminophen Allergy ADR-Nausea Verified 06/27/20 18:53 [From Darvocet-N] amitriptyline Allergy ALGY-Difficulty Verified 06/27/20 18:53 Breathing atorvastatin [From Lipitor] Allergy ADR-Nausea Verified 06/27/20 18:53 ciprofloxacin [From Cipro] Allergy ALGY-Hives Verified 06/27/20 18:53 doxycycline Allergy Unknown Verified 06/27/20 18:53 empagliflozin Allergy Unknown Verified 06/27/20 18:53 [From Jardiance] escitalopram [From Lexapro] Allergy Unknown Verified 06/27/20 18:53 ezetimibe [From Zetia] Allergy Unknown Verified 06/27/20 18:53 furosemide [From Lasix] Allergy ALGY-Rash Verified 06/27/20 18:53 ketorolac [From Toradol] Allergy Unknown Verified 06/27/20 18:53 lisinopril Allergy Unknown Verified 06/27/20 18:53 morphine Allergy ALGY-Rash Verified 06/27/20 18:53 nalbuphine [From Nubain] Allergy Unknown Verified 06/27/20 18:53 naproxen Allergy Unknown Verified 06/27/20 18:53 nortriptyline Allergy Unknown Verified 06/27/20 18:53 pravastatin Allergy Unknown Verified 06/27/20 18:53 prochlorperazine Allergy ALGY-Difficulty Verified 06/27/20 18:53 [From Compazine] Breathing propoxyphene Allergy ADR-Nausea Verified 06/27/20 18:53 [From Darvocet-N] ranolazine [From Ranexa] Allergy Unknown Verified 06/27/20 18:53 rosuvastatin [From Crestor] Allergy Unknown Verified 06/27/20 18:53 simvastatin Allergy Unknown Verified 06/27/20 18:53 sulfamethoxazole Allergy ALGY-Hives Verified 06/27/20 18:53 [From Bactrim] sumatriptan [From Imitrex] Allergy Unknown Verified 06/27/20 18:53 trimethoprim [From Bactrim] Allergy ALGY-Hives Verified 06/27/20 18:53 PFSH Acute PFSH: Medical History Coronary artery disease Depression with anxiety Generalized anxiety disorder GERD (gastroesophageal reflux disease) Hypertension Hypertriglyceridemia Insulin dependent diabetes mellitus Irritable bowel syndrome Pancreatitis Post-traumatic stress disorder, chronic Ulcerative colitis Surgical History H/O tubal ligation H/O: hysterectomy History of carpal tunnel surgery Hx of tonsillectomy S/P CABG x 4 S/P coronary artery stent placement -x 12 stents Family History Mother Dementia Father CAD (coronary artery disease) Other IBD (inflammatory bowel disease) Social History Smoking and tobacco status: former smoker Alcohol intake: never Lives independently: Yes Household members: significant other Marital status: Life Partner Current occupational status: disabled Vitals/I&O/Wt Last Vital Signs Temp 97.7 F 07/25/20 10:59 Pulse 80 07/25/20 14:58 Resp 15 07/25/20 14:58 BP 156/82 07/25/20 14:58 Pulse Ox 100 07/25/20 14:58 07/25/20 07/25/20 07/25/20 06:59 14:59 22:59 Intake Total 50 / 50 Balance 50 / 50 Weight last 48 hrs Weight 87.997 kg Physical Exam Const: COMMON NORMALS: no acute distress, patient oriented x3 and alert GENERAL APPEARANCE: anxious (very low threshold for anxiety) NUTRITIONAL APPEARANCE: obese ORIENTATION/CONSCIOUSNESS: Yes awake HENMT: COMMON NORMALS: normocephalic, atraumatic and hearing grossly normal bilaterally HEAD & SCALP: normocephalic and atraumatic MOUTH: moist mucous membranes abnormal Details: parched Eye: COMMON NORMALS: Equal, round and reactive pupils present, EOMs intact bilaterally and conjunctivae normal CONJUNCTIVA: Yes conjunctivae normal PUPIL: Yes Equal, round and reactive pupils present Neck/C-Spine: COMMON NORMALS: full ROM GENERAL: Yes normal visual inspection and Yes trachea midline Resp: COMMON NORMALS: normal respiratory effort, No retractions, No use of accessory muscles and clear to auscultation bilaterally EFFORT & INSPECTION: Yes able to speak in complete sentences, Yes symmetric chest movement and No tachypneic AUSCULTATION: clear to auscultation bilaterally OTHER: -on RA Cardio: COMMON NORMALS: regular rate, regular rhythm, S1 normal heart sound present, S2 normal heart sound present and No murmurs present (Cardio) RATE: regular rate RHYTHM: regular rhythm HEART SOUNDS: S1 normal heart sound present and S2 normal heart sound present GI: COMMON NORMALS: Normal to inspection, nondistended, normoactive bowel sounds present, Soft to palpation and non-tender INSPECTION: Yes central obesity PALPATION: Yes Soft to palpation Extremity: COMMON NORMALS: normal to inspection, full ROM and no clubbing, cyanosis or edema; negative for no pedal edema Neuro: COMMON NORMALS: patient oriented x3, moves all extremities, no focal motor deficits and no sensory deficits noted Psych: COMMON NORMALS: mental status grossly normal, Normal thought process present, cooperative, normal affect and speech normal SPEECH: Yes normal speech THOUGHT PROCESS: Normal thought process present Skin: COMMON NORMALS: no rashes or lesions noted, no jaundice, no petechiae and no mottling GENERAL SKIN EXAM: no rashes or lesions noted Data : 07/25/20 18:10 07/25/20 18:10 A&P Assessment and plan (1) Acute non-ST elevation myocardial infarction (NSTEMI): -noted elevated troponins with no significant delta x 2 hrs; no significant changes on ECG -on heparin drip, NTG drip, received full dose ASA -KCl replacement ongoing -telemetry monitoring -close monitoring of vital signs -resume ASA, plavix, statin, BB -Cardiology consult by Dr. Reddy appreciated -had bedside Echo done by Dr. Reddy Status: Acute (2) Endocarditis: -just completed course of IV Vancomycin on 07/21 -pending MEGAN for follow up -has PICC line in place Status: Chronic Qualifiers: Chronicity: chronic Endocarditis type: infective Infective endocarditis organism: bacterial Qualified Code(s): I33.0 - Acute and subacute infective endocarditis (3) Hypertension: -VSS; continue to monitor -resume oral antihypertensives Status: Chronic Qualifiers: Hypertension type: essential hypertension Qualified Code(s): I10 - Essential (primary) hypertension (4) Hypertriglyceridemia: -resume statin, gemfibrozil Status: Chronic (5) Insulin dependent diabetes mellitus: -A1c (12/2019): 13.3 -accuchecks, hypoglycemia precautions, resume Lantus, ISS -cardiac consistent carb diet Status: Acute (6) Generalized anxiety disorder: -very low threshold for anxiety -resume meds Status: Chronic Additional A&P Information -Chronic intermittent normocytic anemia; baseline Hg is around 11 -CKD stage 2; baseline Cr wnl; renally dose meds, avoid nephrotoxins -GI ppx with PPI -DVT ppx not needed as on heparin drip -Dispo: home -Code status: FULL code Attestations Medical Necessity Statement*: [facility] than 2 midnights for management of non-STEMI, pending angiogram and currently on medical management. Time Spent in Patient Care: Greater than 35 minutes (>than 50% of time spent in counselling and/or direct pt care on unit) . Coding Level of Care Code Acute Defensive Secondary Coach for Chg Fwd Exam Comprehensive Diagnoses Acute non-ST elevation myocardial infarction (NSTEMI) I21.4 Endocarditis I33.0 Chronicity: chronic Endocarditis type: infective Infective endocarditis organism: bacterial Hypertension I10 Hypertension type: essential hypertension Hypertriglyceridemia E78.1 Insulin dependent diabetes mellitus E11.9; Z79.4 Generalized anxiety disorder F41.1
--- NOTE | 2020-07-25 16:15 | XACV_ITS ---
Ht: 175 cm Wt: 88 kg BSA: 2.09 m2 Gender: Female : 1965 Any Known Allergies: Other Exam Priority: Routine Procedure(s): Procedure Description: Diagnostic procedure Procedure Description: Left Heart Catheterization Procedure Description: Left ventriculography Procedure Description: Coronary angiography Procedure Description: Bypass graft angiography Diagnostic Cath Status: Elective Diagnostic Findings pLAD to mLAD: Severe 100% stenosis, MILLICENT: 0 flow. Multiple occluded stents are noted in the midsegment. Multiple stents are noted in the RCA. There is a 40% proximal RCA stenosis. dRCA: Is totally occluded, MILLICENT: 0 flow. TOMAS to dLAD: patent. After the touchdown of the TOMAS, LAD has mild to moderate diffuse disease. Sequential SVG to Ramus and 2nd OM: The limb of sequential graft to OM is occluded. Flow to the limb supplying ramus is good. This limb of the graft has a stent in it that is patent. There is another stent in the distal segment of the main SVG graft that has mild in-stent restenosis. LM has 0% stenosis. pCIRC: Severe 100% stenosis, MILLICENT: 0 flow. 4 grafts visualized. SVG to dRCA: 100% stenosis, MILLICENT: 0 flow. Coronary angiography shows right dominance. Conclusions TOMAS to LAD is patent, SVG to RCA is occluded, sequential graft to SVG to OM and ramus is patent however the graft limb supplying the OM is occluded. There is severe coronary artery disease with three vessel disease. Patient has prior CABG. Recommendations Given patient's advanced coronary artery disease with multiple stents, no acute culprit artery, and no significant rise in troponins we will recommend to optimize medical management. Uptitrate Imdur and add ranexa. Diagnostic RX Recommendation: medical therapy and/or counseling LV EDP: 7 mmHg Pressures Phase:Rest AO : 125 mmHg / 63 mmHg ( 84 mmHg ) @ 12:00:00 PM 116 mmHg / 46 mmHg ( 76 mmHg ) @ 12:00:00 PM LV : 125 mmHg / -18 mmHg / @ 11:59:00 AM 123 mmHg / -19 mmHg / @ 11:59:00 AM 118 mmHg / -22 mmHg / @ 12:00:00 PM 122 mmHg / -19 mmHg / @ 12:00:00 PM Valves Phase:DefaultPhase AV : 0.0 mmHg @ 5:31:22 PM AV Mean Gradient: 0.0 mmHg @ ::22 PM Clinical Evaluation EBL: 5mL-10mL Procedural Details Admit Source: In Patient. Pre-Procedure Time Out. Identified patient by full name and date of as verbalized by the patient/guarantor. Does the consent match the physician's order: Yes. Accurate & Complete Informed Consent: Yes. Inpatient/Outpatient History & Physical on Chart: Yes. If H&P is completed, is and addenduem needed: N/A; If yes, is the addendum complete: N/A. Visualize and Verify Site with Patient/Guarantor: N/A. Relevant Radiology Images available: N/A. Pre-op teaching completed and patient verbalized understanding. The risks, benefits, and alternatives of sedation and/or procedure were discussed by physician. The patient agrees to continue. Procedure started. Correct patient, site and procedure confirmed by cath team. PERRLA. Strong, equal hand card scraper bilaterally. Lungs clear x 5 lobes. PICC Line is placed on left side. Oxygen started at 2liters/min via nasal canula. bilateral groins was prepped with chloroprep then draped in the usual sterile fashion. Physician notified. Baseline sample Acquired. HR: 81 BPM. Physician arrived. Physician scrubbed in. Immediate Pre-Procedure Time Out. Correct Patient: Yes; Correct Procedure: Yes; Correct Site: Yes; Correct Patient Position: Yes; Correct Supplies: Yes; Dried Flammable Prep: Yes; Blood Products Available: N/A;. Lidocaine 1% infiltrated to the right groin. Arterial access obtained with micropuncture set. A 6 welsh JL4 catheter in over wire. wire out. Multiple views taken of left coronary artery. Catheter out. A 6 welsh JR4 catheter in over wire. wire out. EDP Sample taken: LV 125/-19,7; HR: 70 BPM; SpO2: 96%. EDP Sample taken: LV 118/-23,2; HR: 70 BPM; SpO2: 97%. Pullback taken: LV 122/-20,7; AO 125/63(84); Mean: 0mmHg, Peak to Peak: 0mmHg, SEP: 15sec/min; HR: 70 BPM; SpO2: 98%. Multiple views taken of right coronary artery. SVG's to OM visualized. Graphing RCA not visualized. exchange wire inserted. Catheter out. 6 welsh IM guide catheter was inserted over the wire. Wire out. TOMAS to LAD visualized. wire out. Catheter out. Side port of sheath attached to Normal Saline flush at KVO to maintain patency. LV EDP: 7. Sheath(s) sutured into position with 2-0 silk and sterile 4x4's and Op-site applied over the site. No oozing or signs and symptoms of hematoma noted. Post Procedure: Pulses reassessed and unchanged. PERRLA. Strong, equal hand card scraper bilaterally. No VTE prophylaxis required. Medication's Wasted: Lidocaine 1% = 14 mL. Medication's Wasted: Heparin = 4000 units. Medication's Wasted: Other = versed 1 mg. Medication's Wasted: Other = fentanyl 50 mg. Total IV fluids: 100 mL. Contrast type used: Omnipaque 300 mgI/mL, 500 mL bottle. Contrast Material : Omnipaque 142 ml. Complications: none. Estimated blood loss: 5mL-10mL. A Suture was successful obtaining hemostatsis at the Right Femoral artery insertion site. [facility] Clinical Fraility Score: 3: Managing Well. 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 Chest Pain Symptom Assessment: Atypical Angina. Cardiovascular Instability: No,. Post-op diagnosis: severe multivessel CAD., patinant LAD. Procedure completed. Patient transferred by bed to 1st floor. Vital chart was stopped. Site: Right Femoral artery Sheath Size: 5 Fr Hemostasis Method: Suture Hemostasis Success: Successful Procedure Medications Start: 4:35 PM Stop: 4:35 PM Medication: Versed Amount: 1 mg Route: I.V. Start: 4:35 PM Stop: 4:35 PM Medication: Fentanyl Amount: 50 mcg Route: I.V. Start: 4:40 PM Stop: 4:40 PM Medication: Versed Amount: 1 mg Route: I.V. Start: 4:43 PM Stop: 4:43 PM Medication: Versed Amount: 1 mg Route: I.V. Start: 4:43 PM Stop: 4:43 PM Medication: Fentanyl Amount: 50 mcg Route: I.V. Start: 4:46 PM Stop: 4:46 PM Medication: Versed Amount: 1 mg Route: I.V. Start: 4:55 PM Stop: 4:55 PM Medication: Versed Amount: 1 mg Route: I.V. Start: 5:00 PM Stop: 5:00 PM Medication: Versed Amount: 1 mg Route: I.V. Start: 5:06 PM Stop: 5:06 PM Medication: Versed Amount: 1 mg Route: I.V. Start: 5:11 PM Stop: 5:11 PM Medication: Versed Amount: 1 mg Route: I.V. Start: 5:12 PM Stop: 5:12 PM Medication: Fentanyl Amount: 50 mcg Route: I.V. Start: 5:19 PM Stop: 5:19 PM Medication: Versed Amount: 1 mg Route: I.V. I, the attending physician, have reviewed and verified all procedure medications. Yes, all medications given per verbal order History/Risk Factors Hypertension: Yes Dyslipidemia: Yes Diabetic Therapy: Insulin Peripheral Arterial Disease (PAD): No Myocardial Infarction (NH): No Obesity: No Renal Disease: No Tobacco Use: Former Prior Interventions PCI: Yes CABG: Yes Valve Surgery: No Report Signatures Finalized by:Roger Reddy MD on 07/27/2020 9:56:06 AM
--- NOTE | 2020-07-25 16:29 | W.PM.OPSUD ---
Surgery/Procedure H&P Update DATE OF PROCEDURE: July 25, 2020 DATE H&P PERFORMED: 07/25/20 H&P UPDATE INFORMATION: I have reviewed H&P completed within last 30 days and I have examined patient prior to procedure PREOP DIAGNOSIS: NSTEMI/Unstable angina PRIMARY INDICATION FOR PROCEDURE: NSTEMI PLANNED PROCEDURE: Coronary angiography +/-PCI PATIENT REASSESSED PRIOR TO SEDATION, WITH NO CHANGE NOTED: Yes PHYSICAL EXAM: alert, oriented x 3 and clear to auscultation bilaterally AIRWAY EVAL/ANESTHESIA PLAN: normal airway, ASA III, Risks, benefits & alternatives of sedation and/or procedure discussed and Patient agrees to continue as planned
--- NOTE | 2020-07-25 17:02 | ECG_ITS ---
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 Measurements Intervals [place] Rate: 74 P: 47 DE: 159 QRS: -3 QRSD: 116 T: 43 QT: 428 QTc: 475 Interpretive Statements SINUS RHYTHM WITH FREQUENT VENTRICULAR PREMATURE COMPLEXES MODERATE INTRAVENTRICULAR CONDUCTION DELAY [110+ ms QRS DURATION] NONSPECIFIC ST & T-WAVE ABNORMALITY ABNORMAL RHYTHM ECG WARNING: DATA QUALITY MAY AFFECT INTERPRETATION Compared to ECG 07/25/2020 11:13:20 Intraventricular conduction delay now present T-wave abnormality still present Electronically Signed On 07-25-2020 23:47:20 CDT by Jitendra Ryder M.D. [id number]
[2020-07-25] MEDS: isosorbide mononitrate ER 30 mg Tablet PO (18:27)
[2020-07-25] MEDS: sucralfate 1 gm Tablet PO ×2 (18:27→21:10)
[2020-07-25] MEDS: pantoprazole DR 40 mg Tablet PO (18:27)
[2020-07-25] MEDS: carvedilol 25 mg Tablet PO (18:27)
[2020-07-25] MEDS: aspirin 81 mg EC Tablet PO (18:27)
[2020-07-25 18:34] LABS: Basophils # 0.1 10^3/uL (0.0-0.1); Basophils % 0.5 %; Eosinophils # 0.1 10^3/uL (0.0-0.8); Eosinophils % 1.3 %; Hematocrit 32.4 % (37.0-47.0); Hemoglobin 10.2 g/dL (11.5-15.3); Lymphocytes # 4.7 10^3/uL (0.8-4.8); Lymphocytes % 49.4 %; Mean Corpuscular HGB Conc 31.5 g/dL (30.0-36.0); Mean Corpuscular Volume 82.4 fL (81-99); Mean Platelet Volume 10.8 fL (7.4-10.4); Monocytes # 0.6 10^3/uL (0.2-0.9); Monocytes % 5.9 %; Neutrophils # 4.03 10^3/uL (1.8-7.7); Neutrophils % 42.8 %; Nucleated Red Blood Cells % 0 %; Platelet Count 347 10^3/cmm (130-400); Red Blood Count 3.93 10^6/uL (4.1-5.3); Red Cell Distribution Width 14.7 % (12.1-15.1); White Blood Count 9.4 10^3/uL (4.0-10.0)
[2020-07-25 18:51] LABS: Anion Gap 14.7 (5-19); Blood Urea Nitrogen 8 mg/dL (6-20); Calcium 9.1 mg/dL (8.5-10.5); Carbon Dioxide 24 mmol/L (22-29); Chloride 103 mmol/L (98-107); Glomerular Filtration Rate 74.5 mL/min (90-130); Glucose 86 mg/dL (65-115); Osmolality Calculated 281 mOsm/kg (285-295); Potassium 3.7 mmol/L (3.5-5.1); Sodium 138 mmol/L (136-145)
[2020-07-25] MEDS: HYDROcodone-acetaminophen 10-325 mg Tablet 1 TAB PO ×2 (19:01→22:57)
[2020-07-25 19:58] LABS: Partial Thromboplastin Time 25.3 SECONDS (23.9-36.7)
[2020-07-25] MEDS: fentaNYL 50 mcg/mL INJ 2mL 25 MCG IVP (20:16)
--- NOTE | 2020-07-25 20:43 | PC.NURSE ---
25 mcg Fentanyl given prior to sheath pull per Dr. Hinojosa's order. Sheath removed from right groin at 2032. Manual pressure held for 20 minutes. At start of pressure holding, patient became very anxious and attempted to pull nurse's hand off of groin. Patient soon calmed down and there were no complications. Vital signs remained stable. Dressing applied to right groin. No bleeding or hematoma at this time. Patient educated on post-cath activity restrictions and bedrest and verbalized understanding. Will monitor.
[2020-07-25] MEDS: ALPRAZolam 0.5 mg Tablet PO (21:09)
[2020-07-25] MEDS: pregabalin 150 mg Capsule PO (21:09)
[2020-07-25] MEDS: trazodone 150 mg Tablet PO (21:10)
[2020-07-25] MEDS: nystatin 100,000 unit/mL UDC 5 mL 500000 UNIT PO (21:14)
[2020-07-25] MEDS: alum-mag-hydroxide-sime 30 mL UDC PO (21:36)
[2020-07-25] MEDS: insulin glargine 100 units/1 mL 40 UNIT SUBCUT (21:47)
[2020-07-25] MEDS: diphenhydrAMINE 25 mg Capsule PO (22:14)
[2020-07-25 22:41] LABS: Glucose Point of Care 115 mg/dL (70-110)
[2020-07-25] MEDS: tizanidine 4 mg Tablet PO (22:57)
[2020-07-25] MEDS: promethazine 25 mg Tablet PO (22:57)
--- NOTE | 2020-07-25 23:33 | PC.NURSE ---
Right groin site/dressing WNL. Will monitor.
[2020-07-26] VITALS (8 sets, daily range): BP systolic 86–113; BP diastolic 48–73; PULSE 67–83; RESP 17–20; TEMP 36.4–36.8; O2SAT 90–95
--- NOTE | 2020-07-26 00:02 | PC.NURSE ---
Patient earlier was complaining of chest pain and appeared to be very anxious. BEST Mosher notified Dr. Bell. Patient now states that she feels much better. VSS. Right going dressing/site WNL. Will monitor.
--- NOTE | 2020-07-26 02:04 | PC.NURSE ---
late entry, pt c/o chest pain appx. 0 and also asking for benedryl, nitro SL given with no relief, called Dr Hinojosa who ordered benedryl and stated she would review chart, no other orders
[2020-07-26 04:28] LABS: Basophils # 0.1 10^3/uL (0.0-0.1); Basophils % 0.8 %; Eosinophils # 0.2 10^3/uL (0.0-0.8); Eosinophils % 1.9 %; Hematocrit 29.7 % (37.0-47.0); Hemoglobin 8.8 g/dL (11.5-15.3); Lymphocytes # 3.6 10^3/uL (0.8-4.8); Lymphocytes % 45.1 %; Mean Corpuscular HGB Conc 29.6 g/dL (30.0-36.0); Mean Corpuscular Hemoglobin 25.7 pg (28.0-34.0); Mean Corpuscular Volume 86.8 fL (81-99); Mean Platelet Volume 11.5 fL (7.4-10.4); Monocytes # 0.4 10^3/uL (0.2-0.9); Monocytes % 5.6 %; Neutrophils # 3.65 10^3/uL (1.8-7.7); Neutrophils % 46.3 %; Nucleated Red Blood Cells % 0 %; Platelet Count 304 10^3/cmm (130-400); Red Blood Count 3.42 10^6/uL (4.1-5.3); Red Cell Distribution Width 15.4 % (12.1-15.1); White Blood Count 7.9 10^3/uL (4.0-10.0)
[2020-07-26 04:56] LABS: Anion Gap 17.7 (5-19); Blood Urea Nitrogen 12 mg/dL (6-20); Calcium 7.9 mg/dL (8.5-10.5); Carbon Dioxide 21 mmol/L (22-29); Chloride 104 mmol/L (98-107); Glucose 122 mg/dL (65-115); Osmolality Calculated 285 mOsm/kg (285-295); Potassium 3.7 mmol/L (3.5-5.1); Sodium 139 mmol/L (136-145)
[2020-07-26 05:01] LABS: Estmated Average Glucose 324; Hemoglobin A1C 12.9 % (4.0-6.0)
[2020-07-26 06:09] LABS: Glucose Point of Care 135 mg/dL (70-110)
[2020-07-26] MEDS: HYDROcodone-acetaminophen 10-325 mg Tablet 1 TAB PO ×3 (06:25→14:05)
--- NOTE | 2020-07-26 08:14 | PM.PN ---
Subjective Subjective: Interval history: Patient's chest pain symptoms have significantly improved this morning. She underwent coronary angiography yesterday which showed patent TOMAS to LAD, patent quenchable SVG to OM and ramus with occlusion of 1 of the limbs of the graft and occluded SVG to RCA. She had severe multivessel agdaagux coronary artery disease. She has some mild discomfort at the femoral access site however no evidence of hematoma or bleeding is noted. Medications: Reviewed: Yes Vitals/I&O/Wt Last Vital Signs Temp 97.6 F 07/26/20 07:16 Pulse 68 07/26/20 07:16 Resp 17 07/26/20 07:16 BP 106/49 07/26/20 07:16 Pulse Ox 95 07/26/20 07:16 07/25/20 07/26/20 07/26/20 22:59 06:59 14:59 Intake Total 878 / 928 231 / 1159 Balance 878 / 928 231 / 1159 Weight last 48 hrs Weight 194 lb Physical Exam Narrative: EXAM NARRATIVE: GENERAL: Patient is alert, awake and oriented x3. [] NECK: No jugular vein distension. [] HEENT: No cyanosis. No icterus. No pallor. [] HEART: Regular S1 and S2. No murmur, rub or gallop. [] LUNGS: Clear to auscultate bilaterally. [] ABDOMEN: Soft, nontender and nondistended. Positive bowel sounds. No guarding, rebound or tenderness. [] CENTRAL NERVOUS SYSTEM: Grossly nonfocal. [] EXTREMITIES: Lower extremities with significant edema bilaterally. Pulses palpable in the lower extremities, both dorsalis pedis and posterior tibial. Femoral access site is normal without evidence of hematoma. [] Data : 07/26/20 03:30 07/26/20 03:30 A&P Assessment and plan (1) Chest pain: Status: Acute (2) Hypertension: Status: Chronic Qualifiers: Hypertension type: essential hypertension Qualified Code(s): I10 - Essential (primary) hypertension (3) Hypertriglyceridemia: Status: Chronic (4) Coronary artery disease: Status: Acute Qualifiers: Coronary Disease-Associated Artery/Lesion type: bypass graft [place] vs. transplanted heart: agdaagux heart Associated angina: with stable angina Qualified Code(s): I25.708 - Atherosclerosis of coronary artery bypass graft(s), unspecified, with other forms of angina pectoris Patient underwent coronary angiography with above-mentioned findings. She is a agdaagux coronary artery disease with patent TOMAS to LAD and patent SVG to OM/ramus however 1 of the limbs of sequential graft is occluded. Her SVG to RCA is occluded. Patient's chest pain is atypical and her troponin did not rise on trending. We will recommend to optimize her medical therapy. Continue aspirin and Plavix. Uptitrate Imdur dose. Will recommend starting on Ranexa however patient mentions that in the past her insurance had not approved Ranexa. Patient is stable to be discharged home today from cardiac standpoint. Can follow-up with cardiology clinic. Attestations Medical Necessity Statement*: Care expected to cross 2 midnights. Coding Level of Care Code Acute Religious Healer for Shant Marroquin Diagnoses Chest pain R07.9 Hypertension I10 Hypertension type: essential hypertension Hypertriglyceridemia E78.1 Coronary artery disease I25.708 Coronary Disease-Associated Artery/Lesion type: bypass graft [place] vs. transplanted heart: agdaagux heart Associated angina: with stable angina
[2020-07-26] MEDS: nystatin 100,000 unit/mL UDC 5 mL 500000 UNIT PO ×2 (08:25→13:19)
[2020-07-26] MEDS: hydroCHLOROthiazide 25 mg Tablet 12.5 MG PO (08:26)
[2020-07-26] MEDS: amlodipine 5 mg Tablet PO (08:26)
[2020-07-26] MEDS: sertraline 100 mg Tablet 200 MG PO (08:26)
[2020-07-26] MEDS: isosorbide mononitrate ER 30 mg Tablet PO (08:26)
[2020-07-26] MEDS: clopidogrel 75 mg Tablet PO (08:26)
[2020-07-26] MEDS: carvedilol 25 mg Tablet PO (08:26)
[2020-07-26] MEDS: sucralfate 1 gm Tablet PO ×2 (08:26→13:18)
[2020-07-26] MEDS: pantoprazole DR 40 mg Tablet PO (08:26)
[2020-07-26] MEDS: gemfibrozil 600 mg Tablet PO (08:26)
[2020-07-26] MEDS: pregabalin 150 mg Capsule PO (08:27)
[2020-07-26] MEDS: potassium chloride ER 10 mEq Tablet 40 MEQ PO (08:27)
[2020-07-26] MEDS: insulin glargine 100 units/1 mL 40 UNIT SUBCUT (09:55)
[2020-07-26] MEDS: ALPRAZolam 0.5 mg Tablet PO (09:59)
--- NOTE | 2020-07-26 10:35 | PC.CHAP ---
Pastoral Care Encounter/Spiritual Assessment Type of Contact [] Declined box order person visit [] Patient/Family/Request visit [] Outpatient visit [] Follow-up visit [] Physician referral [] Code/Alert [x] Routine visit [] Staff referral [] Actively dying [] Patient sleeping [] Family support [] [] Out of room [] Palliative care [] [] Receiving care in room [] Pre-surgical visit [] Trauma [] Long length of stay [] ICU visit [] Other: Relational/Emotional Strength [x] Patient feels connected with others/family/visitors/staff [] Distress [] Loneliness/isolation [] Abandonment Spirituality of Patient [x] Person of Ashlee [] Attends Buddhist of their Ashlee [x] Believes in Prayer [] Reads Bible or Mandaen materials [] There are Spiritual issues to be addressed Appointment Clerk Interventions [x] Prayer [x] Active listening [x] Non-anxious presence [x] Spiritual/emotional support [] Crisis/trauma care [] Spiritual counseling [] Bereavement support [] Provided bereavement packet [] Provided Bible/devotional materials [] Provided toy/stuffed animal, coloring book to patient or family member [] Provided Communion [] Anointing/[place] [] Salvation [x] Completed spiritual assessment [] Other: Impact on Illness or Injury [] Angry [] Fearful [] Anxious [] Often cries [] Exhaustion [] Unable to work [] Unable to attend anglican [] Unable to walk/stand [] Unable to read [] Unable to drive [] Unable to eat/drink [] Unable to sleep [] Unable to be with family [] Patient intubated [] Other: Summary Chaplains Marguerite prayed with patient. Time spent with patient 8 minutes.
[2020-07-26 11:31] LABS: Glucose Point of Care 335 mg/dL (70-110)
--- NOTE | 2020-07-26 12:04 | PM.DCS ---
Discharge Providers Date of Admission: 07/25/20 17:43 Date of Discharge: July 26, 2020 Attending Provider at Admission: Roger Reddy M.D Attending Provider at Discharge: Alice Moura MD Consults: Cardiology, Dr. Reddy Primary Care Provider: Juno Brown Diagnoses at Discharge Discharge Diagnosis (1) Chest pain: Status: Acute Problem details: -noted elevated troponins with no significant delta x 2 hrs; no significant changes on ECG -off heparin drip, NTG drip, received full dose ASA -K replaced -telemetry monitoring -close monitoring of vital signs -on ASA, plavix, statin, BB -Cardiology consult by Dr. Reddy appreciated -had bedside Echo done by Dr. Reddy -will keep on current dose of Imdur as given current BP and other medications, higher risk for developing hypotension. Has been unable to obtain insurance approval for Ranexa in the past Qualifiers: Chest pain type: unspecified Qualified Code(s): R07.9 - Chest pain, unspecified (2) Hypertension: Status: Chronic Problem details: -continue oral antihypertensives Qualifiers: Hypertension type: essential hypertension Qualified Code(s): I10 - Essential (primary) hypertension (3) Hypertriglyceridemia: Status: Chronic Problem details: -on statin, gemfibrozil (4) Coronary artery disease: Status: Chronic Problem details: -has known multivessel CAD Qualifiers: Associated angina: with stable angina Coronary Disease-Associated Artery/Lesion type: bypass graft [place] vs. transplanted heart: [place] heart Qualified Code(s): I25.708 - Atherosclerosis of coronary artery bypass graft(s), unspecified, with other forms of angina pectoris Other Information Additional DC diagnoses/information: -Anxiety disorder; on anxiolytics -Endocarditis; just completed antibiotics; PICC line removed. Discussed with Dr. Bray, no need for follow up MEGAN at this time -IDDM type II; A1c-13.3 -Chronic intermittent normocytic anemia; baseline Hg is around 11 -CKD stage 2; baseline Cr wnl; renally dose meds, avoid nephrotoxins Reason for Visit Reason for Visit: CHEST PAIN Hospital Course Hospital Course: Patient was medically treated with NTG and heparin drips in addition to full dose ASA on arrival to ED and taken to director labor standards later in the afternoon. No intervention done but patient has known multivessel CAD with multiple prior stents with patency noted in TOMAS to LAD as well as SVG to OM/ramus. She was then transferred to the cardiac stepdown unit and continued on medical management. She did well overnight, has been afebrile, hemodynamically stable and cleared for discharge by Cardiology with appropriate follow up. She will need to follow up with her primary care physician as well. She is to seek medical attention immediately if symptoms recur or worsen. Discharge Summary: -Patient to follow up with primary care physician within 1 week -Patient to follow up with Wendy Steele in 1 week and with cardiology in [place] Physical Exam Const: COMMON NORMALS: no acute distress, patient oriented x3 and alert GENERAL APPEARANCE: anxious (very low threshold for anxiety) NUTRITIONAL APPEARANCE: obese ORIENTATION/CONSCIOUSNESS: Yes awake HENMT: COMMON NORMALS: normocephalic, atraumatic, hearing grossly normal bilaterally and moist oral mucous membranes HEAD & SCALP: normocephalic and atraumatic TEETH & GINGIVA: Yes dentures Eye: COMMON NORMALS: Equal, round and reactive pupils present, EOMs intact bilaterally and conjunctivae normal CONJUNCTIVA: Yes conjunctivae normal PUPIL: Yes Equal, round and reactive pupils present Neck/C-Spine: COMMON NORMALS: full ROM GENERAL: Yes normal visual inspection and Yes trachea midline Resp: COMMON NORMALS: normal respiratory effort, No retractions, No use of accessory muscles and clear to auscultation bilaterally EFFORT & INSPECTION: Yes able to speak in complete sentences, Yes symmetric chest movement and No tachypneic AUSCULTATION: clear to auscultation bilaterally OTHER: -on RA Cardio: COMMON NORMALS: regular rate, regular rhythm, S1 normal heart sound present, S2 normal heart sound present and No murmurs present (Cardio) RATE: regular rate RHYTHM: regular rhythm HEART SOUNDS: S1 normal heart sound present and S2 normal heart sound present GI: COMMON NORMALS: Normal to inspection, nondistended, normoactive bowel sounds present, Soft to palpation and non-tender INSPECTION: Yes central obesity PALPATION: Yes Soft to palpation : OTHER: -R groin cath access site: clean/dry/intact dressing, no apparent hematoma Extremity: COMMON NORMALS: normal to inspection, full ROM, no clubbing, cyanosis or edema and no pedal edema Neuro: COMMON NORMALS: patient oriented x3, moves all extremities, no focal motor deficits and no sensory deficits noted SENSORIUM/ORIENTATION: Yes alert Psych: COMMON NORMALS: mental status grossly normal, Normal thought process present, cooperative, normal affect and speech normal SPEECH: Yes normal speech THOUGHT PROCESS: Normal thought process present Skin: COMMON NORMALS: no rashes or lesions noted, no jaundice, no petechiae and no mottling GENERAL SKIN EXAM: no rashes or lesions noted Discharge Data Data Completed and Pending: Completed Studies During Hospitalization Category Date Time Status XR chest 1V taniya ble [id number] Stat Exams 07/25/20 11:01 Completed Pending at discharge Category Date Time Status CONSULTING HR PROFESSIONAL request for service Routin e Exams 07/25/20 16:15 Taken Labs from last 24 hours 07/26/20 07/26/20 07/26/20 10:52 06:04 03:30 WBC RBC Hgb Hct MCV MCH MCHC RDW Plt Count MPV Neut % (Auto) Lymph % (Auto) [place] % (Auto) Eos % (Auto) Baso % (Auto) Neut # (Auto) Lymph # (Auto) [place] # (Auto) Eos # (Auto) Baso # (Auto) Nucleated RBC % (a uto) Nucleated RBCs # APTT Sodium Potassium Chloride Carbon Dioxide Anion Gap BUN Creatinine GFR Calculation Glucose POC Glucose 335 135 Estimat Average Gl ucose 324 Hemoglobin A1c 12.9 H Calculated Osmolal ity Calcium Magnesium Total Bilirubin AST ALT Alkaline Phosphata se Troponin T Baselin e Troponin T 120 Min [place] Delta Troponin T Total Protein Albumin Globulin Lipase SARS-CoV-2 Ag (Rap id) 07/26/20 07/26/20 07/25/20 03:30 03:30 21:45 WBC 7.9 RBC 3.42 L Hgb 8.8 L Hct 29.7 L MCV 86.8 D MCH 25.7 L MCHC 29.6 L D RDW 15.4 H Plt Count 304 MPV 11.5 H Neut % (Auto) 46.3 Lymph % (Auto) 45.1 [place] % (Auto) 5.6 Eos % (Auto) 1.9 Baso % (Auto) 0.8 Neut # (Auto) 3.65 Lymph # (Auto) 3.6 [place] # (Auto) 0.4 Eos # (Auto) 0.2 Baso # (Auto) 0.1 Nucleated RBC % (a uto) 0 Nucleated RBCs # 0.0 APTT Sodium 139 Potassium 3.7 Chloride 104 Carbon Dioxide 21 L Anion Gap 17.7 BUN 12 Creatinine 0.9 GFR Calculation 65.0 L Glucose 122 H POC Glucose 115 Estimat Average Gl ucose Hemoglobin A1c Calculated Osmolal ity 285 Calcium 7.9 L Magnesium 2.0 Total Bilirubin AST ALT Alkaline Phosphata se Troponin T Baselin e Troponin T 120 Min [place] Delta Troponin T Total Protein Albumin Globulin Lipase SARS-CoV-2 Ag (Rap id) 07/25/20 07/25/20 07/25/20 19:29 18:10 18:10 WBC 9.4 RBC 3.93 L Hgb 10.2 L Hct 32.4 L MCV 82.4 MCH 26.0 L MCHC 31.5 RDW 14.7 Plt Count 347 MPV 10.8 H Neut % (Auto) 42.8 Lymph % (Auto) 49.4 [place] % (Auto) 5.9 Eos % (Auto) 1.3 Baso % (Auto) 0.5 Neut # (Auto) 4.03 Lymph # (Auto) 4.7 [place] # (Auto) 0.6 Eos # (Auto) 0.1 Baso # (Auto) 0.1 Nucleated RBC % (a uto) 0 Nucleated RBCs # 0.0 APTT 25.3 Sodium 138 Potassium 3.7 Chloride 103 Carbon Dioxide 24 Anion Gap 14.7 BUN 8 Creatinine 0.8 GFR Calculation 74.5 L Glucose 86 POC Glucose Estimat Average Gl ucose Hemoglobin A1c Calculated Osmolal ity 281 L Calcium 9.1 Magnesium Total Bilirubin AST ALT Alkaline Phosphata se Troponin T Baselin e Troponin T 120 Min [place] Delta Troponin T Total Protein Albumin Globulin Lipase SARS-CoV-2 Ag (Rap id) 07/25/20 07/25/20 07/25/20 13:15 12:25 11:30 WBC RBC Hgb Hct MCV MCH MCHC RDW Plt Count MPV Neut % (Auto) Lymph % (Auto) [place] % (Auto) Eos % (Auto) Baso % (Auto) Neut # (Auto) Lymph # (Auto) [place] # (Auto) Eos # (Auto) Baso # (Auto) Nucleated RBC % (a uto) Nucleated RBCs # APTT Sodium Potassium Chloride Carbon Dioxide Anion Gap BUN Creatinine GFR Calculation Glucose POC Glucose Estimat Average Gl ucose Hemoglobin A1c Calculated Osmolal ity Calcium Magnesium Total Bilirubin AST ALT Alkaline Phosphata se Troponin T Baselin e 375 H* Troponin T 120 Min [place] 371.6 H Delta Troponin T -3.4 L Total Protein Albumin Globulin Lipase SARS-CoV-2 Ag (Rap id) Negative 07/25/20 11:30 WBC RBC Hgb Hct MCV MCH MCHC RDW Plt Count MPV Neut % (Auto) Lymph % (Auto) [place] % (Auto) Eos % (Auto) Baso % (Auto) Neut # (Auto) Lymph # (Auto) [place] # (Auto) Eos # (Auto) Baso # (Auto) Nucleated RBC % (a uto) Nucleated RBCs # APTT Sodium 141 Potassium 2.9 L Chloride 102 Carbon Dioxide 24 Anion Gap 17.9 BUN 6 Creatinine 0.8 GFR Calculation 74.5 L Glucose 116 H POC Glucose Estimat Average Gl ucose Hemoglobin A1c Calculated Osmolal ity 289 Calcium 9.3 Magnesium 1.3 L Total Bilirubin 0.2 AST 8 ALT < 5 Alkaline Phosphata se 159 H Troponin T Baselin e Troponin T 120 Min [place] Delta Troponin T Total Protein 7.1 Albumin 3.8 Globulin 3.3 Lipase 8 L SARS-CoV-2 Ag (Rap id) Vitals: Last Vital Signs Temp 97.9 F 07/26/20 11:21 Pulse 83 07/26/20 11:21 Resp 20 H 07/26/20 11:21 BP 112/73 07/26/20 11:21 Pulse Ox 90 07/26/20 11:21 Discharge Plan Discharge Patient Disposition: Home Condition: Stable Prescriptions: Continued alprazolam [Xanax] 0.5 mg tablet See Rx Instructions .ROUTE .COMPLEX PRN (Reason: anxiety) Qty: 150 RF: 0 sertraline [Zoloft] 100 mg tablet 200 mg PO DAILY Qty: 60 RF: 2 trazodone 150 mg tablet 150 mg PO BEDTIME Qty: 30 RF: 2 zolpidem [Ambien] 10 mg tablet 10 mg PO BEDTIME Qty: 30 RF: 2 carvedilol 25 mg tablet 25 mg PO BID RF: 0 tizanidine 4 mg tablet 4 mg PO TID PRN (Reason: Spasms) RF: 0 clopidogrel 75 mg tablet 75 mg PO DAILY RF: 0 amlodipine [Norvasc] 5 mg tablet 5 mg PO DAILY RF: 0 hydrocodone-acetaminophen 10-325 mg tablet 1 tab PO Q4H PRN (Reason: Pain) RF: 0 pantoprazole 40 mg tablet,delayed release (DR/EC) 40 mg PO BID RF: 0 hydrochlorothiazide 12.5 mg capsule 12.5 mg PO DAILY RF: 0 insulin aspart U-100 [Novolog Flexpen U-100 Insulin] 100 unit/mL (3 mL) insulin pen See Rx Instructions .ROUTE .COMPLEX RF: 0 pregabalin [Lyrica] 150 mg capsule 150 mg PO TID RF: 0 fluticasone propionate 50 mcg/actuation Woody,Suspension 2 spray INTRANASAL DAILY PRN (Reason: Nasal Congestion) RF: 0 sucralfate 1 gram Tablet 1 g PO QID PRN (Reason: unknown) RF: 0 promethazine 12.5 mg Tablet 25 mg PO Q6H PRN (Reason: Nausea) RF: 0 nitroglycerin [Nitrostat] 0.4 mg Tablet, Sublingual 0.4 mg SUBLINGUAL Q5M PRN (Reason: Chest Pain) RF: 0 lactulose 10 gram/15 mL (15 mL) Solution 10 g PO BID PRN (Reason: Constipation) RF: 0 potassium chloride 20 mEq Tablet Extended Release 20 meq PO DAILY RF: 0 polyethylene glycol 3350 [Miralax] 17 gram Powder In Packet 17 g PO DAILY PRN (Reason: Constipation) RF: 0 aspirin [Aspir-81] 81 mg Tablet,Delayed Release (Dr/Ec) 81 mg PO QPM RF: 0 Lantus Solostar U-100 Insulin 100 unit/mL (3 mL) insulin pen 40 unit SUBCUT BID RF: 0 Mucinex DM 30-600 mg Tablet Extended Release 12 Hr 1 tab PO Q12H PRN (Reason: Congestion) RF: 0 metronidazole 1 % Gel 1 applic TOPICAL DAILY PRN (Reason: unknown) RF: 0 nystatin 100,000 unit/mL suspension 5 ml PO QID RF: 0 Excedrin Migraine 250-250-65 mg Tablet 1 tab PO Q6H PRN (Reason: Migraine Headache) RF: 0 Vascepa 1 gram Capsule 2 g PO BID RF: 0 gemfibrozil [Lopid] 600 mg Tablet 600 mg PO DAILY RF: 0 isosorbide mononitrate 30 mg tablet extended release 24 hr 30 mg PO BID 30 Days Qty: 60 RF: 0 Discharge Orders: Discharge Order (Routine); Ordered 07/26/20 Ordered By: Alice Moura Referrals: Roger Reddy M.D [Physician] - (You have an follow-up appointment with Dr. Reddy on Saturday, Aug.29 at with check-in at 12:15p.m. If you have any questions or need to reschedule. Please call ) Juno Brown [Primary Care Provider] - 4-7 days (You have an follow-up appointment with Dr. Brown on Aug.02 at 10:20a.m. If you have any questions or need to reschedule. Please call ) Wendy Steele FNP [Nurse Practitioner] - 1 week (You have an follow-up appointment with Wendy Steele on Aug.03 with Check-in at 9:45a.m. If you have any questions or need to reschedule. Please call ) Discharge Diet: Cardiac and Diabetic Discharge Activity: Increase activity as tolerated Patient Instructions: Myocardial Infarction (DC), Left Heart Catheterization (DC), Chest Pain Stoplight, Post Angiogram Home Care Instructions Discharge Attestations Time Spent in Discharge Care*: less than 30 min Specific Discharge Activities: Specific discharge activities: educating patient, discussing with pcp/other providers, documenting/other paperwork and evaluating patient/reviewing data Status at Discharge: Cognitive status at discharge: cognitively intact, Behavioral status at discharge: cooperative and independent in ADL's, Functional status at discharge: independent ambulation Overall status at discharge: patient is progressing back to baseline Quality Metrics Clinical Quality Measures During this hospital stay, did patient experience: None Coding Level of Care Code 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 transplanted heart: [place] heart
[2020-07-26] MEDS: tizanidine 4 mg Tablet PO (13:18)
[2020-07-26] MEDS: alum-mag-hydroxide-sime 30 mL UDC PO (13:23)
--- NOTE | 2020-07-27 13:02 | PC.RESP ---
PATIENT DOES NOT HAVE A QUALIFYING HX OF LUNG DISEASE AND DOES NOT QUALIFY FOR PULMONARY REHAB AT THIS TIME.
== END 2020-07-26 14:27 | disposition home or self-care (01) ==
LOC: ER 13:12 → CCL 17:48 → CSU 17:48
PROVIDERS: Emergency Medicine; Admitting Provider Internal Medicine; PCP Family Medicine; Visit Provider Family Medicine
DX: I21.4 Non-ST elevation (NSTEMI) myocardial infarction (principal); I25.119 Atherosclerotic heart disease of native coronary artery with unspecified angina pectoris; I10 Essential (primary) hypertension; E11.9 Type 2 diabetes mellitus without complications; E78.5 Hyperlipidemia, unspecified; E78.1 Pure hyperglyceridemia; Z79.4 Long term (current) use of insulin; Z87.891 Personal history of nicotine dependence; Z95.5 Presence of coronary angioplasty implant and graft; Z95.1 Presence of aortocoronary bypass graft; Z79.82 Long term (current) use of aspirin; Z79.02 Long term (current) use of antithrombotics/antiplatelets; I38 Endocarditis, valve unspecified; I33.0 Acute and subacute infective endocarditis; B96.89 Other specified bacterial agents as the cause of diseases classified elsewhere; F41.1 Generalized anxiety disorder; D64.9 Anemia, unspecified; N18.2 Chronic kidney disease, stage 2 (mild)
CPT/HCPCS: 12345; 36415; 36416; 36592; 71045; 80048; 80053; 82962; 83036; 83690; 83735; 84484; 85025; 85378; 85610; 85730; 86677; 87426; 93005; 93459; 96365; 96367; 96372; 96375; 99283; 99285; C1769; C1887; C1894; G0378; J1170; J1644; J1815 ×2; J2060; J2250; J2405; J3010; J3475; J3480; J3490; J7030; Q0163; Q0169; Q9967

== ENCOUNTER 2020-08-07 11:10 | Inpatient (IN) | payer MEDICAID, SELFPAY ==
[2020-08-07] VITALS (27 sets, daily range): BP systolic 82–158; BP diastolic 42–108; PULSE 71–94; RESP 14–27; TEMP 36.5–36.7; O2SAT 90–96; BMI 28.6
--- NOTE | 2020-08-07 11:18 | XRR_ITS ---
PROCEDURE INFORMATION: Exam: XR Chest, 1 View Exam date and time: 08/07/2020 11:20 AM Age: 55 years old Clinical indication: Chest pain; Type not specified TECHNIQUE: Imaging protocol: XR of the chest Views: 1 view. COMPARISON: CR XR chest 1V portable [id number] 07/25/2020 11:09 AM FINDINGS: Lungs: Minimal left under lung atelectasis. Pleural space: Minimal left costophrenic angle blunting. No pneumothorax. Heart/Mediastinum: CABG. No cardiomegaly. Bones/joints: No acute findings. Sternotomy. XR/XR chest 1V portable [id number] IMPRESSION: Minimal left lower lobe atelectasis, very small left pleural effusion.
--- NOTE | 2020-08-07 11:19 | ECG_ITS ---
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 Measurements Intervals [place] Rate: 88 P: 33 VT: 161 QRS: -19 QRSD: 118 T: 105 QT: 361 QTc: 437 Interpretive Statements SINUS RHYTHM WITH OCCASIONAL VENTRICULAR PREMATURE COMPLEXES POSSIBLE ANTERIOR MYOCARDIAL INFARCTION , OF INDETERMINATE AGE [30 ms Q WAVE IN V3/V4, OR R < 0.2 mV IN V4] Compared to ECG 07/25/2020 13:05:31 Myocardial infarct finding now present T-wave abnormality no longer present Electronically Signed On 08-07-2020 15:17:56 CDT by Kianna Aguilera M.D. [email or web address]
--- NOTE | 2020-08-07 11:24 | CTR_ITS ---
PROCEDURE INFORMATION: Exam: CT Abdomen And Pelvis Without Contrast Exam date and time: 08/07/2020 12:09 PM Age: 55 years old Clinical indication: Abdominal pain; Flank; Left lower quadrant (llq); Additional info: Left flank pain TECHNIQUE: Imaging protocol: Computed tomography of the abdomen and pelvis without contrast. Radiation optimization: All CT scans at this facility use at least one of these dose optimization techniques: automated exposure control; mA and/or kV adjustment per patient size (includes targeted exams where dose is matched to clinical indication); or iterative reconstruction. COMPARISON: CT abdomen pelvis wo con [id number] 03/31/2020 3:41 PM RADIATION DOSE METRICS: Total DLP (mGy-cm): 1833.97 FINDINGS: Pleural space: Very small left pleural effusion. Liver: No mass. Gallbladder and bile ducts: Unremarkable. No ductal dilation. Pancreas: Normal. No ductal dilation. Spleen: Normal. No splenomegaly. Adrenals: Normal. No mass. Kidneys and ureters: No calculus or hydronephrosis. Stomach and bowel: No acute findings. No obstruction. No mucosal thickening. Appendix: No evidence of appendicitis. Intraperitoneal space: Unremarkable. No free air. No significant fluid collection. Vasculature: No abdominal aortic aneurysm. Lymph nodes: No significant adenopathy. Bladder: Unremarkable as visualized. Reproductive: Hysterectomy. Bones/joints: No acute findings. Soft tissues: Unremarkable. CT/CT kidney stone [id number] IMPRESSION: No acute findings. Radiation Dose CTDIVOL = (mGy): DLP = 1833.97 (mGy-cm)
[2020-08-07 11:51] LABS: Basophils % 0.3 %; Eosinophils # 0.3 10^3/uL (0.0-0.8); Hematocrit 33.3 % (37.0-47.0); Hemoglobin 10.1 g/dL (11.5-15.3); Lymphocytes # 2.8 10^3/uL (0.8-4.8); Lymphocytes % 28.4 %; Mean Corpuscular HGB Conc 30.3 g/dL (30.0-36.0); Mean Corpuscular Volume 85.8 fL (81-99); Mean Platelet Volume 10.8 fL (7.4-10.4); Monocytes # 0.3 10^3/uL (0.2-0.9); Monocytes % 3.2 %; Neutrophils # 6.35 10^3/uL (1.8-7.7); Neutrophils % 64.4 %; Nucleated Red Blood Cells % 0 %; Platelet Count 338 10^3/cmm (130-400); Red Blood Count 3.88 10^6/uL (4.1-5.3); Red Cell Distribution Width 14.3 % (12.1-15.1); White Blood Count 9.9 10^3/uL (4.0-10.0)
[2020-08-07 11:51] LABS: Add Urine Microscopic? NO
[2020-08-07 11:54] LABS: Bilirubin Urine Neg (Negative); Blood Urine Neg (Negative); Glucose Urine UA 4+ (Normal); Ketones Urine Negative (Negative); Leukocyte Esterase Urine Negative (Negative); Nitrate Urine Negative (Negative); Protein Urine Neg (Negative); Urine Appearance Clear (CLEAR); Urine Color Straw (Yellow); Urobilinogen Urine Norm (Negative); pH Urine 5 (5-7)
--- NOTE | 2020-08-07 12:02 | ED_ITS ---
HPI - General Adult General: Chief complaint: General Medical Stated complaint: LEFT SIDE PAIN Time Seen by Provider: 08/07/20 11:12 History of Present Illness: HPI narrative: This patient is a 55-year-old female presenting today with left flank pain. She reports that this is been going on for about 3 days and she came in today because she could not take the pain anymore. She has a somewhat complicated medical history with multiple chronic medications and allergies. She most recently was treated for endocarditis with 6 weeks of vancomycin that she finished about 2 weeks ago. She said she is continued to have fevers off and on since then and feels like she is never gotten over the blood infection. Her PICC line was removed. The left flank pain is new for her. She has nausea but no vomiting. She has been able to eat but only small amounts. She said it does make her pain worse. She denies diarrhea or constipation. No blood in the stools. She has had some burning with urination. She has had a hysterectomy. She believes that she has had no history of kidney stones Onset (ago): day(s) (3) Location: abdomen Radiation: non-radiation Severity: severe Quality: aching Pain Consistency: constant Relieving factors: none Exacerbating factors: eating Associated symptoms: Reports chest pain, decreased appetite, dyspnea, fevers/chills, malaise and nausea; Deny headache(s) or rash Review of Systems General: Reports: 10 or more systems reviewed and unremarkable except in HPI and below Const: Reports: malaise Eyes: Denies: change in vision ENMT: Denies: odynophagia Card: Reports: chest pain; Denies: swelling of feet/ankles Resp: Reports: dyspnea and productive cough; Denies: non-productive cough GI: Reports: nausea : Reports: flank pain and dysuria Musc: Denies: neck pain or back pain Skin/Breast: Denies: rash Neuro: Denies: headache(s), numbness in extremities or weakness in extremities Danish/Lymph: Denies: easy bruising or easy bleeding PFS ED PFSH: Medical History Coronary artery disease -has known multivessel CAD Depression with anxiety Endocarditis Generalized anxiety disorder GERD (gastroesophageal reflux disease) Hypertension -continue oral antihypertensives Hypertriglyceridemia -on statin, gemfibrozil Insulin dependent diabetes mellitus Irritable bowel syndrome Pancreatitis Post-traumatic stress disorder, chronic Ulcerative colitis Surgical History H/O tubal ligation H/O: hysterectomy History of carpal tunnel surgery Hx of tonsillectomy S/P CABG x 4 S/P coronary artery stent placement -x 12 stents Family History Mother Dementia Father CAD (coronary artery disease) Other IBD (inflammatory bowel disease) Social History Smoking and tobacco status: former smoker Alcohol intake: never Lives independently: Yes Household members: significant other Marital status: Life Partner Current occupational status: disabled Physical Exam Const: COMMON NORMALS: patient oriented x3, no limitations and alert GENERAL APPEARANCE: cooperative HENMT: HEAD & SCALP: normal to inspection FACE & SINUS: normal facial exam Eye: GENERAL EYE: appearance normal, both eyes and all related structures Neck/C-Spine: COMMON NORMALS: supple, no meningeal signs and no JVD Chest: COMMONS NORMALS: normal inspection of the chest Resp: COMMON NORMALS: normal respiratory effort, No use of accessory muscles and clear to auscultation bilaterally AUSCULTATION: clear to auscultation bilaterally Cardio: COMMON NORMALS: no JVD, regular rate, regular rhythm and No murmurs present (Cardio) RATE: regular rate RHYTHM: regular rhythm GI: COMMON NORMALS: Normal to inspection, nondistended, normoactive bowel sounds present and Soft to palpation INSPECTION: Yes normal to inspection and Yes abdominal distension AUSCULTATION: Yes normoactive bowel sounds PALPATION: Yes Soft to palpation and Yes Tenderness to palpation present (GI) Details: LLQ and LUQ Back/Pelvis: COMMON NORMALS: thoracic and lumbar spine normal to inspection Extremity: COMMON NORMALS: normal to inspection Neuro: COMMON NORMALS: patient oriented x3, moves all extremities, no focal motor deficits and no sensory deficits noted SENSORIUM/ORIENTATION: Yes alert MENINGEAL SIGNS: Yes no meningeal signs Psych: COMMON NORMALS: mental status grossly normal, cooperative and normal affect Skin: COMMON NORMALS: no rashes or lesions noted and turgor normal GENERAL SKIN EXAM: no rashes or lesions noted and turgor normal Course ED course: This patient has a complicated medical history and presents with left-sided pain. CT of the abdomen without contrast was done to look for kidney stones. None were seen. There were no abnormalities noted. She did have a small left pleural effusion and a CTA was done to evaluate for any possible vascular abnormalities in her chest. This showed some bilateral pneumonia. Her lactate was also elevated. Her blood sugar is markedly elevated and she has some slight acidosis however no serum ketones. She was treated with fluids, antibiotics, IV insulin and multiple doses of pain medication. Not sure the exact cause of her pain although it is possible that the peripheral location of the left-sided pneumonia could be causing some pain in that area. She also has significant anxiety I gave her a dose of Ativan. She will be admitted to the ICU under Dr. Yousif. Vital Signs: Vital signs: Vital Signs Temperature 98.1 F 08/07/20 11:12 Pulse Rate 75 08/07/20 15:10 Respiratory Rate 18 08/07/20 15:10 Blood Pressure 113/61 08/07/20 15:10 Pulse Oximetry 93 08/07/20 15:10 [facility] - General Adult Lab Data: Labs: Lab Results 08/07/20 08/07/20 08/07/20 Range/Units 11:41 11:45 11:45 WBC 9.9 (4.0-10.0) 10^3/ uL RBC 3.88 L (4.1-5.3) 10^6/u L Hgb 10.1 L (11.5-15.3) g/dL Hct 33.3 L (37.0-47.0) % MCV 85.8 (81-99) fL MCH 26.0 L (28.0-34.0) pg MCHC 30.3 (30.0-36.0) g/dL RDW 14.3 (12.1-15.1) % Plt Count 338 (130-400) 10^3/c mm MPV 10.8 H (7.4-10.4) fL Neut % (Auto) 64.4 % Lymph % (Auto) 28.4 % [place] % (Auto) 3.2 % Eos % (Auto) 3.0 % Baso % (Auto) 0.3 % Neut # (Auto) 6.35 (1.8-7.7) 10^3/u L Lymph # (Auto) 2.8 (0.8-4.8) 10^3/u L [place] # (Auto) 0.3 (0.2-0.9) 10^3/u L Eos # (Auto) 0.3 (0.0-0.8) 10^3/u L Baso # (Auto) 0.0 (0.0-0.1) 10^3/u L Nucleated RBC % (a uto) 0 % Nucleated RBCs # 0.0 /100WBC Sodium 129 L (136-145) mmol/L Potassium 4.2 (3.5-5.1) mmol/L Chloride 90 L (98-107) mmol/L Carbon Dioxide 20 L (22-29) mmol/L Anion Gap 23.2 H (5-19) BUN 12 (6-20) mg/dL Creatinine 0.9 (0.5-0.9) mg/dL GFR Calculation 65.0 L (90-130) mL/min Glucose 698 H* (65-115) mg/dL POC Glucose (70-110) mg/dL Calculated Osmolal ity 297 H (285-295) mOsm/k g Lactic Acid (0.5-2.2) mmol/L Lactic Acid (Sepsi s) (0.5-2.2) mmol/L Calcium 9.2 (8.5-10.5) mg/dL Phosphorus (2.5-4.5) mg/dL Magnesium (1.7-2.3) mg/dL Total Bilirubin 0.2 (0.15-1.2) mg/dL AST 8 (0-32) U/L ALT < 5 (0-33) U/L Alkaline Phosphata se 153 H (35-105) IU/L Troponin T Baselin e (0-10) ng/L Troponin T 120 Min [place] (0-10) ng/L Delta Troponin T (0-10) ABS# Total Protein 7.2 (6.6-8.7) g/dL Albumin 3.5 (3.5-5.2) g/dL Globulin 3.7 (1.3-4.6) g/dL Lipase 26 (13-60) U/L Urine Color Straw (Yellow) Urine Appearance Clear (CLEAR) Urine pH 5 (5-7) Ur Specific Gravit y 1.010 (1.005-1.030) Urine Protein Neg (Negative) Urine Glucose (UA) 4+ H (Normal) Urine Ketones Negative (Negative) Urine Blood Neg (Negative) Urine Nitrate Negative (Negative) Urine Bilirubin Neg (Negative) Urine Urobilinogen Norm (Negative) mg/dL Ur Leukocyte [place] Negative (Negative) Serum Ketones (Negative) 08/07/20 08/07/20 08/07/20 Range/Units 11:45 11:45 11:45 WBC (4.0-10.0) 10^3/ uL RBC (4.1-5.3) 10^6/u L Hgb (11.5-15.3) g/dL Hct (37.0-47.0) % MCV (81-99) fL MCH (28.0-34.0) pg MCHC (30.0-36.0) g/dL RDW (12.1-15.1) % Plt Count (130-400) 10^3/c mm MPV (7.4-10.4) fL Neut % (Auto) % Lymph % (Auto) % [place] % (Auto) % Eos % (Auto) % Baso % (Auto) % Neut # (Auto) (1.8-7.7) 10^3/u L Lymph # (Auto) (0.8-4.8) 10^3/u L [place] # (Auto) (0.2-0.9) 10^3/u L Eos # (Auto) (0.0-0.8) 10^3/u L Baso # (Auto) (0.0-0.1) 10^3/u L Nucleated RBC % (a uto) % Nucleated RBCs # /100WBC Sodium (136-145) mmol/L Potassium (3.5-5.1) mmol/L Chloride (98-107) mmol/L Carbon Dioxide (22-29) mmol/L Anion Gap (5-19) BUN (6-20) mg/dL Creatinine (0.5-0.9) mg/dL GFR Calculation (90-130) mL/min Glucose (65-115) mg/dL POC Glucose (70-110) mg/dL Calculated Osmolal ity (285-295) mOsm/k g Lactic Acid 4.7 H* (0.5-2.2) mmol/L Lactic Acid (Sepsi s) (0.5-2.2) mmol/L Calcium (8.5-10.5) mg/dL Phosphorus 3.1 (2.5-4.5) mg/dL Magnesium 1.7 (1.7-2.3) mg/dL Total Bilirubin (0.15-1.2) mg/dL AST (0-32) U/L ALT (0-33) U/L Alkaline Phosphata se (35-105) IU/L Troponin T Baselin e 120 H* (0-10) ng/L Troponin T 120 Min [place] (0-10) ng/L Delta Troponin T (0-10) ABS# Total Protein (6.6-8.7) g/dL Albumin (3.5-5.2) g/dL Globulin (1.3-4.6) g/dL Lipase (13-60) U/L Urine Color (Yellow) Urine Appearance (CLEAR) Urine pH (5-7) Ur Specific Gravit y (1.005-1.030) Urine Protein (Negative) Urine Glucose (UA) (Normal) Urine Ketones (Negative) Urine Blood (Negative) Urine Nitrate (Negative) Urine Bilirubin (Negative) Urine Urobilinogen (Negative) mg/dL Ur Leukocyte [place] (Negative) Serum Ketones Negative (Negative) 08/07/20 08/07/20 08/07/20 Range/Units 13:08 13:48 13:48 WBC (4.0-10.0) 10^3/ uL RBC (4.1-5.3) 10^6/u L Hgb (11.5-15.3) g/dL Hct (37.0-47.0) % MCV (81-99) fL MCH (28.0-34.0) pg MCHC (30.0-36.0) g/dL RDW (12.1-15.1) % Plt Count (130-400) 10^3/c mm MPV (7.4-10.4) fL Neut % (Auto) % Lymph % (Auto) % [place] % (Auto) % Eos % (Auto) % Baso % (Auto) % Neut # (Auto) (1.8-7.7) 10^3/u L Lymph # (Auto) (0.8-4.8) 10^3/u L [place] # (Auto) (0.2-0.9) 10^3/u L Eos # (Auto) (0.0-0.8) 10^3/u L Baso # (Auto) (0.0-0.1) 10^3/u L Nucleated RBC % (a uto) % Nucleated RBCs # /100WBC Sodium (136-145) mmol/L Potassium (3.5-5.1) mmol/L Chloride (98-107) mmol/L Carbon Dioxide (22-29) mmol/L Anion Gap (5-19) BUN (6-20) mg/dL Creatinine (0.5-0.9) mg/dL GFR Calculation (90-130) mL/min Glucose (65-115) mg/dL POC Glucose 465 (70-110) mg/dL Calculated Osmolal ity (285-295) mOsm/k g Lactic Acid (0.5-2.2) mmol/L Lactic Acid (Sepsi s) 2.0 (0.5-2.2) mmol/L Calcium (8.5-10.5) mg/dL Phosphorus (2.5-4.5) mg/dL Magnesium (1.7-2.3) mg/dL Total Bilirubin (0.15-1.2) mg/dL AST (0-32) U/L ALT (0-33) U/L Alkaline Phosphata se (35-105) IU/L Troponin T Baselin e (0-10) ng/L Troponin T 120 Min [place] 102.2 H (0-10) ng/L Delta Troponin T -17.8 L (0-10) ABS# Total Protein (6.6-8.7) g/dL Albumin (3.5-5.2) g/dL Globulin (1.3-4.6) g/dL Lipase (13-60) U/L Urine Color (Yellow) Urine Appearance (CLEAR) Urine pH (5-7) Ur Specific Gravit y (1.005-1.030) Urine Protein (Negative) Urine Glucose (UA) (Normal) Urine Ketones (Negative) Urine Blood (Negative) Urine Nitrate (Negative) Urine Bilirubin (Negative) Urine Urobilinogen (Negative) mg/dL Ur Leukocyte [place] (Negative) Serum Ketones (Negative) Discharge Plan Discharge Admit Provider: Eric Yousif Coding Level of Care Code ED Quality Assurance Test Program Manager for Chg Fwd Exam Comprehensive
--- NOTE | 2020-08-07 12:10 | PC.NURSE ---
PT TO ct SCAN WITH STRETCHER AND TECH
[2020-08-07 12:24] LABS: Lactic Sepsis W/Reflex 4.7 mmol/L (0.5-2.2)
[2020-08-07 12:25] LABS: Troponin(5th) Baseline 120 ng/L (0-10)
[2020-08-07] MEDS: fentaNYL 50 mcg/mL INJ 2mL IVP (12:32)
[2020-08-07] MEDS: ondansetron 2 mg/ML SDV 2 mL 4 MG IVP ×2 (12:32→17:25)
[2020-08-07 12:35] LABS: Alanine Aminotransferase < 5 U/L (0-33); Albumin Level 3.5 g/dL (3.5-5.2); Alkaline Phosphatase 153 IU/L (35-105); Anion Gap 23.2 (5-19); Aspartate Amino Transferase 8 U/L (0-32); Blood Urea Nitrogen 12 mg/dL (6-20); Calcium 9.2 mg/dL (8.5-10.5); Carbon Dioxide 20 mmol/L (22-29); Chloride 90 mmol/L (98-107); Globulin 3.7 g/dL (1.3-4.6); Lipase 26 U/L (13-60); Osmolality Calculated 297 mOsm/kg (285-295); Potassium 4.2 mmol/L (3.5-5.1); Sodium 129 mmol/L (136-145); Total Bilirubin 0.2 mg/dL (0.15-1.2); Total Protein 7.2 g/dL (6.6-8.7)
--- NOTE | 2020-08-07 12:35 | CTR_ITS ---
PROCEDURE INFORMATION: Exam: CT Angiography Chest With Contrast Exam date and time: 08/07/2020 1:24 PM Age: 55 years old Clinical indication: Left-sided chest pain; Prior surgery; Surgery date: 6+ months; Surgery type: Cabg; Patient HX: C/O L sided chest/flank pain; Additional info: Left flank pain, chest pain TECHNIQUE: Imaging protocol: Computed tomographic angiography of the chest with intravenous contrast. 3D rendering (Not supervised by radiologist): MIP and/or 3D reconstructed images were created by the technologist. Radiation optimization: All CT scans at this facility use at least one of these dose optimization techniques: automated exposure control; mA and/or kV adjustment per patient size (includes targeted exams where dose is matched to clinical indication); or iterative reconstruction. Contrast material: OMNI 350; Contrast volume: 95 ml; Contrast route: INTRAVENOUS (IV); COMPARISON: CT angio chest w abd pel w con 06/12/2020 10:11 AM RADIATION DOSE METRICS: Total DLP (mGy-cm): 604.23 FINDINGS: Pulmonary arteries: No pulmonary emboli. Aorta: No aortic aneurysm. No aortic dissection. Lungs: Foci of partial consolidation are seen in lower lobes most prominent in the left lower lobe. Minimal ground-glass opacity in the right lung. Pleural space: Very small left pleural effusion. Heart: No cardiomegaly or pericardial effusion. CABG. Lymph nodes: Small mediastinal lymph nodes none larger than approximately 1 cm. Bones/joints: No acute findings. Sternotomy. Soft tissues: Unremarkable. CT/CT angio chest PE protcl [id number] IMPRESSION: Findings consistent with bilateral pneumonia, consider follow-up. Very small left pleural effusion. Minimal nonspecific adenopathy. Radiation Dose CTDIVOL = (mGy): DLP = 604.23 (mGy-cm)
[2020-08-07] MEDS: sodium chloride 0.9% 1,000 ML 999 ML IV (12:36)
[2020-08-07 12:39] LABS: Glucose 698 mg/dL (65-115)
[2020-08-07 13:12] LABS: Ketone (Acetest) Serum Negative (Negative)
[2020-08-07 13:12] LABS: Glucose Point of Care 465 mg/dL (70-110)
[2020-08-07] MEDS: insulin regular-human 250 UNIT in sodium chloride 0.9% 250 ML 5.1 UNIT IV (13:12)
[2020-08-07] MEDS: diphenhydrAMINE 50 mg/mL SDV 1mL 25 MG IVP (13:12)
--- NOTE | 2020-08-07 13:19 | ECG_ITS ---
[facility] Test Date: 2020-08-07 Pat Name: Collette Kothari Department: Room: Gender: Female Youth Development Specialist: : [id number] Requested By: Brandy Tierney Order Number: [id number] Stacey MD: Kianna Aguilera M.D. Measurements Intervals [place] Rate: 81 P: 51 GA: 173 QRS: -9 QRSD: 120 T: 87 QT: 392 QTc: 455 Interpretive Statements SINUS RHYTHM MODERATE INTRAVENTRICULAR CONDUCTION DELAY [110+ ms QRS DURATION] NONSPECIFIC T-WAVE ABNORMALITY Compared to ECG 08/07/2020 11:42:29 Intraventricular conduction delay now present T-wave abnormality now present Ventricular premature complex(es) no longer present Myocardial infarct finding no longer present Electronically Signed On 08-07-2020 15:18:29 CDT by Kianna Aguilera M.D. [email or web address]
[2020-08-07 13:21] LABS: Magnesium 1.7 mg/dL (1.7-2.3); Phosphorus 3.1 mg/dL (2.5-4.5)
[2020-08-07 13:35] LABS: Reflex Lactate Order REFLEX LACTIC ORDERD
[2020-08-07] MEDS: HYDROmorphone 1 mg/mL INJ 1 mL 0.5 MG IVP ×2 (13:55→15:03)
--- NOTE | 2020-08-07 13:59 | PC.NURSE ---
pt to CT by stretcher with tech
[2020-08-07] MEDS: iohexol 350 mg/mL 100 mL Btl IV (14:05)
[2020-08-07 14:35] LABS: Troponin 5 2HR Delta -17.8 ABS# (0-10)
[2020-08-07 14:36] LABS: Troponin 5 2HR 102.2 ng/L (0-10)
[2020-08-07] MEDS: LORazepam 2 mg/mL INJ 1 mL 1 MG IVP (15:03)
[2020-08-07] MEDS: cefTRIAXone 1,000 MG in sodium chloride 0.9% (plus) 50 ML 100 MG IV (15:03)
[2020-08-07] MEDS: sodium chloride 0.9% 1,000 ML 30 ML IV (15:04)
[2020-08-07 15:36] LABS: Glucose Point of Care 222 mg/dL (70-110)
--- NOTE | 2020-08-07 17:00 | PM.HP ---
Providers/Chief Complaint Admitting Physician: rEic Yousif Primary Care Provider: Juno Brown Chief Complaint: LEFT SIDE PAIN History of Present Illness Collette Kothari is a 55 year old female admitted after presenting due to severe left lower chest/left flank sharp pain, triggered by inspiration and movement arterial pressure. She says she has been coughing quite a bit recently. Productive of yellow and green sputum. Pain in left lower chest/left flank woke her up this morning. In ER she is noted afebrile without tachycardia or leukocytosis, with severe hyperglycemia, BG 698, metabolic acidosis, anion gap 23.2, bicarbonate 20, pseudohyponatremia sodium 129, with noted lactic acidosis 4.7, with alkaline phosphatase at baseline at 153. With troponin less elevated compared to prior admission at 120-102. EKG without ST elevation with nonspecific changes. CT angiogram chest without PE, with findings consistent with bilateral pneumonia at bases. She received Rocephin and azithromycin. Started on insulin drip due to severe hyperglycemia. Received 1 L fluid bolus with improvement in lactic acid down to 2. She is very concerned that she get something for the pain. Later with the nurse request for hydromorphone since it worked very well in ER. Review of Systems Const: Denies: fever(s), chills, body aches or malaise Eyes: Denies: change in vision or eye redness ENMT: Denies: throat pain, oral sores or ear or mastoid pain Card: Denies: chest pain, edema, pre-syncope or dyspnea on exertion Resp: Reports: productive cough (Yellow/green sputum); Denies: dyspnea, change in phlegm color or hemoptysis GI: Reports: nausea; Denies: abdominal pain, vomiting, diarrhea, constipation, hematochezia or melena : Reports: flank pain; Denies: urinary frequency or hematuria Musc: Denies: back pain, joint swelling or joint redness Skin/Breast: Denies: rash, sores or new lesions Neuro: Denies: headache(s), numbness in extremities, weakness in extremities, dizziness, confusion or seizure-like activity Endo: Denies: polyuria or polydipsia Danish/Lymph: Denies: easy bleeding or purpura All/Imm: Denies: urticaria, throat swelling or tongue swelling Medications/Allergies Home Medications Medication Instructions Recorded Confirmed Last Taken Type amlodipine [Norvasc] 5 mg PO DAILY 01/04/20 08/07/20 08/07/20 History carvedilol 25 mg PO BID 01/04/20 08/07/20 08/07/20 History clopidogrel 75 mg PO DAILY 01/04/20 08/07/20 08/07/20 History hydrochlorothiazide 12.5 mg PO DAILY 01/04/20 08/07/20 08/07/20 History hydrocodone-acetaminophen 1 tab PO Q4H PRN 01/04/20 08/07/20 08/07/20 History insulin aspart U-100 [Novolog See Rx Instructions .ROUTE .COMPLEX 01/04/20 08/07/20 08/07/20 History Flexpen U-100 Insulin] pantoprazole 40 mg PO BID 01/04/20 08/07/20 08/07/20 History pregabalin [Lyrica] 150 mg PO TID 01/04/20 08/07/20 08/07/20 History tizanidine 4 mg PO TID PRN 01/04/20 08/07/20 08/07/20 History fluticasone propionate 2 spray INTRANASAL DAILY PRN 02/29/20 08/07/20 06/27/20 History lactulose 10 g PO BID PRN 02/29/20 08/07/20 1 Week Ago History ~06/01/20 nitroglycerin [Nitrostat] 0.4 mg SUBLINGUAL Q5M PRN 02/29/20 08/07/20 08/07/20 History potassium chloride 20 meq PO DAILY 02/29/20 08/07/20 08/07/20 History promethazine 25 mg PO Q6H PRN 02/29/20 08/07/20 08/07/20 History sucralfate 1 g PO QID PRN 02/29/20 08/07/20 08/07/20 History Lantus Solostar U-100 Insulin 40 unit SUBCUT BID 03/30/20 08/07/20 08/07/20 History aspirin [Aspir-81] 81 mg PO QPM 03/30/20 08/07/20 08/07/20 History polyethylene glycol 3350 [Miralax] 17 g PO DAILY PRN 03/30/20 08/07/20 07/24/20 History Mucinex DM 1 tab PO Q12H PRN 05/26/20 08/07/20 08/06/20 History metronidazole 1 applic TOPICAL DAILY PRN 05/26/20 08/07/20 1 Day Ago History ~06/07/20 Excedrin Migraine 1 tab PO Q6H PRN 06/09/20 08/07/20 08/07/20 History Vascepa 2 g PO BID 06/09/20 08/07/20 08/06/20 History gemfibrozil [Lopid] 600 mg PO DAILY 06/09/20 08/07/20 08/07/20 History nystatin 5 ml PO QID 06/27/20 08/07/20 08/07/20 History alprazolam 0.5 mg tablet See Rx Instructions .ROUTE 07/13/20 08/07/20 08/06/20 Rx .COMPLEX PRN #150 tab sertraline 100 mg tablet 200 mg PO DAILY #60 tab 07/13/20 08/07/20 08/07/20 Rx trazodone 150 mg tablet 150 mg PO BEDTIME #30 tab 07/13/20 08/07/20 08/06/20 Rx zolpidem 10 mg tablet 10 mg PO BEDTIME #30 tab 07/13/20 08/07/20 08/06/20 Rx isosorbide mononitrate 30 mg PO BID 30 Days #60 tab 07/26/20 08/07/20 08/07/20 Rx Diabetic shoes with molded inserts #1 ea 08/02/20 08/07/20 Unknown Rx mupirocin 2 % topical ointment 1 applic TOPICAL BID 30 Days #15 gm 08/02/20 08/07/20 08/06/20 Rx Allergies Allergy/AdvReac Type Severity Reaction Status Date / Time SCOTT Inhibitors Allergy Unknown Verified 08/07/20 11:20 acetaminophen Allergy ADR-Nausea Verified 08/07/20 11:20 [From Darvocet-N] amitriptyline Allergy ALGY-Difficulty Verified 08/07/20 11:20 Breathing atorvastatin [From Lipitor] Allergy ADR-Nausea Verified 08/07/20 11:20 ciprofloxacin [From Cipro] Allergy ALGY-Hives Verified 08/07/20 11:20 doxycycline Allergy Unknown Verified 08/07/20 11:20 empagliflozin Allergy Unknown Verified 08/07/20 11:20 [From Jardiance] escitalopram [From Lexapro] Allergy Unknown Verified 08/07/20 11:20 ezetimibe [From Zetia] Allergy Unknown Verified 08/07/20 11:20 furosemide [From Lasix] Allergy ALGY-Rash Verified 08/07/20 11:20 ketorolac [From Toradol] Allergy Unknown Verified 08/07/20 11:20 lisinopril Allergy Unknown Verified 08/07/20 11:20 morphine Allergy ALGY-Rash Verified 08/07/20 11:20 nalbuphine [From Nubain] Allergy Unknown Verified 08/07/20 11:20 naproxen Allergy Unknown Verified 08/07/20 11:20 nortriptyline Allergy Unknown Verified 08/07/20 11:20 pravastatin Allergy Unknown Verified 08/07/20 11:20 prochlorperazine Allergy ALGY-Difficulty Verified 08/07/20 11:20 [From Compazine] Breathing propoxyphene Allergy ADR-Nausea Verified 08/07/20 11:20 [From Darvocet-N] ranolazine [From Ranexa] Allergy Unknown Verified 08/07/20 11:20 rosuvastatin [From Crestor] Allergy Unknown Verified 08/07/20 11:20 simvastatin Allergy Unknown Verified 08/07/20 11:20 sulfamethoxazole Allergy ALGY-Hives Verified 08/07/20 11:20 [From Bactrim] sumatriptan [From Imitrex] Allergy Unknown Verified 08/07/20 11:20 trimethoprim [From Bactrim] Allergy ALGY-Hives Verified 08/07/20 11:20 PFSH Acute PFSH: Medical History Coronary artery disease -has known multivessel CAD Depression with anxiety Endocarditis Generalized anxiety disorder GERD (gastroesophageal reflux disease) Hypertension -continue oral antihypertensives Hypertriglyceridemia -on statin, gemfibrozil Insulin dependent diabetes mellitus Irritable bowel syndrome Pancreatitis Post-traumatic stress disorder, chronic Ulcerative colitis Surgical History H/O tubal ligation H/O: hysterectomy History of carpal tunnel surgery Hx of tonsillectomy S/P CABG x 4 S/P coronary artery stent placement -x 12 stents Family History Mother Dementia Father CAD (coronary artery disease) Other IBD (inflammatory bowel disease) Social History Smoking and tobacco status: former smoker Alcohol intake: never Lives independently: Yes Household members: significant other Marital status: Life Partner Current occupational status: disabled Vitals/I&O/Wt Last Vital Signs Temp 98.1 F 08/07/20 11:12 Pulse 78 08/07/20 15:38 Resp 18 08/07/20 15:38 BP 113/61 08/07/20 15:38 Pulse Ox 96 08/07/20 15:38 08/07/20 08/07/20 08/07/20 06:59 14:59 22:59 Intake Total 1000 / 1000 64.875 / 1064.875 Balance 1000 / 1000 64.875 / 1064.875 Weight last 48 hrs Weight 87.997 kg Physical Exam Const: COMMON NORMALS: no acute distress, patient oriented x3 and alert GENERAL APPEARANCE: anxious ORIENTATION/CONSCIOUSNESS: Yes awake HENMT: COMMON NORMALS: oropharynx normal Neck/C-Spine: COMMON NORMALS: no JVD Chest: OTHER: Severe tenderness on palpation of left lower chest/left flank over the lower margin of the rib cage. Resp: COMMON NORMALS: normal respiratory effort AUSCULTATION: diminished lung sounds bilateral in the lower lung kirby Cardio: COMMON NORMALS: no JVD, regular rhythm, S1 normal heart sound present, S2 normal heart sound present and No murmurs present (Cardio) RHYTHM: regular rhythm HEART SOUNDS: S1 normal heart sound present and S2 normal heart sound present GI: COMMON NORMALS: Normal to inspection, nondistended, normoactive bowel sounds present, Soft to palpation and non-tender PALPATION: Yes Soft to palpation Extremity: COMMON NORMALS: no joint enlargement and no pedal edema OTHER: Right big toe with recent periungual debridement, appears to be healing well, no erythema, no discharge, covered by transparent Band-Aid. Neuro: COMMON NORMALS: patient oriented x3 and moves all extremities Skin: COMMON NORMALS: no rashes or lesions noted GENERAL SKIN EXAM: no rashes or lesions noted Data : 08/07/20 11:45 08/07/20 11:45 A&P Assessment and plan (1) Pneumonia: Acute pneumonia. Possibly hospital-acquired. Bilateral opacities on CTA. No PE. Blood culture requested. Zosyn plus vancomycin at this time, monitor renal function. Check urine bacterial antigens. Incentive spirometry, as left flank pain may be secondary to rib or intercostal injury as discussed with her. May interfere with her recovery from pneumonia. Flutter valve. Sputum culture. Pain control for left flank pain. Status: Acute (2) Left flank pain: This is reproducible on palpation of her left lower chest/flank. Unremarkable CT renal protocol. Pneumonia noted, otherwise unremarkable CTA chest. Lidocaine patch for suspected rib/intercostal injury. Continue her home pain medication. Incentive spirometry. Status: Acute (3) Hyperglycemia: Severe hyperglycemia, glucose 698 on presentation. Started on insulin drip. No ketones in urine. Monitor glucose. Switch over to general insulin regimen once glucose. Consistent carbohydrate diet. Recheck BMP. Status: Acute (4) Lactic acidosis: Status: Acute (5) Troponin level elevated: 120-102. EKG without STEMI. Nonspecific changes. Recently assessed by coronary angiography on 07/25 and assessed by cardiology. At that time troponin was higher. No intervention was undertaken she was continued medical management with optimization of Imdur dose. Noted patent TOMAS to LAD and patent SVG to OM/ramus however 1 of the limbs of sequential graft is occluded. SVG to RCA occluded. Continue follow-up with cardiology to continue optimize medications. Status: Acute (6) Hyponatremia: Pseudohyponatremia. Recheck BMP. Status: Acute Additional A&P Information History of endocarditis: Recently finished a course of 6 weeks of vancomycin, says that she stopped about 2 weeks ago. Says that she suspects that maybe that was not enough, although is not sure why. Will recheck blood culture. Generalized anxiety disorder CAD Depression GERD HTN HLD DM2 IBS History of pancreatitis PTSD History of diagnosis of ulcerative colitis, although says has never had active disease. Other chronic medical issues Attestations Medical Necessity Statement*: Admission of over 2 midnights is going to be needed for assessment and management of hospital acquired PNA, severe hyperglycemia in the setting of CAD and multiple other comorbidities. Coding Level of Care Code Acute Dependency Counselor for Chg Fwd Diagnoses Pneumonia J18.9 Left flank pain R10.9 Hyperglycemia R73.9 Lactic acidosis E87.2 Troponin level elevated R79.89 Hyponatremia E87.1
--- NOTE | 2020-08-07 17:11 | PC.NURSE ---
patient reports pain as a 9/10. Left flank radiating into abdomen and chest. Same type of paint experienced earlier in the ER. Nurse called Dr johnson to get an order for pain medication Received order for 650mg tylenol and 5% lidocain patch to be applied to left side.
--- NOTE | 2020-08-07 17:12 | PC.NURSE ---
Patient reports feeling nauseated due to pain. Nurse called Dr Yousif for an order for antiemetic. Dr jane advised he will put in an order for Zofran.
--- NOTE | 2020-08-07 17:13 | PC.NURSE ---
Offered patient tylenol for pain relief. Patient refuses. States that it tylenol doesn't work for her and will upset her stomach. Pt requests hydromorphone.
[2020-08-07 17:46] LABS: Glucose Point of Care 155 mg/dL (70-110)
[2020-08-07 17:46] LABS: Glucose Point of Care 106 mg/dL (70-110)
[2020-08-07] MEDS: HYDROcodone-acetaminophen 10-325 mg Tablet 1 TAB PO ×3 (17:55→23:40)
[2020-08-07] MEDS: azithromycin 500 MG in sodium chloride 0.9% 250 ML 250 MG IV ×2 (18:17→19:12)
[2020-08-07 18:32] LABS: Troponin 5 6HR 113.5 ng/L (0-10); Troponin 5 6HR Delta -6.5 ng/L (0-12)
[2020-08-07] MEDS: pantoprazole DR 40 mg Tablet PO (19:18)
[2020-08-07] MEDS: carvedilol 6.25 mg Tablet PO (19:18)
[2020-08-07] MEDS: isosorbide mononitrate ER 30 mg Tablet PO (19:19)
[2020-08-07] MEDS: aspirin 81 mg EC Tablet PO (19:20)
--- NOTE | 2020-08-07 19:21 | PC.NURSE ---
patient reports no pain relief from prn hydrocodone. Also, patients blood sugar has remain between 100-115 for the past 3 hours. Received another order for prn hydrocodone, and order to stop insulin drip. Dr johnson will put in sliding scale insulin order.
--- NOTE | 2020-08-07 19:22 | PC.NURSE ---
received critical lab for troponin new value 113.5. change on -6.2 form baseline. Nurse alerted Dr johnson.
[2020-08-07] MEDS: heparin 5,000 unit/mL INJ 1 mL 5000 UNIT SUBCUT (19:48)
[2020-08-07] MEDS: trazodone 150 mg Tablet PO (20:07)
[2020-08-07] MEDS: pregabalin 50 mg Capsule PO (20:07)
[2020-08-07] MEDS: nystatin 100,000 unit/mL UDC 5 mL 500000 UNIT PO (20:07)
[2020-08-07] MEDS: lidocaine 5% Patch 1 PATCH TOPICAL (20:10)
[2020-08-07] MEDS: ALPRAZolam 0.5 mg Tablet PO (20:11)
[2020-08-07] MEDS: tizanidine 4 mg Tablet 2 MG PO (20:11)
[2020-08-07 21:13] LABS: Anion Gap 14.5 (5-19); Blood Urea Nitrogen 12 mg/dL (6-20); Carbon Dioxide 24 mmol/L (22-29); Chloride 98 mmol/L (98-107); Glomerular Filtration Rate 103.8 mL/min (90-130); Glucose 330 mg/dL (65-115); Osmolality Calculated 285 mOsm/kg (285-295); Potassium 3.5 mmol/L (3.5-5.1); Sodium 133 mmol/L (136-145)
[2020-08-07] MEDS: lactulose oral liq 20 gm/30 mL UDC 10 GM PO (21:16)
[2020-08-07] MEDS: mupirocin oint 22 gm 1 APPLIC TOPICAL (21:32)
[2020-08-07] MEDS: piperacillin-tazobactam 3.375 GM in sodium chloride 0.9% (plus) 50 ML IV (21:32)
[2020-08-07] MEDS: promethazine 25 mg Tablet 12.5 MG PO (23:39)
[2020-08-08] VITALS (144 sets, daily range): BP systolic 73–150; BP diastolic 42–74; PULSE 69–101; RESP 6–27; TEMP 36.4–36.9; O2SAT 76–100
[2020-08-08] MEDS: ondansetron 2 mg/ML SDV 2 mL 4 MG IVP ×2 (01:32→16:35)
[2020-08-08] MEDS: heparin 5,000 unit/mL INJ 1 mL 5000 UNIT SUBCUT ×3 (01:32→17:58)
[2020-08-08 01:42] LABS: Glucose Point of Care 351 mg/dL (70-110)
[2020-08-08] MEDS: piperacillin-tazobactam 3.375 GM in sodium chloride 0.9% (plus) 50 ML IV ×2 (03:10→11:48)
[2020-08-08] MEDS: HYDROcodone-acetaminophen 10-325 mg Tablet 1 TAB PO ×5 (04:24→23:59)
[2020-08-08 04:26] LABS: Basophils % 0.4 %; Eosinophils # 0.5 10^3/uL (0.0-0.8); Eosinophils % 5.1 %; Hematocrit 27.7 % (37.0-47.0); Hemoglobin 8.5 g/dL (11.5-15.3); Lymphocytes # 3.5 10^3/uL (0.8-4.8); Lymphocytes % 38.6 %; Mean Corpuscular HGB Conc 30.7 g/dL (30.0-36.0); Mean Corpuscular Hemoglobin 25.8 pg (28.0-34.0); Mean Corpuscular Volume 84.2 fL (81-99); Mean Platelet Volume 10.8 fL (7.4-10.4); Monocytes # 0.3 10^3/uL (0.2-0.9); Monocytes % 3.6 %; Neutrophils # 4.67 10^3/uL (1.8-7.7); Neutrophils % 51.9 %; Nucleated Red Blood Cells % 0 %; Platelet Count 283 10^3/cmm (130-400); Red Blood Count 3.29 10^6/uL (4.1-5.3); Red Cell Distribution Width 14.3 % (12.1-15.1)
[2020-08-08] MEDS: insulin glargine 100 units/1 mL 5 UNIT SUBCUT (04:28)
[2020-08-08 04:34] LABS: Glucose Point of Care 305 mg/dL (70-110)
[2020-08-08 05:05] LABS: Alanine Aminotransferase < 5 U/L (0-33); Alkaline Phosphatase 116 IU/L (35-105); Aspartate Amino Transferase 8 U/L (0-32); Blood Urea Nitrogen 13 mg/dL (6-20); Calcium 8.2 mg/dL (8.5-10.5); Carbon Dioxide 22 mmol/L (22-29); Chloride 98 mmol/L (98-107); Globulin 3.2 g/dL (1.3-4.6); Glomerular Filtration Rate 103.8 mL/min (90-130); Glucose 308 mg/dL (65-115); Osmolality Calculated 286 mOsm/kg (285-295); Sodium 134 mmol/L (136-145); Total Bilirubin 0.2 mg/dL (0.15-1.2); Total Protein 6.2 g/dL (6.6-8.7)
[2020-08-08 05:12] LABS: Anion Gap 17.6 (5-19); Potassium 3.6 mmol/L (3.5-5.1)
[2020-08-08 08:00] LABS: Glucose Point of Care 221 mg/dL (70-110)
--- NOTE | 2020-08-08 08:11 | PC.NURSE ---
Shift Events: Patient's pain difficult to control this shift. Multiple medical and non-pharmaceutical modalities used, including heat, repositioning, distraction, and support. Patient rested off and on throughout shift. Adequate urine output. Lactulose given for constipation with no results. Afebrile. VSS.
[2020-08-08 08:23] LABS: Glucose Point of Care 113 mg/dL (70-110)
[2020-08-08] MEDS: nystatin 100,000 unit/mL UDC 5 mL 500000 UNIT PO ×4 (08:27→20:17)
[2020-08-08] MEDS: pregabalin 50 mg Capsule PO ×3 (08:27→20:17)
[2020-08-08] MEDS: clopidogrel 75 mg Tablet PO (08:27)
[2020-08-08] MEDS: pantoprazole DR 40 mg Tablet PO ×2 (08:27→18:00)
[2020-08-08] MEDS: sertraline 100 mg Tablet 200 MG PO (08:27)
[2020-08-08] MEDS: carvedilol 6.25 mg Tablet PO ×2 (08:27→18:00)
[2020-08-08] MEDS: lidocaine 5% Patch 1 PATCH TOPICAL (08:29)
[2020-08-08] MEDS: insulin glargine 100 units/1 mL 40 UNIT SUBCUT ×2 (08:29→17:59)
[2020-08-08] MEDS: mupirocin oint 22 gm 1 APPLIC TOPICAL ×2 (08:30→17:58)
[2020-08-08] MEDS: isosorbide mononitrate ER 30 mg Tablet PO ×2 (08:40→18:00)
[2020-08-08 11:27] LABS: Glucose Point of Care 223 mg/dL (70-110)
[2020-08-08] MEDS: ALPRAZolam 0.5 mg Tablet PO ×2 (12:53→20:17)
--- NOTE | 2020-08-08 12:53 | PC.CHAP ---
Pastoral Care Encounter/Spiritual Assessment Type of Contact [] Declined catering truck operator visit [] Patient/Family/Request visit [] Outpatient visit [] Follow-up visit [] Physician referral [] Code/Alert [x] Routine visit [] Staff referral [] Actively dying [] Patient sleeping [] Family support [] [] Out of room [] Palliative care [] [] Receiving care in room [] Pre-surgical visit [] Trauma [] Long length of stay [x] ICU visit [] Other: Relational/Emotional Strength [x] Patient feels connected with others/family/visitors/staff [x] Distress [] Loneliness/isolation [] Abandonment Spirituality of Patient [x] Person of Ashlee [] Attends Amish of their Ashlee [x] Believes in Prayer [] Reads Bible or Moravian materials [] There are Spiritual issues to be addressed Precision Inspector Interventions [x] Prayer [x] Active listening [x] Non-anxious presence [x] Spiritual/emotional support [] Crisis/trauma care [] Spiritual counseling [] Bereavement support [] Provided bereavement packet [] Provided Bible/devotional materials [] Provided toy/stuffed animal, coloring book to patient or family member [] Provided Communion [] Anointing/Tonica [] Salvation [x] Completed spiritual assessment [] Other: Impact on Illness or Injury [] Angry [] Fearful [x] Anxious [] Often cries [] Exhaustion [] Unable to work [] Unable to attend mandaen [] Unable to walk/stand [] Unable to read [] Unable to drive [] Unable to eat/drink [] Unable to sleep [x] Unable to be with family [] Patient intubated [] Other: Summary Patient expressed that she was in a great mount of pain. She stated that this was worse than when she had heart surgery and stints put in. Precision Inspector prayed with the patient. Time spent with patient 10 minutes
[2020-08-08] MEDS: tizanidine 4 mg Tablet 2 MG PO (13:45)
[2020-08-08] MEDS: fentaNYL 12 mcg Patch 1 PATCH TRANSDERMA (14:49)
--- NOTE | 2020-08-08 15:58 | PC.NURSE ---
Patient transferred from ICU bed 8 to [facility] room 252 bed 1 via wheelchair. Patient on 4 L n/c. Stable during transfer. Pt sitting up in bed on arrival to med-surg. No c/o voiced. Nurse notified of arrival.
[2020-08-08 17:07] LABS: Glucose Point of Care 302 mg/dL (70-110)
[2020-08-08] MEDS: TRAMadol 50 mg Tablet PO (18:00)
[2020-08-08] MEDS: aspirin 81 mg EC Tablet PO (18:00)
--- NOTE | 2020-08-08 18:17 | PM.PN ---
Subjective Subjective: Interval history: Events overnight. Denies of any nausea, vomiting, headache. Complaining of pain. Pain mostly in the chest going into flank area. Not happy with the pain medication requires more. She is on hydrocodone and daughter at present. Vitals stable. Has remained hemodynamically stable. Blood sugars stable. Off insulin drip. Vitals/I&O/Wt Last Vital Signs Temp 97.7 F 08/08/20 16:00 Pulse 81 08/08/20 16:00 Resp 20 H 08/08/20 16:00 BP 105/65 08/08/20 16:00 Pulse Ox 94 08/08/20 16:00 08/08/20 08/08/20 08/08/20 06:59 14:59 22:59 Intake Total 290 / 2089.642 930 / 930 Output Total 450 / 450 Balance 290 / 1889.642 480 / 480 Weight last 48 hrs Weight 87.997 kg Physical Exam Const: COMMON NORMALS: no acute distress, patient oriented x3 and alert GENERAL APPEARANCE: anxious ORIENTATION/CONSCIOUSNESS: Yes awake HENMT: COMMON NORMALS: oropharynx normal Neck/C-Spine: COMMON NORMALS: no JVD Chest: OTHER: Severe tenderness on palpation of left lower chest/left flank over the lower margin of the rib cage. Resp: COMMON NORMALS: normal respiratory effort AUSCULTATION: diminished lung sounds bilateral in the lower lung kirby Cardio: COMMON NORMALS: no JVD, regular rhythm, S1 normal heart sound present, S2 normal heart sound present and No murmurs present (Cardio) RHYTHM: regular rhythm HEART SOUNDS: S1 normal heart sound present and S2 normal heart sound present GI: COMMON NORMALS: Normal to inspection, nondistended, normoactive bowel sounds present, Soft to palpation and non-tender PALPATION: Yes Soft to palpation Extremity: COMMON NORMALS: no joint enlargement and no pedal edema OTHER: Right big toe with recent periungual debridement, appears to be healing well, no erythema, no discharge, covered by transparent Band-Aid. Neuro: COMMON NORMALS: patient oriented x3 and moves all extremities SENSORIUM/ORIENTATION: Yes alert Skin: COMMON NORMALS: no rashes or lesions noted GENERAL SKIN EXAM: no rashes or lesions noted Data : 08/08/20 04:06 08/08/20 04:06 Micro: Microbiology 08/07/20 18:00 Blood Culture - Preliminary Blood NEGATIVE TO DATE 08/07/20 13:48 Blood Culture - Preliminary Blood NEGATIVE TO DATE A&P Assessment and plan (1) Pneumonia: And consistent with possible bilateral lower lobe pneumonias. Patient is saturating well on room air. Has not spiked any fever since admission. No leukocytosis. Patient was recently in hospital and has finished a long course of antibiotics including vancomycin. Patient was started on vancomycin and Zosyn on admission. We will discontinue antibiotics and continue to monitor patient for next 24 hours. Blood cultures have remained negative. Bacterial antigen, sputum culture results awaited. Continue with incentive spirometry, flutter valve. Status: Acute (2) Left flank pain: Chest negative for any pulmonary embolism. Negative for any rib fracture. CT abdomen pelvis negative for any hematoma, acute injury. Today patient states he had a fall couple of weeks ago and she thinks she injured this area. Continue with Brandon at current dose. Stop Dilaudid. Will change lidocaine patch to fentanyl patch every 72 hours. Tramadol 50 every 8 hours as needed. Discussed and counseled patient in detail that pain level will never be 0 and expectations of should be around 5/10. Status: Acute (3) Hyperglycemia: Blood sugars under control now. Continue with insulin sliding scale at medium dose. Glargine 40 units twice daily. Carb consistent diet. Status: Acute (4) Lactic acidosis: Status: Acute (5) Troponin level elevated: 120-102. EKG without STEMI. Nonspecific changes. Recently assessed by coronary angiography on 07/25 and assessed by cardiology. At that time troponin was higher. No intervention was undertaken she was continued medical management with optimization of Imdur dose. Noted patent TOMAS to LAD and patent SVG to OM/ramus however 1 of the limbs of sequential graft is occluded. SVG to RCA occluded. Continue follow-up with cardiology to continue optimize medications. Status: Acute (6) Hyponatremia: Pseudohyponatremia. Recheck BMP. Status: Acute Additional A&P Information History of endocarditis: Recently finished a course of 6 weeks of vancomycin, says that she stopped about 2 weeks ago. Says that she suspects that maybe that was not enough, although is not sure why. Will recheck blood culture. Generalized anxiety disorder CAD Depression GERD HTN HLD DM2 IBS History of pancreatitis PTSD History of diagnosis of ulcerative colitis, although says has never had active disease. Other chronic medical issues Transfer to floors. Full code Lovenox for DVT prophylaxis Protonix for PUD prophylaxis. Attestations Medical Necessity Statement*: Hyperglycemia, flank pain, Time Spent in Patient Care: Greater than 35 minutes (>than 50% of time spent in counselling and/or direct pt care on unit). Coding Level of Care Code Acute Attendant [facility] Fwd Diagnoses Pneumonia J18.9 Left flank pain R10.9 Hyperglycemia R73.9 Lactic acidosis E87.2 Troponin level elevated R79.89 Hyponatremia E87.1
[2020-08-08] MEDS: trazodone 150 mg Tablet PO (20:16)
[2020-08-08] MEDS: lactulose oral liq 20 gm/30 mL UDC 10 GM PO (20:17)
[2020-08-08 20:38] LABS: Glucose Point of Care 165 mg/dL (70-110)
[2020-08-09] VITALS: BP 113/70; PULSE 79; RESP 18; TEMP 37.5; O2SAT 97
[2020-08-09] MEDS: tizanidine 4 mg Tablet 2 MG PO (00:01)
[2020-08-09] MEDS: heparin 5,000 unit/mL INJ 1 mL 5000 UNIT SUBCUT ×2 (02:13→10:44)
[2020-08-09 04:00] VITALS: BP 90/54; PULSE 61; RESP 16; TEMP 36.4; O2SAT 96
[2020-08-09] MEDS: HYDROcodone-acetaminophen 10-325 mg Tablet 1 TAB PO ×2 (04:08→08:14)
[2020-08-09 05:28] LABS: Basophils % 0.5 %; Eosinophils # 0.4 10^3/uL (0.0-0.8); Hematocrit 28.3 % (37.0-47.0); Hemoglobin 8.6 g/dL (11.5-15.3); Lymphocytes # 3.2 10^3/uL (0.8-4.8); Lymphocytes % 38.3 %; Mean Corpuscular HGB Conc 30.4 g/dL (30.0-36.0); Mean Corpuscular Hemoglobin 25.9 pg (28.0-34.0); Mean Corpuscular Volume 85.2 fL (81-99); Mean Platelet Volume 10.7 fL (7.4-10.4); Monocytes # 0.3 10^3/uL (0.2-0.9); Monocytes % 3.6 %; Neutrophils # 4.39 10^3/uL (1.8-7.7); Neutrophils % 52.2 %; Nucleated Red Blood Cells % 0 %; Platelet Count 325 10^3/cmm (130-400); Red Blood Count 3.32 10^6/uL (4.1-5.3); Red Cell Distribution Width 14.1 % (12.1-15.1); White Blood Count 8.4 10^3/uL (4.0-10.0)
[2020-08-09 05:55] LABS: Alanine Aminotransferase 6 U/L (0-33); Albumin Level 2.9 g/dL (3.5-5.2); Alkaline Phosphatase 129 IU/L (35-105); Anion Gap 13.6 (5-19); Aspartate Amino Transferase 11 U/L (0-32); Blood Urea Nitrogen 10 mg/dL (6-20); Calcium 8.8 mg/dL (8.5-10.5); Carbon Dioxide 26 mmol/L (22-29); Chloride 103 mmol/L (98-107); Glomerular Filtration Rate 128.1 mL/min (90-130); Glucose 133 mg/dL (65-115); Osmolality Calculated 286 mOsm/kg (285-295); Potassium 3.6 mmol/L (3.5-5.1); Sodium 139 mmol/L (136-145); Total Bilirubin 0.2 mg/dL (0.15-1.2); Total Protein 5.9 g/dL (6.6-8.7)
--- NOTE | 2020-08-09 06:18 | PC.NURSE ---
SHIFT SUMMARY Has slept for intervals. c/o quite a bit of pain in left ribcage/side area and says does not feel like is any better with the Fentanyl patch on. Has requested Hydrocodone q4h as well as the Xanaflex once. c/o increased pain in ribcage with movement, deep breaths and cough. Voiding well per BSC. Bandaid to right great toe
[2020-08-09 06:30] LABS: Glucose Point of Care 136 mg/dL (70-110)
[2020-08-09 07:43] VITALS: BP 102/65; PULSE 61; RESP 20; TEMP 36.6; O2SAT 92
[2020-08-09] MEDS: nystatin 100,000 unit/mL UDC 5 mL 500000 UNIT PO (08:15)
[2020-08-09] MEDS: insulin glargine 100 units/1 mL 40 UNIT SUBCUT (08:15)
[2020-08-09] MEDS: mupirocin oint 22 gm 1 APPLIC TOPICAL (08:16)
[2020-08-09] MEDS: clopidogrel 75 mg Tablet PO (08:16)
[2020-08-09] MEDS: isosorbide mononitrate ER 30 mg Tablet PO (08:16)
[2020-08-09] MEDS: sertraline 100 mg Tablet 200 MG PO (08:16)
[2020-08-09] MEDS: pantoprazole DR 40 mg Tablet PO (08:16)
[2020-08-09] MEDS: pregabalin 50 mg Capsule PO (09:04)
[2020-08-09 10:38] VITALS: PULSE 84; O2SAT 97
--- NOTE | 2020-08-09 10:58 | PM.DCS ---
Discharge Providers Date of Admission: 08/07/20 14:49 Date of Discharge: August 09, 2020 Attending Provider at Admission: Eric Yousif Attending Provider at Discharge: Pablito Francis MD Primary Care Provider: Juno Brown Diagnoses at Discharge Discharge Diagnosis (1) Pneumonia: Status: Acute (2) Left flank pain: Status: Acute (3) Hyperglycemia: Status: Acute (4) Lactic acidosis: Status: Acute (5) Troponin level elevated: Status: Acute (6) Hyponatremia: Status: Acute (7) Chronic prescription opiate use: Status: Acute Reason for Visit Reason for Visit: LEFT SIDE PAIN Hospital Course Discharge Summary: Collette Kothari is a 55 year old female admitted after presenting due to severe left lower chest/left flank sharp pain, triggered by inspiration and movement arterial pressure. She says she has been coughing quite a bit recently. Productive of yellow and green sputum. Pain in left lower chest/left flank woke her up this morning. In ER she is noted afebrile without tachycardia or leukocytosis, with severe hyperglycemia, BG 698, metabolic acidosis, anion gap 23.2, bicarbonate 20, pseudohyponatremia sodium 129, with noted lactic acidosis 4.7, with alkaline phosphatase at baseline at 153. With troponin less elevated compared to prior admission at 120-102. EKG without ST elevation with nonspecific changes. CT angiogram chest without PE, with findings consistent with bilateral pneumonia at bases. She received Rocephin and azithromycin. Started on insulin drip due to severe hyperglycemia. Received 1 L fluid bolus with improvement in lactic acid down to 2. Patient was admitted to the ICU because of hyperglycemia. She was started on insulin drip and her blood sugars responded well. She has been on subcutaneous insulin pre-meals along with Lantus for last 48 hours and blood sugars have remained stable. She continues to complain of left rib pain radiating into the flank. Patient was continued on home dose of Jenkinjones. She was requiring and asking for more pain medication during the hospitalization. She was comfortably retail regarding different etiologies for pain including opiate-induced pain. CT chest abdomen pelvis was done to rule out any local pathology and was negative for any muscle rupture, collection, rib fracture, signs of trauma. They were concerning for possible bilateral lower lobe pneumonia. Patient remained hemodynamically stable, afebrile without any leukocytosis and on room air during the hospitalization. It is quite possible that the consolidation found on CT scan is resolving pneumonia from a previous admission. Patient was monitored in hospital for more than 24 hours off antibiotics. Later in the hospitalization patient stated that she had a fall couple of weeks ago after that her pain on the left leg started it is quite possible that her pain is from the fall. She is been discharged in hemodynamically stable condition with advised to follow-up with her primary care provider and detailed counseling has been done to reduce opiate use as an outpatient as well. Her dose of Lantus is increased to 50 units twice daily. She is advised and counseled in detail to use incentive spirometry and flutter valve. Physical Exam Const: COMMON NORMALS: no acute distress, patient oriented x3 and alert GENERAL APPEARANCE: anxious ORIENTATION/CONSCIOUSNESS: Yes awake HENMT: COMMON NORMALS: oropharynx normal Neck/C-Spine: COMMON NORMALS: no JVD Chest: OTHER: Tenderness on palpation of left lower chest/left flank over the lower margin of the rib cage. Resp: COMMON NORMALS: normal respiratory effort AUSCULTATION: diminished lung sounds bilateral in the lower lung kirby Cardio: COMMON NORMALS: no JVD, regular rhythm, S1 normal heart sound present, S2 normal heart sound present and No murmurs present (Cardio) RHYTHM: regular rhythm HEART SOUNDS: S1 normal heart sound present and S2 normal heart sound present GI: COMMON NORMALS: Normal to inspection, nondistended, normoactive bowel sounds present, Soft to palpation and non-tender PALPATION: Yes Soft to palpation Extremity: COMMON NORMALS: no joint enlargement and no pedal edema OTHER: Right big toe with recent periungual debridement, appears to be healing well, no erythema, no discharge, covered by transparent Band-Aid. Neuro: COMMON NORMALS: patient oriented x3 and moves all extremities SENSORIUM/ORIENTATION: Yes alert Skin: COMMON NORMALS: no rashes or lesions noted GENERAL SKIN EXAM: no rashes or lesions noted Discharge Data Data Completed and Pending: Completed Studies During Hospitalization Category Date Time Status CT angio chest PE protcl [id number] Urge nt Cat Scan 08/07/20 12:[address] kidney stone [id number] Urgent Cat Scan 08/07/20 11:24 Completed XR chest 1V taniya ble [id number] Stat Exams 08/07/20 11:18 Completed Pending at discharge Category Date Time Status Bacterial Antigen Routine Lab 08/07/20 17:32 Uncollected Blood Culture Sta t Lab 08/07/20 18:00 Results Complete Blood Co unt w/Auto AM LABS Lab 08/10/20 04:00 Ordered Comprehensive Met abolic Panel AM LA BS Lab 08/10/20 04:00 Ordered Legionella Antige n STAT Routine Lab 08/07/20 17:32 Uncollected MRSA by PCR Joselyn ne Lab 08/08/20 23:00 Received Sputum Culture an d Gram Stain Joselyn ne Lab 08/07/20 17:33 Uncollected Labs from last 24 hours 08/09/20 08/09/20 08/09/20 06:21 04:30 04:30 WBC 8.4 RBC 3.32 L Hgb 8.6 L Hct 28.3 L MCV 85.2 MCH 25.9 L MCHC 30.4 RDW 14.1 Plt Count 325 MPV 10.7 H Neut % (Auto) 52.2 Lymph % (Auto) 38.3 Sandoval % (Auto) 3.6 Eos % (Auto) 5.0 Baso % (Auto) 0.5 Neut # (Auto) 4.39 Lymph # (Auto) 3.2 Sandoval # (Auto) 0.3 Eos # (Auto) 0.4 Baso # (Auto) 0.0 Nucleated RBC % (a uto) 0 Nucleated RBCs # 0.0 Sodium 139 Potassium 3.6 Chloride 103 Carbon Dioxide 26 Anion Gap 13.6 BUN 10 Creatinine 0.5 GFR Calculation 128.1 Glucose 133 H POC Glucose 136 Calculated Osmolal ity 286 Calcium 8.8 Total Bilirubin 0.2 AST 11 ALT 6 Alkaline Phosphata se 129 H Total Protein 5.9 L Albumin 2.9 L Globulin 3.0 08/08/20 08/08/20 08/08/20 20:32 17:04 11:22 WBC RBC Hgb Hct MCV MCH MCHC RDW Plt Count MPV Neut % (Auto) Lymph % (Auto) Sandoval % (Auto) Eos % (Auto) Baso % (Auto) Neut # (Auto) Lymph # (Auto) Sandoval # (Auto) Eos # (Auto) Baso # (Auto) Nucleated RBC % (a uto) Nucleated RBCs # Sodium Potassium Chloride Carbon Dioxide Anion Gap BUN Creatinine GFR Calculation Glucose POC Glucose 165 302 223 Calculated Osmolal ity Calcium Total Bilirubin AST ALT Alkaline Phosphata se Total Protein Albumin Globulin Vitals: Last Vital Signs Temp 97.8 F 08/09/20 07:43 Pulse 84 08/09/20 10:38 Resp 20 H 08/09/20 07:43 BP 102/65 08/09/20 07:43 Pulse Ox 97 08/09/20 10:38 Discharge Plan Discharge Patient Disposition: Home Condition: Stable Prescriptions: Continued mupirocin 2 % ointment 1 applic TOPICAL BID 30 Days Qty: 15 RF: 0 (DME) Diabetic shoes with molded inserts See Rx Instructions .Route .MEDSUPPLY Qty: 1 RF: 0 alprazolam [Xanax] 0.5 mg tablet See Rx Instructions .ROUTE .COMPLEX PRN (Reason: anxiety) Qty: 150 RF: 0 sertraline [Zoloft] 100 mg tablet 200 mg PO DAILY Qty: 60 RF: 2 trazodone 150 mg tablet 150 mg PO BEDTIME Qty: 30 RF: 2 zolpidem [Ambien] 10 mg tablet 10 mg PO BEDTIME Qty: 30 RF: 2 tizanidine 4 mg tablet 4 mg PO TID PRN (Reason: Spasms) RF: 0 clopidogrel 75 mg tablet 75 mg PO DAILY RF: 0 amlodipine [Norvasc] 5 mg tablet 5 mg PO DAILY RF: 0 hydrocodone-acetaminophen 10-325 mg tablet 1 tab PO Q4H PRN (Reason: Pain) RF: 0 pantoprazole 40 mg tablet,delayed release (DR/EC) 40 mg PO BID RF: 0 hydrochlorothiazide 12.5 mg capsule 12.5 mg PO DAILY RF: 0 insulin aspart U-100 [Novolog Flexpen U-100 Insulin] 100 unit/mL (3 mL) insulin pen See Rx Instructions .ROUTE .COMPLEX RF: 0 pregabalin [Lyrica] 150 mg capsule 150 mg PO TID RF: 0 fluticasone propionate 50 mcg/actuation Line [place],Suspension 2 spray INTRANASAL DAILY PRN (Reason: Nasal Congestion) RF: 0 sucralfate 1 gram Tablet 1 g PO QID PRN (Reason: unknown) RF: 0 promethazine 12.5 mg Tablet 25 mg PO Q6H PRN (Reason: Nausea) RF: 0 nitroglycerin [Nitrostat] 0.4 mg Tablet, Sublingual 0.4 mg SUBLINGUAL Q5M PRN (Reason: Chest Pain) RF: 0 lactulose 10 gram/15 mL (15 mL) Solution 10 g PO BID PRN (Reason: Constipation) RF: 0 potassium chloride 20 mEq Tablet Extended Release 20 meq PO DAILY RF: 0 polyethylene glycol 3350 [Miralax] 17 gram Powder In Packet 17 g PO DAILY PRN (Reason: Constipation) RF: 0 aspirin [Aspir-81] 81 mg Tablet,Delayed Release (Dr/Ec) 81 mg PO QPM RF: 0 Mucinex DM 30-600 mg Tablet Extended Release 12 Hr 1 tab PO Q12H PRN (Reason: Congestion) RF: 0 metronidazole 1 % Gel 1 applic TOPICAL DAILY PRN (Reason: unknown) RF: 0 nystatin 100,000 unit/mL suspension 5 ml PO QID RF: 0 Excedrin Migraine 250-250-65 mg Tablet 1 tab PO Q6H PRN (Reason: Migraine Headache) RF: 0 Vascepa 1 gram Capsule 2 g PO BID RF: 0 gemfibrozil [Lopid] 600 mg Tablet 600 mg PO DAILY RF: 0 isosorbide mononitrate 30 mg tablet extended release 24 hr 30 mg PO BID 30 Days Qty: 60 RF: 0 Changed carvedilol 25 mg tablet 6.25 mg PO BID Qty: 30 RF: 0 Lantus Solostar U-100 Insulin 100 unit/mL (3 mL) insulin pen 50 unit SUBCUT BID Qty: 0 RF: 0 Discharge Orders: Discharge Order (Routine); Ordered 08/09/20 Ordered By: Pablito Francis Referrals: Juno Brown [Primary Care Provider] - 1 month Discharge Diet: Usual diet Discharge Activity: Resume usual activity Activity Restrictions/Additional Instructions: Your dose of Lantus has been increased to 50 units twice daily. Please continue to use incentive spirometry as discussed in detail. Also use flutter valve as frequently as possible during the day. Please try to use less opiates as possible. For pain in the left rib cage you can use hot compress as required. Discharge Attestations Time Spent in Discharge Care*: greater than 30 min Specific Discharge Activities: Specific discharge activities: educating patient, discussing with transplant case manager/social workers/dc planners, documenting/other paperwork and evaluating patient/reviewing data Status at Discharge: Cognitive status at discharge: cognitively intact, Behavioral status at discharge: cooperative and independent in ADL's, Functional status at discharge: independent ambulation Overall status at discharge: patient is back to baseline Quality Metrics Clinical Quality Measures During this hospital stay, did patient experience: None Coding Level of Care Code 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
[2020-08-09 11:19] LABS: Glucose Point of Care 150 mg/dL (70-110)
[2020-08-09 11:28] VITALS: BP 128/78; PULSE 76; RESP 16; TEMP 36.6; O2SAT 94
[2020-08-09] MEDS: sodium chloride 0.9% 1,000 ML 30 ML IV (12:13)
[2020-08-09 12:26] VITALS: BP 128/78; PULSE 76; RESP 16; TEMP 36.6; O2SAT 94
== END 2020-08-09 12:55 | disposition home or self-care (01) | DRG 194 ==
LOC: ER 11:15 → ICU 15:31 → MEDSURG 08-08 16:05
PROVIDERS: Emergency Medicine; Admitting Provider Internal Medicine; PCP Family Medicine; Visit Provider Student in an Organized Health Care Education/Training Program
DX: J18.9 Pneumonia, unspecified organism (principal); E87.2 Acidosis; E87.1 Hypo-osmolality and hyponatremia; I25.10 Atherosclerotic heart disease of native coronary artery without angina pectoris; F41.8 Other specified anxiety disorders; K21.9 Gastro-esophageal reflux disease without esophagitis; I10 Essential (primary) hypertension; E78.1 Pure hyperglyceridemia; E11.65 Type 2 diabetes mellitus with hyperglycemia; Z79.4 Long term (current) use of insulin; F43.12 Post-traumatic stress disorder, chronic; Z95.1 Presence of aortocoronary bypass graft; Z95.5 Presence of coronary angioplasty implant and graft; Z87.891 Personal history of nicotine dependence; Z79.891 Long term (current) use of opiate analgesic
CPT/HCPCS: 12345; 36415; 36416; 71045; 71275; 74176; 80048; 80053; 81003; 82009; 82962; 83605; 83690; 83735; 84100; 84484; 85025; 87040; 87641; 93005; 96372; 96375; 99284; J0456; J0696; J1170; J1200; J1644; J1815 ×2; J2060; J2405; J2543; J3010; J3370; J7030; J7050; Q0169; Q9967

== ENCOUNTER → 2020-08-25 07:50 | Outpatient (BNVA) | payer MEDICAID, SELFPAY | PROVIDERS: PCP Family Medicine; Visit Provider Nurse Practitioner | DX: F43.12 Post-traumatic stress disorder, chronic (principal) | CPT/HCPCS: 99213 ==

== ENCOUNTER → 2020-09-06 11:35 | Outpatient (BNVA) | payer MEDICAID, SELFPAY | PROVIDERS: PCP Family Medicine; Visit Provider Podiatrist Foot & Ankle Surgery | DX: M79.671 Pain in right foot (principal) | CPT/HCPCS: 73630 ==